=== PATIENT | female | born 1955 | race Caucasian/White ===

== ENCOUNTER 2023-05-12 12:07 | Outpatient (OUT) | payer BC, SELFPAY ==
--- NOTE | 2023-05-12 12:19 | XR_ITS ---
[address] [address] Patient Name: REINA KELELY MRN: [id number] date: 1955 Sex: F Assigned Patient Location: [facility] Current Patient Location: Accession/Order Number: [id number] Exam Date: 05/12/2023 12:28 Report Date: 05/15/2023 11:10 At the request of: JOHNATHAN RAINES Procedure: XR ribs RT min 3V w CXR1V EXAMINATION: XR ribs RT min 3V w CXR1V HISTORY: Acute Pain Right Ribs R07.81 COMPARISON: 11/28/2021 FINDINGS: LUNGS: No significant pulmonary parenchymal abnormalities. Retrocardiac opacity is suspected a hiatal hernia PLEURA: No pneumothorax, effusion, or pleural thickening. MEDIASTINUM: No visible mass or adenopathy. CARDIAC: No cardiomegaly or cardiac silhouette abnormality. RIBS: Acute minimally displaced fractures right lateral seventh and eighth and ninth ribs OTHER: Degenerative changes with rotatory levocurvature XR/XR ribs RT min 3V w CXR1V IMPRESSION: Acute minimally displaced fractures right lateral seventh, eighth and ninth ribs Electronically authenticated by: IRIS MONTES DE OCA Date: 05/15/2023 11:10
== END 2023-05-12 12:08 | disposition home or self-care (01) ==
LOC: RAD 12:10
PROVIDERS: PCP Nurse Practitioner Family; Visit Provider Nurse Practitioner Family
DX: R07.81 Pleurodynia (principal)
CPT/HCPCS: 71101

== ENCOUNTER 2024-07-24 06:55 | Outpatient (OUT) | payer BC, SELFPAY ==
--- NOTE | 2024-07-24 07:04 | MM_ITS ---
Patient Name: REINA KELLEY MR#: [id number] : 1955 Exam Date: 07/24/2024 Ordering Doctor: RAYNA ORDONEZ RADIOLOGY REPORT PROCEDURE: MM TOMOSYNTHESIS SCREENING BI COMPARISON: MG MAMM RT DIAG FU, 10/08/2021. MG MAMM SCREEN 3D MARKELL CAD, 09/16/2021. MAMMO MARKELL SCREEN, 08/07/2006. INDICATIONS: Screening Calculator Name NCI Breast Cancer Risk Assessment Tool 5 Year Breast Cancer Risk 1.50% Lifetime Breast Cancer Risk 5.20% Personal Breast Cancer No Personal Ovarian Cancer No Treatments None Family Cancers None LOCATION: [facility] BREAST COMPOSITION: The breasts are heterogeneously dense,which may obscure small masses. FINDINGS: DIAGNOSTIC CATEGORY 1--NEGATIVE. RIGHT BREAST: No significant suspicious finding. No significant change has occurred. LEFT BREAST: No significant suspicious finding. No significant change has occurred. RECOMMENDATIONS: ROUTINE MAMMOGRAM AND CLINICAL EVALUATION IN 12 MONTHS. PLEASE NOTE: A NORMAL MAMMOGRAM DOES NOT EXCLUDE THE POSSIBILITY OF BREAST CANCER. A CLINICALLY SUSPICIOUS PALPABLE LUMP SHOULD BE BIOPSIED. Dictated by: Jake Baez M.D. on 07/24/2024 at 15:42 Approved by: Jake Baez M.D. on 07/24/2024 at 15:47
== END 2024-07-24 06:56 | disposition home or self-care (01) ==
LOC: MAMMO 06:57
PROVIDERS: PCP Nurse Practitioner Family; Visit Provider Nurse Practitioner Family
DX: Z12.31 Encounter for screening mammogram for malignant neoplasm of breast (principal)
CPT/HCPCS: 77063; 77067

== ENCOUNTER 2024-08-22 12:53 | Emergency (ER) | payer MEDICARE, SELFPAY ==
[2024-08-22 13:06] VITALS: BP 175/91; PULSE 111; TEMP 36.7; O2SAT 97; BMI 21.9
[2024-08-22 13:45] LABS: Bilirubin Urine NEGATIVE (NEGATIVE); Blood Urine NEGATIVE (NEGATIVE); Clarity Urine CLEAR (CLEAR); Color Urine YELLOW (YELLOW); Glucose Urine UA NEGATIVE (NEGATIVE); Ketones Urine NEGATIVE (NEGATIVE); Leukocyte Esterase Urine TRACE (NEGATIVE); Nitrite Urine NEGATIVE (NEGATIVE); Protein Urine NEGATIVE (NEG/TRACE); Specific Gravity Urine 1.015 (1.005-1.025); Urobilinogen Urine 0.2 EU/dL (0.2-1.0)
[2024-08-22 13:46] LABS: Urine Microscopic Indicated YES
[2024-08-22 13:55] LABS: RBC Urine 0-2 #/HPF (0-2)
[2024-08-22 13:56] LABS: Bacteria Urine TRACE #/HPF (NONE SEEN); Cast Seen? SEEN #/LPF (NONE SEEN); Crystals Seen? None Seen #/HPF (None Seen); Hyaline Casts Urine RARE; Mucus Urine NONE SEEN (NONE SEEN); Squamous Epithelial Cell Urine FEW #/LPF (NONE/RARE); Urine Culture Indicated NO
--- NOTE | 2024-08-22 14:48 | ECG_ITS ---
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
[2024-08-22 15:03] LABS: Basophils Absolute Auto 0.1 10^3/uL (0.0-0.1); Basophils Percent Auto 0.6 % (0.2-2.0); Eosinophils Absolute Auto 0.1 10^3/uL (0.0-0.7); Eosinophils Percent Auto 0.6 % (0.9-7.0); Hematocrit 46.7 % (36.0-48.0); Hemoglobin 15.4 g/dL (12.0-16.0); Immature Granulocytes Abs Auto 0.03 10^3/uL (0.00-0.03); Immature Granulocytes Pct Auto 0.2 % (0.0-0.5); Lymphocytes Absolute Auto 1.6 10^3/uL (1.2-3.8); Lymphocytes Percent Auto 11.3 % (20.5-60.0); Mean Corpuscular Hemoglobin 31.4 pg (26.7-34.0); Mean Corpuscular Volume 95.1 fL (81.0-99.0); Mean Platelet Volume 9.9 fL (9.5-13.5); Monocytes Absolute Auto 0.8 10^3/uL (0.3-0.8); Monocytes Percent Auto 5.8 % (1.7-12.0); Neutrophils Absolute Auto 11.3 10^3/uL (1.4-6.5); Neutrophils Percent Auto 81.5 % (43.0-75.0); Platelet Count 330 10^3/uL (150-450); Red Blood Count 4.91 10^6/uL (4.20-5.40); Red Cell Distribution Width 13.3 % (11.0-15.0); White Blood Count 13.9 10^3/uL (4.0-11.0)
[2024-08-22 15:19] VITALS: PULSE 105
[2024-08-22 15:20] VITALS: PULSE 108
[2024-08-22 15:24] VITALS: PULSE 105
[2024-08-22 15:28] VITALS: TEMP 37.3
[2024-08-22 15:29] LABS: Alanine Aminotransferase 35 U/L (14-59); Albumin Globulin Ratio 0.9; Albumin Level 4.1 g/dL (3.4-5.0); Alkaline Phosphatase 105 U/L (46-116); Anion Gap 17.9; Aspartate Amino Transferase 26 U/L (15-37); BUN Creatinine Ratio 14.5; Bilirubin Total 0.6 mg/dL (0.2-1.0); Calcium 9.9 mg/dL (8.5-10.1); Chloride 100 mmol/L (98-107); Estimated GFR (African America >60 (>=60 mL/min/1.73m^2); Estimated GFR (Non-African Ame >60 (>=60 mL/min/1.73m^2); Globulin 4.5 g/dL; Glucose 123 mg/dL (74-106); Lactate/Lactic Acid 1.3 mmol/L (0.4-2.0); Potassium 3.9 mmol/L (3.5-5.1); Prothrombin Time 9.8 sec (9.0-11.6); Sodium 142 mmol/L (136-145); Total Protein 8.6 g/dL (6.4-8.2); Troponin I High Sensitivity <4.0 pg/mL (4.0-51.3)
[2024-08-22 15:30] LABS: INR <0.93
--- NOTE | 2024-08-22 15:32 | CT_ITS ---
[address] [address] Patient Name: REINA KELLEY MRN: [id number] date: 1955 Sex: F Assigned Patient Location: ER Current Patient Location: Accession/Order Number: [id number] Exam Date: 08/22/2024 15:40 Report Date: 08/22/2024 16:09 At the request of: KENDRA AGUIRRE Procedure: CT abdomen pelvis wo con EXAMINATION: CT abdomen pelvis wo con HISTORY: Left flank pain ; left upper quadrant pain COMPARISON: CT abdomen pelvis 11/28/2021 TECHNIQUE: Axial, Coronal, and Sagittal images were obtained without and/or with IV contrast as indicated by examination type. Dose reduction techniques were achieved by using automated exposure control and/or adjustment of mA and/or kV according to patient size and/or use of iterative reconstruction technique. FINDINGS: LUNG BASES: Mild atelectasis within left lung base adjacent the hiatal hernia. LIVER: No enlargement, atrophy, suspicious density, or significant focal lesion. BILIARY: No dilatation or calcification. PANCREAS: No lesion, fluid collection, or abnormal duct dilatation. SPLEEN: No enlargement or focal lesion. ADRENALS: No mass or enlargement. KIDNEYS: No mass, obstruction, or calcification. BOWEL/MESENTERY: Large hiatal hernia with part of the stomach above the diaphragm. Within the stomach are 2 separate dense foreign bodies, one is approximately 10 x 5 x 5 mm. The other is only partially included at the upper level of today's imaging but is causing artifact. Unremarkable small bowel and colon. AORTA/VASCULAR: No aneurysm or dissection. RETROPERITONEUM: No mass or adenopathy. LYMPH NODES: No adenopathy. URINARY BLADDER: No visible focal wall thickening, lesion, or calculus. PELVIC ORGANS: Hysterectomy. ABDOMINAL WALL: No mass or hernia. BONES: No bony lesion or fracture. OTHER: Negative. CT/CT abdomen pelvis wo con IMPRESSION: 1. No urinary tract calculi. 2. Unremarkable gallbladder and pancreas. 3. Large hiatal hernia; not significantly changed. 4. 2 dense foreign bodies within the stomach of uncertain etiology. Correlate with patient history. These could be ingested foreign bodies or possibly very dense mineral/medication tablets, but are atypical. Electronically authenticated by: MAURIZIO BANEGAS Date: 08/22/2024 16:09
--- NOTE | 2024-08-22 15:33 | ED_ITS ---
HPI HPI - General Adult General Chief complaint: Abdominal Pain Stated complaint: RIB/ABDOMNAL PAIN Time Seen by Provider: 08/22/24 15:15 Source: patient Mode of arrival: walk-in Limitations: no limitations History of Present Illness HPI narrative: Patient is a 69-year-old female who presents to the emergency department for an episode of left upper quadrant/left flank pain that occurred earlier today after eating. She states the pain is now resolved. She had 1 episode of emesis on the way to the emergency department. She states the pain is now resolved and she no longer feels nauseous. She states she would like to be evaluated because she does not want the pain to come back again. She has not had any fevers, chest pain or shortness of breath. She denies any other upper respiratory symptoms. She denies urinary symptoms, diarrhea. No previous abdominal surgeries. At time of my evaluation, the patient is drinking a cup of tea comfortably watching television. Related Data Previous Rx's ?Medication ?Instructions ?Recorded ondansetron 4 mg disintegrating 4 mg PO Q6H PRN nausea and 08/22/24 tablet vomiting #12 tabs sucralfate 1 gram tablet (Carafate) 1 g PO Q6H PRN abdominal pain #12 08/22/24 tabs Allergies Allergy/AdvReac Type Severity Reaction Status Date / Time No Known Drug Allergies Allergy Verified 08/22/24 13:06 Opioid HPI Opioid Management Most Recent Opioid Data: No Data to Display Review of Systems ROS Constitutional Denies: fever or chills Ears, nose, mouth, and throat Denies: throat pain or nasal congestion Cardiovascular Denies: chest pain Respiratory Denies: shortness of breath Gastrointestinal Reports: abdominal pain, nausea and vomiting; Denies: diarrhea Genitourinary Denies: painful urination Musculoskeletal Denies: back pain or neck pain Integumentary/Breast Denies: rash Neurological Denies: numbness in extremities or weakness in extremities Hematologic/Lymphatic Denies: easy bruising or easy bleeding Exam Narrative Exam Narrative: Gen.: Awake, alert, in no distress Head: Normocephalic, atraumatic ENT: Moist mucous membranes Respiratory: No respiratory distress, lungs clear bilaterally Cardio: Regular rate and rhythm Gastrointestinal: Abdomen is soft, nondistended and nontender to palpation Extremities: Moves extremities equally Psych: Normal mood and affect Neuro: No focal neuro deficit Skin: Warm, dry, intact Constitutional Vital Signs, click to edit/add: Last Vital Signs Temp 99.2 F 08/22/24 15:28 Pulse 108 H 08/22/24 15:20 Resp 24 H 08/22/24 15:20 BP 175/91 H 08/22/24 13:06 Pulse Ox 97 08/22/24 13:06 O2 Del Method Room Air 08/22/24 13:06 Course Vital Signs Vital signs: Vital Signs Temperature 98.1 F 08/22/24 13:06 Pulse Rate 111 H 08/22/24 13:06 Respiratory Rate 18 08/22/24 13:06 Blood Pressure 175/91 H 08/22/24 13:06 Pulse Oximetry 97 08/22/24 13:06 Oxygen Delivery Method Room Air 08/22/24 13:06 Temperature 99.2 F 08/22/24 15:28 Pulse Rate 108 H 08/22/24 15:20 Respiratory Rate 24 H 08/22/24 15:20 Blood Pressure 175/91 H 08/22/24 13:06 Pulse Oximetry 97 08/22/24 13:06 Oxygen Delivery Method Room Air 08/22/24 13:06 Medical Decision Making MDM Narrative Medical decision making narrative: EKG, laboratory studies reviewed and noted, patient was found to have a mild urinary tract infection and mild leukocytosis. She had no complaints of pain or nausea in the ER and abdomen is soft and benign. CT of the abdomen and pelvis without contrast shows a large hiatal hernia with no other acute process. Patient discharged with Carafate and Zofran to follow-up with PCP. Return to the emergency department if symptoms change or worsen SUPERVISED APC VISIT, PHYSICIAN ATTESTATION: Based on the medical record the care appears appropriate. ? Medical Records Medical records reviewed: Yes I reviewed the patient's medical records Lab Data Lab results reviewed: Yes I reviewed the patient's lab results Labs: Lab Results 08/22/24 08/22/24 Range/Units 13:15 14:57 WBC 13.9 H (4.0-11.0) 10^3/uL RBC 4.91 (4.20-5.40) 10^6/uL Hgb 15.4 (12.0-16.0) g/dL Hct 46.7 (36.0-48.0) % MCV 95.1 (81.0-99.0) fL MCH 31.4 (26.7-34.0) pg MCHC 33.0 (29.9-35.2) g/dL RDW 13.3 (11.0-15.0) % Plt Count 330 (150-450) 10^3/uL MPV 9.9 (9.5-13.5) fL Neut % (Auto) 81.5 H (43.0-75.0) % Lymph % (Auto) 11.3 L (20.5-60.0) % [place] % (Auto) 5.8 (1.7-12.0) % Eos % (Auto) 0.6 L (0.9-7.0) % Baso % (Auto) 0.6 (0.2-2.0) % Neut # (Auto) 11.3 H (1.4-6.5) 10^3/uL Lymph # (Auto) 1.6 (1.2-3.8) 10^3/uL [place] # (Auto) 0.8 (0.3-0.8) 10^3/uL Eos # (Auto) 0.1 (0.0-0.7) 10^3/uL Baso # (Auto) 0.1 (0.0-0.1) 10^3/uL Abs Immat Gran (auto) 0.03 (0.00-0.03) 10^3/uL Imm/Tot Granulo (auto) 0.2 (0.0-0.5) % PT 9.8 (9.0-11.6) sec INR <0.93 Sodium 142 (136-145) mmol/L Potassium 3.9 (3.5-5.1) mmol/L Chloride 100 (98-107) mmol/L Carbon Dioxide 28.0 (21.0-32.0) mmol/L Anion Gap 17.9 BUN 12.0 (7.0-18.0) mg/dL Creatinine 0.83 (0.55-1.02) mg/dL Est GFR ( Amer) >60 (>=60 mL/min/1.73m^2) Est GFR (Non-Af Amer) >60 (>=60 mL/min/1.73m^2) BUN/Creatinine Ratio 14.5 Glucose 123 H (74-106) mg/dL Lactate 1.3 (0.4-2.0) mmol/L Calcium 9.9 (8.5-10.1) mg/dL Total Bilirubin 0.6 (0.2-1.0) mg/dL AST 26 (15-37) U/L ALT 35 (14-59) U/L Alkaline Phosphatase 105 (46-116) U/L Troponin I High Sens <4.0 L (4.0-51.3) pg/mL Total Protein 8.6 H (6.4-8.2) g/dL Albumin 4.1 (3.4-5.0) g/dL Globulin 4.5 g/dL Albumin/Globulin Ratio 0.9 Lipase 73.0 (16.0-77.0) U/L Urine Color Yellow (YELLOW) Urine Clarity Clear (CLEAR) Urine pH 8.0 (5.0-9.0) Ur Specific [place] 1.015 (1.005-1.025) Urine Protein Negative (NEG/TRACE) mg/dL Urine Glucose (UA) Negative (NEGATIVE) mg/dL Urine Ketones Negative (NEGATIVE) mg/dL Urine Occult Blood Negative (NEGATIVE) Urine Nitrite Negative (NEGATIVE) Urine Bilirubin Negative (NEGATIVE) Urine Urobilinogen 0.2 (0.2-1.0) EU/dL Ur Leukocyte Esterase Trace A (NEGATIVE) Urine RBC 0-2 (0-2) #/HPF Urine WBC 2-5 A (NONE SEEN) #/HPF Ur Squamous Epith Cells Few A (NONE/RARE) #/LPF Urine Crystals None seen (None Seen) #/HPF Urine Bacteria Trace A (NONE SEEN) #/HPF Urine Casts Seen A (NONE SEEN) #/LPF Hyaline Casts Rare Urine Mucus None seen (NONE SEEN) Ur Culture Indicated? No Imaging Data CT scan - abdomen: Attestation: I have reviewed the pertinent imaging results. Radiologist's impression: ITS Impressions Abdomen/Pelvis CT 08/22/24 15:32 IMPRESSION: 1. No urinary tract calculi. 2. Unremarkable gallbladder and pancreas. 3. Large hiatal hernia; not significantly changed. 4. 2 dense foreign bodies within the stomach of uncertain etiology. Correlate with patient history. These could be ingested foreign bodies or possibly very dense mineral/medication tablets, but are atypical. Electronically authenticated by: MAURIZIO BANEGAS Date: 08/22/2024 16:09 ECG Data Attestation: I personally reviewed and interpreted this ECG as follows: (Sinus tachycardia at a rate of 106, no acute ST elevation or ectopy. EKG reviewed by attending physician) Discharge Plan Discharge Chief Complaint: Abdominal Pain Clinical Impression: Abdominal pain, Hiatal hernia, Acute UTI Patient Disposition: Home, Self-Care Time of Disposition Decision: 16:19 Condition: Good Prescriptions / Home Meds: New sucralfate [Carafate] 1 gram tablet 1 g PO Q6H PRN (Reason: abdominal pain) Qty: 12 0RF ondansetron 4 mg tablet,disintegrating 4 mg PO Q6H PRN (Reason: nausea and vomiting) Qty: 12 0RF Print Language: Tongan Instructions: Hiatal Hernia (ED), Acute Abdominal Pain (ED) Referrals: JOHNATHAN RAINES [Primary Care Provider] - 1 week
== END 2024-08-22 16:34 | disposition home or self-care (01) ==
PROVIDERS: Physician Assistant; Emergency Provider Emergency Medicine; PCP Nurse Practitioner Family
DX: N39.0 Urinary tract infection, site not specified (principal); R10.9 Unspecified abdominal pain; K44.9 Diaphragmatic hernia without obstruction or gangrene
CPT/HCPCS: 36415; 74176; 80053; 81001; 83605; 83690; 84484; 85025; 85610; 93005; 99285

== ENCOUNTER 2025-05-25 09:18 | Emergency (ER) | payer MEDICARE, SELFPAY ==
--- OUTSIDE RECORDS SUMMARY | 2025-05-23 11:20 | XMS_ITS | Encounter Summary ---
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 Primary Care Provider + Reason for Visit * Reason Comments F/U anxiety Encounter Details Date Type Department Care Team (Late st Contact Info) Description 05/23/2025 11:20 AM EDT Office Visit [facility] Physicians Internal Medicine - Family Medicine [address] [place] [address] [facility] [address] [place] [address] Anxiety (Primary Dx); Essential hypertension Social History Tobacco Use Types Packs/Day Years Used Date Smoking Tobacco: Former Cigarettes 0.5 20 0 02/25/1998 - 02/25/2018 Smokeless Tobacco: Never Alcohol Use Standard Drinks/Week Comments Yes 0 (1 standard drink = 0.6 oz pur e alcohol) socially PHQ-2 Answer Date Recorded Total Score 0 05/23/2025 Childcare Answer Date Recorded Childcare Unknown 04/10/2019 Employment Answer Date Recorded Employment Unknown 04/10/2019 Hunger Screening Answer Date Recorded Within the past 12 months we worried whether our food would run out before we got money to buy more. Never True 05/23/2025 Within the past 12 months th e food we bought just didn't last and we didn't have money to get more. Never True 05/23/2025 Purpose - Life Answer Date Recorded Purpose and direction in life Unknown Comments No Sex and Gender Information Value Date Recorded Sex Assigned at Not on file Legal Sex Female 11:24 AM EDT Gender Identity Not on file Sexual Orientation Not on file documented as of this encounter Last Filed Vital Signs Vital Sign Reading Time Taken Comments Blood Pressure 158/98 05/23/2025 12:02 PM EDT Pulse 62 05/23/2025 12:02 PM EDT Temperature 36.8 C (98.2 F) 05/23/2025 12:02 PM EDT Respiratory Rate 18 05/23/2025 12:02 PM EDT Oxygen Saturation 99% 05/23/2025 12:02 PM EDT Inhaled Oxygen Concentration - - Weight 49 kg (108 lb) 05/23/2025 12:02 PM EDT Height 154.9 cm (5' 0.98 ) 05/23/2025 12:02 PM E DT Body Mass Index 20.42 05/23/2025 12:02 PM EDT documented in this encounter Progress Notes * JANA Coley - 05/23/2025 11:20 AM EDT [address] [facility] [address] Patient: Jonathan Anna Date of : 1955 Encounter Date: 05/23/2025 History of Present Illness: The patient is a 69 y.o. female, an established patient, and is here for Chief Complaint Patient presents with F/U anxiety . HPI Patient states her anxiety is slightly better and she is able to sleep better on the Lexapro. She was too nervous to take the Ativan for breakthrough symptoms because it was a controlled substance and she is worried she will get sleepy at work. Patient has lost more weight because she does not feellike eating when she has increased anxiety and when she does eat makes her feel nauseated and has ea rly satiety. She denies any suicidal thoughts. Denies any adverse side effects to the Lexapro. Problem List Items Addressed This Visit Cardiovascular and Mediastinum Essential hypertension Other Visit Diagnoses Anxiety - Primary Past Medical, Family, and Social History Update: The following portions of the patient's history were reviewed and updated as appropriate: allergies, current medications, past family history, past medical history, past social history, past surgicalhistory and problem list. Past Medical History: Diagnosis Date Anxiety Hypertension Neck pain Past Surgical History: Procedure Laterality Date COLONOSCOPY 2011 COLONOSCOPY N/A 07/03/2019 Performed by Michael Jenkins DO at [facility] LAPROSCOPIC ULTRASOUND GUIDED MICROWAVE ABLASION OF LIVER TUBAL LIGATION Current Outpatient Medications Medication Sig Dispense Refill alendronate (FOSAMAX) 70 mg tablet Take 1 tablet (70 mg total) by mouth every 7 days. In a.m. with water on empty stomach, nothing else by mouth and remain upright for 30min 12 tablet 3 amLODIPine (NORVASC) 10 mg tablet TAKE 1 TABLET BY MOUTH EVERY DAY 90 tablet 1 celecoxib (CeleBREX) 200 mg capsule Take 1 capsule (200 mg total) by mouth daily as needed for pain. TAKE 1 CAPSULE BY MOUTH IN THE MORNING 90 capsule 1 cholecalciferol (VITAMIN D3) 50,000 units capsule Take 1 capsule (50,000 Units total) by mouth oncea week. 90 capsule 1 levothyroxine (SYNTHROID, LEVOTHROID) 50 MCG tablet Take 1 tablet (50 mcg total) by mouth in the morning. 90 tablet 1 rosuvastatin (CRESTOR) 5 mg tablet Take 1 tablet (5 mg total) by mouth in the morning. 90 tablet 3 escitalopram (LEXAPRO) 20 mg tablet Take 1 tablet (20 mg total) by mouth in the evening. 90 tablet 1 No current facility-administered medications for this visit. (All medications reviewed and updated by provider since last office visit or hospitalization) Allergies: Patient has no known allergies. Tobacco History: Social History Tobacco Use Smoking Status Former Current packs/day: 0.00 Average packs/day: 0.5 packs/day for 20.0 years (10.0 ttl pk-yrs) Types: Cigarettes Start date: 02/25/1998 Quit date: 02/25/2018 Years since quittin.2 Smokeless Tobacco Never (If patient a smoker, smoking cessation counseling offered) Social History: Social History Substance and Sexual Activity Alcohol Use Yes Comment: socially Review of Systems: Review of Systems Psychiatric/Behavioral: Negative for agitation, behavioral problems, decreased concentration, dysphoric mood, hallucinations, self-injury, sleep disturbance and suicidal ideas. The patient is nervous/anxious. The patient is not hyperactive. Physical Exam: BP (!) 158/98 (BP Site: Left Arm, BP Postition: Sitting, BP CUFF SIZE: S (7-9 inches)) Pulse 62 Temp 36.8 ??C (98.2 ??F) (Tympanic) Resp 18 Ht 154.9 cm (5' 0.98 ) Wt 49 kg (108 lb) SpO2 99% BMI 20.42 kg/m?? Physical Exam Vitals reviewed. Constitutional: Appearance: Normal appearance. HENT: Head: Normocephalic and atraumatic. Skin: Capillary Refill: Capillary refill takes less than 2 seconds. Neurological: General: No focal deficit present. Mental Status: She is alert and oriented to person, place, and time. Gait: Gait normal. Psychiatric: Attention and Perception: Attention normal. Mood and Affect: Mood is anxious. Speech: Speech normal. Behavior: Behavior normal. Thought Content: Thought content normal. Cognition and Memory: Cognition normal. Assessment and Plan: Jonathan was seen today for f/u anxiety. Diagnoses and all orders for this visit: Anxiety Essential hypertension Other orders - escitalopram (LEXAPRO) 20 mg tablet; Take 1 tablet (20 mg total) by mouth in the evening. Follow-up: Patient would like to increase the dose of Lexapro to 20 mg. She may use the Ativan as needed at night if she has panic or anxiety breakthrough. She does not want to add counseling at this time. Patient's blood pressure was above goal today on rechecked by provider. She was encouraged to checkher blood pressures 2-3 times per week at home and record and follow up in 1 month with blood pressure diary. She reports to have taken her amlodipine today before appointment. Follow up in 1 month for anxiety and blood pressure rechecked. JANA COLEY APRN-CNP 05/23/25 1308 documented in this encounter Plan of Treatment Upcoming Encounters Date Type Department Care Team (Late st Contact Info) Description 07/03/2025 3:40 PM EDT [facility] - Family Medicine [facility] [place] [address] [place] [address] Belem Rodriguez APRN-CNP [address] [place] [address] documented as of this encounter Visit Diagnoses Diagnosis Anxiety- Primary Anxiety state, unspecified Essential hypertension Unspecified essential hypertension documented in this encounter Additional Health Concerns Assessment Noted Time PHQ-9 Depression Total Score: 0 05/23/20 25 12:01 PM EDT documented as of this encounter Care Teams Frame Polisher Relationship Specialty Start Date End Date Belem Rodriguez APRN-CNP [address] [place] [address] PCP - General Internal Medicine 04/06/24 documented as of this encounter
[2025-05-25] VITALS (19 sets, daily range): BP systolic 163–222; BP diastolic 78–107; PULSE 58–79; TEMP 36.9; O2SAT 96–100; BMI 21.1
--- OUTSIDE RECORDS SUMMARY | 2025-05-25 09:37 | XMS_ITS | CCD ---
Author Organization [facility] Care Team Providers Care Title 1 Tutor Name Role Phone Sadie Raines Primary Care Provider Iris Aponte Unavailable YANNA, DR SADIE Sahni Admitting Unavailable YANNA, DR SADIE Sahni Attending Unavailable YANNA, DR SADIE Sahni Primary Care Unavailable TAVON, DR IRIS Dias Consulting Unavailable YANNA, DR SADIE Sahni Consulting Unavailable YANNA, DR SADIE Sahni Admitting Unavailable YANNA, DR SADIE Sahni Attending Unavailable BROOKE, DR KAUFFMAN Primary Care Unavailable TAVON, DR IRIS Dias Consulting Unavailable KUNNirmal, DR SADIE Sahni Consulting Unavailable KUNNirmal, DR SADIE Sahni Admitting Unavailable KUNNirmal, DR SADIE Sahni Attending Unavailable KUNNirmal, DR SADIE Sahni Primary Care Unavailable KUNNirmal, DR SADIE Sahni Consulting Unavailable YANNA, DR SADIE Sahni Primary Care Unavailable KALI RODRIGUEZ Admitting Unavailable KALI RODRIGUEZ Attending Unavailable ARNOL, DR OLEARY Consulting Unavailable JENNIFER, KALI Consulting Unavailable MARTIN, LUCILLE Consulting Unavailable KLYM, LAURYN Consulting Unavailable Nain Goodman Unavailable [phone] SADIE RAINES Referring Unavailable JAMARI COX Primary Care Unavailable MERY, BELEM Yasmeen Referring Unavailable MERY, BELEM L Primary Care Unavailable Mery MED [employer] CLEANER MAINTAINER, Belem L Primary Care Provider Jamari Cox DO Primary Care Provider Unavailable Primary Care Provider UnavailKENDRA Flaherty Attending Unavailable Mery MED [employer]OVERHEAD CLEANER MAINTAINER, Belem L Primary Care Provider MERY, BELEM L Attending Unavailable MERY, BELEM L Referring Unavailable MERY, BELEM L Primary Care Unavailable MERY, BELEM L Attending Unavailable MERY, BELEM L Referring Unavailable MERY, BELEM L Primary Care Unavailable MERY, BELEM L Attending Unavailable MERY, BELEM Yasmeen Referring Unavailable BELEM ORDONEZ Primary Care Unavailable BELEM ORDONEZ Attending Unavailable MERY, BELEM L Referring Unavailable MERY BELEM Yasmeen Primary Care Unavailable MERY, BELEM Yasmeen Attending Unavailable BELEM ORDONEZ Referring Unavailable BELEM ORDONEZ Primary Care Unavailable Medications Current Medications Medication Drug Class(es) Dates Sig (Normalized) Sig (Original) alendronic acid 70 mg oral tablet (20 sources) Bisphosphonate Start: 12-20-2024 take 1 tablet by mouth every week alendronate (Fosamax) 70 MG tablet Take 70 mg by mouth once a week 12/20/2024 Active Start: 06-20-2023 End: 04-11-2025 take 1 tablet by mouth in the morning alendronate (FOSAMAX) 70 mg tablet Take 1 tablet (70 mg total) by mouth every 7 days. In a.m. with water on empty stomach, nothing else by mouth and remain upright for 30min 12 tablet 3 04/11/2025 Active amLODIPine 10 mg oral tablet (20 sources) Dihydropyridine Calcium Channel Bhupendra Start: 09-22-2023 End: 09-10-2024 take 1 tablet by mouth once daily amLODIPine (NORVASC) 10 mg tablet Indications: Essential (primary) hypertension TAKE 1 TABLET BY MOUTH EVERY DAY 90 tablet 1 09/10/2024 Active Comment on above: Take 10 mg by mouth once daily. budesonide 3 mg delayed release oral capsule (20 sources) Corticosteroid Start: 08-10-2022 End: 10-04-2024 take 1 capsule by mouth every twenty-four hours in the morning budesonide EC (ENTOCORT EC) 3 mg 24 hr capsule Indications: Collagenous colitis Take 1 capsule (3 mg total) by mouth in the morning. This is an updated prescription she does need right now. 90 capsule 1 08/10/2022 10/04/2024 Discontinued (Therapy completed) Start: 01-08-2020 take 2 capsules by m outh every twenty-four hours Budesonide 3 MG 2 capsules Orally Once a day for 30 days Dec, Active take 3 mg by mouth o nce daily in the morning, then take 1 capsule by mouth budesonide (ORTIKOS) 6 mg capsule, extended release Take 3 mg by mouth every morning. 0 Active Comment on above: Take 3 mg by mouth e very morning. carvedilol 12.5 mg oral tablet (18 sources) alpha-Adrenergic Bhupendar, beta-Adrenergic Bhupendra End: carvediloL (COREG) 12.5 mg tablet carvedilol 12.5 mg tablet 10/04/2024 Discontinued (Therapy completed) celecoxib 200 mg oral capsule (20 sources) Nonsteroidal Anti-inflammatory Drug Start: take 1 capsule by mouth once daily as needed for pain celecoxib (CeleBREX) 200 mg capsule Take 1 capsule (200 mg total) by mouth daily as needed for pain. TAKE 1 CAPSULE BY MOUTH IN THE MORNING 90 capsule 1 04/21/2025 Active Start: 11-20-2023 End: 04-21-2025 take 1 capsule by mouth in the morning celecoxib (CeleBREX) 200 mg capsule TAKE 1 CAPSULE BY MOUTH IN THE MORNING 30 capsule 1 02/19/2025 04/21/2025 Discontinued take 1 capsule by [facility] every twelve hours CeleBREX 200 MG 1 capsule with food Orally Twice a day Not-Taking/PRN Comment on above: Take 200 mg by mouth twice daily. cholecalciferol 1.25 mg oral capsule (20 sources) Vitamin D Start: 10-04-20 take 1 capsule by mouth every week cholecalciferol (VITAMIN D3) 50,000 units capsule Take 1 capsule (50,000 Units total) by mouth once a week. 90 capsule 1 10/04/2024 Active End: 10-04-2024 take 1 capsule by mouth in the morning cholecalciferol (VITAMIN D3) 50,000 units capsule Take 1 capsule (50,000 Units total) by mouth in the morning. 10/04/2024 Discontinued (Reorder) cholecalciferol, vitamin D3, 125 mcg/0.5 mL (5K unit/0.5mL) drop Take by mouth. 0 Active Comment on above: Take by mouth. cyclobenzaprine hydrochloride 10 mg oral tablet (20 sources) Muscle Relaxant Start: 06-03-20 End: 10-04-20 take 1 tablet by mouth in the morning, then take 1 tablet by mouth at bedtime cyclobenzaprine (FLEXERIL) 10 mg tablet Indications: Other chronic pain Take 1 tablet (10 mg total) by mouth in the morning and 1 tablet (10 mg total) before bedtime. 180 tablet 1 06/03/2024 10/04/2024 Discontinued (Patient Stopped On Own) Start: 05-12-2023 take 1 tablet by ber[place] th in the morning, then take 1 tablet by mouth at bedtime cyclobenzaprine (FLEXERIL) 10 mg tablet Indications: Other chronic pain Take 1 tablet (10 mg total) by mouth in the morning and 1 tablet (10 mg total) before bedtime. 180 tablet 1 05/12/2023 Active Cyclobenzaprine HCl Active take 1 tablet by berlin th every twelve hours as needed cyclobenzaprine (FLEXERIL) 10 mg tablet Take 10 mg by mouth twice daily as needed. 0 Active Comment on above: Take 10 mg by mouth twice daily as needed. escitalopram 20 mg oral tablet (7 sources) Serotonin Reuptake Inhibitor Start: take 1 tablet by mouth in the evening escitalopram (LEXAPRO) 20 mg tablet Take 1 tablet (20 mg total) by mouth in the evening. 90 tablet 1 05/23/2025 Active Start: 04-11-2025 End: 05-23-2025 take 1 tablet by mouth in the evening escitalopram (LEXAPRO) 10 mg tablet Take 1 tablet (10 mg total) by mouth in the evening. 30 tablet 1 04/11/2025 05/23/2025 Discontinued (Therapy completed) hydroCHLOROthiazide 12.5 mg oral tablet (20 sources) Thiazide Diuretic Start: 09-06-2024 End: 10-04-2024 take 1 tablet by mouth once daily hydroCHLOROthiazide (HYDRODIURIL) 12.5 mg tablet Indications: Localized edema Take 1 tablet (12.5 mg total) by mouth daily. 90 tablet 1 09/06/2024 10/04/2024 Discontinued (Therapy completed) Start: 06-17-2023 End: 09-03-2024 take 1 tablet by mouth once daily hydroCHLOROthiazide (HYDRODIURIL) 12.5 mg tablet Indications: Localized edema take 1 tablet by mouth once daily 90 tablet 1 12/26/2023 09/03/2024 Discontinued (Reorder) take 1 tablet by berlin th once daily hydroCHLOROthiazide (HYDRODIURIL, ESIDRIX) 12.5 mg tablet Take 12.5 mg by mouth once daily. 0 Active Comment on above: Take 12.5 mg by mout h once daily. Hydrochlorothiazide-12. 5 mg 12.5 mg (4 sources) take 1 tablet by mouth once daily Hydrochlorothiazide-12 .5 mg 12.5 mg 1 tablet Orally Once a day Active levothyroxine sodium 0.05 mg oral tablet (20 sources) l-Thyroxine Start: take 1 tablet by mouth in the morning levothyroxine (SYNTHROID, LEVOTHROID) 50 MCG tablet Take 1 tablet (50 mcg total) by mouth in the morning. 90 tablet 1 04/14/2025 Active Start: 06-03-2024 End: 11-28-2024 take 1 tablet by mouth in the morning levothyroxine (SYNTHROID, LEVOTHROID) 75 MCG tablet Indications: Acquired hypothyroidism TAKE 1 TABLET BY MOUTH IN THE MORNING 90 tablet 1 11/28/2024 Active Start: 12-01-2022 End: 11-20-2023 take 1 tablet by mouth in the morning levothyroxine (SYNTHROID, LEVOTHROID) 75 MCG tablet Indications: Acquired hypothyroidism Take 1 tablet (75 mcg total) by mouth in the morning. 90 tablet 1 11/20/2023 Active take 1 tablet by berlin th once daily before breakfast levothyroxine (LEVOXYL) 50 mcg tablet Take 50 mcg by mouth daily before breakfast. 0 Active Comment on above: Take 50 mcg by mouth daily before breakfast. Potassium (4 sources) Potassium Active potassium chloride 20 meq extended release oral tablet (20 sources) Start: 05-20-2023 End: 10-04-2024 potassium chloride (K-TAB,KLOR-CON) 20 mEq CR tablet Indications: Adverse effect of unspecified drugs, medicaments and biological substances, subsequent encounter Take 1 tablet (20 mEq total) by mouth in the morning. 90 tablet 1 03/04/2024 10/04/2024 Discontinued (Therapy completed) Start: 08-10-2022 End: 11-20-2023 take 2 tablets by mouth in the morning potassium chloride (KLOR-CON M 20) 20 MEQ CR tablet Indications: Hypokalemia Take 2 tablets (40 mEq total) by mouth in the morning. 180 tablet 1 08/10/2022 11/20/2023 Discontinued (Duplicate Listing) take 1 tablet by berlin th twice daily, then take 1 tablet by mouth potassium chloride (KLOR-CON 10) 10 mEq tablet Take 10 mEq by mouth twice daily. 0 Active Comment on above: Take 10 mEq by mouth twice daily. rosuvastatin calcium 5 mg oral tablet (20 sources) HMG-CoA Reductase Inhibitor Start: take 1 tablet by mouth in the morning rosuvastatin (CRESTOR) 5 mg tablet Indications: Hyperlipidemia, unspecified Take 1 tablet (5 mg total) by mouth in the morning. 90 tablet 3 03/31/2025 Active Start: 11-18-2022 End: 03-26-2025 take 1 tablet by mouth once daily rosuvastatin (CRESTOR) 5 mg tablet Indications: Hyperlipidemia, unspecified take 1 tablet by mouth once daily 90 tablet 3 12/26/2023 03/26/2025 Discontinued (Reorder) sucralfate 1000 mg oral tablet (1 source) Aluminum Complex Start: 08-22-2024 End: 10-04-2024 take 1 tablet by mouth every six hours as needed sucralfate (CARAFATE) 1 gram tablet Take 1 tablet (1 g total) by mouth every 6 (six) hours as needed. 08/22/2024 10/04/2024 Discontinued (Discontinued by another clinician) triamcinolone acetonide 5 mg/ml topical cream (12 sources) Corticosteroid Start: 03-01-2024 End: 10-04-2024 triamcinolone (KENALOG) 0.5 % cream Apply 1 Application topically in the morning and 1 Application before bedtime. 30 g 03/01/2024 10/04/2024 Discontinued (Patient Stopped On Own) Vitamin D3 (4 sources) Vitamin D3 Activ e Completed/Discontinued Medications Medication Drug Class(es) Dates Sig (Normalized) Sig (Original) Cholestyramine Resin (4 sources) Bile Acid Sequestrant Prevalite prn Not-Taking/PRN Prevalite prn No t-Taking dextromethorphan hydrobromide 30 mg / pyrilamine maleate 30 mg oral tablet (5 sources) Uncompetitive J-dopkuc-G-aspartate Receptor Antagonist, Sigma-1 Agonist Start: 09-21-2020 Lisco DMT 30-30 MG 1 tablet Orally every 6-8 hours for 7 days Aug, Not-Taking/PRN pyrilamine-dextr omethorphan (CAPRON DMT) 30-30 mg tab Take by mouth. 0 Active Comment on above: Take by mouth. fluticasone furoate 0.0275 mg/actuat metered dose nasal spray (1 source) Corticosteroid take 2 spray(s) nasal route once daily Fluticasone Furoate 27.5 mcg/actuation nasal spray Use 2 Sprays in each nostril once daily. 0 Active Comment on above: Use 2 Sprays in each nostril once daily. lactic acid 50 mg/ml topical lotion (2 sources) End: ammonium lactate (LAC-HYDRIN FIVE) 5 % lotion Apply topically. 0 11/20/2023 Discontinued (Therapy completed) Comment on above: Apply to affected ar ea as needed. lidocaine 0.05 mg/mg medicated patch (1 source) Antiarrhythmic, Amide Local Anesthetic Start: End: apply 1 dose transdermal route once daily, then apply 1 dose transdermal route every twelve hours lidocaine (LIDODERM) 5 % Place 1 patch on the skin daily. Remove & Discard patch within 12 hours or as directed by 5 patch 1 05/25/2023 11/20/2023 Discontinued (Therapy completed) LORazepam 0.5 mg oral tablet (5 sources) Benzodiazepine Start: End: take 1 tablet by mouth once daily as needed for anxiety LORazepam (ATIVAN) 0.5 mg tablet Indications: Anxiety Take 1 tablet (0.5 mg total) by mouth daily as needed for anxiety. 7 tablet 04/11/2025 05/23/2025 Discontinued (Patient Stopped On Own) sulfaSALAzine 500 mg delayed release oral tablet (3 sources) Aminosalicylate End: take 1 tablet by mouth in the morning sulfaSALAzine (AZULFIDINE) 500 mg EC tablet Take 1 tablet (500 mg total) by mouth in the morning. Diarrhea - from GI . 11/08/2024 Discontinued (Patient Stopped On Own) Problems Active Problems Problem Classification Problem Date Documented Da te Episodic/Chronic Anxiety disorders (4 sources) Anxiety; Translations: [Anxiety disorder, unspecified] Onset: 04-11-2025 04-11-2025 Chronic Disorders of lipid metabolism (20 sources) Mixed hyperlipidemia; Translations: [Hyperlipidemia] Onset: 02-09-2022 08-10-2022 Chronic Essential hypertension (20 sources) Essential (primary) hypertension; Translations: [Essential hypertension] Onset: 01-16-2018 11-08-2024 Chronic Noninfectious gastroenteritis (20 sources) Collagenous colitis; Translations: [Collagenous colitis] Onset: 07-08-2019 Resolved: 05-17-2022 Chronic Nutritional deficiencies (20 sources) Vitamin D deficiency, unspecified; Translations: [Vitamin D deficiency] Onset: 12-31-2018 Chronic Osteoporosis (1 source) Senile osteoporosis; Translations: [Age-related osteoporosis without current pathological fracture] 11-08-2024 Chronic Other diseases of veins and lymphatics (2 sources) Disorder of vein of lower extremity; Translations: [Venous insufficiency (chronic) (peripheral)] 02-03-2025 Episodic Other gastrointestinal disorders (4 sources) Incontinence of feces; Translations: [Full incontinence of feces] Episodic Other skin disorders (2 sources) Inflamed seborrheic keratosis; Translations: [Inflamed seborrheic keratosis] 02-03-2025 Episodic Substance-related disorders (20 sources) Tobacco dependence syndrome; Translations: [Nicotine dependence, unspecified, uncomplicated] Onset: 08-10-2022 08-10-2022 Chronic Thyroid disorders (20 sources) Hypothyroidism, unspecified; Translations: [Acquired hypothyroidism] Onset: 06-24-2020 Resolved: 08-10-2022 07-14-2022 Chronic Unclassified (2 sources) LOW BACK PAIN, UNSPECIFIED; Translations: [LOW BACK PAIN, UNSPECIFIED] Onset: 11-30-2021 Unclassified (1 source) BP check Onset: 11-08-2024 Past or Other Problems Problem Classification Problem Date Documented Da te Episodic/Chronic Acute and unspecified renal failure (20 sources) Acute renal failure syndrome; Translations: [Acute kidney failure, unspecified] Onset: 06-27-2019 06-27-2019 Episodic Allergic reactions (1 source) Eczema; Translations: [Other specified dermatitis] 03-01-2024 Episodic Coagulation and hemorrhagic disorders (20 sources) Spontaneous ecchymosis; Translations: [Spontaneous ecchymoses] Onset: 03-23-2021 08-10-2022 Episodic E Codes: Adverse effects of medical drugs (3 sources) Adverse reaction to drug; Translations: [Adverse effect of unspecified drugs, medicaments and biological substances, subsequent encounter] 03-04-2024 Episodic Fluid and electrolyte disorders (20 sources) Hyperkalemia; Translations: [Hypokalemia] Onset: 03-04-2024 03-04-2024 Episodic Immunizations and screening for infectious disease (2 sources) Influenza vaccination given; Translations: [Encounter for immunization] Onset: 07-19-2024 07-19-2024 Episodic Mood disorders (20 sources) Mood disorders Onset: 11-08-2024 Resolved: 05-23-2025 11-08-2024 Noninfectious gastroenteritis (20 sources) Chronic non-specific colitis; Translations: [Noninfective gastroenteritis and colitis, unspecified] Onset: 07-03-2019 11-08-2024 Episodic Other aftercare (1 source) Other detention (current) drug therapy; Translations: [OTH BILLING REP CURRENT DRUG THERAPY] Onset: 11-30-2021 Episodic Other fractures (20 sources) Closed fracture of multiple ribs; Translations: [Multiple fractures of ribs, right side, subsequent encounter for fracture with routine healing] Onset: 06-20-2023 06-20-2023 Episodic Other gastrointestinal disorders (20 sources) Diarrhea; Translations: [Diarrhea, unspecified] Onset: 06-28-2019 06-28-2019 Episodic Other screening for suspected conditions (not mental disorders or infectious disease) (11 sources) Other abnormal and inconclusive findings on diagnostic imaging of breast; Translations: [Encounter for screening mammogram for malignant neoplasm of breast] Onset: 09-16-2021 Episodic Pathological fracture (20 sources) Pathological fracture due to osteoporosis; Translations: [Age-related osteoporosis with current pathological fracture, unspecified site, subsequent encounter for fracture with routine healing] Onset: 06-20-2023 06-20-2023 Episodic Residual codes; unclassified (2 sources) Localized edema; Translations: [Localized edema] 12-26-2023 Episodic Screening and history of mental health and substance abuse codes (2 sources) Personal history of nicotine dependence; Translations: [Patient encounter status] Onset: 11-30-2021 07-19-2024 Episodic Spondylosis; intervertebral disc disorders; other back problems (20 sources) Chronic neck pain; Translations: [Cervicalgia] Onset: 06-23-2020 08-10-2022 Episodic Sprains and strains (1 source) Strain of muscle, fascia and tendon of lower back, initial encounter; Translations: [STRAIN MUSC FASC TENDON LW BACK INT] Onset: 11-30-2021 Episodic Unclassified (1 source) LOW BACK PAIN, UNSPECIFIED; Translations: [LOW BACK PAIN, UNSPECIFIED] Onset: 11-28-2021 Results Test Name Value Interpretation Reference Range Facility BASIC METABOLIC PANELon 03-30 Anion gap [Moles/Vol] 8 mmol/L Normal 5-15 [facility] Comment on above: Performed By: #### B MP #### [facility] ([facility]) [address] [place] [address] VIR Calcium [Mass/Vol] 10.3 mg/dL Normal 8.5-10.5 [facility] Comment on above: Performed By: #### B MP #### [facility] ([facility]) [address] [place] [address] VIR Chloride [Moles/Vol] 99 mmol/L Normal 98-109 [facility] Comment on above: Performed By: #### B MP #### [facility] ([facility]) [address] [place] [address] VIR CO2 [Moles/Vol] 31 mmol/L Normal 22-32 [facility] Comment on above: Performed By: #### B MP #### [facility] ([facility]) [address] [place] [address] VIR Creatinine [Mass/Vol] 0.65 mg/dL Normal 0.40-1.00 [facility] Comment on above: Result Comment: METH OD TRACEABLE TO IDMS STANDARD Performed By: #### B MP #### [facility] ([facility]) [address] [place] [address] VIR EGFR (CKD-EPI) NON-RACE DEPENDENT >^90 Normal >=60 [facility] Comment on above: Result Comment: Repo rted eGFR is based on the CKD-EPI 2020 equation that does not use a race coefficient. Performed By: #### B MP #### [facility] ([facility]) [address] [place] [address] VIR Glucose [Mass/Vol] 103 mg/dL High 65-99 [facility] Comment on above: Performed By: #### B MP #### [facility] ([facility]) [address] [place] [address] VIR Potassium [Moles/Vol] 4.6 mmol/L Normal 3.5-5.0 [facility] Comment on above: Performed By: #### B MP #### [facility] ([facility]) [address] [place] [address] VIR Sodium [Moles/Vol] 138 mmol/L Normal 134-146 [facility] Comment on above: Performed By: #### B MP #### [facility] ([facility]) [address] [place] [address] VIR Urea nitrogen [Mass/Vol] 11 mg/dL Normal 5-27 [facility] Comment on above: Performed By: #### B MP #### [facility] ([facility]) [address] [place] [address] VIR THYROID PROFILE INCLUDES TSH FT4on 04-11-2025 Free T4 [Mass/Vol] 1.16 ng/dL Normal 0.61-1.60 [facility] Comment on above: Performed By: #### T HYR #### [facility] ([facility]) [address] [place] [address] VIR TSH 0.33 uIU/mL Low 0.49-4.67 [facility] Comment on above: Performed By: #### T HYR #### [facility] ([facility]) [address] [place] [address] VIR No Panel Informationon 02-03 [facility] BASIC METABOLIC PANLon 07-19 Anion gap [Moles/Vol] 10 mmol/L Normal 5-15 [facility] Comment on above: Performed By: #### B MP, 3016-3, 3024-7 #### [facility] ([id number]) [address] [place] [address] Calcium [Mass/Vol] 9.2 mg/dL Normal 8.5-10.5 [facility] Comment on above: Performed By: #### Zeny RIZVI, 6-3, 3023-7 #### [facility] ([id number]) [address] [place] [address] Chloride [Moles/Vol] 100 mmol/L Normal 98-109 [facility] Comment on above: Performed By: #### Zeny RIZVI, 6-3, 3023-7 #### [facility] ([id number]) [address] [place] [address] CO2 [Moles/Vol] 27 mmol/L Normal 22-32 [facility] Comment on above: Performed By: #### Zeny RIZVI, 3015-3, 7 #### [facility] ([id number]) [address] [place] [address] Creatinine [Mass/Vol] 0.63 mg/dL Normal 0.40-1.00 [facility] Comment on above: Result Comment: METH OD TRACEABLE TO IDMS STANDARD Performed By: #### Zeny RIZVI, 3015-3, 7 #### [facility] ([id number]) [address] [place] [address] eGFR (CKD-EPI) NON-RACE DEPENDENT >90 Normal >59 [facility] Comment on above: Result Comment: Reported eGFR is based on the CKD-EPI 2020 equation that does not use a race coefficient. Performed By: #### Zeny RIZVI, 3015-3, 3023-7 #### [facility] ([id number]) [address] [place] [address] Glucose [Mass/Vol] 100 mg/dL High 65-99 [facility] Comment on above: Performed By: #### Zeny RIZVI, 3016-3, 302-7 #### [facility] ([id number]) [address] [place] [address] Potassium [Moles/Vol] 4.2 mmol/L Normal 3.5-5.0 [facility] Comment on above: Performed By: #### Zeny RIZVI, 3016-3, 302-7 #### [facility] ([id number]) [address] [place] [address] Sodium [Moles/Vol] 137 mmol/L Normal 134-146 [facility] Comment on above: Performed By: #### Zeny RIZVI, 3016-3, 3023-7 #### [facility] ([id number]) [address] [place] [address] Urea nitrogen [Mass/Vol] 11 mg/dL Normal 5-27 [facility] Comment on above: Performed By: #### Zeny RIZVI, 3016-3, 3023-7 #### [facility] ([id number]) [address] [place] [address] FREE T4on 07-19-2024 Free T4 [Mass/Vol] 1.29 ng/dL Normal 0.61-1.60 [facility] Comment on above: Performed By: #### Zeny RIZVI, 3016-3, 302-7 #### [facility] ([id number]) [address] [place] [address] TSH Qnon 07-19-2024 TSH 0.86 uIU/mL Normal 0.49-4.67 [facility] [facility] Comment on above: Performed By: #### Zeny RIZVI, 3016-3, 302-7 #### [facility] ([id number]) [address], [address] [place] [address] COMPREHENSIVE METABOLIC PANE Armaan 03-01-2024 Albumin [Mass/Vol] 5.0 g/dL Normal 3.2-5.3 [facility] Comment on above: Performed By: #### Connor RIZVI, 40981-5, THYR #### [facility] ([id number]) [address], [address] [place] [address] ALP [Catalytic activity/Vol] 89 U/L Normal 39-130 [facility] Comment on above: Performed By: #### Connor RIZVI, 79056-6, THYR #### [facility] ([id number]) [address] [place] [address] ALT [Catalytic activity/Vol] 24 U/L Normal 0-31 [facility] Comment on above: Performed By: #### Connor RIZVI, 70493-8, THYR #### [facility] ([id number]) [address] [place] [address] Anion gap [Moles/Vol] 10 mmol/L Normal 5-15 [facility] Comment on above: Performed By: #### Connor RIZVI, 73637-9, THYR #### [facility] ([id number]) [address] [place] [address] AST [Catalytic activity/Vol] 25 U/L Normal 0-41 [facility] Comment on above: Performed By: #### Connor RIZVI, 63471-7, THYR #### [facility] ([id number]) [address], [address] [place] [address] Bilirubin [Mass/Vol] 0.8 mg/dL Normal 0.3-1.2 [facility] Comment on above: Performed By: #### Connor RIZVI, 56675-8, THYR #### [facility] ([id number]) [address], [address] [place] [address] Calcium [Mass/Vol] 10.0 mg/dL Normal 8.5-10.5 [facility] Comment on above: Performed By: #### Connor RIZVI 63154-3, THYR #### [facility] ([id number]) [address], [address] [place] [address] Chloride [Moles/Vol] 102 mmol/L Normal 98-109 [facility] Comment on above: Performed By: #### Connor RIZVI, 04508-7, THYR #### [facility] ([id number]) [address], [address] [place] [address] CO2 [Moles/Vol] 27 mmol/L Normal 22-32 [facility] Comment on above: Performed By: #### Connor RIZVI, 77994-4, THYR #### [facility] ([id number]) [address] [place] [address] Creatinine [Mass/Vol] 0.60 mg/dL Normal 0.40-1.00 [facility] Comment on above: Result Comment: METH OD TRACEABLE TO IDMS STANDARD Performed By: #### Connor RIZVI, 32445-5, THYR #### [facility] ([id number]) [address], [address] [place] [address] eGFR (CKD-EPI) NON-RACE DEPENDENT >90 Normal >59 [facility] Comment on above: Result Comment: Reported eGFR is based on the CKD-EPI 2020 equation that does not use a race coefficient. Performed By: #### Connor RIZVI, 63572-2, THYR #### [facility] ([id number]) [address], [address] [place] [address] Glucose [Mass/Vol] 91 mg/dL Normal 65-99 [facility] Comment on above: Performed By: #### Connor RIZVI, 10537-9, THYR #### [facility] ([id number]) [address] [place] [address] Potassium [Moles/Vol] 5.4 mmol/L High 3.5-5.0 [facility] Comment on above: Performed By: #### C BELKYS, 28806-4, THYR #### [facility] ([id number]) [address], [address] [place] [address] Protein [Mass/Vol] 8.0 g/dL Normal 6.0-8.0 [facility] Comment on above: Performed By: #### Connor RIZVI, 25299-0, THYR #### [facility] ([id number]) [address] [place] [address] Sodium [Moles/Vol] 139 mmol/L Normal 134-146 [facility] Comment on above: Performed By: #### Connor RIZVI, 70054-7, THYR #### [facility] ([id number]) [address], [address] [place] [address] Urea nitrogen [Mass/Vol] 10 mg/dL Normal 5-27 [facility] Comment on above: Performed By: #### Connor RIZVI, 87987-6, THYR #### [facility] ([id number]) [address], [address] [place] [address] Comprehensive metabolic pane armaan 03-01-2024 Albumin [Mass/Vol] 5.0 g/dL 3.2 - 5.3 g/dL [facility] ALP [Catalytic activity/Vol] 89 U/L 39 - 130 U/L [facility] ALT No additional P-5'-P [Catalytic activity/Vol] 24 U/L 0 - 31 U/L [facility] Anion gap [Moles/Vol] 10 mmol/L 5 - 15 mmol/L [facility] AST [Catalytic activity/Vol] 25 U/L 0 - 41 U/L [facility] Bilirubin [Mass/Vol] 0.8 mg/dL 0.3 - 1.2 mg/dL [facility] Calcium [Mass/Vol] 10.0 mg/dL 8.5 - 10. 5 mg/dL [facility] Chloride [Moles/Vol] 102 mmol/L 98 - 109 mmol/L [facility] CO2 [Moles/Vol] 27 mmol/L 22 - 32 mmol/L [facility] Creatinine [Mass/Vol] 0.60 mg/dL 0.40 - 1.00 mg/dL [facility] Comment on above: METHOD TRACEABLE TO [facility] STANDARD eGFR (CKD-EPI)non-race dependent - PINF [facility] Comment on above: Reported eGFR is based on the CKD-EPI 2020 equation that does not use a race coefficient. Glucose [Mass/Vol] 91 mg/dL 65 - 99 mg/dL [facility] Interpretation and review of laboratory results Abnormal [facility] Potassium [Moles/Vol] 5.4 mmol/L High 3.5 - 5.0 mmol/L [facility] Protein [Mass/Vol] 8.0 g/dL 6.0 - 8.0 g/dL [facility] Sodium [Moles/Vol] 139 mmol/L 134 - 146 mmol/L [facility] Urea nitrogen [Mass/Vol] 10 mg/dL 5 - 27 mg/dL [facility] Lipid 1996 panelon 4 Cholesterol [Mass/Vol] 190 mg/dL 150 - 200 mg/dL [facility] Cholesterol in HDL [Mass/Vol] 109 mg/dL 39 - PINF mg/dL [facility] Comment on above: HDL <40 mg/dL - High Risk HDL > or = 40mg/dL- Desirable HDL >60 mg/dL - Negative Risk Cholesterol in LDL [Mass/Vol] 66 mg/dL NINF - 130 mg/dL [facility] Comment on above: LDL <100 mg/dL - Desirable LDL >160 mg/dL - High Risk Cholesterol in VLDL [Mass/Vol] 15 mg/dL 0 - 30 mg/dL [facility] Cholesterol.total/C holesterol in HDL [Mass ratio] 1.7 {ratio} 1.0 - 5.0 [facility] Triglyceride [Mass/Vol] 73 mg/dL 27 - 150 mg/dL [facility] Cholesterol [Mass/Vol] 190 mg/dL Normal 150-200 [facility] Comment on above: Performed By: #### Connor RIZVI, 93816-6, THYR #### [facility] ([id number]) [address], [address] [place] [address] Cholesterol in HDL [Mass/Vol] 109 mg/dL Normal >39 [facility] Comment on above: Result Comment: HDL <40 mg/dL - High Risk HDL > or = 40mg/dL- Desirable HDL >60 mg/dL - Negative Risk Performed By: ###[place], [address]-0, THYR #### [facility] ([id number]) [address], [address] [place] [address] Cholesterol in LDL [Mass/Vol] 66 mg/dL Normal <130 [facility] Comment on above: Result Comment: LDL <100 mg/dL - Desirable LDL >160 mg/dL - High Risk Performed By: #### Connor RIZVI, 19786-4, THYR #### [facility] ([id number]) [address], [address] [place] [address] Cholesterol in VLDL [Mass/Vol] 15 mg/dL Normal 0-30 [facility] Comment on above: Performed By: ###[place], [address]-2, THYR #### [facility] ([id number]) [address], [address] [place] [address] CHOLESTEROL:HDL 1.7 Normal 1.0-5.0 [facility] Comment on above: Performed By: #### C BELKYS, 31822-5, THYR #### [facility] ([id number]) [address], [address] [place] [address] Triglyceride [Mass/Vol] 73 mg/dL Normal 27-150 [facility] Comment on above: Performed By: #### Connor RIZVI, 19438-6, THYR #### [facility] ([id number]) [address], [address] [place] [address] No Panel Informationon 03-01 [facility] THYROID PROFILEon 03-01-2024 Free T4 [Mass/Vol] 0.68 ng/dL Normal 0.61-1.60 [facility] Comment on above: Performed By: #### Connor RIZVI, 66770-3, THYR #### [facility] ([id number]) [address], [address] [place] [address] TSH 0.97 uIU/mL Normal 0.49-4.67 [facility] Comment on above: Performed By: #### Connor RIZVI, 28101-0, THYR #### [facility] ([id number]) [address], [address] [place] [address] Thyroid profile includes TSH FT4on 03-01-2024 Free T4 [Mass/Vol] 0.68 ng/dL 0.61 - 1. 60 ng/dL [facility] TSH Qn 0.97 m[IU]/L [facility] FREE T4on 08-03-2022 Free T4 [Mass/Vol] 0.86 ng/dL Normal 0.76-1.46 [facility] Comment on above: Performed By: #### V ITAD, FT4 #### [facility] [address] [place] [address] Dr. Shara Hussein LIPID PROFILEon 08-03-2022 CHOL-HDL RATIO NORM SEE BELOW Normal [facility] Comment on above: Result Comment: 3.3 - 4.4 LOW RISK 4.4 - 7.1 AVERAGE RISK 7.1 - 11.0 MODERATE RISK >11.0 HIGH RISK Performed By: #### L IPID, TSH, CMP ####[facility] [address] [place] [id number]. Mackenzielan Hussein Cholesterol [Mass/Vol] 238 mg/dL Critically high <=200 [facility] Comment on above: Performed By: #### L IPID, TSH, CMP ####[facility] [address] [place] [id number]. Mackenzielan Hussein Cholesterol in HDL [Mass/Vol] 152 mg/dL Critically high 40-60 [facility] Comment on above: Performed By: #### L IPID, TSH, CMP ####[facility] [address] [place] [address]Dr. Mackenzielan Hussein Cholesterol in LDL [Mass/Vol] 57.0 mg/dL Normal [facility] Comment on above: Performed By: #### L IPID, TSH, CMP ####[facility] [address] [place], [place] [id number]. Mackenzielan Hussein Cholesterol.total/C holesterol in HDL [Mass ratio] 1.6 {ratio} Normal [facility] Comment on above: Performed By: #### L IPID, TSH, CMP ####[facility] [address] [place] [id number]. Mackenzielan Hussein HDL NORMAL > or = 60 mg/dl - LOW CARDIOVASCULAR RISK <40 mg/dl - HIGH CARDIOVASCULAR RISK Normal [facility] Comment on above: Performed By: #### L IPID, TSH, CMP ####[facility] [address] [place] [id number]. Mackenzielan Hussein LDL CALC NORMAL SEE BELOW Normal [facility] [place] [facility] Comment on above: Result Comment: <100 mg/dl OPTIMAL 100 - 129 mg/dl NEAR OR ABOVE OPTIMAL 130 - 159 mg/dl BORDERLINE HIGH 160 - 189 mg/dl HIGH >190 mg/dl VERY HIGH Performed By: #### L IPID, TSH, CMP ####[facility] [address] [place], [place] [id number]. Yilan Hussein Triglyceride [Mass/Vol] 145 mg/dL Normal <=150 [facility] Comment on above: Performed By: #### L IPID, TSH, CMP ####[facility] [address] [place] [address]Dr. Shara Hussein VLDL CALC 29.0 mg/dL Normal [facility] Comment on above: Performed By: #### L IPID, TSH, CMP ####[facility] [address] [place] [address]Dr. Shara Hussein PROF 14(COMP METB)on 022 Albumin [Mass/Vol] 4.0 g/dL Normal 3.4-5.0 [facility] Comment on above: Performed By: #### L IPID, TSH, CMP ####[facility] [address] [place] [address]Dr. Shara Hussein Albumin/Globulin [Mass ratio] 1.1 {ratio} Normal [facility] Comment on above: Performed By: #### L IPID, TSH, CMP ####[facility] [address] [place] [address]Dr. Shara Hussein ALP [Catalytic activity/Vol] 83 U/L Normal 46-116 [facility] Comment on above: Performed By: #### L IPID, TSH, CMP ####[facility] [address] [place] [address]Dr. Shara Hussein ALT [Catalytic activity/Vol] 45 U/L Normal 14-59 [facility] Comment on above: Performed By: #### L IPID, TSH, CMP ####[facility] [address] [place] [id number]. Shara Hussein Anion gap [Moles/Vol] 11.2 mmol/L Normal [facility] Comment on above: Performed By: #### L IPID, TSH, CMP ####[facility] [address] [place] [address]Dr. Shara Hussein AST [Catalytic activity/Vol] 29 U/L Normal 15-37 [facility] Comment on above: Performed By: #### L IPID, TSH, CMP ####[facility] [address] [place] [address]Dr. Shara Hussein Bilirubin [Mass/Vol] 1.0 mg/dL Normal 0.2-1.0 [facility] Comment on above: Performed By: #### L IPID, TSH, CMP ####[facility] [address] [place] [address]Dr. Shara Hussein Calcium [Mass/Vol] 9.4 mg/dL Normal 8.5-10.1 [facility] Comment on above: Performed By: #### L IPID, TSH, CMP ####[facility] [address] [place] [address]Dr. Shara Hussein Chloride [Moles/Vol] 97 mmol/L Critically low 98-107 [facility] Comment on above: Performed By: #### L IPID, TSH, CMP ####[facility] [address] [place], [place] [address]Dr. Shara Hussein CO2 [Moles/Vol] 29.7 mmol/L Normal 21.0-32.0 [facility] Comment on above: Performed By: #### L IPID, TSH, CMP ####[facility] [address] [place], [place] [address]Dr. Shara Hussein Creatinine [Mass/Vol] 0.51 mg/dL Critically low 0.55-1.02 [facility] Comment on above: Performed By: #### L IPID, TSH, CMP ####[facility] [address] [place], [place] [address]Dr. Shara Hussein EGFR-AF DJIBOUTIAN >60 Normal >=60 [facility] Comment on above: Performed By: #### L IPID, TSH, CMP ####[facility] [address] [place], [place] [address]Dr. Shara Hussein EGFR-NON AF DJIBOUTIAN >60 Normal >=60 [facility] Comment on above: Performed By: #### L IPID, TSH, CMP ####[facility] [address] [place], [place] [address]Dr. Shara Hussein Globulin (S) [Mass/Vol] 3.7 g/dL Normal [facility] Comment on above: Performed By: #### L IPID, TSH, CMP ####[facility] [address] [place] [address]Dr. Shara Hussein Glucose [Mass/Vol] 86 mg/dL Normal 74-106 [facility] Comment on above: Performed By: #### L IPID, TSH, CMP ####[facility] [address] [place] [address]Dr. Shara Hussein Potassium [Moles/Vol] 2.9 mmol/L Critically low 3.5-5.1 [facility] Comment on above: Performed By: #### L IPID, TSH, CMP ####[facility] [address] [place], [place] [address]Dr. Shara Hussein Protein [Mass/Vol] 7.7 g/dL Normal 6.4-8.2 [facility] Comment on above: Performed By: #### L IPID, TSH, CMP ####[facility] [address] [place], [place] [address]Dr. Shara Hussein Sodium [Moles/Vol] 133 mmol/L Critically low 136-145 [facility] Comment on above: Performed By: #### L IPID, TSH, CMP ####[facility] [address] [place], [place] [address]Dr. Shara Hussein Urea nitrogen [Mass/Vol] 9.0 mg/dL Normal 7.0-18.0 [facility] Comment on above: Performed By: #### L IPID, TSH, CMP ####[facility] [address] [place], [place] [address]Dr. Shara Hussein Urea nitrogen/Creatinine [Mass ratio] 17.6 mg/mg Normal [facility] Comment on above: Performed By: #### L IPID, TSH, CMP ####[facility] [address] [place], [place] [address]Dr. Shara Hussein TSHon 08-03-2022 TSH 2.685 uIU/mL Normal 0.358-3.740 [facility] Comment on above: Performed By: #### L IPID, TSH, CMP ####[facility] [address] [place], [place] [address]Dr. Shara Hussein VITAMIN D 25 OHon 08-03-2022 VIT D 25-OH 72.4 ng/mL Normal [facility] Comment on above: Performed By: #### V OKSANA, FT4 #### [facility] [address] [place], [place] [address] Dr. Shara Hussein VIT D RANGES SEE BELOW Normal [facility] Comment on above: Result Comment: <20 ng/mL Vit D deficient 20 - <30 ng/mL Vit D insufficient 30 - 100 ng/mL Vit D sufficient >100 ng/mL Potential Toxicity Performed By: #### V OKSANA, FT4 #### [facility] [address] [place], [place] [address] Dr. Shara Hussein COMPREHENSIVE METABOLIC PANE Armaan 02-09-2022 Albumin [Mass/Vol] 4.2 g/dL Normal 3.6-5.1 [facility] Comment on above: Performed By: #### 7 600, 64941 #### [facility] of [address], [address] [place] [address] Maintenance Mechanic Telephone: Prabhakar Thao MD Albumin/Globulin [Mass ratio] 1.5 {ratio} Normal 1.0-2.5 [facility] Comment on above: Performed By: #### 7 600, 79509 #### [facility] [place] [address] Maintenance Mechanic Telephone: Prabhakar Thao MD ALP [Catalytic activity/Vol] 96 U/L Normal 37-153 [facility] Comment on above: Performed By: #### 7 600, 73524 #### [facility] [place] [address] Maintenance Mechanic Telephone: Prabhakar Thao MD ALT [Catalytic activity/Vol] 15 U/L Normal 6-29 [facility] Comment on above: Performed By: #### 7 600, 10921 #### [facility] [address], [address] [place] [address] Maintenance Mechanic Telephone: Prabhakar Thao MD AST [Catalytic activity/Vol] 19 U/L Normal 10-35 [facility] Comment on above: Performed By: #### 7 600, 39638 #### [facility] of [place] [address] Maintenance Mechanic Telephone: Prabhakar Thao MD Bilirubin [Mass/Vol] 0.4 mg/dL Normal 0.2-1.2 [facility] Comment on above: Performed By: #### 7 600, 34226 #### [facility] of [address], [address] [place] [address] Maintenance Mechanic Telephone: Prabhakar Thao MD BUN/CREATININE RATIO NOT APPLICABLE Normal 6-22 [facility] Comment on above: Performed By: #### 7 600, 31041 #### [facility] [place] [address] Maintenance Mechanic Telephone: Prabhakar Thao MD Calcium [Mass/Vol] 9.7 mg/dL Normal 8.6-10.4 [facility] Comment on above: Performed By: #### 7 600, 52610 #### [facility] of [address], [address] [place] [address] Maintenance Mechanic Telephone: Prabhakar Thao MD Chloride [Moles/Vol] 103 mmol/L Normal 98-110 [facility] Comment on above: Performed By: #### 7 600, 81107 #### [facility] of [place] [address] Maintenance Mechanic Telephone: Prabhakar Thao MD CO2 [Moles/Vol] 28 mmol/L Normal 20-32 [facility] Comment on above: Performed By: #### 7 600, 51841 #### [facility] of [place] [address] Maintenance Mechanic Telephone: Prabhakar Thao MD Creatinine [Mass/Vol] 0.60 mg/dL Normal 0.50-0.99 [facility] Comment on above: Result Comment: For patients >49 years of age, the reference limit for Creatinine is approximately 13% higher for people identified as -Slovak. Performed By: #### 7 600, 54288 #### [facility] of [address], [address] [place] [address] Maintenance Mechanic Telephone: Prabhakar Thao MD eGFR NON-AFR. DJIBOUTIAN 96 mL/min/1.73m2 Normal > OR = 60 [facility] Comment on above: Performed By: #### 7 600, 59281 #### [facility] of [place] [address] Maintenance Mechanic Telephone: Prabhakar Thao MD GFR/1.73 sq M.predicted among blacks MDRD (S/P/Bld) [Vol rate/Area] 112 mL/min/{1.73_m2} Normal > OR = 60 [facility] Comment on above: Performed By: #### 7 600, 02627 #### [facility] of [place] [address] Maintenance Mechanic Telephone: Prabhakar Thao MD Globulin (S) [Mass/Vol] 2.8 g/dL Normal 1.9-3.7 [facility] Comment on above: Performed By: #### 7 600, 89855 #### [facility] of [place] [address] Maintenance Mechanic Telephone: Prabhakar Thao MD Glucose [Mass/Vol] 98 mg/dL Normal 65-99 [facility] Comment on above: Result Comment: Fasting reference interval Performed By: #### 7 600, 88324 #### [facility] of [place] [address] Maintenance Mechanic Telephone: Prabhakar Thao MD Potassium [Moles/Vol] 3.8 mmol/L Normal 3.5-5.3 [facility] Comment on above: Performed By: #### 7 600, 99596 #### [facility] of [place] [address] Maintenance Mechanic Telephone: Prabhakar Thao MD Protein [Mass/Vol] 7.0 g/dL Normal 6.1-8.1 [facility] Comment on above: Performed By: #### 7 600, 81322 #### [facility] of [address] [place] [address] Maintenance Mechanic Telephone: Prabhakar Thao MD Sodium [Moles/Vol] 139 mmol/L Normal 135-146 [facility] Comment on above: Performed By: #### 7 600, 60344 #### [facility] [address], [address] [place] [address] Maintenance Mechanic Telephone: Prabhakar Thao MD Urea nitrogen [Mass/Vol] 10 mg/dL Normal 7-25 [facility] Comment on above: Performed By: #### 7 600, 23864 #### [facility] [address], [address] [place] [address] Maintenance Mechanic Telephone: Prabhakar Thao MD LIPID PANEL, [facility] 01-28 Cholesterol [Mass/Vol] 229 mg/dL High <200 [facility] Comment on above: Order Comment: FASTI NG:YES FASTING: YES Performed By: #### 7 600, 41382 #### [facility] [address], [address] [place] [address] Maintenance Mechanic Telephone: Prabhakar Thao MD Cholesterol in HDL [Mass/Vol] 93 mg/dL Normal > OR = 50 [facility] Comment on above: Order Comment: FASTI NG:YES FASTING: YES Performed By: #### 7 600, 09160 #### [facility] [address], [address] [place] [address] Maintenance Mechanic Telephone: Prabhakar Thao MD Cholesterol in LDL [Mass/Vol] 105 mg/dL High [facility] Comment on above: Order Comment: FASTI NG:YES FASTING: YES Result Comment: Refe rence range: <100 Desirable range <100 mg/dL for primary prevention; <70 mg/dL for patients with CHD or diabetic patients with > or = 2 CHD risk factors. LDL-C is now calculated using the Cristina calculation, which is a validated novel method providing better accuracy than the Friedewald equation in the estimation of LDL-C. Dilan WONG et al. ANJEL. 2013;310(19): 1197-2390 (http://education.FlyReadyJet.ChipX/faq/TJP859) Performed By: #### 7 600, 21932 #### [facility] [address], [address] [place] [address] Maintenance Mechanic Telephone: Prabhakar Thao MD Cholesterol.total/C holesterol in HDL [Mass ratio] 2.5 {ratio} Normal <5.0 [facility] Comment on above: Order Comment: FASTI NG:YES FASTING: YES Performed By: #### 7 600, 08962 #### [facility] [address], [address] [place] [address] Maintenance Mechanic Telephone: Prabhakar Thao MD NON HDL CHOLESTEROL 136 mg/dL (calc) High <130 [facility] Comment on above: Order Comment: FASTI NG:YES FASTING: YES Result Comment: For patients with diabetes plus 1 major ASCVD risk factor, treating to a non-HDL-C goal of <100 mg/dL (LDL-C of <70 mg/dL) is considered a therapeutic option. Performed By: #### 7 600, 70701 #### [facility] [place] [address] Maintenance Mechanic Telephone: Prabhakar Thao MD Triglyceride [Mass/Vol] 194 mg/dL High <150 [facility] Comment on above: Order Comment: FASTI NG:YES FASTING: YES Performed By: #### 7 600, 61315 #### [facility] [place] [address] Maintenance Mechanic Telephone: Prabhakar Thao MD CBC AUTO DIFFon 11-28-2021 BASO # 0.1 103/ul Normal 0.0-0.1 [facility] Comment on above: Performed By: #### C BC #### [facility] [address] [place] [address] Dr. Shara Hussein Basophils/100 WBC (Bld) 0.5 % Normal 0.2-2.0 [facility] Comment on above: Performed By: #### C BC #### [facility] [address] [place] [address] Dr. Shara Hussein EO # 0.1 103/ul Normal 0.0-0.7 [facility] Comment on above: Performed By: #### C BC #### [facility] [address] [place] [address] Dr. Shara Hussein Eosinophils/100 WBC (Bld) 1.0 % Normal 0.9-7.0 [facility] Comment on above: Performed By: #### C BC #### [facility] [address] [place] [address] Dr. Shara Hussein Erythrocyte distribution width (RBC) [Ratio] 11.7 % Normal 11.0-15.0 [facility] Comment on above: Performed By: #### C BC #### [facility] [address] [place] [address] Dr. Shara Hussein Hematocrit (Bld) [Volume fraction] 40.7 % Normal 36.0-48.0 [facility] Comment on above: Performed By: #### C BC #### [facility] [address] [place] [address] Dr. Shara Hussein Hemoglobin (Bld) [Mass/Vol] 13.5 g/dL Normal 12.0-16.0 [facility] Comment on above: Performed By: #### C BC #### [facility] [address] [place] [address] Dr. Shara Hussein IG # 0.04 10e3/ul Critically high 0.00-0.03 [facility] Comment on above: Performed By: #### C BC #### [facility] [address] [place] [address] Dr. Shara Hussein IG % 0.4 % Normal 0.0-0.5 [facility] Comment on above: Performed By: #### C BC #### [facility] [address] [place] [address] Dr. Shara Hussein LYMPH # 1.8 103/ul Normal 1.2-3.8 [facility] Comment on above: Performed By: #### C BC #### [facility] [address] [place] [address] Dr. Shara Hussein Lymphocytes/100 WBC (Bld) 17.6 % Critically low 20.5-60.0 [facility] Comment on above: Performed By: #### C BC #### [facility] [address] [place] [address] Dr. Shara Hussein MANUAL DIFF REQ NO Normal [facility] [place] [facility] Comment on above: Performed By: #### C BC #### [facility] [address] [place] [address] Dr. Shara Hussein MCH (RBC) [Entitic mass] 31.8 pg Normal 26.7-34.0 [facility] Comment on above: Performed By: #### C BC #### [facility] [address] [place] [address] Dr. Shara Hussein MCHC (RBC) [Mass/Vol] 33.2 g/dL Normal 29.9-35.2 [facility] Comment on above: Performed By: #### C BC #### [facility] [address] [place] [address] Dr. Shara Hussein MCV (RBC) [Entitic vol] 95.8 fL Normal 81.0-99.0 [facility] Comment on above: Performed By: #### C BC #### [facility] [address] [place] [address] Dr. Shara Hussein MONO # 1.1 103/ul Critically high 0.3-0.8 [facility] [place] [facility] Comment on above: Performed By: #### C BC #### [facility] [address] [place] [address] Dr. Shara Hussein Monocytes/100 WBC (Bld) 10.9 % Normal 1.7-12.0 [facility] Comment on above: Performed By: #### C BC #### [facility] [address] [place] [address] Dr. Shara Hussein NEUT # 7.1 103/ul Critically high 1.4-6.5 [facility] [place] [facility] Comment on above: Performed By: #### C BC #### [facility] [address] [place] [address] Dr. Shara Hussein Neutrophils/100 WBC (Bld) 69.6 % Normal 43.0-75.0 [facility] Comment on above: Performed By: #### C BC #### [facility] [address] [address] [address] Shara Hussein Platelet mean volume (Bld) [Entitic vol] 9.6 fL Normal 9.5-13.5 [facility] Comment on above: Performed By: #### C BC #### [facility] [address] [address] [address] Shara Hussein PLT 347 103/ul Normal 150-450 [facility] Comment on above: Performed By: #### C BC #### [facility] [address] [address] [address] Shara Hussein RBC 4.25 106/ul Normal 4.20-5.40 [facility] Comment on above: Performed By: #### C BC #### [facility] [address] [place] [address] Dr. Shara Hussein WBC 10.1 103/ul Normal 4.0-11.0 [facility] Comment on above: Performed By: #### C BC #### [facility] [address] [place] [address] ABD/PELVIS WO CONon 11-28 CT ABD/PELVIS WO CON CT ABDOMEN AND PELVIS WITHOUT CONTRAST: 11/28/2021 6:09 AM EST Clinical Data: CALCULUS OF KIDNEY. Left-sided flank pain Comparison: No previous Unenhanced helically acquired data per protocol. The lack of IV contrast material hampers evaluation of the viscera, for adenopathy, and of the vasculature. The lack of oral contrast medium to some extent hampers evaluation of the bowel. All CT scans at this facility use dose modulation, iterative reconstruction, and/or weight based dosing when appropriate to reduce radiation dose to as low as reasonably achievable. FINDINGS: LOWER THORAX: Atelectasis aspects left lower lobe secondary to hiatal hernia. Atelectasis or scar peripheral aspects of the lingula. LIVER: No acute findings. SPLEEN: No acute findings. GB/BILIARY: No acute findings at CT. PANCREAS: No acute findings. ADRENALS: No acute findings. KIDNEYS/URETERS: Kidneys are symmetric in size and density on this unenhanced exam. No calculi. No hydronephrosis or hydroureter. VESSELS: No AAA ABDOMINAL NODES: No obvious adenopathy. PELVIC NODES: No obvious adenopathy. BLADDER: Moderately distended. Thinly marginated. No calculi REPRODUCTIVE: Uterus is absent. What are likely the ovaries are unremarkable in appearance at CT PERITONEUM: No free air. No free fluid. EXTRAPERITONEUM: No acute findings. BOWEL: Nonspecific bowel gas pattern. There is a moderate amount of air in the colon. There are a number of air-fluid levels proximal to mid small bowel. There is a modest hiatal hernia. There is a moderate amount of stool right colon. Mild amount stool left colon. There are a few small colonic diverticula. On this unenhanced examination there is no distinct evidence of focally thickened bowel loop., BODY WALL: No acute findings. BONES: Degenerative levoscoliosis centered at L2. Significant facet arthropathy at lower lumbar levels with overgrowths. OTHER: No acute findings. IMPRESSION: 1. No calculi. No hydronephrosis or hydroureter. 2. Nonspecific bowel gas pattern. No obvious focally thickened loop of bowel on this study performed without oral contrast. Follow-up imaging as clinically indicated. Electronically authenticated by: LAURYN CARCAMO Date: 2021-11-28 07:49 Normal [facility] ER URINE PROFILEon 2 Bilirubin Ql (U) Negative Normal NEGATIVE [facility] Comment on above: Performed By: #### E RUR #### [facility] [address] [place] [address] Dr. Shara Hussein Clarity (U) CLEAR Normal CLEAR [facility] Comment on above: Performed By: #### E RUR #### [facility] [address] [address] [address] Shara Hussein Color (U) YELLOW Normal YELLOW [facility] Comment on above: Performed By: #### E RUR #### [facility] [address] [address] [address] Shara PHAN A micrscopic examination will be performed if indicated. Normal [facility] Comment on above: Performed By: #### E RUR #### [facility] [address] [place] [address] Dr. Shara Hussein Glucose Ql (U) Negative Normal NEGATIVE [facility] Comment on above: Performed By: #### E RUR #### [facility] [address] [place] [address] Dr. Shara Hussein Hemoglobin Ql (U) Negative Normal NEGATIVE [facility] Comment on above: Performed By: #### E RUR #### [facility] [address] [place] [address] Dr. Shara Hussein Ketones Ql (U) Negative Normal NEGATIVE [facility] Comment on above: Performed By: #### E RUR #### [facility] [address] [place] [address] Dr. Shara Hussein LEUKOCYTES Negative Normal NEGATIVE [facility] Comment on above: Performed By: #### E RUR #### [facility] [address] [place] [address] Dr. Shara Hussein Nitrite Ql (U) Negative Normal NEGATIVE [facility] Comment on above: Performed By: #### E RUR #### [facility] [address] [place] [address] Dr. Shara Hussein pH (U) 6.0 [pH] Normal 5-9 [facility] Comment on above: Performed By: #### E RUR #### [facility] [address] [place] [address] Dr. Shara Hussein SPEC GRAVITY <=1.005 Abnormal 1.005-<=1.025 [facility] Comment on above: Performed By: #### E RUR #### [facility] [address] [place] [address] Dr. Shara Hussein UA PROTEIN Negative Normal NEGATIVE/ TRACE [facility] Comment on above: Performed By: #### E RUR #### [facility] [address] [place] [address] Dr. Shara Hussein UR MICRO IND NOT INDICATED Normal [facility] [place] [facility] Comment on above: Performed By: #### E RUR #### [facility] [address] [place] [address] Dr. Shara Hussien Urobilinogen Qn (U) 0.2 {Fortino'U}/dL Normal 0.2 - 1. 0 [facility] Comment on above: Performed By: #### E RUR #### [facility] [address] [place] [address] Dr. Shara Hussein LACTATE/LACTIC ACIDon 2021 Lactate [Moles/Vol] 0.5 mmol/L Critically low 0.7-2.0 T [facility] Comment on above: Performed By: #### L ACT #### [facility] [address] [place] [address] Dr. Shara Hussein PROF 14(COMP METB)on Albumin [Mass/Vol] 2.9 g/dL Critically low 3.5-5.0 [facility] Comment on above: Performed By: #### C MP #### [facility] [address] [place] [address] Dr. Shara Hussein Albumin/Globulin [Mass ratio] 0.6 {ratio} Normal [facility] Comment on above: Performed By: #### C MP #### [facility] [address] [place] [address] Dr. Shara Hussein ALP [Catalytic activity/Vol] 96 U/L Normal 38-126 [facility] Comment on above: Performed By: #### C MP #### [facility] [address] [place] [address] Dr. Shara Hussein ALT [Catalytic activity/Vol] 19 U/L Normal 9-52 [facility] Comment on above: Performed By: #### C MP #### [facility] [address] [place] [address] Dr. Shara Hussein Anion gap [Moles/Vol] 13.4 mmol/L Normal [facility] Comment on above: Performed By: #### C MP #### [facility] [address] [place] [address] Dr. Shara Hussein AST [Catalytic activity/Vol] 15 U/L Normal 14-36 [facility] Comment on above: Performed By: #### C MP #### [facility] [address] [place] [address] Dr. Shara Hussein Bilirubin [Mass/Vol] 0.4 mg/dL Normal 0.2-1.3 [facility] Comment on above: Performed By: #### C MP #### [facility] [address] [address] [address] Shara Hussein Calcium [Mass/Vol] 9.4 mg/dL Normal 8.4-10.2 [facility] Comment on above: Performed By: #### C MP #### [facility] [address] [address] [address] Shara Hussein Chloride [Moles/Vol] 97 mmol/L Critically low 98-107 [facility] Comment on above: Performed By: #### C MP #### [facility] [address] [address] [address] Shara Hussein CO2 [Moles/Vol] 28.8 mmol/L Normal 22.0-30.0 [facility] Comment on above: Performed By: #### C MP #### [facility] [address] [place] [address] Dr. Shara Hussein Creatinine [Mass/Vol] 0.45 mg/dL Critically low 0.52-1.04 [facility] Comment on above: Performed By: #### C MP #### [facility] [address] [place] [address] Dr. Shara Hussein EGFR-AF DJIBOUTIAN >60 Normal >=60 [facility] Comment on above: Performed By: #### C MP #### [facility] [address] [address] [address] Shara Hussein EGFR-NON AF DJIBOUTIAN >60 Normal >=60 [facility] Comment on above: Performed By: #### C MP #### [facility] [address] [address] [address] Shara Hussein Globulin (S) [Mass/Vol] 4.5 g/dL Normal [facility] Comment on above: Performed By: #### C MP #### [facility] [address] [address] [address] Shara Hussein Glucose [Mass/Vol] 110 mg/dL Critically high 74-106 [facility] Comment on above: Performed By: #### C MP #### [facility] [address] [address] [address] Shara Hussein Potassium [Moles/Vol] 3.2 mmol/L Critically low 3.4-5.0 [facility] Comment on above: Performed By: #### C MP #### [facility] [address] [address] [address] Shara Hussein Protein [Mass/Vol] 7.4 g/dL Normal 6.1-8.2 [facility] Comment on above: Performed By: #### C MP #### [facility] [address] [address] [address] Shara Hussein Sodium [Moles/Vol] 136 mmol/L Critically low 137-145 [facility] Comment on above: Performed By: #### C MP #### [facility] [address] [address] [address] Shara Hussein Urea nitrogen [Mass/Vol] 7.0 mg/dL Normal 7.0-17.0 [facility] Comment on above: Performed By: #### C MP #### [facility] [address] [address] [address] Shara Hussein Urea nitrogen/Creatinine [Mass ratio] 15.6 mg/mg Normal [facility] Comment on above: Performed By: #### C MP #### [facility] [address] [address] [address] Shara Hussein XR CHEST 1 Von 11-28-2021 XR CHEST 1 V EXAM: XR CHEST 1 V - 11/28/2021 COMPARISON: PA and lateral chest 10/12/2011. HISTORY: CHEST PAIN, UNSPECIFIED FINDINGS: There is partial obscuration of the lower heart border and left hemidiaphragmatic contour as a result of prominent left-sided epicardial fat pad and/or atelectatic changes. Hiatal hernia may be present. Heart size is stable. The costophrenic angles are sharp. No edema, failure, pneumothorax or acute osseous abnormality noted. IMPRESSION: 1. There is mild right basilar atelectasis associated with the medial aspect of left lower lobe as a result of hiatal hernia. Prominent left-sided epicardial fat pad is noted. 2. No edema, failure, effusion, pneumothorax or acute osseous change otherwise identified. Heart size is normal. Electronically authenticated by: LUCILLE SALAZAR Date: 2021-11-28 07:57 Normal [facility] MG MAMM RT DIAG FUon 021 MG MAMM RT DIAG FU Patient: REINA KELLEY. Exam Date: 10/08/2021 : 1955 Gender:F Ordering : DR SADIE RAINES Admission #: [id number] Family : Order #: [id number] CLICK HERE TO VIEW EXAM CORRECTION Corrected on: 10/08/2021; RADIOLOGY REPORT PROCEDURE: MAMMOGRAM RIGHT DIAGNOSTIC DIGITAL FOLLOW UP RIGHT BREAST ULTRASOUND COMPARISON: MAMM SCREEN 3D MARKELL CAD, 09/16/2021. INDICATIONS: Abnormal findings on diagnostic imaging of breast Calculator Name NCI Breast Cancer Risk Assessment Tool 5 Year Breast Cancer Risk 1.40% Lifetime Breast Cancer Risk 5.80% Personal Breast Cancer No Personal Ovarian Cancer No Treatments None Family Cancers None LOCATION: [facility] BREAST COMPOSITION: Heterogeneously dense, which may obscure small masses. FINDINGS: DIAGNOSTIC CATEGORY 3--PROBABLY BENIGN FINDING. THE FOLLOWING FINDING(S) HAS A HIGH PROBABILITY OF A BENIGN ETIOLOGY: Two spot compression views demonstrate a persistent area of ill-defined asymmetry retroareolar, anterior breast measuring 1.6 x 1.1 x 1.7 cm. Ultrasound demonstrates prominent fibroglandular tissue with no focal mass. Six-month follow-up is recommended to document stability RECOMMENDATIONS: SHORT TERM FOLLOW-UP ULTRASOUND RIGHT BREAST IN 6 MONTHS. FOLLOW-UP ULTRASOUND RIGHT BREAST IN 12 MONTHS. PLEASE NOTE: A NORMAL MAMMOGRAM DOES NOT EXCLUDE THE POSSIBILITY OF BREAST CANCER. A CLINICALLY SUSPICIOUS PALPABLE LUMP SHOULD BE BIOPSIED. Dictated by: Iris Munoz MD on 10/08/2021 at 14:57 Approved by: Iris Munoz MD on 10/08/2021 at 14:59 Normal [facility] MG MAMM SCREEN 3D MARKELL CADon 09-16-2021 MG MAMM SCREEN 3D MARKELL CAD Patient: REINA KELLEY. Exam Date: 09/16/2021 : 1955 Gender:F Ordering : DR SADIE RAINES Admission #: [id number] Family : Order #: [id number] CLICK HERE TO VIEW EXAM RADIOLOGY REPORT PROCEDURE: MAMMOGRAM SCREENING 3D BILATERAL CAD COMPARISON: MG MAMM MARKELL SCRN W CAD DIG, 05/10/2016. MG MAMM SCREEN MARKELL W CAD, 10/17/2017. INDICATIONS: Screening mammography Calculator Name NCI Breast Cancer Risk Assessment Tool 5 Year Breast Cancer Risk 1.40% Lifetime Breast Cancer Risk 5.80% Personal Breast Cancer No Personal Ovarian Cancer No Treatments None Family Cancers None LOCATION: [facility] BREAST COMPOSITION: Heterogeneously dense,which may obscure small masses. FINDINGS: DIAGNOSTIC CATEGORY 0--INCOMPLETE ASSESSMENT: NEED ADDITIONAL IMAGING EVALUATION. Scattered benign-appearing nodules are present. Scattered benign-appearing calcifications are present. Scattered benign-appearing lymph nodes are present. RIGHT BREAST: Increased nodular appearance upper-outer quadrant, 11 to 12 o'clock position, anterior breast. Spot imaging and ultrasound follow-up is recommended. LEFT BREAST: No significant suspicious finding. RECOMMENDATIONS: ADDITIONAL MAMMOGRAPHIC VIEWS REQUIRED: RIGHT BREAST - spot compression ULTRASOUND: RIGHT BREAST PLEASE NOTE: A NORMAL MAMMOGRAM DOES NOT EXCLUDE THE POSSIBILITY OF BREAST CANCER. A CLINICALLY SUSPICIOUS PALPABLE LUMP SHOULD BE BIOPSIED. Dictated by: Iris Munoz MD on 09/17/2021 at 10:24 Approved by: Iris Munoz MD on 09/17/2021 at 10:26 Normal [facility] COMPREHENSIVE METABOLIC PANE Armaan 07-09-2021 Albumin [Mass/Vol] 4.1 g/dL Normal 3.6-5.1 [facility] Comment on above: Performed By: #### 7 600, [id number], 22508 #### [facility] [address], [address] [place], [place] [id number] Maintenance Mechanic Telephone: Prabhakar Thao MD Albumin/Globulin [Mass ratio] 1.5 {ratio} Normal 1.0-2.5 [facility] Comment on above: Performed By: #### 7 600, 78003, 61235 #### [facility] [address], [address] [place] [address] Maintenance Mechanic Telephone: Prabhakar Thao MD ALP [Catalytic activity/Vol] 84 U/L Normal 37-153 [facility] Comment on above: Performed By: #### 7 600, 46157, 70772 #### [facility] [address], [address] [place] [address] Maintenance Mechanic Telephone: Prabhakar Thao MD ALT [Catalytic activity/Vol] 17 U/L Normal 6-29 [facility] Comment on above: Performed By: #### 7 600, 67313, 91920 #### [facility] [address] [address] Maintenance Mechanic Telephone: Prabhakar Thao MD AST [Catalytic activity/Vol] 19 U/L Normal 10-35 [facility] Comment on above: Performed By: #### 7 600, 50775, 62053 #### [facility] of [address] [address] Maintenance Mechanic Telephone: Prabhakar Thao MD Bilirubin [Mass/Vol] 0.3 mg/dL Normal 0.2-1.2 [facility] Comment on above: Performed By: #### 7 600, 60946, 01750 #### [facility] [address] [address] Maintenance Mechanic Telephone: Prabhakar Thao MD BUN/CREATININE RATIO NOT APPLICABLE Normal 6-22 [facility] Comment on above: Performed By: #### 7 600, 12425, 52735 #### [facility] [address] [address] Maintenance Mechanic Telephone: Prabhakar Thao MD Calcium [Mass/Vol] 9.7 mg/dL Normal 8.6-10.4 [facility] Comment on above: Performed By: #### 7 600, 99843, 33399 #### [facility] [address] [address] Maintenance Mechanic Telephone: Prabhakar Thao MD Chloride [Moles/Vol] 105 mmol/L Normal 98-110 [facility] Comment on above: Performed By: #### 7 600, 69565, 03955 #### [facility] [address] [address] Maintenance Mechanic Telephone: Prabhakar Thao MD CO2 [Moles/Vol] 28 mmol/L Normal 20-32 [facility] Comment on above: Performed By: #### 7 600, 93971, 57885 #### [facility] of [facility] [address], [address] [place] [address] Maintenance Mechanic Telephone: Prabhakar Thao MD Creatinine [Mass/Vol] 0.57 mg/dL Normal 0.50-0.99 [facility] Comment on above: Result Comment: For patients >49 years of age, the reference limit for Creatinine is approximately 13% higher for people identified as -Slovak. Performed By: #### 7 600, 86356, 44610 #### [facility] [address] [address] Maintenance Mechanic Telephone: Prabhakar Thao MD eGFR NON-AFR. DJIBOUTIAN 99 mL/min/1.73m2 Normal > OR = 60 [facility] Comment on above: Performed By: #### 7 600, 88331, 08771 #### [facility] [address] [place] [address] Maintenance Mechanic Telephone: Prabhakar Thao MD GFR/1.73 sq M.predicted among blacks MDRD (S/P/Bld) [Vol rate/Area] 114 mL/min/{1.73_m2} Normal > OR = 60 [facility] Comment on above: Performed By: #### 7 600, 48853, 62186 #### [facility] [address] [place] [address] Maintenance Mechanic Telephone: Prabhakar Thao MD Globulin (S) [Mass/Vol] 2.8 g/dL Normal 1.9-3.7 [facility] Comment on above: Performed By: #### 7 600, 30626, 30894 #### [facility] [address] [place] [address] Maintenance Mechanic Telephone: Prabhakar Thao MD Glucose [Mass/Vol] 85 mg/dL Normal 65-139 [facility] Comment on above: Result Comment: Non-fasting reference interval Performed By: #### 7 600, 64178, 53139 #### [facility] [address] [address] Maintenance Mechanic Telephone: Prabhakar Thao MD Potassium [Moles/Vol] 3.4 mmol/L Low 3.5-5.3 [facility] Comment on above: Performed By: #### 7 600, 68357, 13483 #### [facility] [address] [place] [address] Maintenance Mechanic Telephone: Prabhakar Thao MD Protein [Mass/Vol] 6.9 g/dL Normal 6.1-8.1 [facility] Comment on above: Performed By: #### 7 600, 84463, 16394 #### [facility] of [address], [address] [place] [address] Maintenance Mechanic Telephone: Prabhakar Thao MD Sodium [Moles/Vol] 140 mmol/L Normal 135-146 [facility] Comment on above: Performed By: #### 7 600, 29469, 57392 #### [facility] [address] [place] [address] Maintenance Mechanic Telephone: Prabhakar Thao MD Urea nitrogen [Mass/Vol] 10 mg/dL Normal 7-25 [facility] Comment on above: Performed By: #### 7 600, 68790, 78859 #### [facility] [address] [place] [address] Maintenance Mechanic Telephone: Prabhakar Thao MD LIPID PANEL, [facility] 06-30 Cholesterol [Mass/Vol] 209 mg/dL High <200 [facility] Comment on above: Order Comment: FASTI NG:NO FASTING: NO Performed By: #### 7 600, 74071, 49255 #### [facility] [address] [place] [address] Maintenance Mechanic Telephone: Prabhakar Thao MD Cholesterol in HDL [Mass/Vol] 87 mg/dL Normal > OR = 50 [facility] Comment on above: Order Comment: FASTI NG:NO FASTING: NO Performed By: #### 7 600, 55797, 22042 #### [facility] [address] [place] [address] Maintenance Mechanic Telephone: Prabhakar Thao MD Cholesterol in LDL [Mass/Vol] 88 mg/dL Normal [facility] Comment on above: Order Comment: FASTI NG:NO FASTING: NO Result Comment: Refe rence range: <100 Desirable range <100 mg/dL for primary prevention; <70 mg/dL for patients with CHD or diabetic patients with > or = 2 CHD risk factors. LDL-C is now calculated using the Cristina calculation, which is a validated novel method providing better accuracy than the Friedewald equation in the estimation of LDL-C. Dilan SS et al. ANJEL. 2013;310(19): 5963-0798 (http://education.Parclick.com/faq/VJT683) Performed By: #### 7 600, 17040, 04003 #### [facility] [address], [address] [place] [address] Maintenance Mechanic Telephone: Prabhakar Thao MD Cholesterol.total/C holesterol in HDL [Mass ratio] 2.4 {ratio} Normal <5.0 [facility] Comment on above: Order Comment: FASTI NG:NO FASTING: NO Performed By: #### 7 600, 14489, 39542 #### [facility] [address], [address] [place] [address] Maintenance Mechanic Telephone: Prabhakar Thao MD NON HDL CHOLESTEROL 122 mg/dL (calc) Normal <130 [facility] Comment on above: Order Comment: FASTI NG:NO FASTING: NO Result Comment: For patients with diabetes plus 1 major ASCVD risk factor, treating to a non-HDL-C goal of <100 mg/dL (LDL-C of <70 mg/dL) is considered a therapeutic option. Performed By: #### 7 600, 12308, 68212 #### [facility] [address], [address] [place] [address] Maintenance Mechanic Telephone: Prabhakar Thao MD Triglyceride [Mass/Vol] 259 mg/dL High <150 [facility] Comment on above: Order Comment: FASTI NG:NO FASTING: NO Result Comment: If a non-fasting specimen was collected, consider repeat triglyceride testing on a fasting specimen if clinically indicated. Traci et al. J. of Clin. Lipidol. 2015;9:129-169. Performed By: #### 7 600, 02978, 74976 #### [facility] [address], [address] [place] [id number] Maintenance Mechanic Telephone: Prabhakar Thao MD VITAMIN D,25-OH,TOTAL,IAon 0 07-09-2021 VITAMIN D,25-OH,TOTAL,IA 43 ng/mL Normal 30-100 [employer] Comment on above: Result Comment: Lenore min D Status 25-OH Vitamin D: Deficiency: <20 ng/mL Insufficiency: 20 - 29 ng/mL Optimal: > or = 30 ng/mL For 25-OH Vitamin D testing on patients on D2-supplementation and patients for whom quantitation of D2 and D3 fractions is required, the QuestAssureD(TM) 25-OH VIT D, (D2,D3), LC/MS/MS is recommended: order code 54051 (patients >2yrs). See Note 1 Note 1 For additional information, please refer to http://education.[email or web address].com/faq/[email or web address] (This link is being provided for informational/ educational purposes only.) Performed By: #### [id number] #### [employer] [address], [address] [place] [id number] Maintenance Mechanic Telephone: Prabhakar Thao MD Vital Signs Date Time Vital Sign Value Performing Clinician Facility 05-23-2025 12:02-040 Body height 154.9 cm Belem BATES Work Phone: [facility] 05-23-2025 12:02-0400 Body mass index (BMI) [Ratio] 20.42 kg/m2 Belem Ordonez APRN-OVERHEAD CLEANER MAINTAINER Work Phone: [facility] 05-23-2025 12:02-0400 Body temperature 98.2 [degF] Belem Ordonez APRN-OVERHEAD CLEANER MAINTAINER Work Phone: [facility] 05-23-2025 12:02-0400 Body weight 48.99 kg Belem Ordonez APRN-OVERHEAD CLEANER MAINTAINER Work Phone: [facility] 05-23-2025 12:02-0400 Diastolic blood pressure 98 mm[Hg] Belem Ordonez APRN-OVERHEAD CLEANER MAINTAINER Work Phone: [facility] 05-23-2025 12:02-0400 Heart rate 62 /min Belemcarlitos Ordonez MED ASST-OVERHEAD CLEANER MAINTAINER Work Phone: [facility] 05-23-2025 12:02-0400 Respiratory rate 18 /min Belemcarlitos Ordonez MED ASST-OVERHEAD CLEANER MAINTAINER Work Phone: [facility] 05-23-2025 12:02-0400 SaO2% (BldA) [Mass fraction] 99 % Belemcarlitos Ordonez MED ASST-OVERHEAD CLEANER MAINTAINER Work Phone: [facility] 05-23-2025 12:02-0400 Systolic blood pressure 158 mm[Hg] Belem Ordonez MED ASST-OVERHEAD CLEANER MAINTAINER Work Phone: [facility] 04-11-2025 09:34-0400 Body height 154.9 cm Belem Ordonez MED ASST-OVERHEAD CLEANER MAINTAINER Work Phone: [facility] 04-11-2025 09:34-0400 Body mass index (BMI) [Ratio] 21.59 kg/m2 Belem Ordonez MED ASST-OVERHEAD CLEANER MAINTAINER Work Phone: [facility] 04-11-2025 09:34-0400 Body temperature 98.4 [degF] Belem Ordonez MED ASST-OVERHEAD CLEANER MAINTAINER Work Phone: [facility] 04-11-2025 09:34-0400 Body weight 51.8 kg Belem Ordonez MED ASST-OVERHEAD CLEANER MAINTAINER Work Phone: [facility] 04-11-2025 09:34-0400 Diastolic blood pressure 70 mm[Hg] Belem Ordonez MED ASST-OVERHEAD CLEANER MAINTAINER Work Phone: [facility] 04-11-2025 09:34-0400 Heart rate 80 /min Belemcarlitos Ordonez MED ASST-OVERHEAD CLEANER MAINTAINER Work Phone: [facility] 04-11-2025 09:34-0400 Respiratory rate 20 /min Belemcarlitos Ordonez MED ASST-OVERHEAD CLEANER MAINTAINER Work Phone: [facility] 04-11-2025 09:34-0400 SaO2% (BldA) [Mass fraction] 98 % Belem Ordonez MED ASST-OVERHEAD CLEANER MAINTAINER Work Phone: [facility] 04-11-2025 09:34-0400 Systolic blood pressure 138 mm[Hg] Belem Ordonez MED ASST-OVERHEAD CLEANER MAINTAINER Work Phone: [facility] 11-08-2024 10:41-0500 Body height 154.9 cm Belem Ordonez MED ASST-OVERHEAD CLEANER MAINTAINER Work Phone: [facility] 11-08-2024 10:41-0500 Body mass index (BMI) [Ratio] 24 kg/m2 Belem Ordonez MED ASST-OVERHEAD CLEANER MAINTAINER Work Phone: [facility] 11-08-2024 10:41-0500 Body temperature 98.01 [degF] Belem Ordonez MED ASST-OVERHEAD CLEANER MAINTAINER Work Phone: [facility] 11-08-2024 10:41-0500 Body weight 57.61 kg Belem Ordonez MED ASST-OVERHEAD CLEANER MAINTAINER Work Phone: [facility] 11-08-2024 10:41-0500 Diastolic blood pressure 58 mm[Hg] Belem Ordonez MED ASST-OVERHEAD CLEANER MAINTAINER Work Phone: [facility] 11-08-2024 10:41-0500 Heart rate 86 /min Belem Ordonez MED ASST-OVERHEAD CLEANER MAINTAINER Work Phone: [facility] 11-08-2024 10:41-0500 Respiratory rate 18 /min Belem Ordonez MED ASST-OVERHEAD CLEANER MAINTAINER Work Phone: [facility] 11-08-2024 10:41-0500 SaO2% (BldA) [Mass fraction] 96 % Belem Ordonez MED ASST-OVERHEAD CLEANER MAINTAINER Work Phone: [facility] 11-08-2024 10:41-0500 Systolic blood pressure 108 mm[Hg] Belem Ordonez MED ASST-OVERHEAD CLEANER MAINTAINER Work Phone: [facility] 10-04-2024 09:22-0500 Body height 154.9 cm Belem Ordonez MED ASST-OVERHEAD CLEANER MAINTAINER Work Phone: [facility] 10-04-2024 09:22-0500 Body mass index (BMI) [Ratio] 23.54 kg/m2 Belemcarlitos Ordonez MED ASST-OVERHEAD CLEANER MAINTAINER Work Phone: [facility] 10-04-2024 09:22-0500 Body temperature 98.1 [degF] Belem Ordonez MED ASST-OVERHEAD CLEANER MAINTAINER Work Phone: [facility] 10-04-2024 09:22-0500 Body weight 56.52 kg Belem Ordonez MED ASST-OVERHEAD CLEANER MAINTAINER Work Phone: [facility] 10-04-2024 09:22-0500 Diastolic blood pressure 58 mm[Hg] Belem Ordonez MED ASST-OVERHEAD CLEANER MAINTAINER Work Phone: [facility] 10-04-2024 09:22-0500 Heart rate 87 /min Belemcarlitos Ordonez MED ASST-OVERHEAD CLEANER MAINTAINER Work Phone: [facility] 10-04-2024 09:22-0500 Respiratory rate 18 /min Belem Ordonez MED ASST-OVERHEAD CLEANER MAINTAINER Work Phone: [facility] 10-04-2024 09:22-0500 SaO2% (BldA) [Mass fraction] 98 % Belem Ordonez MED ASST-OVERHEAD CLEANER MAINTAINER Work Phone: [facility] 10-04-2024 09:22-0500 Systolic blood pressure 102 mm[Hg] Belem Ordonez MED ASST-OVERHEAD CLEANER MAINTAINER Work Phone: [facility] 07-19-2024 11:33-0400 Body height 154.9 cm Belem Ordonez MED ASST-OVERHEAD CLEANER MAINTAINER Work Phone: [facility] 07-19-2024 11:33-0400 Body mass index (BMI) [Ratio] 22.79 kg/m2 Belemcarlitos Ordonez MED ASST-OVERHEAD CLEANER MAINTAINER Work Phone: [facility] 07-19-2024 11:33-0400 Body temperature 98.1 [degF] Belem Ordonez MED ASST-OVERHEAD CLEANER MAINTAINER Work Phone: [facility] 07-19-2024 11:33-0400 Body weight 54.7 kg Belem Ordonez MED ASST-OVERHEAD CLEANER MAINTAINER Work Phone: [facility] 07-19-2024 11:33-0400 Diastolic blood pressure 62 mm[Hg] Belem Ordonez MED ASST-OVERHEAD CLEANER MAINTAINER Work Phone: [facility] 07-19-2024 11:33-0400 Heart rate 93 /min Belem Ordonez MED ASST-OVERHEAD CLEANER MAINTAINER Work Phone: [facility] 07-19-2024 11:33-0400 Respiratory rate 18 /min Belem Ordonez MED ASST-OVERHEAD CLEANER MAINTAINER Work Phone: [facility] 07-19-2024 11:33-0400 SaO2% (BldA) [Mass fraction] 96 % Belem Ordonez MED ASST-OVERHEAD CLEANER MAINTAINER Work Phone: [facility] 07-19-2024 11:33-0400 Systolic blood pressure 108 mm[Hg] Belem Ordonez MED ASST-OVERHEAD CLEANER MAINTAINER Work Phone: [facility] 03-01-2024 08:35-0400 Body height 154.9 cm Sadie Raines MED ASST-GLASS PULVERIZER EQUIPMENT OPERATOR Work Phone: [facility] 03-01-2024 08:35-0400 Body mass index (BMI) [Ratio] 23.85 kg/m2 Sadie Raines MED ASST-GLASS PULVERIZER EQUIPMENT OPERATOR Work Phone: [facility] 03-01-2024 08:35-0400 Body temperature 97.11 [degF] Sadie Raines APRN-GLASS PULVERIZER EQUIPMENT OPERATOR Work Phone: [facility] 03-01-2024 08:35-0400 Body weight 57.24 kg Sadie Raines MED ASST-GLASS PULVERIZER EQUIPMENT OPERATOR Work Phone: [facility] 03-01-2024 08:35-0400 Diastolic blood pressure 73 mm[Hg] Sadie Raines APRN-GLASS PULVERIZER EQUIPMENT OPERATOR Work Phone: [facility] 03-01-2024 08:35-0400 Heart rate 94 /min Sadie Raines APRN-GLASS PULVERIZER EQUIPMENT OPERATOR Work Phone: [facility] 03-01-2024 08:35-0400 SaO2% (BldA) [Mass fraction] 96 % Sadie Raines MED ASST-GLASS PULVERIZER EQUIPMENT OPERATOR Work Phone: [facility] 03-01-2024 08:35-0400 Systolic blood pressure 106 mm[Hg] Sadie Raines APRN-GLASS PULVERIZER EQUIPMENT OPERATOR Work Phone: [facility] 11-20-2023 16:39-0500 Body height 154.9 cm Sadie Raines MED ASST-GLASS PULVERIZER EQUIPMENT OPERATOR Work Phone: [facility] 11-20-2023 16:39-0500 Body mass index (BMI) [Ratio] 25.05 kg/m2 Sadie Raines APRN-GLASS PULVERIZER EQUIPMENT OPERATOR Work Phone: [facility] 11-20-2023 16:39-0500 Body temperature 98.2 [degF] Sadie Raines APRN-GLASS PULVERIZER EQUIPMENT OPERATOR Work Phone: [facility] 11-20-2023 16:39-0500 Body weight 60.15 kg Sadie Raines APRN-GLASS PULVERIZER EQUIPMENT OPERATOR Work Phone: [facility] 11-20-2023 16:39-0500 Diastolic blood pressure 60 mm[Hg] Sadie Raines MED ASST-GLASS PULVERIZER EQUIPMENT OPERATOR Work Phone: [facility] 11-20-2023 16:39-0500 Heart rate 72 /min Sadie Raines APRN-GLASS PULVERIZER EQUIPMENT OPERATOR Work Phone: [facility] 11-20-2023 16:39-0500 SaO2% (BldA) [Mass fraction] 97 % Sadie Raines APRN-GLASS PULVERIZER EQUIPMENT OPERATOR Work Phone: [facility] 11-20-2023 16:39-0500 Systolic blood pressure 110 mm[Hg] Sadie Raines PATI-GLASS PULVERIZER EQUIPMENT OPERATOR Work Phone: [facility] 11-08-2022 14:30-0500 Body height 157.48 cm Nain Goodman Other [employer] Other 11-08-2022 14:30-0500 Body mass index (BMI) [Ratio] 19.2 kg/m2 Nain Goodman Other [employer] Other 11-08-2022 14:30-0500 Body weight 47.63 kg Nain Goodman Other [facility] [employer] [facility] Other 11-08-2022 14:30-0500 Diastolic blood pressure 86 mm[Hg] Nain Goodman Other [employer] Other 11-08-2022 14:30-0500 Systolic blood pressure 138 mm[Hg] Nain Goodman Other [facility] [employer] [facility] Other 10-06-2021 16:30-0500 Body height 157.48 cm Iris Aponte Other [employer] Other 10-06-2021 16:30-0500 Body mass index (BMI) [Ratio] 20.12 kg/m2 Iris Aponte Other [employer] Other 10-06-2021 16:30-0500 Body weight 49.9 kg Iris Aponte Other [employer] Other Encounters Encounter Date Encounter Type Care Provider Facility Start: 05-23-2025 End: 05-23-2025 Office outpatient visit 15 minutes Belem Ordonez APRN-OVERHEAD CLEANER MAINTAINER Work Phone: [facility] Comment on above: Anxiety (Primary Dx) ; Essential hypertension Start: 05-23-2025 End: 05-23-2025 ambulatory [facility] Start: 04-21-2025 End: 04-21-2025 Orders Only [facility] MED ASST-OVERHEAD CLEANER MAINTAINER Work Phone: [facility] Start: 04-19-2025 End: 04-21-2025 Refill Wander Pierre Furlong DO Work Phone: [facility] Start: 04-14-2025 End: 04-15-2025 Telephone encounter Courtney Evans [facility] Start: 04-11-2025 End: 04-11-2025 Office outpatient visit [address] [facility] MED ASST-OVERHEAD CLEANER MAINTAINER Work Phone: [facility] Comment on above: Anxiety (Primary Dx) ; Essential hypertension; Acquired hypothyroidism; Hyperkalemia Start: 04-11-2025 End: 04-11-2025 ambulatory [facility] Start: 03-26-2025 End: 03-31-2025 Refill Carolyn Abebe [facility] Comment on above: Hyperlipidemia, unsp ecified Start: 02-18-2025 End: 02-19-2025 Refill Wander Ignacio Furlong DO Work Phone: [facility] Start: 02-03-2025 End: 02-03-2025 Bamboo flowsheet Kendra A Felter MED ASST-OVERHEAD CLEANER MAINTAINER Work Phone: [facility] Start: 02-03-2025 End: 02-03-2025 Bamboo flowsheet Kendra A Felter MED ASST-OVERHEAD CLEANER MAINTAINER Work Phone: [facility] Start: 02-03-2025 End: 02-03-2025 Office outpatient visit 15 minutes Kendra A Felter MED ASST-OVERHEAD CLEANER MAINTAINER Work Phone: [facility] Comment on above: Other nonthrombocyto penic purpura (Primary Dx); Stasis dermatitis of both legs; Seborrheic keratosis, inflamed Start: 02-03-2025 End: 02-03-2025 ambulatory KENDRA MEYER Not Available Start: 12-20-2024 End: 12-20-2024 [facility] Start: 12-16-2024 End: 12-16-2024 Orders Only Wander Vaughn DO Work Phone: [facility] Start: 12-15-2024 End: 12-16-2024 Refill Belem L Mery MED ASST-OVERHEAD CLEANER MAINTAINER Work Phone: [facility] Start: 11-28-2024 End: 11-28-2024 Refill Belem L Mery MED ASST-OVERHEAD CLEANER MAINTAINER Work Phone: [facility] Comment on above: Acquired hypothyroid ism Start: 11-08-2024 End: 11-08-2024 Office outpatient visit 15 minutes Belem L Mery MED ASST-OVERHEAD CLEANER MAINTAINER Work Phone: [facility] Comment on above: Essential hypertensi on (Primary Dx); Chronic nonspecific colitis; Age-related osteoporosis without current pathological fracture Start: 11-08-2024 End: 11-08-2024 ambulatory [facility] Start: 10-10-2024 End: 10-14-2024 Refill Belem L Mery MED ASST-OVERHEAD CLEANER MAINTAINER Work Phone: [facility] Start: 10-04-2024 End: 10-04-2024 Office outpatient visit 25 minutes Belem L Mery MED ASST-OVERHEAD CLEANER MAINTAINER Work Phone: [facility] Comment on above: Essential hypertensi on (Primary Dx); Vitamin D deficiency; Hypokalemia; Hypothyroidism (acquired) Start: 10-04-2024 End: 10-04-2024 ambulatory [facility] Start: 09-10-2024 End: 09-10-2024 Refill Lulú Rinaldi [facility] Comment on above: Essential (primary) hypertension Start: 09-03-2024 End: 09-06-2024 Refill Yara Cheek [facility] Comment on above: Localized edema Start: 08-02-2024 End: 08-05-2024 Refill Belem Ordonez MED ASST-OVERHEAD CLEANER MAINTAINER Work Phone: [facility] Start: 07-23-2024 End: 07-23-2024 Telephone encounter Poly Hudson [facility] Family [facility] Start: 07-19-2024 End: 07-19-2024 ambulatory [facility] Start: 07-19-2024 End: 07-19-2024 Patient encounter procedure [facility] MED ASST-OVERHEAD CLEANER MAINTAINER Work Phone: [facility] Comment on above: Medicare annual well ness visit, initial (Primary Dx); Hyperkalemia; Hypothyroidism (acquired); Influenza vaccination administered at current visit; Encounter for screening mammogram for malignant neoplasm of breast; Depression screening Start: 07-19-2024 End: 07-19-2024 ambulatory [facility] Start: 06-04-2024 End: 06-04-2024 Orders Only Belem Ordonez MED ASST-OVERHEAD CLEANER MAINTAINER Work Phone: [facility] Comment on above: Hyperkalemia (Primar y Dx) Start: 06-03-2024 End: 06-04-2024 Telephone encounter Courtney Evans [facility] Start: 03-12-2024 End: 03-12-2024 Refill Courtney Evans [facility] Comment on above: Essential (primary) hypertension Start: 03-04-2024 End: 03-04-2024 Orders Only Sadie Raines MED ASST-GLASS PULVERIZER EQUIPMENT OPERATOR Work Phone: [facility] Comment on above: Hypokalemia (Primary Dx); Adverse effect of unspecified drugs, medicaments and biological substances, subsequent encounter Start: 03-01-2024 End: 03-01-2024 ambulatory SADIE RAINES [facility] Start: 03-01-2024 End: 03-01-2024 Office outpatient visit 25 minutes Sadie Raines MED ASST-GLASS PULVERIZER EQUIPMENT OPERATOR [facility] Comment on above: Essential hypertensi on (Primary Dx); Mixed hyperlipidemia; Hypothyroidism (acquired); Other eczema; Chronic neck pain Start: 01-16-2024 Orders Only Sadie Raines MED ASST-GLASS PULVERIZER EQUIPMENT OPERATOR Work Phone: [facility] Start: 12-26-2023 Refill Sadie Raines MED ASST-GLASS PULVERIZER EQUIPMENT OPERATOR Work Phone: [facility] Comment on above: Localized edema; Hyperlipidemia, unspecified Start: 12-18-2023 Refill Sadie Raines MED ASST-GLASS PULVERIZER EQUIPMENT OPERATOR Work Phone: [facility] Comment on above: Adverse effect of un specified drugs, medicaments and biological substances, subsequent encounter Start: 11-22-2023 Refill Sadie Raines MED ASST-GLASS PULVERIZER EQUIPMENT OPERATOR [facility] Comment on above: Adverse effect of un specified drugs, medicaments and biological substances, subsequent encounter Start: 11-20-2023 End: 11-20-2023 Office outpatient visit 25 minutes Sadie Raines MED ASST-GLASS PULVERIZER EQUIPMENT OPERATOR [facility] Comment on above: Essential hypertensi on (Primary Dx); Chronic neck pain; Acquired hypothyroidism; Age-related osteoporosis with current pathological fracture with routine healing; Encounter for screening mammogram for malignant neoplasm of breast Start: 11-14-2023 End: 11-14-2023 ambulatory Nain Goodman Other [employer] Other Start: 11-14-2023 Telephone encounter Nain Goodman [facility] Start: 11-08-2022 End: 11-08-2022 ambulatory Nain Goodman Other [employer] Other Start: 11-08-2022 Office outpatient vi sit 25 minutes Nain Goodman [facility] Start: 08-03-2022 End: 08-04-[address] SADIE RAINES Facility:[facility] Start: 05-17-2022 End: 05-17-2022 ambulatory Iris Aponte Other [employer] Other Start: 05-17-2022 Telephone encounter Iris Aponte [facility] Start: 11-28-2021 End: 11-28-[address] SADIE RAINES Facility:[facility] Start: 10-08-2021 End: 10-09-[address] SADIE RAINES Facility:[facility] Start: 10-06-2021 End: 10-06-2021 ambulatory Iris Aponte Other [employer] Other Start: 10-06-2021 Office outpatient vi sit 25 minutes Iris Aponte [facility] Start: 09-16-2021 End: 09-17-[address] SADIE RAINES Facility:[facility] Start: 10-28-2020 End: 10-28-2020 Chart abstracting Fito Cardoso Work Phone: Hematology/Oncology Start: 10-26-2020 End: 10-26-2020 Patient encounter procedure External Provider [facility] in Start: 10-26-2020 Results Only External Provider Exter nal-Non[facility] Procedures Date Procedure Procedure Detail Performing Clinician Start: 05-23-2025 Adult depression scr eening assessment Belem Ordonez MED ASST-OVERHEAD CLEANER MAINTAINER Work Phone: Start: 04-11-2025 Adult depression scr eening assessment Belem Ordonez MED ASST-OVERHEAD CLEANER MAINTAINER Work Phone: Start: 02-03-2025 CRYOTHERAPY SKIN LESION Kendra Almanzavee MED ASST-OVERHEAD CLEANER MAINTAINER Work Phone: Start: 11-08-2024 Adult depression scr eening assessment Belem Ordonez MED ASST-OVERHEAD CLEANER MAINTAINER Work Phone: Start: 10-04-2024 Adult depression scr eening assessment Belem Ordonez MED ASST-OVERHEAD CLEANER MAINTAINER Work Phone: Start: 07-26-2024 Mammography Belem Andino ch MED ASST-OVERHEAD CLEANER MAINTAINER Work Phone: Start: 07-19-2024 Follow-up visit Follow-up BELEM ORDONEZ Start: 07-19-2024 Adult depression scr eening assessment Belem Ordonez MED ASST-OVERHEAD CLEANER MAINTAINER Work Phone: Start: 03-01-2024 Adult depression scr eening assessment Sadie Raines MED ASST-GLASS PULVERIZER EQUIPMENT OPERATOR Work Phone: Start: 11-20-2023 Adult depression scr eening assessment Sadie Raines MED ASST-GLASS PULVERIZER EQUIPMENT OPERATOR Work Phone: Start: 10-26-2020 End: 10-26-2020 EXTERNAL LAB External Provider Plan of Treatment Date Care Activity Detail Author Start: 05-23-2026 Adult BMI Screening Adult BMI Screen ing [facility] Start: 05-23-2026 Depression Screening Depression Scre ening [facility] Start: 05-23-2026 Tobacco Screening Tobacco Screening [facility] Start: 04-11-2026 Adult BMI Screening Adult BMI Screen ing [facility] Start: 04-11-2026 Depression Screening Depression Scre ening [facility] Start: 04-11-2026 Fall Risk Screening Fall Risk Screen ing [facility] Start: 04-11-2026 Tobacco Screening Tobacco Screening [facility] Start: 11-08-2025 Adult BMI Screening Adult BMI Screen ing [facility] Start: 11-08-2025 Depression Screening Depression Scre ening [facility] Start: 11-08-2025 Fall Risk Screening Fall Risk Screen ing [facility] Start: 11-08-2025 Tobacco Screening Tobacco Screening [facility] Start: 10-04-2025 Adult BMI Screening Adult BMI Screen ing [facility] Start: 10-04-2025 Depression Screening Depression Scre ening [facility] Start: 10-04-2025 Fall Risk Screening Fall Risk Screen ing [facility] Start: 10-04-2025 Tobacco Screening Tobacco Screening [facility] Start: 07-26-2025 Screening for malign ant neoplasm of breast Mammogram [facility] Start: 07-19-2025 Adult BMI Screening Adult BMI Screen ing [facility] Start: 07-19-2025 Depression Screening Depression Scre ening [facility] Start: 07-19-2025 Fall Risk Screening Fall Risk Screen ing [facility] Start: 07-19-2025 Medicare Annual Well ness Visit Medicare Annual Wellness Visit [facility] Start: 07-19-2025 Tobacco Screening Tobacco Screening [facility] Start: 07-03-2025 End: 07-03-2025 Patient encounter procedure 07/03/2025 3:40 PM EDT Office Visit [facility] [address] [address] Belem Ordonez, MED ASST-OVERHEAD CLEANER MAINTAINER [address] [place] [address] [facility] Start: 06-30-2025 Influenza vaccination Influenza Vacc ine [facility] Start: 05-23-2025 End: 05-23-2025 Patient encounter procedure 05/23/2025 11:20 AM EDT Office Visit [facility] [address] [place] [address] Belem Ordonez, MED ASST-OVERHEAD CLEANER MAINTAINER [address] [place] [address] [facility] Start: 04-11-2025 End: 04-11-2025 Patient encounter procedure 04/11/2025 9:40 AM EDT Office Visit [facility] [address] [place] [place] [address] Belem Ordonez, MED ASST-OVERHEAD CLEANER MAINTAINER [address] [place] [address] [facility] Start: 03-01-2025 Adult BMI Screening Adult BMI Screen ing [facility] Start: 03-01-2025 Depression Screening Depression Scre ening [facility] Start: 03-01-2025 Fall Risk Screening Fall Risk Screen ing [facility] Start: 03-01-2025 Tobacco Screening Tobacco Screening [facility] Start: 02-03-2025 End: 02-03-2025 Patient encounter procedure 02/03/2025 11:25 AM EDT Office Visit [facility] [address] [place] [address] Kendra Meyer, MED ASST-OVERHEAD CLEANER MAINTAINER [address] [place] [address] Arrived [facility] Comment on above: Arrived Start: 11-20-2024 Adult BMI Screening Adult BMI Screen ing [facility] Start: 11-20-2024 Depression Screening Depression Scre [facility] Start: 11-20-2024 Fall Risk Screening Fall Risk Screen ing [facility] Start: 11-20-2024 Tobacco Screening Tobacco Screening [facility] Start: 11-08-2024 End: 11-08-2024 Patient encounter procedure 11/08/2024 10:40 AM EST [facility] [address] [place] [address] Belem Ordonez, MED ASST-OVERHEAD CLEANER MAINTAINER [address] [place] [address] [facility] - Family Medicine Start: 10-04-2024 End: 10-04-2024 Patient encounter procedure 10/04/2024 9:20 AM EST Office Visit [facility] - Family Medicine [address] [place] [address] Belem Ordonez, MED ASST-OVERHEAD CLEANER MAINTAINER [address] [place] [address] [facility] Internal Medicine - Family Medicine Start: 07-19-2024 End: 07-19-2025 DBT Breast - bilateral screening Mammography screening bilateral with CAD Imaging Routine Encounter for screening mammogram for malignant neoplasm of breast Expected: 07/19/2024, Expires: 07/19/2025 [facility] Comment on above: Expected: 07/19/2024 , Expires: 07/19/2025 Start: 07-19-2024 End: 07-19-2025 Thyrotropin [Units/volume] in Serum or Plasma TSH Lab Routine Hypothyroidism (acquired) Expected: 07/19/2024 (Approximate), Expires: 07/19/2025 [facility] Comment on above: Expected: 07/19/2024 (Approximate), Expires: 07/19/2025 Start: 07-19-2024 End: 07-19-2024 Patient encounter procedure 07/19/2024 11:20 AM EDT Office Visit [facility] Internal Medicine - Family Medicine [address] [place] [address] Belem Ordonez, MED ASST-OVERHEAD CLEANER MAINTAINER [address] [place] [address] [facility] Internal Medicine - Family Medicine Start: 06-30-2024 Influenza vaccination Influenza Vacc ine [facility] Start: 02-27-2024 End: 02-27-2024 Patient encounter procedure 02/27/2024 8:30 AM EDT Office Visit [facility] Internal Medicine - Family Medicine [address] [place] [address] Sadie Raines, MED ASST-GLASS PULVERIZER EQUIPMENT OPERATOR [address] [place] [address] [facility] Internal Medicine - Family Medicine Start: 11-20-2023 End: 11-20-2024 DBT Breast - bilateral screening Mammography screening bilateral with CAD Imaging Routine Encounter for screening mammogram for malignant neoplasm of breast Expected: 11/20/2023, Expires: 11/20/2024 [facility] Work Phone: Comment on above: Expected: 11/20/2023 , Expires: 11/20/2024 Start: 11-11-2023 Administration of varicella zoster vaccine Zoster (Shingles) Vaccine (2 of 2) [facility] Start: 2022 Pneumococcal Vaccine : 65+ Years (1 of 1 - PCV) Pneumococcal Vaccine: 65+ Years (1 of 1 - PCV) [facility] Start: 07-13-2022 DTaP,Tdap and Td Vaccines (2 - Td or Tdap) DTaP,Tdap and Td Vaccines (2 - Td or Tdap) [facility] Start: 06-30-2020 Influenza vaccination INFLUENZA (#1) [facility] Start: 2007 Screening for malign ant neoplasm of colon [facility] Start: 2007 SHINGRIX VACCINE (1 of 2) SHINGRIX VACCINE (1 of 2) [facility] Start: 2002 DIABETES SCREEN DIABETES SCREEN [facility] Start: 2002 LIPID SCREEN LIPID SCREEN [facility] Start: 1997 Mammography MAMMOGRAM [facility] Start: 1997 Screening for malign ant neoplasm of breast Mammogram [facility] Start: 1987 HPV TESTING HPV TESTING [facility] Start: 1978 PAP TESTING PAP TESTING [facility] Start: 1976 Urine microalbumin profile DTAP,TDAP,TD (1 - Tdap) [facility] Start: 1975 Adult BMI Follow Up Plan Adult BMI F ollow Up Plan [facility] Start: 1975 HEPATITIS C SCREENING HEPATITIS C SC REENING [facility] Start: 1975 HIV SCREENING HIV SCREENING [facility] Start: 1957 Medicare Annual Well ness Visit Medicare Annual Wellness Visit [facility] Start: 1957 Screening for malign ant neoplasm of colon [facility] End: 06-04-2025 Basic metabolic 2000 panel - Serum or Plasma Basic Metabolic Panel Lab Routine Hyperkalemia 1 Occurrences starting 06/04/2024 until 06/04/2025 [employer] Work Phone: Comment on above: 1 Occurrences starti ng 06/04/2024 until 06/04/2025 End: 07-19-2025 Basic metabolic 2000 panel - Serum or Plasma Basic Metabolic Panel Lab Routine Hyperkalemia 1 Occurrences starting 07/19/2024 until 07/19/2025 [employer] Work Phone: Comment on above: 1 Occurrences starti ng 07/19/2024 until 07/19/2025 Basic metabolic 2000 panel - Serum or Plasma Basic Metabolic Panel Lab Routine Hyperkalemia 04/11/2025 10:04 AM EDT [facility] End: 04-11-2026 Thyroid profile includes TSH FT4 Thyroid profile includes TSH FT4 Lab Routine Acquired hypothyroidism 1 Occurrences starting 04/11/2025 until 04/11/2026 [employer] Work Phone: Comment on above: 1 Occurrences starti ng 04/11/2025 until 04/11/2026 Thyroid profile incl udes TSH FT4 Thyroid profile includes TSH FT4 Lab Routine Acquired hypothyroidism 04/11/2025 10:04 AM EDT [facility] End: 07-19-2025 Thyroxine (T4) free [Mass/volume] in Serum or Plasma T4, free Lab Routine Hypothyroidism (acquired) 1 Occurrences starting 07/19/2024 until 07/19/2025 [facility] Comment on above: 1 Occurrences starti ng 07/19/2024 until 07/19/2025 [facility] Immunizations Immunization Date Immunization Notes Care Provider [facility] 07-19-2024 Seasonal trivalent influenza vaccine, adjuvanted, preservative free Belem Ordonez MED ASST-OVERHEAD CLEANER MAINTAINER [facility] 07-19-[facility]24 Immunization, In Clinic,; Translations: [Drug or medicament (substance)] Belem Ordonez MED ASST-OVERHEAD CLEANER MAINTAINER Work Phone: [facility] 07-19-2024 influenza virus vaccine, unspecified formulation Wander Vaughn DO [facility] 12-18-2023 zoster vaccine recombinant Sadie Raines MED ASST-GLASS PULVERIZER EQUIPMENT OPERATOR Work Phone: [facility] 09-16-2023 zoster vaccine recombinant Sadie Raines MED ASST-GLASS PULVERIZER EQUIPMENT OPERATOR Work Phone: [facility] 09-16-2023 zoster vaccine, unspecified formulation Sadie Raines MED ASST-GLASS PULVERIZER EQUIPMENT OPERATOR Work Phone: [facility] 08-28-2023 influenza, injectabl e, quadrivalent, preservative free Sadie Raines MED ASST-GLASS PULVERIZER EQUIPMENT OPERATOR Work Phone: [facility] 08-28-2023 influenza virus vaccine, unspecified formulation Sadie Raines MED ASST-GLASS PULVERIZER EQUIPMENT OPERATOR Work Phone: [facility] 09-16-2021 influenza, injectabl e, quadrivalent, preservative free Sadie Raines MED ASST-GLASS PULVERIZER EQUIPMENT OPERATOR Work Phone: [facility] 08-28-2020 influenza, injectabl e, quadrivalent, preservative free Sadie Raines MED ASST-GLASS PULVERIZER EQUIPMENT OPERATOR Work Phone: [facility] 09-12-2019 Influenza, injectabl e, [facility] [place] [facility], quadrivalent with preservative Sadie Raines MED ASST-GLASS PULVERIZER EQUIPMENT OPERATOR Work Phone: [facility] 09-12-2019 influenza, injectabl e, quadrivalent, preservative free [facility] 08-20-2018 influenza, injectabl e, quadrivalent, contains preservative Sadie Raines MED ASST-GLASS PULVERIZER EQUIPMENT OPERATOR Work Phone: [facility] 08-29-2017 influenza, injectabl e, quadrivalent, contains preservative Sadie Raines MED ASST-GLASS PULVERIZER EQUIPMENT OPERATOR Work Phone: [facility] 08-31-2015 influenza, injectabl e, quadrivalent, preservative free Fito Abankar [facility] 08-31-2015 influenza, seasonal, injectable, preservative free Sadie Raines MED ASST-GLASS PULVERIZER EQUIPMENT OPERATOR Work Phone: [facility] 07-13-2012 tetanus toxoid, redu roberto diphtheria toxoid, and acellular pertussis vaccine, adsorbed [facility] Payers Date Payer Category Payer Medicare (Managed Care) [facility] [id number] 2023 Medicare ANTHEM MEDICARE ANTHEM MEDICARE ADVANTAGE [id number] 2023- [phone] [address] [place] [address] [id number] 2023 Medicare HMO ANTHEM MEDICARE [id number] 2023 Medicare [id number] 2015 Unknown ANTHEM BLUE CARD PPO [id number] 2015-Present PPO [id number] 1959 Blue Cross Blue Shield [id number] 1957 Unknown [id number]. [id number] 1957 Unknown [id number] [id number]. [id number] 1957 Unknown [id number] [id number]. 2.593 1957 Unknown [id number] [id number]. [id number] 1957 Unknown [id number] [id number]. 2.1286 1957 Unknown [id number]. 2.1286 1957 Unknown [id number] [id number]. 2.1259 1957 Unknown [id number] [id number]. 2.1286 1957 Unknown [id number] [id number]. 2.1286 1957 Unknown [id number]. 2.1286 1957 Unknown [id number] [id number]. 2.1286 1957 Unknown [id number]. 2.1286 Social History Date Type Detail Facility [facility] Start: 1955 Sex Assigned At [facility] file [facility] Exposure to SARS-CoV -2 (event) Unable to assess [facility] Start: 10-28-2020 Tobacco smoking stat [facility] Unknown if ever smoked [facility] Start: 12-10-2020 End: 11-08-2024 Sex Assigned At [facility] [employer] Other Start: 05-12-2023 End: 07-19-2024 Tobacco smoking status NHIS Ex-smoker [facility] Start: 02-25-1998 End: 02-25-2018 History of tobacco use Current smoker [facility] Start: 02-25-1998 End: 02-25-2018 History of tobacco use Cigarette Smoker [facility] Start: 12-10-2020 End: 07-19-2024 Cigarettes smoked current (pack per day) - Reported 0.5 [facility] Start: 07-19-2024 End: 02-03-2025 Tobacco use and exposure Smokeless tobacco non-user [facility] Start: 11-08-2024 End: 05-23-2025 Alcoholic beverage intake Current drinker of alcohol (finding) [facility] Adolescent depressio n screening assessment 0 [facility] Start: 07-19-2024 Alcohol Comment socially [facility] Start: 06-04-2015 Sex Female (finding) [facility] Start: 11-20-2023 End: 03-01-2024 Alcoholic beverage intake Ex-drinker (finding) [facility] Start: 02-03-2025 Tobacco smoking stat [facility] Smokes tobacco daily [facility] Functional Status Date Assessment Result Facility 04-11-2025 Generalized anxiety disorder 7 item (AMIRAH- 7) [facility] Clinical Notes 10-06-2021 to 05-23-2025 Belem Ordonez APRN-[facility] - 05/23/2025 11:20 AM EDTTelephone Encounter - Courtney Evans, [facility] - 04/14/2025 11:25 AM EDTTelephone Encounter - Carolyn Abebe, [facility] - 04/14/2025 11:25 AM EDT Note Date & Type Note Facility 05-23-2025 History of Present illness Narrative [address] [facility] [id number] Patient: Reina Kelley Date of : 1955 Encounter Date: 05/23/2025 [...] lost more weight because she does not feel like eating when she has increased anxiety and when she does eat makes her feel nauseated and has early satiety. She denies any suicidal thoughts. Denies [...] past medical history, past social history, past surgical history and problem list. Past Medical History: Diagnosis Date Anxiety Hypertension Neck pain Past Surgical History: Procedure Laterality Date COLONOSCOPY 2011 COLONOSCOPY N/A 07/03/2019 Performed by Jamari Cox DO at [facility] LAPROSCOPIC ULTRASOUND GUIDED MICROWAVE ABLASION OF [...] 1 capsule (50,000 Units total) by mouth once a week. 90 capsule 1 levothyroxine (SYNTHROID, LEVOTHROID) [...] S (7-9 inches)) Pulse 62 Temp 36.8 C (98.2 F) (Tympanic) Resp 18 Ht 154.9 cm (5' 0.98 ) Wt 49 kg (108 lb) SpO2 99% BMI 20.42 kg/m Physical Exam Vitals reviewed. Constitutional: Appearance: Normal [...] and Memory: Cognition normal. Assessment and Plan: Reina was seen today for f/u anxiety. Diagnoses [...] rechecked by provider. She was encouraged to check her blood pressures 2-3 times per week at home and record and follow up in 1 month with blood pressure diary. She reports to have taken her amlodipine today before appointment. Follow up in 1 month for anxiety and blood pressure rechecked. BELEM JANA GARCIA APRN-CNP 05/23/25 1308 documented in this encounter [facility] 04-14-2025 Miscellaneous Notes ----- Message from JANA Solomon sent at 04/14/2025 8:48 AM EDT ----- Her thyroid is low or over-replaced so we will go down a little with dose of her Synthroid. Have her start new dose right away so we can re-check her blood work at appt in April. She does not need to fast. This could be partially why she feels anxious and this should slow down her weight loss by adjusting dose. ----- Message ----- From: Yair, Background User Sent: 04/11/2025 5:53 PM EDT To: JANA Coley Spoke with the patient and she understands documented in this encounter [facility] 04-14-2025 Telephone encounter Note ----- Message from JANA Solomon sent at 04/14/2025 8:48 AM EDT ----- Her thyroid is low or over-replaced so we will go down a little with dose of her Synthroid. Have her start new dose right away so we can re-check her blood work at appt in April. She does not need to fast. This could be partially why she feels anxious and this should slow down her weight loss by adjusting dose. ----- Message ----- From: Yair, Background User Sent: 04/11/2025 5:53 PM EDT To: JANA Coley [facility] 04-14-2025 Telephone encounter Note Spoke with the patient and she understands [facility] 04-11-2025 History of Present illness Narrative [address] [place] [address] Patient: Reina Kelley Date of : 1955 Encounter Date: 04/11/2025 History of Present Illness: The patient is a 69 y.o. female, an established patient, and is here for Chief Complaint Patient presents with Anxiety cv Hypertension Hyperlipidemia refills . HPI Patient is here for recheck of her blood pressure and some new anxiety that she has been experiencing. Patient has been on Lexapro more than 10 years ago and this was helping with her anxiety symptoms but has since stopped over the past few years because she felt better. Her son is out of correction since September and has moved in with her and she just bought a new house. She is helping take care of her granddaughter who is 'a handful' and she now feels overwhelmed and anxious again. She feels her chest is tight at times and she feels increased need to have a bowel movement when she is anxious especially diarrhea and she has been incontinent at times. She has about 3-5 bowel movements that are loose per day depending on how anxious she has. She does not always feel hungry and knows she does not eat how she should. She does not make the time for herself to have nutritious meals and has lost weight. Patient denies stopping her thyroid medicine and states she does take it at the same time each day on an empty stomach. AMIRAH-7 Total Score: 13 Problem List Items Addressed This Visit Cardiovascular and Mediastinum Essential hypertension Other Visit Diagnoses Anxiety - Primary Relevant Medications LORazepam (ATIVAN) 0.5 mg tablet Acquired hypothyroidism Relevant Orders Thyroid profile includes TSH FT4 Hyperkalemia Past Medical, Family, and Social History Update: The following portions of the patient's history were reviewed and updated as appropriate: allergies, current medications, past family history, past medical history, past social history, past surgical history and problem list. Past Medical History: Diagnosis Date Anxiety Hypertension Neck pain Past Surgical History: Procedure Laterality Date COLONOSCOPY 2011 COLONOSCOPY N/A 07/03/2019 Performed by Jamari Cox DO at [facility] LAPROSCOPIC ULTRASOUND GUIDED MICROWAVE ABLASION OF LIVER TUBAL LIGATION Current Outpatient Medications Medication Sig Dispense Refill amLODIPine (NORVASC) 10 mg tablet TAKE 1 TABLET BY MOUTH EVERY DAY 90 tablet 1 celecoxib (CeleBREX) 200 mg capsule TAKE 1 CAPSULE BY MOUTH IN THE MORNING 30 capsule 1 cholecalciferol (VITAMIN D3) 50,000 units capsule Take 1 capsule (50,000 Units total) by mouth once a week. 90 capsule 1 levothyroxine (SYNTHROID, LEVOTHROID) 75 MCG tablet TAKE 1 TABLET BY MOUTH IN THE MORNING 90 tablet 1 rosuvastatin (CRESTOR) 5 mg tablet Take 1 tablet (5 mg total) by mouth in the morning. 90 tablet 3 alendronate (FOSAMAX) 70 mg tablet Take 1 tablet (70 mg total) by mouth every 7 days. In a.m. with water on empty stomach, nothing else by mouth and remain upright for 30min 12 tablet 3 escitalopram (LEXAPRO) 10 mg tablet Take 1 tablet (10 mg total) by mouth in the evening. 30 tablet 1 LORazepam (ATIVAN) 0.5 mg tablet Take 1 tablet (0.5 mg total) by mouth daily as needed for anxiety. 7 tablet 0 No current facility-administered medications for this visit. (All medications reviewed and updated by provider since last office visit or hospitalization) Allergies: Patient has no known allergies. Tobacco History: Social History Tobacco Use Smoking Status Former Current packs/day: 0.00 Average packs/day: 0.5 packs/day for 20.0 years (10.0 ttl pk-yrs) Types: Cigarettes Start date: 02/25/1998 Quit date: 02/25/2018 Years since quittin.1 Smokeless Tobacco Never (If patient a smoker, smoking cessation counseling offered) Social History: Social History Substance and Sexual Activity Alcohol Use Yes Comment: socially Review of Systems: Review of Systems Psychiatric/Behavioral: Positive for agitation, decreased concentration and sleep disturbance. Negative for behavioral problems, dysphoric mood, hallucinations, self-injury and suicidal ideas. The patient is nervous/anxious. The patient is not hyperactive. Physical Exam: BP 138/70 (BP Site: Left Arm, BP Postition: Sitting, BP CUFF SIZE: M (9-13 inches)) Pulse 80 Temp 36.9 C (98.4 F) (Oral) Resp 20 Ht 154.9 cm (5' 0.98 ) Wt 51.8 kg (114 lb 3.2 oz) SpO2 98% BMI 21.59 kg/m Physical Exam Vitals reviewed. Constitutional: Appearance: Normal appearance. HENT: Head: Normocephalic and atraumatic. Cardiovascular: Rate and Rhythm: Normal rate and regular rhythm. Heart sounds: Normal heart sounds. Pulmonary: Effort: Pulmonary effort is normal. Breath sounds: Normal breath sounds. Abdominal: General: Bowel sounds are normal. Tenderness: There is no abdominal tenderness. Musculoskeletal: Right lower leg: No edema. Left lower leg: No edema. Skin: General: Skin is warm. Capillary Refill: Capillary refill takes less than 2 seconds. Neurological: General: No focal deficit present. Mental Status: She is alert and oriented to person, place, and time. Gait: Gait normal. Psychiatric: Mood and Affect: Mood is anxious. Speech: Speech is rapid and pressured. Behavior: Behavior normal. Assessment and Plan: Reina was seen today for anxiety, hypertension and hyperlipidemia. Diagnoses and all orders for this visit: Anxiety - LORazepam (ATIVAN) 0.5 mg tablet; Take 1 tablet (0.5 mg total) by mouth daily as needed for anxiety. Essential hypertension Acquired hypothyroidism - Thyroid profile includes TSH FT4; Future - Thyroid profile includes TSH FT4 Hyperkalemia - Basic Metabolic Panel Other orders - alendronate (FOSAMAX) 70 mg tablet; Take 1 tablet (70 mg total) by mouth every 7 days. In a.m. with water on empty stomach, nothing else by mouth and remain upright for 30min - Discontinue: escitalopram (LEXAPRO) 10 mg tablet; Take 1 tablet (10 mg total) by mouth in the morning. - escitalopram (LEXAPRO) 10 mg tablet; Take 1 tablet (10 mg total) by mouth in the evening. Follow-up: Since Lexapro worked well for patient in the past we will restart this at 10 mg and mechanism of action side effects were reviewed with patient today. After visit summary includes patient education sheet about Lexapro and Ativan. Patient may take the Ativan as needed for panic symptoms as she is having some panic attacks and she understands this is a controlled substance and should not be used before driving or use with alcohol. She understands both the medications can have a sedating effect. We will check her thyroid function tests as this may be some of the reason why she is anxious and losing weight. Blood pressure is borderline today but she is very anxious when coming into the office we will recheck in 1 month at her follow-up visit for anxiety. The OARRS/MAPPS database was reviewed today and found to be appropriate. No indication of medication diversion, or non compliance. JANA COLEY APRN-CNP 04/11/25 [id number] documented in this encounter [facility] 03-26-2025 Miscellaneous Notes Pt needs appt - CV/MAW documented in this encounter [facility] 03-26-2025 Telephone encounter Note Pt needs appt - CV/MAW [facility] 02-03-2025 History of Present illness Narrative Images from the original note were not included. Rash Location: Lower legs Duration: years Severity: mild Quality: denies itch, denies burning Modifying Factors: none Associated symptoms: dark patches Treatments tried: none Current treatments: none New patient Lesions: Location: right side of face Duration: years Quality: itchy Modifying factors: aggravated by picking Associated symptoms: rough, scaly Treatments: none All pertinent medical history, medications, and allergies were reviewed. General Exam: alert, oriented to person, place, and time, normal affect, well appearing Unaccompanied A focused exam completed based on patient reported problems, see below: 1. Other nonthrombocytopenic purpura (2) Left Lower Leg - Anterior, Right Lower Leg - Anterior Purplish patches of discoloration Patient counseled on benign condition. Instructed to avoid slight trauma to skin. Patient was told by friend that there were creams or pills to help get rid of purpura and stasis dermatitis and that providers at this office were able to get rid of this condition. Patient voiced great disappointment about treatment options not being available. Patient inquired if there were any creams and pills to help. Provider informed her that unfortunately there are not. Recommended compression stockings and avoiding trauma to legs. If patient desires to help treat lentigo on legs the only treatment would be BBL which is cosmetic and we do not provide here in the office. 2. Stasis dermatitis of both legs Left Lower Leg - Anterior, Right Lower Leg - Anterior Steinauer scaly plaques in areas of edema The patient was informed that stasis dermatitis is a chronic rash on the lower legs due to swelling often caused by poor circulation. The patient was instructed to keep the legs elevated when seated, avoid standing for long periods of time, and to wear compression stockings. Advised patient there is no treatment to fully remove the discoloration. Patient can try laser treatment if bothersome, recommended seeing Dr. Holley. Notify clinic if failing to improve despite treatment. 3. Seborrheic keratosis, inflamed Right Parotid Area Steinauer and brown stuck on verrucous scaly papule with surrounding erythema The patient was informed that symptomatic seborrheic keratoses are benign growths that become inflamed, itchy, tender, traumatized, caught on clothing, or bleed. Symptomatic lesions can be treated with cryotherapy or curretage. Thicker lesions treated with cryotherapy may require more than one treatment. The patient was instructed to notify the office if abnormal redness or tenderness develops at the treatment site. Cryotherapy today, see procedure note. Diagnosis: Inflamed seborrheic keratosis Indication: Inflamed Consent: Verbal consent was obtained and risks were discussed, including, but not limited to risks of scarring, darker or job printer pigmentary changes, recurrence, incomplete removal and infection. Method: Liquid nitrogen was used to treat the lesion(s) with two 5-10 second freeze-thaw cycles Number of lesions treated: 1 Post-procedure instructions: Instructions were given orally and in writing. The office will be contacted if the lesion fails to resolve despite treatment, or if a side effect develops such as abnormal crusting, scabbing, redness or tenderness Cryotherapy, skin lesion - Right Parotid Area Next Visit: recommended 6 month skin check documented in this encounter [facility] 11-08-2024 History of Present illness Narrative [address] [place] [address] Patient: Reina Kelley Date of : 1955 Encounter Date: 11/08/2024 History of Present Illness: The patient is a 69 y.o. female, an established patient, and is here for Chief Complaint Patient presents with BP check . HPI Patient is here to recheck her blood pressure as her hydrochlorothiazide was stopped after last appointment, patient has stopped her sulfasalazine on her own and her Flexeril was stopped due to high-risk with those over 65. Patient states she has not stopped her budesonide that was being given for her colitis from her GI specialist. She has not seen her GI specialist in a few years but wants to stop the budesonide. She states her colitis is resolved and she has not had any episodes since she retired a few years ago. She is under much less stress. She did start a new job working 20 hours per week at [employer] and she enjoys this and it is very low stress. Patient did have some lower back pain that lasted for a few days but was relieved by Voltaren gel. Problem List Items Addressed This Visit Cardiovascular and Mediastinum Essential hypertension - Primary Digestive Chronic nonspecific colitis Other Visit Diagnoses Age-related osteoporosis without current pathological fracture Past Medical, Family, and Social History Update: The following portions of the patient's history were reviewed and updated as appropriate: allergies, current medications, past family history, past medical history, past social history, past surgical history and problem list. Past Medical History: Diagnosis Date Anxiety Hypertension Neck pain Past Surgical History: Procedure Laterality Date COLONOSCOPY 2011 COLONOSCOPY N/A 07/03/2019 Performed by Jamari Cox DO at [facility] LAPROSCOPIC ULTRASOUND GUIDED MICROWAVE ABLASION OF [...] tablet 1 celecoxib (CeleBREX) 200 mg capsule take 1 capsule by mouth in the morning 30 capsule 1 cholecalciferol (VITAMIN D3) 50,000 units capsule Take 1 capsule (50,000 Units total) by mouth once a week. 90 capsule 1 levothyroxine (SYNTHROID, LEVOTHROID) 75 MCG tablet Take 1 tablet (75 mcg total) by mouth in the morning. 90 tablet 1 rosuvastatin (CRESTOR) 5 mg tablet take 1 tablet by mouth once daily 90 tablet 3 No current facility-administered medications for this visit. (All medications reviewed and updated by provider since last office visit or hospitalization) Allergies: Patient has no known allergies. Tobacco History: Social History Tobacco Use Smoking Status Former Current packs/day: 0.00 Average packs/day: 0.5 packs/day for 20.0 years (10.0 ttl pk-yrs) Types: Cigarettes Start date: 02/25/1998 Quit date: 02/25/2018 Years since quittin.7 Smokeless Tobacco Never (If patient a smoker, smoking cessation counseling offered) Social History: Social History Substance and Sexual Activity Alcohol Use Yes Comment: socially Review of Systems: Review of Systems Constitutional: Negative. HENT: Negative. Respiratory: Negative. Cardiovascular: Negative. Gastrointestinal: Negative. Musculoskeletal: Positive for back pain. Neurological: Negative. Psychiatric/Behavioral: Negative. Physical Exam: BP 108/58 (BP Site: Left Arm, BP Postition: Sitting, BP CUFF SIZE: M (9-13 inches)) Pulse 86 Temp 36.7 C (98 F) (Oral) Resp 18 Ht 154.9 cm (5' 1 ) Wt 57.6 kg (127 lb) SpO2 96% BMI 24.00 kg/m Physical Exam Vitals reviewed. Constitutional: Appearance: Normal appearance. She is well-developed. HENT: Head: Normocephalic and atraumatic. Cardiovascular: Rate and Rhythm: Normal rate and regular rhythm. Heart sounds: Normal heart sounds. No murmur heard. Pulmonary: Effort: Pulmonary effort is normal. No respiratory distress. Breath sounds: Normal breath sounds. No wheezing. Abdominal: General: Bowel sounds are normal. Palpations: Abdomen is soft. Tenderness: There is no abdominal tenderness. Musculoskeletal: Right lower leg: No edema. Left lower leg: No edema. Skin: General: Skin is warm and dry. Capillary Refill: Capillary refill takes less than 2 seconds. Findings: No rash. Neurological: General: No focal deficit present. Mental Status: She is alert and oriented to person, place, and time. Psychiatric: Mood and Affect: Mood normal. Behavior: Behavior normal. Assessment and Plan: Reina was seen today for bp check. Diagnoses and all orders for this visit: Essential hypertension Chronic nonspecific colitis Age-related osteoporosis without current pathological fracture Follow-up: Patient's blood pressure is well controlled, no changes. It was recommended the patient stop her chronic steroid use as she does have osteoporosis and her chronic colitis is well controlled. Was recommended that she return to her GI specialist but she does not wish to do this at this time. If her GI symptoms start to become uncontrolled again she will let me know for a new referral. Patient should continue with the Fosamax once a week. We should consider rescreening her for DEXA in the next 1-2 years. Follow-up sometime this year for Medicare wellness. JANA COLEY APRN-CNP 11/08/24 1405 documented in this encounter [facility] 10-04-2024 History of Present illness Narrative [address] [facility] [id number] Patient: Reina Kelley Date of : 1955 Encounter Date: 10/04/2024 History of Present Illness: The patient is a 69 y.o. female, an established patient, and is here for Chief Complaint Patient presents with Hypertension Memory? . HPI Patient has no complaints of high blood pressure readings at home or memory loss. Looking back at her last memory screening during her Medicare wellness, it was normal. She did bring her bag of medication bottles into the office today to have her medications clarified. She is no longer seeing her GI specialist in [place] on a routine basis but continues 1 of the medications from them. She figures she does not need to see them unless she is low on her medications that they prescribe. She is having no new problems or complaints today other than she would like to get off some of her medications because she takes too much . Problem List Items Addressed This Visit Cardiovascular and Mediastinum Essential hypertension - Primary Digestive Vitamin D deficiency Endocrine Hypothyroidism (acquired) Other Hypokalemia Past Medical, Family, and Social History Update: The following portions of the patient's history were reviewed and updated as appropriate: allergies, current medications, past family history, past medical history, past social history, past surgical history and problem list. Past Medical History: Diagnosis Date Anxiety Hypertension Neck pain Past Surgical History: Procedure Laterality Date COLONOSCOPY 2011 COLONOSCOPY N/A 07/03/2019 Performed by Jamari Cox DO at [facility] LAPROSCOPIC ULTRASOUND GUIDED MICROWAVE ABLASION OF [...] tablet 1 celecoxib (CeleBREX) 200 mg capsule take 1 capsule by mouth in the morning 30 capsule 1 levothyroxine (SYNTHROID, LEVOTHROID) 75 MCG tablet Take 1 tablet (75 mcg total) by mouth in the morning. 90 tablet 1 rosuvastatin (CRESTOR) 5 mg tablet take 1 tablet by mouth once daily 90 tablet 3 cholecalciferol (VITAMIN D3) 50,000 units capsule Take 1 capsule (50,000 Units total) by mouth once a week. 90 capsule 1 sulfaSALAzine (AZULFIDINE) 500 mg EC tablet Take 1 tablet (500 mg total) by mouth in the morning. Diarrhea - from GI . No current facility-administered medications for this visit. (All medications reviewed and updated by provider since last office visit or hospitalization) Allergies: Patient has no known allergies. Tobacco History: Social History Tobacco Use Smoking Status Former Current packs/day: 0.00 Average packs/day: 0.5 packs/day for 20.0 years (10.0 ttl pk-yrs) Types: Cigarettes Start date: 02/25/1998 Quit date: 02/25/2018 Years since quittin.6 Smokeless Tobacco Never (If patient a smoker, smoking cessation counseling offered) Social History: Social History Substance and Sexual Activity Alcohol Use Yes Comment: socially Review of Systems: Review of Systems Constitutional: Negative for chills, fever and unexpected weight change. HENT: Negative for ear pain and sore throat. Eyes: Negative for pain and visual disturbance. Respiratory: Negative for cough and shortness of breath. Cardiovascular: Negative for chest pain and palpitations. Gastrointestinal: Negative for abdominal pain and vomiting. Genitourinary: Negative for dysuria and hematuria. Musculoskeletal: Positive for myalgias. Negative for arthralgias, back pain and gait problem. Skin: Negative for color change and rash. Neurological: Negative for seizures and syncope. Psychiatric/Behavioral: Negative. All other systems reviewed and are negative. Physical Exam: BP 102/58 (BP Site: Left Arm, BP Postition: Sitting, BP CUFF SIZE: M (9-13 inches)) Pulse 87 Temp 36.7 C (98.1 F) (Oral) Resp 18 Ht 154.9 cm (5' 1 ) Wt 56.5 kg (124 lb 9.6 oz) SpO2 98% BMI 23.54 kg/m Physical Exam Vitals reviewed. Constitutional: Appearance: Normal appearance. She is well-developed. HENT: Head: Normocephalic and atraumatic. Neck: Vascular: No carotid bruit. Cardiovascular: Rate and Rhythm: Normal rate and regular rhythm. Heart sounds: Normal heart sounds. No murmur heard. Pulmonary: Effort: Pulmonary effort is normal. No respiratory distress. Breath sounds: Normal breath sounds. No wheezing. Abdominal: General: Bowel sounds are normal. Palpations: Abdomen is soft. Tenderness: There is no abdominal tenderness. Musculoskeletal: Cervical back: Neck supple. Right lower leg: No edema. Left lower leg: No edema. Lymphadenopathy: Cervical: No cervical adenopathy. Skin: General: Skin is warm and dry. Capillary Refill: Capillary refill takes less than 2 seconds. Findings: No rash. Neurological: General: No focal deficit present. Mental Status: She is alert and oriented to person, place, and time. Psychiatric: Mood and Affect: Mood normal. Behavior: Behavior normal. Assessment and Plan: Reina was seen today for hypertension. Diagnoses and all orders for this visit: Essential hypertension Vitamin D deficiency Hypokalemia Hypothyroidism (acquired) Other orders - cholecalciferol (VITAMIN D3) 50,000 units capsule; Take 1 capsule (50,000 Units total) by mouth once a week. Follow-up: Her medications were reviewed in detail today - pt brought her bag of meds in bottles. She is not longer seeing GI and is now off budesonide and carafate and only taking sulfasalazine once daily. Her colitis is much better since she retired. She no longer wishes to see GI but was encouraged by this provider to f/u at least once per year as the sulfasalazine is not something we usually prescribing primary care. She agrees to make an appointment when she is almost out of this medication. Patient's blood pressure is low normal today and she is wondering if she can come off some of her blood pressure medications. She may stop the HCTZ and it appears she was taking the potassium due to hypokalemia side effect of the HCTZ so we can stop both of these. Continue the amlodipine for now and she was encouraged to take her blood pressure at home and record for next appointment. Her thyroid function tests were reviewed and she should maintain the 70 mcg of Synthroid. She is no longer taking the Flexeril on a routine basis as she has no neck and back pain due to retiring. She should stop this as it is on the BEERs list. Patient is not aware that she is taking vitamin-D so we will restart this 95374 units once weekly. Return to office in 1 month to recheck BMP and blood pressure. JANA COLEY APRN-CNP 10/04/24 1006 documented in this encounter [facility] 07-23-2024 Miscellaneous Notes ----- Message from JANA Solomon sent at 07/22/2024 9:33 PM EDT ----- Her thyroid function was normal as well as her electrolytes, kidney function and her potassium is now normal. No changes to her medications. Spoke with pt. Pt verbalizes understanding. documented in this encounter [facility] 07-23-2024 Telephone encounter Note ----- Message from JANA Solomon sent at 07/22/2024 9:33 PM EDT ----- Her thyroid function was normal as well as her electrolytes, kidney function and her potassium is now normal. No changes to her medications. [facility] 07-23-2024 Telephone encounter Note Spoke with pt. Pt verbalizes understanding. [facility] 07-19-2024 History of Present illness Narrative Subjective Reina Kelley is a 69 y.o. female who presents for a Welcome to Medicare visit. Pt has no complaints but is unaware of the medications she takes. She wants to return to office and bring her medication bag in to review. Patient is retired from [employer]. She is not enjoying intermediate and misses the social interaction with working. The following portions of the patient's history were reviewed and updated as appropriate: Health Risk Assessment, allergies, past medical history, past surgical history, social history, family history, and immunization history Vitals: Vitals: 07/19/24 1133 BP: 108/62 Pulse: 93 Resp: 18 Temp: 36.7 C (98.1 F) SpO2: 96% Body mass index is 22.79 kg/m . History: Patient Active Problem List Diagnosis Date Noted Hypokalemia 03/04/2024 Age-related osteoporosis with current pathological fracture with routine healing 06/20/2023 Closed fracture of multiple ribs of right side with routine healing 06/20/2023 Tobacco dependence syndrome 08/10/2022 Vitamin D deficiency 07/14/2022 Hypothyroidism (acquired) 07/14/2022 Hyperlipidemia 02/09/2022 Spontaneous ecchymosis 03/23/2021 Chronic neck pain 06/23/2020 Collagenous colitis 07/08/2019 Chronic nonspecific colitis 07/03/2019 Diarrhea with dehydration 06/28/2019 Acute kidney injury (CMS-HCC) 06/27/2019 Vitamin D deficiency 12/31/2018 Essential hypertension 01/16/2018 Past Medical History: Diagnosis Date Anxiety Hypertension Neck pain Past Surgical History: Procedure Laterality Date COLONOSCOPY 2011 COLONOSCOPY N/A 07/03/2019 Performed by Jamari Cox DO at [facility] LAPROSCOPIC ULTRASOUND GUIDED MICROWAVE ABLASION OF LIVER TUBAL LIGATION Family History Problem Relation Age of Onset Glaucoma Mother Hip fracture Mother 78 Heart attack Father Social History Tobacco Use Smoking status: Former Current packs/day: 0.00 Average packs/day: 0.5 packs/day for 20.0 years (10.0 ttl pk-yrs) Types: Cigarettes Start date: 02/25/1998 Quit date: 02/25/2018 Years since quittin.4 Smokeless tobacco: Never Substance Use Topics Alcohol use: Yes Comment: socially Allergies: No Known Allergies Current Outpatient Medications Medication Sig Dispense Refill amLODIPine (NORVASC) 10 mg tablet TAKE 1 TABLET BY MOUTH EVERY DAY 90 tablet 1 budesonide EC (ENTOCORT EC) 3 mg 24 hr capsule Take 1 capsule (3 mg total) by mouth in the morning. This is an updated prescription she does need right now. 90 capsule 1 celecoxib (CeleBREX) 200 mg capsule Take 1 capsule (200 mg total) by mouth in the morning. 30 capsule 1 cyclobenzaprine (FLEXERIL) 10 mg tablet Take 1 tablet (10 mg total) by mouth in the morning and 1 tablet (10 mg total) before bedtime. 180 tablet 1 hydroCHLOROthiazide (HYDRODIURIL) 12.5 mg tablet take 1 tablet by mouth once daily 90 tablet 1 potassium chloride (K-TAB,KLOR-CON) 20 mEq CR tablet Take 1 tablet (20 mEq total) by mouth in the morning. 90 tablet 1 rosuvastatin (CRESTOR) 5 mg tablet take 1 tablet by mouth once daily 90 tablet 3 alendronate (FOSAMAX) 70 mg tablet Take 1 tablet (70 mg total) by mouth every 7 days. In a.m. with water on empty stomach, nothing else by mouth and remain upright for 30min (Patient not taking: Reported on 07/19/2024) 12 tablet 3 carvediloL (COREG) 12.5 mg tablet carvedilol 12.5 mg tablet (Patient not taking: Reported on 07/19/2024) cholecalciferol (VITAMIN D3) 50,000 units capsule Take 1 capsule (50,000 Units total) by mouth in the morning. (Patient not taking: Reported on 07/19/2024) Immunization, In Clinic, Inject 0.5 mL into the appropriate muscle once for 1 dose. flu vac 65up (PF) 45 MCG(15 MCGX3)/0.5 mL Sign this order to satisfy the OSBOP Positive ID requirements for immunization orders. Immunization, In Clinic, Inject 0.5 mL into the appropriate muscle once for 1 dose. diph,pertuss(acel),tet vac(PF) Sign this order to satisfy the OSBOP Positive ID requirements for immunization orders. levothyroxine (SYNTHROID, LEVOTHROID) 75 MCG tablet Take 1 tablet (75 mcg total) by mouth in the morning. (Patient not taking: Reported on 07/19/2024) 90 tablet 1 triamcinolone (KENALOG) 0.5 % cream Apply 1 Application topically in the morning and 1 Application before bedtime. (Patient not taking: Reported on 07/19/2024) 30 g 0 No current facility-administered medications for this visit. Immunization History Administered Date(s) Administered COVID-19, mRNA, LNP-S, PF, 30mcg/0.3mL Dose 02/22/2021, 03/15/2021 Influenza (IM) Preservative Free 08/31/2015 Influenza, Injectable, MDCK, Quadrivalent 09/12/2019 Influenza, Injectable, Quadrivalent 08/29/2017, 08/20/2018 Influenza, Injectable, quadrivalent (PF) 08/28/2020, 09/16/2021, 08/28/2023 Influenza, Trivalent, Adjuvanted 07/19/2024 Tdap 07/13/2012 Zoster Vaccine Recombinant 09/16/2023, 12/18/2023 Functional Ability/Safety Screening 1. Was the patient's timed Get Up & Go test unsteady or longer than 30 seconds? Yes 2. Does the patient need help with the phone, transportation, shopping, preparing meals, housework, laundry, medications or managing money? No 3. Does the patient's home have rugs in the hallway, lack grab bars in the bathroom, lack handrails on the stairs or have poor lighting? No 4. Have you noticed any hearing difficulties? No Hearing and/or Vision Screening: No results found. Cognitive Screening; Clock Drawing Test: Mini Mental Score: Total Score: 29/30 Advanced Directives: Living Will: Yes DPA for Health Care: Yes Review of Systems: Review of Systems Constitutional: Positive for unexpected weight change (6 lb weight loss since February). Negative for chills and fever. HENT: Negative for ear pain and sore throat. Eyes: Negative for pain and visual disturbance. Respiratory: Negative for cough and shortness of breath. Cardiovascular: Negative for chest pain and palpitations. Gastrointestinal: Negative for abdominal pain and vomiting. Genitourinary: Negative for dysuria and hematuria. Musculoskeletal: Negative for arthralgias and back pain. Skin: Negative for color change and rash. Allergic/Immunologic: Negative. Neurological: Negative for seizures and syncope. Psychiatric/Behavioral: Negative. All other systems reviewed and are negative. Objective Physical Exam Vitals reviewed. Constitutional: Appearance: Normal appearance. She is normal weight. HENT: Right Ear: Tympanic membrane, ear canal and external ear normal. Left Ear: Ear canal and external ear normal. Tympanic membrane is perforated. Mouth/Throat: Mouth: Mucous membranes are moist. Eyes: Conjunctiva/sclera: Conjunctivae normal. Neck: Thyroid: No thyroid mass, thyromegaly or thyroid tenderness. Vascular: No carotid bruit. Cardiovascular: Rate and Rhythm: Normal rate and regular rhythm. Pulses: Normal pulses. Heart sounds: Normal heart sounds. No murmur heard. Pulmonary: Effort: Pulmonary effort is normal. No respiratory distress. Breath sounds: Normal breath sounds. Musculoskeletal: Cervical back: No tenderness. Right lower leg: No edema. Left lower leg: No edema. Lymphadenopathy: Cervical: No cervical adenopathy. Skin: General: Skin is warm and dry. Capillary Refill: Capillary refill takes less than 2 seconds. Neurological: Mental Status: She is alert and oriented to person, place, and time. Psychiatric: Mood and Affect: Mood normal. Behavior: Behavior normal. Thought Content: Thought content normal. Judgment: Judgment normal. Assessment/Plan Reina was seen today for follow-up. Diagnoses and all orders for this visit: Medicare annual wellness visit, initial Hyperkalemia - Basic Metabolic Panel; Future Hypothyroidism (acquired) - TSH; Future - T4, free; Future Influenza vaccination administered at current visit - Influenza, Trivalent, Adjuvanted Encounter for screening mammogram for malignant neoplasm of breast - Mammography screening bilateral with CAD; Future Depression screening Other orders - Tdap vaccine greater than or equal to 7yo IM Health maintenance and immunizations were reviewed today. She would like to have her tetanus shot but we can not give this in the office unless she has an injury. She will get this at her pharmacy. She is up-to-date on her other immunizations after her flu shot today. She does not qualify for low-dose CT scan for lung cancer screening. She has had cholesterol checked earlier this year. Patient agrees to have mammogram done at the [facility], has no new skin changes, is up-to-date on her colorectal cancer screening, no longer wishes to have her Pap smear done. It was recommended that she perform self-breast exams. Patient should return to the office in the next few months to reconcile her medications, bring those to the office so we can review. JANA Coley 07/19/24 1337 documented in this encounter [facility] 06-03-2024 Miscellaneous Notes Pt needs her BMP re-checked as her potassium is high. Her potassium pill should be on hold. She is due for appt but can do this ahead of appt LM for Pat to call and schedule apt and to have BMP checked. documented in this encounter [facility] 06-03-2024 Telephone encounter Note Pt needs her BMP re-checked as her potassium is high. Her potassium pill should be on hold. She is due for appt but can do this ahead of appt [facility] 06-03-2024 Telephone encounter Note LM for Pat to call and schedule apt and to have BMP checked[facility] Miscellaneous Notes Just calling to get Wellness visit scheduled documented in this encounter [facility] Telephone encounter Note Just calling to get [facility] History of Present illness Narrative Subjective Patient ID: Reina Kelley is a 68 y.o. female. 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 [facility] and enjoying that She is tolerating the arthritis in her neck by using extra strength tylenol 2-3 times daily She is not having any difficulties with her prescription medication She does have a dry, scaly and itchy spot on her back she would like looked at The following portions of the patient's history were reviewed and updated as appropriate: allergies, current medications, past family history, past medical history, past social history, past surgical history, problem list, and medication reconciliation was completed including current medication and post discharge medication. Review of Systems Constitutional: Negative. HENT: Negative. Eyes: Negative. Respiratory: Negative. Cardiovascular: Negative. Gastrointestinal: Negative. Endocrine: Negative. Genitourinary: Negative. Musculoskeletal: Positive for arthralgias. Skin: Positive for rash. Allergic/Immunologic: Negative. Neurological: Negative. Psychiatric/Behavioral: Negative. Objective Physical Exam Vitals and nursing note reviewed. Constitutional: Appearance: She is normal weight. Eyes: Conjunctiva/sclera: Conjunctivae normal. Neck: Vascular: No carotid bruit. Cardiovascular: Rate and Rhythm: Normal rate and regular rhythm. Pulses: Normal pulses. Heart sounds: Normal heart sounds. No murmur heard. Pulmonary: Effort: Pulmonary effort is normal. No respiratory distress. Breath sounds: Normal breath sounds. Musculoskeletal: Cervical back: No tenderness. Right lower leg: No edema. Left lower leg: No edema. Lymphadenopathy: Cervical: No cervical adenopathy. Skin: General: Skin is warm and dry. Capillary Refill: Capillary refill takes less than 2 seconds. Findings: Rash (at the base of the thoracic spine there is a 4 by 5 cm area that is erythematous, dry and mildly scaled) present. Neurological: Mental Status: She is alert and oriented to person, place, and time. Psychiatric: Mood and Affect: Mood normal. Behavior: Behavior normal. Thought Content: Thought content normal. Judgment: Judgment normal. Assessment/Plan Reina was seen today for hypertension and hypothyroidism. Diagnoses and all orders for this visit: Essential hypertension - Comprehensive metabolic panel; Future Mixed hyperlipidemia - Comprehensive metabolic panel; Future - Lipid panel; Future Hypothyroidism (acquired) - Thyroid profile includes TSH FT4; Future Other eczema Chronic neck pain Other orders - triamcinolone (KENALOG) 0.5 % cream; Apply 1 Application topically in the morning and 1 Application before bedtime. Blood pressure is stable, no changes made today, continue current medication and draw cmp to check kidney function Her lipids are also drawn today to check status Her thyroid is drawn today to check status Triamcinolone is prescribed today for the eczema patch on her back, she is to avoid any fragranced soaps Her neck pain is stable with the use of extra strenghth tylenol she has celebrex available if needed but avoids this as she has had petechiae with it F/u 6 months for htn DHRUV Damon 03/01/24 1137 documented in this encounter [facility] 01-16-2024 Miscellaneous Notes Pt called and needs a refill on FOSAMAX. Pharmacy is listed and correct I think they meant to send this to you. documented in this encounter [facility] 01-16-2024 Telephone encounter Note Pt called and needs a refill on FOSAMAX. Pharmacy is listed and correct [facility] 01-16-2024 Telephone encounter Note I think they meant to send this to you. [facility] 11-20-2023 History of Present illness Narrative Subjective Patient ID: Reina Kelley is a 68 y.o. female. Here today to get back on her celebrex She is still having a lot of neck pain despite being retired She had been on it before but was using it with prednisone and got petitichae so stopped, not using prednisone anymore We reviewed all of her medication and it appears she may not have been taking her thyroid medication for awhile, will get that restarted She is tolerating her other medication She does have some mild ankle edema but no shortness of breath or chest pain She has been less active since retiring The following portions of the patient's history were reviewed and updated as appropriate: allergies, current medications, past family history, past medical history, past social history, past surgical history, problem list, and medication reconciliation was completed including current medication and post discharge medication. Review of Systems Constitutional: Positive for activity change. Negative for fatigue. HENT: Negative. Eyes: Negative. Respiratory: Negative. Cardiovascular: Negative. Gastrointestinal: Negative. Endocrine: Negative. Genitourinary: Negative. Musculoskeletal: Positive for arthralgias, myalgias and neck pain. Skin: Negative. Allergic/Immunologic: Negative. Hematological: Negative. Psychiatric/Behavioral: Negative. Objective Physical Exam Vitals and nursing note reviewed. HENT: Head: Normocephalic. Eyes: Conjunctiva/sclera: Conjunctivae normal. Neck: Vascular: No carotid bruit. Cardiovascular: Rate and Rhythm: Normal rate and regular rhythm. Pulses: Normal pulses. Heart sounds: Normal heart sounds. No murmur heard. Pulmonary: Effort: Pulmonary effort is normal. Breath sounds: Normal breath sounds. Musculoskeletal: General: Tenderness (posterior neck) present. Cervical back: Tenderness present. Lymphadenopathy: Cervical: No cervical adenopathy. Skin: General: Skin is warm and dry. Capillary Refill: Capillary refill takes less than 2 seconds. Findings: No rash. Neurological: Mental Status: She is alert and oriented to person, place, and time. Psychiatric: Thought Content: Thought content normal. Judgment: Judgment normal. Assessment/Plan Reina was seen today for arthritis. Diagnoses and all orders for this visit: Essential hypertension Chronic neck pain Acquired hypothyroidism - levothyroxine (SYNTHROID, LEVOTHROID) 75 MCG tablet; Take 1 tablet (75 mcg total) by mouth in the morning. Age-related osteoporosis with current pathological fracture with routine healing Encounter for screening mammogram for malignant neoplasm of breast - Mammography screening bilateral with CAD; Future Other orders - celecoxib (CeleBREX) 200 mg capsule; Take 1 capsule (200 mg total) by mouth in the morning. Will resume celebrex for arthritic pain in her neck and observe Her blood pressure is stable, she does have some mild edema of her ankles - this may be due to inactivity, encouraged her to be more active and move around more Resume thyroid medication and then will have her return in 3 months and plan to check her cmp, lipids and thyroid levels She is overdue for her mammogram and this is ordered She stopped her osteoporosis medication is September, she is going to restart this as well DHRUV Damon 11/20/23 0312 documented in this encounter [facility] 11-08-2022 Evaluation note Encounter Date Diagnosis Assessment Notes Oct, Collagenous colitis (ICD-10 - K52.831) patient to stop buedesonide. patient to take 2 pepto bismol tablets 4 times daily if diarrhea returns. [employer] Other 07-19-2022 Evaluation note* Encounter Date Diagnosis Assessment Notes Treatment Notes Treatment Clinical Notes Apr, Collagenous colitis (ICD-10 - K52.831) [employer] Other 12-08-2021 Evaluation note* Encounter Date Diagnosis Assessment Notes Treatment Notes Treatment Clinical Notes Sep, Collagenous colitis (ICD-10 - K52.831) CONTINUE BUDESONIDE 1 PO Q AM WITHOUT CHANGE F/U HERE ONE YEAR [employer] Other [facility] [employer] Other Evaluation note* Diagnosis Essential hypertension- Primary Unspecified essential hypertension Chronic nonspecific colitis Age-related osteoporosis without current pathological fracture [facility] Diagnosis Acquired hypothyroidism Unspecified hypothyroidism [facility] Diagnosis Essential hypertension- Primary Unspecified essential hypertension Mixed hyperlipidemia Hypothyroidism (acquired) Unspecified hypothyroidism Other eczema Chronic neck pain Cervicalgia [facility] Diagnosis Hypokalemia- Primary Hypopotassemia Adverse effect of unspecified drugs, medicaments and biological substances, subsequent encounter [facility] Diagnosis Essential (primary) hypertension Unspecified essential hypertension [facility] Diagnosis Essential hypertension- Primary Unspecified essential hypertension Chronic neck pain Cervicalgia Acquired hypothyroidism Unspecified hypothyroidism Age-related osteoporosis with current pathological fracture with routine healing Encounter for screening mammogram for malignant neoplasm of breast [facility]* Diagnosis Adverse effect of unspecified drugs, medicaments and biological substances, subsequent encounter [facility]* Diagnosis Localized edema Edema Hyperlipidemia, unspecified [facility]* Diagnosis Hyperkalemia- Primary Hyperpotassemia [facility]* Diagnosis Medicare annual wellness visit, initial- Primary Hyperkalemia Hyperpotassemia Hypothyroidism (acquired) Unspecified hypothyroidism Influenza vaccination administered at current visit Encounter for screening mammogram for malignant neoplasm of breast Depression screening [facility] Diagnosis Localized edema Edema [facility]* Diagnosis Essential (primary) hypertension Unspecified essential hypertension [facility]* Diagnosis Essential hypertension- Primary Unspecified essential hypertension Vitamin D deficiency Hypokalemia Hypopotassemia Hypothyroidism (acquired) Unspecified hypothyroidism [facility] Diagnosis Other nonthrombocytopenic purpura- Primary Stasis dermatitis of both legs Seborrheic keratosis, inflamed documented in this encounter [facility]* Diagnosis Hyperlipidemia, unspecified [facility] Diagnosis Anxiety- Primary Anxiety state, unspecified Essential hypertension Unspecified essential hypertension Acquired hypothyroidism Unspecified hypothyroidism Hyperkalemia Hyperpotassemia [facility]* Diagnosis Anxiety- Primary Anxiety state, unspecified Essential hypertension Unspecified essential hypertension [facility] N[facility]ative - Reported* Type Description Date Medical History HTN Medical History Arthritis Surgical History uterine ablation [employer] [facility] [employer] Other History general Narrative - Reported* Type Description Date Medical History HTN Medical History Arthritis Medical History ulcerative colitis Surgical History uterine ablation [employer] Other InstructionsNot on filedocumented in this encounter [facility] filedocumented in this [facility] filedocumented in this encounter [facility] on filedocumented in this encounter [facility] on filedocumented in this encounter [facility] on filedocumented in this encounter [facility] on filedocumented in this encounter [facility] on filedocumented in this encounter [facility] on filedocumented in this encounter [facility] on filedocumented in this encounter [facility] on filedocumented in this encounter [facility] on filedocumented in this encounter [facility] on filedocumented in this encounter [facility] on filedocumented in this encounter [facility] on filedocumented in this encounter [facility]Not on filedocumented in this encounter [facility]* Attachments The following attachments cannot be sent through Care Everywhere. * Escitalopram, ADULT (Senegalese) * Lorazepam, ADULT (Senegalese) [facility]ructionsNot on file [facility] Summary Purpose Family History No Family History Records FoundNo Family History Records FoundNo Family History Records FoundNo Family History Records FoundNo Family History Records Found Advance Directives No Advanced Directives Records Found Date Activated Date Inactivated Comments 06/27/2019 8:12 PM 06/28/2019 7:18 PM Latest Code Status on File Code Status Date Activated Date Inactivated Comments Full Code 06/27/2019 8:12 PM 06/28/2019 7:18 PM Additional Source Comments Source Comments (unrecognize d section and content) In the event this informatio n is protected by the Federal Confidentiality of Alcohol and Drug Abuse Patient Records regulations: The Federal rules restrict any use of the information to criminally investigate or prosecute any alcohol or drug abuse patient.[facility] the event this information is protected by the Federal Confidentiality of Alcohol and Drug Abuse Patient Records regulations: The Federal rules restrict any use of the information to criminally investigate or prosecute any alcohol or drug abuse patient.[facility] the event this information is protected by the Federal Confidentiality of Alcohol and Drug Abuse Patient Records regulations: The Federal rules restrict any use of the information to criminally investigate or prosecute any alcohol or drug abuse patient.[facility] INFORMATION SOURCE (unrecogn ized section and content) DATE CREATED AUTHOR 02/10/2022 [facility] DATE CREATED AUTHOR AUTHOR'S ORGANIZ ATION [facility]/2022 [facility] DATE CREATED AUTHOR AUTHOR'S ORGANIZ ATION 07/22/2024 [facility] DATE CREATED AUTHOR AUTHOR'S ORGANIZ ATION 02/04/2025 [facility] DATE CREATED AUTHOR AUTHOR'S ORGANIZ ATION [facility]20[facility] REASON FOR VISIT (unrecogniz ed section and content) Reason Comments BP check Reason Comments Med Refill Reason Comments Hypertension Hypothyroidism Chronic neck pain Reason Comments Arthritis Medication discussio n Reason Onset Date Comments Med Refill 12/18/2023 Reason Onset Date Comments Med Refill 06/03/2024 Reason Comments Follow-up Wellness? , tug is 8 sec Reason Onset Date Comments Med Refill 09/03/2024 Reason Onset Date Comments Med Refill 09/10/2024 Reason Comments Hypertension Memory? Reason Onset Date Comments Med Refill 12/20/2024 Reason Onset Date Comments Med Refill 03/26/2025 Reason Comments Anxiety cv Hypertension Hyperlipidemia refills Reason Comments F/U anxiety Care Teams (unrecognized sec tion and content) Title 1 Tutor Relationship Specialty Start Date End Date Belem Ordonez APRN-OVERHEAD CLEANER MAINTAINER [address] [place] [address] PCP - General Internal Medicine 04/06/24 Title 1 Tutor Relationship Specialty Start Date End Date Belem Ordonez MED ASST-OVERHEAD CLEANER MAINTAINER [address] [place] [address] PCP - General Internal Medicine 04/06/24 Title 1 Tutor Relationship Specialty Start Date End Date Jamari Cox DO [address] [place] [address] PCP - General Internal Medicine 06/27/19 Title 1 Tutor Relationship Specialty Start Date End Date CelinekatelynJamari quiroz DO [address] [place] [address] PCP - General Internal Medicine 06/27/19 Title 1 Tutor Relationship Specialty Start Date End Date Jamari Cox DO [address] [place] [address] PCP - General Internal Medicine 06/27/19 Title 1 Tutor Relationship Specialty Start Date End Date Jamari Cox DO [address] [place] [address] PCP - General Internal Medicine 06/27/19 Title 1 Tutor Relationship Specialty Start Date End Date Jamari Cox DO [address] [place] [address] PCP - General Internal Medicine 06/27/19 Title 1 Tutor Relationship Specialty Start Date End Date Jamari Cox DO [address] [place] [address] PCP - General Internal Medicine 06/27/19 Title 1 Tutor Relationship Specialty Start Date End Date Belem Ordonez MED ASST-OVERHEAD CLEANER MAINTAINER [address] [place] [address] PCP - General Internal Medicine 04/06/24 Title 1 Tutor Relationship Specialty Start Date End Date Belem Ordonez MED ASST-OVERHEAD CLEANER MAINTAINER [address] [place] [address] PCP - General Internal Medicine 04/06/24 Title 1 Tutor Relationship Specialty Start Date End Date [facility] [address] [place] [address] PCP - General Internal Medicine 04/06/24 Title 1 Tutor Relationship Specialty Start Date End Date [facility]lem [facility] [address] [place] [address] PCP - General Internal Medicine 04/06/24 Title 1 Tutor Relationship Specialty Start Date End Date [facility]lem [facility] [address] [place] [address] PCP - General Internal Medicine 04/06/24 Title 1 Tutor Relationship Specialty Start Date End Date Belem [facility]z [facility] [address] [place] [address] PCP - General Internal Medicine 04/06/24 Title 1 Tutor Relationship Specialty Start Date End Date Belem [facility]z [facility] [address] [place] [address] PCP - General Internal Medicine 04/06/24 Title 1 Tutor Relationship Specialty Start Date End Date Belem Ordonez MED ASSTOVERHEAD CLEANER MAINTAINER [address] [place] [address] PCP - General Internal Medicine 04/06/24 Title 1 Tutor Relationship Specialty Start Date End Date Belem Ordonez MED ASSTOVERHEAD CLEANER MAINTAINER [address] [place] [address] PCP - General Internal Medicine 04/06/24 Title 1 Tutor Relationship Specialty Start Date End Date Belem Ordonez APRN-OVERHEAD CLEANER MAINTAINER [address] [place] [address] PCP - General Internal Medicine 04/06/24 Title 1 Tutor Relationship Specialty Start Date End Date [facility] [address] [place] [address] PCP - General Internal Medicine 04/06/24 Title 1 Tutor Relationship Specialty Start Date End Date [facility] [address] [place] [address] PCP - General Internal Medicine 04/06/24 Title 1 Tutor Relationship Specialty Start Date End Date Belem Ordonez APRN-OVERHEAD CLEANER MAINTAINER [address] [place] [address] PCP - General Internal Medicine 04/06/24 FOR RECORDS PERTAINING TO PATIENTS WHO ARE OR HAVE BEEN ENROLLED IN A CHEMICAL DEPENDENCY/SUBSTANCEABUSE PROGRAM, SOME INFORMATION MAY BE OMITTED. This clinical summary was aggregated from multiple sources. Caution should be exercised in using it in the provision of clinical care. This summary normalizes information from multiple sources, and as a consequence, information in this document may materially change the coding, format and clinical context of patient data. In addition, data may be omitted in some cases. CLINICAL DECISIONS SHOULD BE BASED ON THE PRIMARY CLINICAL RECORDS. [facility]. provides no warranty or guarantee of the accuracy or completeness of information in this document.
--- OUTSIDE RECORDS SUMMARY | 2025-05-25 09:38 | XMS_ITS | Encounter Summary ---
Author Organization [id number] [address] [place] [address] Care Team Providers Care Sailing Master Name Role Phone Belem Rodriguez PHLEBOTOMY INSTRUCTOR-LOCAL OPERATOR Primary Care Provider + Encounter Details Date Type Department Care Team (Late st Contact Info) Description 06/15/2023 Orders Only [facility] Internal Medicine - Family Medicine [address] [place] [address] Carolyn Abebe CMA Asymptomatic postmenopausal state; Osteopenia of necks of both femurs Social History Tobacco Use Types Packs/Day Years Used Date Smoking Tobacco: Former Cigarettes 0.5 20 0 02/25/1998 - 02/25/2018 Smokeless Tobacco: Never Alcohol Use Standard Drinks/Week Comments Not Currently 0 (1 standard drink = 0.6 oz pur e alcohol) PHQ-2 Answer Date Recorded Total Score 0 06/08/2023 Childcare Answer Date Recorded Childcare Unknown 04/10/2019 Employment Answer Date Recorded Employment Unknown 04/10/2019 Hunger Screening Answer Date Recorded Within the past 12 months we worried whether our food would run out before we got money to buy more. Never True 06/08/2023 Within the past 12 months th e food we bought just didn't last and we didn't have money to get more. Never True 06/08/2023 Purpose - Life Answer Date Recorded Purpose and direction in life Unknown Comments No Sex and Gender Information Value Date Recorded Sex Assigned at Not on file Legal Sex Female 11:24 AM EDT Gender Identity Not on file Sexual Orientation Not on file documented as of this encounter Plan of Treatment Upcoming Encounters Date Type Department Care Team (Late st Contact Info) Description 07/03/2025 3:40 PM EDT Office Visit [facility] Internal Medicine - Family Medicine [address] [place] [address] Belem Rodriguez, PHLEBOTOMY INSTRUCTOR-LOCAL OPERATOR [address] [place] [address] documented as of this encounter Procedures Procedure Name Priority Date/Time Associated Diagnosis Comments DEXA SCAN CENTRAL SKELETAL Routine 06/15/2023 11:53 AM EDT Asymptomatic postmenopausal state Osteopenia of necks of both femurs documented in this encounter Results * Dexa scan central skeletal (06/15/2023 11:53 AM EDT) Anatomical Region Laterality Modality N/A Radiographic Tessa ging Wander Vaughn DO IMG DXA ORDERABLES Final Res ult documented in this encounter Visit Diagnoses Diagnosis Asymptomatic postmenopausal state Osteopenia of necks of both femurs documented in this encounter Additional Health Concerns Assessment Noted Time PHQ-9 Depression Total Score: 0 06/08/20 23 10:49 AM EDT documented as of this encounter Care Teams Sailing Master Relationship Specialty Start Date End Date Belem Rodriguez, PATI-LOCAL OPERATOR [address] [place] [address] PCP - General Internal Medicine 04/06/24 documented as of this encounter
--- OUTSIDE RECORDS SUMMARY | 2025-05-25 09:38 | XMS_ITS | Encounter Summary ---
Author Organization [employer] Sys [facility] Address [id number] [address] [place] [address] Care Team Providers Care Superintendent Nonselling Name Role Phone Belem Rodriguez Yasmeen SOUND DESIGNER-MARINE DESIGN ENGINEER Primary Care Provider + Reason for Visit * Reason Comments Med Refill Encounter Details Date Type Department Care Team (Late st Contact Info) Description 07/23/2022 Refill [facility] Internal Medicine - Family Medicine [address] [phone] Michael Jenkins, [address] [place] [address] Essential (primary) hypertension; Localized edema; Adverse effect of unspecified drugs, medicaments and biological substances, subsequent encounter Social History Tobacco Use Types Packs/Day Years Used Date Smoking Tobacco: Former Cigarettes 0.5 20 0 02/25/1998 - 02/25/2018 Smokeless Tobacco: Never Alcohol Use Standard Drinks/Week Comments Not Currently 0 (1 standard drink = 0.6 oz pur e alcohol) Childcare Answer Date Recorded Childcare Unknown 04/10/2019 Employment Answer Date Recorded Employment Unknown 04/10/2019 Purpose - Life Answer Date Recorded Purpose [...] Medicine - Family Medicine [address] [place] [address] Belem Rodriguez APRN-ELIAZAR [address] [place] [address] documented as of this encounter Visit Diagnoses Diagnosis Essential (primary) hypertension Unspecified essential hypertension Localized edema Edema Adverse effect of unspecified drugs, medicaments and biological substances, subsequent encounter documented in this encounter Care Teams Superintendent Nonselling Relationship Specialty Start Date End Date Belem Rodriguez APRN-MARINE DESIGN ENGINEER [address] [place] [address] PCP - General Internal Medicine 04/06/24 documented as of this encounter
--- OUTSIDE RECORDS SUMMARY | 2025-05-25 09:38 | XMS_ITS | Encounter Summary ---
Author Organization [employer] Sys [facility] Address [facility] [id number] [address] [place] [address] Care Team Providers Care Flue Blower Name Role Phone Belem oRdriguez DEPUTY FELONY CLERK-HUMANE OFFICER Primary Care Provider + Encounter Details Date Type Department Care Team (Late st Contact Info) Description 08/03/2022 [facility]phone [facility] [address] [place] [phone] Irasema Segovia MA Social History Tobacco Use Types Packs/Day Years [...] on file documented as of this encounter Miscellaneous Notes * Telephone Encounter - Irasema Segovia MA - 08/03/2022 12:37 PM EDT Critical Result Potassium 2.9 Per Brooke at [facility]. * Telephone Encounter - Sadie Ferro APRN-HOUSEHOLD PERSONAL ASSISTANT - 08/03/2022 12:37 PM EDT Please call her and let her know I am sending her in a supplement for this * Telephone Encounter - Carolyn Abebe CMA - 08/03/2022 12:37 PM EDT Left a message for the patient to call us back. * Telephone Encounter - Carolyn Abebe CMA - 08/03/2022 12:37 PM EDT Left this message on her voice mail and asked her to call us back * Telephone Encounter - Carolyn Abebe CMA - 08/03/2022 12:37 PM EDT Patient was here and seen Sadie delaney documented in this encounter Plan of Treatment Upcoming Encounters Date Type Department Care Team (Late st Contact Info) Description 07/03/2025 3:40 PM EDT Office Visit [facility] Internal Medicine - Family Medicine [address] [place] [address] Belem Rodriguez APRN-CNP [address] [place] [address] documented as of this encounter Visit Diagnoses Not on filedocumented in this encounter Care Teams Flue Blower Relationship Specialty Start Date End Date Belem Rodriguez APRN-CNP [address] [place] [address] PCP - General Internal Medicine 04/06/24 documented as of this encounter
--- OUTSIDE RECORDS SUMMARY | 2025-05-25 09:38 | XMS_ITS | Encounter Summary ---
Author Organization [facility] tem Address [facility] [place]-[id number] [address] [place] [address] Care Team Providers Care Belt Knife Feeder Name Role Phone Belem Rodriguez WEIGHT CALCULATOR-BOILERHOUSE MECHANIC Primary Care Provider + Encounter Details Date Type Department Care Team (Late st Contact Info) Description 05/17/2023 Documentation [facility] Internal Medicine - Family Medicine [address] [place] [address] Sadie Ferro, WEIGHT CALCULATOR-MERCHANT PATROLLER [address] [place] [address] Social History Tobacco Use Types Packs/Day Years Used Date Smoking Tobacco: Former Cigarettes 0.5 20 0 02/25/1998 - 02/25/2018 Smokeless Tobacco: Never Alcohol Use Standard Drinks/Week Comments Not Currently 0 (1 standard drink = 0.6 oz pur e alcohol) PHQ-2 Answer Date Recorded Total Score 0 05/12/2023 Childcare Answer Date Recorded Childcare Unknown 04/10/2019 [...] Medicine - Family Medicine [address] [place] [address] Belem Rodriguez APRN-BOILERHOUSE MECHANIC [address] [place] [address] documented as of this encounter Visit Diagnoses Not on filedocumented in this encounter Additional Health Concerns Assessment Noted Time PHQ-9 Depression Total Score: 0 05/12/20 23 10:50 AM EDT documented as of this encounter Care Teams Belt Knife Feeder Relationship Specialty Start Date End Date Belem Rodriguez, WEIGHT CALCULATOR-BOILERHOUSE MECHANIC [address] [place] [address] PCP - General Internal Medicine 04/06/24 documented as of this encounter
--- OUTSIDE RECORDS SUMMARY | 2025-05-25 09:38 | XMS_ITS | Clinical Summary ---
Author Organization [facility] Healthcare Address [address] [place] [address] Care Team Providers Care Steel Sampler Name Role Phone Unavailable Primary Care Provider Unavailabl e Allergies No known active allergies Medications amLODIPine (Norvasc) 10 MG tablet Take 10 mg by mouth in the morning. Active alendronate (Fosamax) 70 MG tablet Take 70 mg by mouth once a week 12/20/2024 Active celecoxib (CeleBREX) 200 MG capsule Take 200 mg by mouth Daily Active levothyroxine (Synthroid, Levoxyl) 75 MCG tablet Take 75 mcg by mouth in the morning. Active rosuvastatin (Crestor) 5 MG tablet Take 5 mg by mouth Daily 12/15/2024 Active cholecalciferol (Vitamin D-3) 1.25 MG (17172 UT) capsule Take by mouth 1 (one) time per week Active Active Problems No known active problems Family History Medical History Relation Name Comments Melanoma Neg Hx Social History Tobacco Use Types Packs/Day Years Used Date Smoking Tobacco: Every Day Cigarettes Smokeless Tobacco: Never Tobacco Cessation:Ready to Q uit: Not Asked; Counseling Given: Not Answered Alcohol Use Standard Drinks/Week Comments Yes 0 (1 standard drink = 0.6 oz pur e alcohol) Comments Unknown Sex and Gender Information Value Date Recorded Sex Assigned at Not on file Legal Sex Female 9:28 PM EDT Gender Identity Not on file Sexual Orientation Not on file Last Filed Vital Signs Vital Sign Reading Time Taken Comments Blood Pressure 140/85 02/19/2019 12:00 PM EDT Pulse - - Temperature - - Respiratory Rate - - Oxygen Saturation - - Inhaled Oxygen Concentration - - Weight 69.9 kg (154 lb) 02/19/2019 12:00 PM EDT Height 157.5 cm (5' 2 ) 02/19/2019 12:00 PM EDT Body Mass Index 28.17 02/19/2019 12:00 PM EDT Plan of Treatment Health Maintenance Due Date Last Done Comments CT Colonography 1957 Colonoscopy 1957 Colorectal Cancer Screening 1957 FIT-DNA 1957 FIT 1957 FOBT 1957 Sigmoidoscopy 1957 Pneumococcal Vaccine: 65+ Ye ars (1 of 1 - PCV) 2007 Influenza Vaccine (#1) 2025 4, 08/28/2023, 07/28/2022, Additional history exists Mammogram 07/26/2025 07/26/2024 Insurance [employer]
--- OUTSIDE RECORDS SUMMARY | 2025-05-25 09:38 | XMS_ITS | Encounter Summary ---
Author Organization [employer] [facility] tem Address [facility] [id number] [address] [place] [address] Care Team Providers Care Health Diagnostics Teacher Name Role Phone Belem Rodriguez ARCHITECTURAL SALES CONSULTANT-WELDER OXYHYDROGEN Primary Care Provider + Encounter Details Date Type Department Care Team (Late st Contact Info) Description 08/22/2022 Telephone [facility] Internal Medicine - Family Medicine [address] [place] [phone] Yara Cheek CMA Social History Tobacco Use Types Packs/Day Years Used Date Smoking Tobacco: Former Cigarettes 0.5 20 0 02/25/1998 - 02/25/2018 Smokeless Tobacco: Never Alcohol Use Standard Drinks/Week Comments Not Currently 0 (1 standard drink = 0.6 oz pur e alcohol) PHQ-2 Answer Date Recorded Total Score 4 08/10/2022 Childcare Answer Date Recorded Childcare Unknown 04/10/2019 Employment Answer Date Recorded Employment Unknown 04/10/2019 Purpose - Life Answer Date Recorded Purpose and direction in life Unknown Comments No Sex and Gender Information Value Date Recorded Sex Assigned at Not on file Legal Sex Female 11:24 AM EDT Gender Identity Not on file Sexual Orientation Not on file COVID-19 Exposure Response Date Recorded In the last month, have you been in contact with someone who was confirmed or suspected to have Coronavirus / COVID-19? No / Unsure 08/10/2022 3:11 PM EDT documented as of this encounter Miscellaneous Notes * Telephone Encounter - Yara Cheek CMA - 08/22/2022 2:37 PM EDT Patient came into office and was wanting the Shingles vaccine. Do they need a prescription sent in for to have this? If so send to [facility]. * Telephone Encounter - DHRUV Damon - 08/22/2022 2:37 PM EDT No prescription is needed, she just requests it at the pharmacy documented in this encounter Plan of Treatment Upcoming Encounters Date Type Department Care Team (Late st Contact Info) Description 07/03/2025 3:40 PM EDT Office Visit [facility] Internal Medicine - Family Medicine [address] [place] [address] Belem Rodriguez APRN-CNP [address] [place] [address] documented as of this encounter Visit Diagnoses Not on filedocumented in this encounter Additional Health Concerns Assessment Noted Time PHQ-9 Depression Total Score: 4 08/10/20 22 3:23 PM EDT documented as of this encounter Care Teams Health Diagnostics Teacher Relationship Specialty Start Date End Date Belem Rodriguez APRN-CNP [address] [place] [address] PCP - General Internal Medicine 04/06/24 documented as of this encounter
--- OUTSIDE RECORDS SUMMARY | 2025-05-25 09:38 | XMS_ITS | Encounter Summary ---
Author Organization [employer] [facility] tem Address [id number] [address] [place] [address] Care Team Providers Care B Operator Name Role Phone Belem Rodriguez DAM ATTENDANT-MINE CAR REPAIRER Primary Care Provider + Encounter Details Date Type Department Care Team (Latest Contact Info) Description 05/23/2025 Travel Social History Tobacco Use Types Packs/Day Years [...] Description 07/03/2025 3:40 PM EDT Office Visit [facility] Internal Medicine - Family Medicine [address] [place] [address] Belem Rodriguez DAM ATTENDANT-MINE CAR REPAIRER [address] [place] [address] documented as of this encounter Visit Diagnoses Not on filedocumented in this encounter Additional Health Concerns Assessment Noted Time PHQ-9 Depression Total Score: 0 05/23/20 25 12:01 PM EDT documented as of this encounter Care Teams B Operator Relationship Specialty Start Date End Date Belem Rodriguez, DAM ATTENDANT-MINE CAR REPAIRER [address] [place] [address] PCP - General Internal Medicine 04/06/24 documented as of this encounter
--- OUTSIDE RECORDS SUMMARY | 2025-05-25 09:38 | XMS_ITS | Encounter Summary ---
Author Organization [facility] Address [id number] [address] [place] [address] Care Team Providers Care Temporary Staff Accountant Name Role Phone Belem Rodriguez POWERBUILDER-SOLAR ENGINEER Primary Care Provider + Encounter Details Date Type Department Care Team (Late st Contact Info) Description 08/26/2024 Orders Only [facility] Internal Medicine - Family Medicine [address] [place] [address] Ref Prov, [place] [address] Social History Tobacco Use Types Packs/Day Years Used Date Smoking Tobacco: Former Cigarettes 0.5 20 0 02/25/1998 - 02/25/2018 Smokeless Tobacco: Never Alcohol Use Standard Drinks/Week Comments Yes 0 (1 standard drink = 0.6 oz pur e alcohol) socially PHQ-2 Answer Date Recorded Total Score 0 07/19/2024 Childcare Answer Date Recorded Childcare Unknown 04/10/2019 Employment Answer Date Recorded Employment Unknown 04/10/2019 Hunger Screening Answer Date Recorded Within the past 12 months we worried whether our food would run out before we got money to buy more. Never True 07/19/2024 Within the past 12 months th e food we bought just didn't last and we didn't have money to get more. Never True 07/19/2024 Purpose - Life Answer Date Recorded Purpose [...] Medicine - Family Medicine [address] [place] [address] Belem Rodriguez APRN-CNP [address] [place] [address] documented as of this encounter Procedures Procedure Name Priority Date/Time Associated Diagnosis Comments CT ABDOMEN AND PELVIS WO CONT Routine 08/22/2024 4:03 PM EDT documented in this encounter Results * CT abdomen and pelvis without contrast (08/22/2024 4:03 PM EDT) Anatomical Region Laterality Modality Body, Abdomen, Body Covera N/A Compu salomon Tomography us Not In System Ref Prov IMG CT ORDERABLES Final R esult documented in this encounter Visit Diagnoses Not on filedocumented in this encounter Additional Health Concerns Assessment Noted Time PHQ-9 Depression Total Score: 0 07/19/20 24 11:28 AM EDT documented as of this encounter Care Teams Temporary Staff Accountant Relationship Specialty Start Date End Date Belem Rodriguez APRN-ELIAZAR [address] [place] [address] PCP - General Internal Medicine 04/06/24 documented as of this encounter
--- OUTSIDE RECORDS SUMMARY | 2025-05-25 09:38 | XMS_ITS | Encounter Summary ---
Author Organization [employer] [facility] Address [facility] [id number] [address] [place] [address] Care Team Providers Care Animal Treatment Investigator Name Role Phone Belem Rodriguez BOOTH CASHIER-HEARING AID ASSISTANT Primary Care Provider + Reason for Visit * Reason Comments Med Refill Encounter Details Date Type Department Care Team (Late st Contact Info) Description 02/19/2023 Refill [facility] Internal Medicine - Family Medicine [address] [place] [address] Sadie Ferro, BOOTH CASHIER-PSYCHOLOGY ASSISTANT [address] [place] [address] Essential (primary) hypertension; Other chronic pain Social History Tobacco Use Types Packs/Day Years Used Date Smoking Tobacco: Former Cigarettes 0.5 20 0 02/25/1998 - 02/25/2018 Smokeless Tobacco: Never Alcohol Use Standard Drinks/Week Comments Not Currently 0 (1 standard drink = 0.6 oz pur e alcohol) PHQ-2 Answer Date Recorded Total Score 0 11/30/2022 Childcare Answer Date Recorded Childcare Unknown 04/10/2019 [...] Medicine - Family Medicine [address] [place] [address] Belem Rodriguez APRN-CNP [address] [place] [address] documented as of this encounter Visit Diagnoses Diagnosis Essential (primary) hypertension Unspecified essential hypertension Other chronic pain documented in this encounter Additional Health Concerns Assessment Noted Time PHQ-9 Depression Total Score: 0 11/30/19 23 4:08 PM EST documented as of this encounter Care Teams Animal Treatment Investigator Relationship Specialty Start Date End Date Belem Rodriguez APRN-CNP [address] [place] [address] PCP - General Internal Medicine 04/06/24 documented as of this encounter
--- OUTSIDE RECORDS SUMMARY | 2025-05-25 09:38 | XMS_ITS | Encounter Summary ---
Author [facility] Address [id number] [address] [place] [address] Care Team Providers Care Equipment Sterilizer Name Role Phone Belem Rodriguez OUTDOOR ADVENTURE LEADER-MANUFACTURING TEAM LEADER Primary Care Provider + Encounter Details Date Type Department Care Team (Late st Contact Info) Description 07/26/2024 Orders Only [facility] Internal Medicine - Family Medicine [address] [place] [address] Caorlyn Abebe CMA Encounter for screening mammogram for malignant neoplasm of breast Social History Tobacco Use Types Packs/Day Years [...] Medicine - Family Medicine [address] [place] [address] Belem Rodriguez APRN-CNP [address] [place] [address] documented as of this encounter Procedures Procedure Name Priority Date/Time Associated Diagnosis Comments MAMM SCREENING BILATERAL W CAD Routine 07/26/2024 11:08 AM EDT Encounter for screening mammogram for malignant neoplasm of breast documented in this encounter Results * Mammography screening bilateral with CAD (07/26/2024 11:08 AM EDT) Anatomical Region Laterality Modality Breast Bilateral Mammography Belem BATES IMG MAMMOGRAPHY ORDERABL ES Final Result documented in this encounter Visit Diagnoses Diagnosis Encounter for screening mammogram for malignant neoplasm of breast documented in this encounter Additional Health Concerns Assessment Noted Time PHQ-9 Depression Total Score: 0 07/19/20 11:28 AM EDT documented as of this encounter Care Teams Equipment Sterilizer Relationship Specialty Start Date End Date Belem Rodriguez APRN-CNP [address] [place] [address] PCP - General Internal Medicine 04/06/24 documented as of this encounter
--- OUTSIDE RECORDS SUMMARY | 2025-05-25 09:38 | XMS_ITS | Encounter Summary ---
Author Organization [facility] Address [facility] [id number] [address] [place] [address] Care Team Providers Care Fish Technologist Name Role Phone Belem Rodriguez ANODIC OPERATOR-EQUINE MANAGER Primary Care Provider + Encounter Details Date Type Department Care Team (Late st Contact Info) Description 04/14/2025 Orders Only [facility] Internal Medicine - Family Medicine [address] [place] [address] Belem Rodriguez, [facility] [address] [place] [address] Social History Tobacco Use Types Packs/Day Years Used Date Smoking Tobacco: Former Cigarettes 0.5 20 0 02/25/1998 - 02/25/2018 Smokeless Tobacco: Never Alcohol Use Standard Drinks/Week Comments Yes 0 (1 standard drink = 0.6 oz pur e alcohol) socially PHQ-2 Answer Date Recorded Total Score 0 04/11/2025 Childcare Answer Date Recorded Childcare Unknown 04/10/2019 Employment Answer Date Recorded Employment Unknown 04/10/2019 Hunger Screening Answer Date Recorded Within the past 12 months we worried whether our food would run out before we got money to buy more. Never True 04/11/2025 Within the past 12 months th e food we bought just didn't last and we didn't have money to get more. Never True 04/11/2025 Purpose - Life Answer Date Recorded Purpose [...] Medicine - Family Medicine [address] [place] [address] Belem Rodriguez ANODIC OPERATOR-EQUINE MANAGER [address] [address] documented as of this encounter Visit Diagnoses Not on filedocumented in this encounter Additional Health Concerns Assessment Noted Time PHQ-9 Depression Total Score: 0 04/11/20 25 9:34 AM EDT documented as of this encounter Care Teams Fish Technologist Relationship Specialty Start Date End Date Belem Rodriguez ANODIC OPERATOR-EQUINE MANAGER [address] [place] [address] PCP - General Internal Medicine 04/06/24 documented as of this encounter
--- OUTSIDE RECORDS SUMMARY | 2025-05-25 09:38 | XMS_ITS | Encounter Summary ---
Author Organization [employer] [facility] Address [facility][id number] [address] [place] [address] Care Team Providers Care Sign Maintenance Name Role Phone Belem Rodriguez RUSSIAN LANGUAGE INSTRUCTOR-TRAFFIC AND TRANSPORT PLANNER Primary Care Provider + Reason for Visit * Reason Comments Med Refill Encounter Details Date Type Department Care Team (Late st Contact Info) Description 09/15/2022 Refill [facility] Internal Medicine - Family Medicine [address] [place] [address] Sadie Ferro, RUSSIAN LANGUAGE INSTRUCTOR-BRUSH CLEARING LABORER [address] [address] Other chronic pain Social History Tobacco Use [...] Medicine - Family Medicine [address] [place] [address] Belem Rodriguez APRN-TRAFFIC AND TRANSPORT PLANNER [address] [place] [address] documented as of this encounter Visit Diagnoses Diagnosis Other chronic pain documented in this encounter Additional Health Concerns Assessment Noted Time PHQ-9 Depression Total Score: 4 08/10/20 22 3:23 PM EDT documented as of this encounter Care Teams Sign Maintenance Relationship Specialty Start Date End Date Belem Rodriguez, RUSSIAN LANGUAGE INSTRUCTOR-TRAFFIC AND TRANSPORT PLANNER [address] [place] [address] PCP - General Internal Medicine 04/06/24 documented as of this encounter
--- OUTSIDE RECORDS SUMMARY | 2025-05-25 09:38 | XMS_ITS | Clinical Summary ---
Author Organization [facility] Address [facility] [id number] [address] [place] [address] Care Team Providers Care Rn Neonatal Icu Name Role Phone Belem Rodriguez CONSTRUCTION ADMINISTRATOR-NEWS REPORTER Primary Care Provider + Allergies No known active allergies Medications amLODIPine (NORVASC) 10 mg tabletIndication s:Essential (primary) hypertension TAKE 1 TABLET BY MOUTH EVERY DAY 90 tablet 1 4 Active cholecalciferol (VITAMIN D3) 50,000 units capsule Take 1 capsule (50,000 Units total) by mouth once a week. 90 capsule 1 4 Active rosuvastatin (CRESTOR) 5 mg tabletIndication s:Hyperlipidemia , unspecified Take 1 tablet (5 mg total) by mouth in the morning. 90 tablet 3 5 Active alendronate (FOSAMAX) 70 mg tablet Take 1 tablet (70 mg total) by mouth every 7 days. In a.m. with water on empty stomach, nothing else by mouth and remain upright for 30min 12 tablet 3 5 Active levothyroxine (SYNTHROID, LEVOTHROID) 50 MCG tablet Take 1 tablet (50 mcg total) by mouth in the morning. 90 tablet 1 5 Active celecoxib (CeleBREX) 200 mg capsule Take 1 capsule (200 mg total) by mouth daily as needed for pain. TAKE 1 CAPSULE BY MOUTH IN THE MORNING 90 capsule 1 5 Active escitalopram (LEXAPRO) 20 mg tablet Take 1 tablet (20 mg total) by mouth in the evening. 90 tablet 1 Active LORazepam (ATIVAN) 0.5 mg tabletIndication s:Anxiety Take 1 tablet (0.5 mg total) by mouth daily as needed for anxiety. 7 tablet 5 05/23/20 Discontinue d(Patient Stopped On Own) escitalopram (LEXAPRO) 10 mg tablet Take 1 tablet (10 mg total) by mouth in the evening. 30 tablet 1 5 05/23/20 Discontinue d(Therapy completed) Active Problems Problem Noted Date Diagnosed Date Hypokalemia 03/04/2024 Age-related osteoporosis wit h current pathological fracture with routine healing 06/20/2023 Closed fracture of multiple ribs of right side with routine healing 06/20/2023 Tobacco dependence syndrome 08/10/2022 Vitamin D deficiency 07/14/2022 Hypothyroidism (acquired) 07/14/2022 Hyperlipidemia 02/09/2022 Spontaneous ecchymosis 03/23/2021 Chronic neck pain 06/23/2020 Collagenous colitis 07/08/2019 Chronic nonspecific colitis 07/03/2019 Diarrhea with dehydration 06/28/2019 Acute kidney injury 06/27/2019 Vitamin D deficiency 12/31/2018 Essential hypertension 01/16/2018 Resolved Problems Problem Noted Date Diagnosed Date Resolved Date Hypothyroidism 06/24/2020 08/10/2022 Encounters Date Type Department Care Team Description 05/23/2025 11:20 AM EDT Office Visit [facility] - [facility] Medicine [address] [place] [address] Belem Rodriguez, CONSTRUCTION ADMINISTRATOR-NEWS REPORTER Anxiety (Primary Dx); Essential hypertension 05/23/2025 Travel 04/21/2025 Orders Only [facility] [address] [place] [address] Belem Rodriguez APRN-NEWS REPORTER 04/19/2025 Refill [facility] [address] [place] [address] Wander Vaughn DO 04/14/2025 Telephone [facility] [address] [place] [phone] Courtney Evans CMA 04/14/2025 Orders Only [facility] [address] [place] [address] Belem Rodriguez APRN-CNP 04/11/2025 9:40 AM EDT Office Visit [facility] [address] [place] [address] Belem Rodriguez, CONSTRUCTION ADMINISTRATOR-ELIAZAR Anxiety (Primary Dx); Essential hypertension; Acquired hypothyroidism; Hyperkalemia 04/11/2025 Travel 03/26/2025 Refill [facility] [address] [place] [address] Carolyn Abebe CMA Hyperlipidemia, unspecified from Last 3 Months Immunizations Immunization Administration Dates Next Due Influenza (IM) Preservative Free 08/31/2015 Influenza, Injectable, MDCK, Quadrivalent 2018 Influenza, Injectable, Quadrivalent 08/20/2018,1 Influenza, Injectable, quadrivalent (PF) 023,09/16/2021,08/28/2020 Influenza, Trivalent, Adjuvanted 07/19/2024 Tdap 07/13/2012 Zoster Vaccine Recombinant 12/18/2023,09/16/2023 Family History Medical History Relation Name Comments Heart attack Father Glaucoma Mother Hip fracture Mother Relation Name Status Comments Brother Alive Father Mother Sister 1 Alive Sister 2 Alive Sister 3 Alive Social History Tobacco Use Types Packs/Day Years [...] Mass Index 20.42 05/23/2025 12:02 PM EDT Plan of Treatment Upcoming Encounters Date Type Department Care Team (Late st Contact Info) Description 07/03/2025 3:40 PM EDT Office Visit [facility] [address] [facility] [place] [place] [phone] Belem Rodriguez, CONSTRUCTION ADMINISTRATOR-NEWS REPORTER [address] [place] [address] Health Maintenance Due Date Last Done Comments DTaP,Tdap and Td Vaccines (2 - Td or Tdap) 07/13/2022 07/13/2012 Influenza Vaccine 06/30/2025 07/19/2024, , 09/16/2021, Additional history exists Medicare Annual Wellness Visit 07/19/2025 07/19/2024 Mammogram 07/26/2025 07/26/2024 Fall Risk Screening 04/11/2026 04/11/2025 Adult BMI Screening 05/23/2026 05/23/2025 Depression Screening 05/23/2026 05/23/2025 Tobacco Screening 05/23/2026 05/23/2025 COVID-19 Vaccine Discontinued 03/15/2021, 02/22/2021 Zoster (Shingles) Vaccine Completed 12/18/2023, Medical Devices Not on file Procedures Procedure Name Priority Date/Time Associated Diagnosis Comments BASIC METABOLIC PANEL Routine 04/11/2025 10:04 AM EDT Hyperkalemia THYROID PROFILE INCLUDES TSH FT4 Routine 04/11/2025 10:04 AM EDT Acquired hypothyroidism MAMM SCREENING BILATERAL W CAD Routine 07/26/2024 11:08 AM EDT Encounter for screening mammogram for malignant neoplasm of breast from Last 3 Months or Most Recently Relevant to Health Maintenance Results * (ABNORMAL) Thyroid profile includes TSH FT4 (04/11/2025 10:04 AM EDT) FREE T4 1.16 0.61 - 1.60 ng/dL 04/11/2025 6:05 PM EDT [facility] TSH 0.33(L) 0.49 - 4.67 uIU/mL 04/11/2025 6:05 PM EDT [facility] Blood Venous blood / Unknown 04/11/2025 10:04 AM EDT 04/11/2025 10:04 AM EDT us Belem Rodriguez CONSTRUCTION ADMINISTRATOR-NEWS REPORTER LAB BLOOD ORDERABLES Fin al Result [facility] [address] [place] [address], [place] [phone] * (ABNORMAL) Basic Metabolic Panel (04/11/2025 10:04 AM EDT) SODIUM 138 134 - 146 mmol/L 04/11/2025 5:53 PM EDT [facility] POTASSIUM 4.6 3.5 - 5.0 mmol/L 04/11/2025 5:53 PM EDT [facility] CHLORIDE 99 98 - 109 mmol/L 04/11/2025 5:53 PM EDT [facility] CARBON DIOXIDE 31 22 - 32 mmol/L 04/11/2025 5:53 PM EDT [facility] ANION GAP 8 5 - 15 mmol/L 04/11/2025 5:53 PM EDT [facility] BLOOD UREA NITROGEN 11 5 - 27 mg/dL 04/11/2025 5:53 PM EDT [facility] CREATININE 0.65 0.40 - 1.00 mg/dL 04/11/2025 5:53 PM EDT [facility] Comment:METHOD TRACEABLE TO IDMS STANDARD GLUCOSE 103(H) 65 - 99 mg/dL 04/11/2025 5:53 PM EDT [facility] CALCIUM 10.3 8.5 - 10.5 mg/dL 04/11/2025 5:53 PM EDT [facility] EGFR Non-Race Dependent >90 >=60 ml/min/1.7 3sq.m 04/11/2025 5:53 PM EDT [facility] Comment: Reported eGFR is based on the CKD-EPI 2020 equation that does not use a race coefficient. Blood 04/11/2025 10:0 4 AM EDT 04/11/2025 10:04 AM EDT Belem Rodriguez APRN-NEWS REPORTER LAB BLOOD ORDERABLES Fin al Result [facility] [address] [place] [address], * Mammography screening bilateral with CAD (07/26/2024 11:08 AM EDT) Anatomical Region Laterality Modality Breast Bilateral Mammography Belem Rodriguez CONSTRUCTION ADMINISTRATOR-NEWS REPORTER IMG MAMMOGRAPHY ORDERABL ES Final Result from Last 3 Months or Most Recently Relevant to Health Maintenance Insurance [employer] MEDICARE Advance Directives * Full Code (Latest Code Status on File) Date Activated Date Inactivated Comments 06/27/2019 8:12 PM 06/28/2019 7:18 PM Care Teams Rn Neonatal Icu Relationship Specialty Start Date End Date Belem Rodriguez, CONSTRUCTION ADMINISTRATOR-NEWS REPORTER [address] [place] [address] PCP - General Internal Medicine 04/06/24
--- OUTSIDE RECORDS SUMMARY | 2025-05-25 09:38 | XMS_ITS | Encounter Summary ---
Author Organization [employer] [facility] Address [facility] [id number] [address] [place] [address] Care Team Providers Care Granulating Blender Name Role Phone Belem Rodriguez INSOLE DEPARTMENT WORKER-MARINE FIREFIGHTER Primary Care Provider + Encounter Details Date Type Department Care Team (Late st Contact Info) Description 09/04/2024 Refill [facility] - [facility] Medicine [address] [place] [address] Courtney Evans, COVER MAKING MACHINE OPERATOR Localized edema Social History Tobacco Use Types Packs/Day Years [...] encounter Miscellaneous Notes * Telephone Encounter - Courtney Evans CMA - 09/04/2024 1:17 PM EST Pt called and would like a refill of pended medication sent to her local pharmacy Hydrochlorothiazide please. documented in this encounter Plan of Treatment Upcoming Encounters Date Type Department Care Team (Late st Contact Info) Description 07/03/2025 3:40 PM EDT Office Visit [facility] [address] [place] [address] Belem Rodriguez APRN-MARINE FIREFIGHTER [address] [place] [address] documented as of this encounter Visit Diagnoses Diagnosis Localized edema Edema documented in this encounter Additional Health Concerns Assessment Noted Time PHQ-9 Depression Total Score: 0 07/19/20 11:28 AM EDT documented as of this encounter Care Teams Granulating Blender Relationship Specialty Start Date End Date Belem Rodriguez, INSOLE DEPARTMENT WORKER-MARINE FIREFIGHTER [address] [place] [address] PCP - General Internal Medicine 04/06/24 documented as of this encounter
--- OUTSIDE RECORDS SUMMARY | 2025-05-25 09:38 | XMS_ITS | Encounter Summary ---
Author Organization [employer] [facility] Address [id number] [address] [place] [address] Care Team Providers Care Bunch Breaker Machine Operator Name Role Phone Belem Rodriguez MUSIC THERAPIST-RELIEF MASTER Primary Care Provider + Reason for Visit * Reason Comments Med Refill Encounter Details Date Type Department Care Team (Late st Contact Info) Description 11/18/2022 Refill [facility] - [facility] Medicine [address] [place] [address] Sadie Ferro, MUSIC THERAPIST-TUCK POINTER [address] [place] [address] Hyperlipidemia, unspecified Social History Tobacco Use Types Packs/Day Years [...] Medicine - Family Medicine [address] [place] [address] Belem Rodriguez APRN-CNP [address] [place] [address] documented as of this encounter Visit Diagnoses Diagnosis Hyperlipidemia, unspecified documented in this encounter Additional Health Concerns Assessment Noted Time PHQ-9 Depression Total Score: 4 08/10/20 22 3:23 PM EDT documented as of this encounter Care Teams Bunch Breaker Machine Operator Relationship Specialty Start Date End Date Belem Rodriguez, MUSIC THERAPIST-RELIEF MASTER [address] [place] [address] PCP - General Internal Medicine 04/06/24 documented as of this encounter
--- OUTSIDE RECORDS SUMMARY | 2025-05-25 09:38 | XMS_ITS | Encounter Summary ---
Author Organization [employer] Address [facility] [id number] [address] [place] [address] Care Team Providers Care Heating And Air Conditioning Mechanic Name Role Phone Belem Rodriguez Yasmeen EXHIBIT PREPARATOR-ELECTRIC CUTTER OPERATOR Primary Care Provider + Encounter Details Date Type Department Care Team (Late st Contact Info) Description 05/15/2023 [facility] [address] [place] [address] Sadie Ferro, EXHIBIT PREPARATOR-COLLECTIONS REP [address] [place] [address] Social History Tobacco Use Types Packs/Day Years [...] encounter Miscellaneous Notes * Telephone Encounter - Shelbi Alexander - 05/15/2023 10:37 AM EDT Patient called and was wondering if you sent anything in for her arthritis to [facility] in [place] * Telephone Encounter - DHRUV Damon - 05/15/2023 10:37 AM EDT I sent in the prednisone and the hydrocodone for a few days, I need to see the x-ray results beforeI will send in anything else * Telephone Encounter - Shelbi Alexander - 05/15/2023 10:37 AM EDT I already called [facility] to get results for XR * Telephone Encounter - Carolyn Abebe CMA - 05/15/2023 10:37 AM EDT I just scanned this in for you. documented in this encounter Plan of Treatment Upcoming Encounters Date Type Department Care Team (Late st Contact Info) Description 07/03/2025 3:40 PM EDT Office Visit [facility] - [facility] Medicine [address] [place] [address] Belem Rodriguez APRN-CNP [address] [place] [address] documented as of this encounter Visit Diagnoses Not on filedocumented in this encounter Additional Health Concerns Assessment Noted Time PHQ-9 Depression Total Score: 0 05/12/20 23 10:50 AM EDT documented as of this encounter Care Teams Heating And Air Conditioning Mechanic Relationship Specialty Start Date End Date Belem Rodriguez APRN-CNP [address] [place] [address] PCP - General Internal Medicine 04/06/24 documented as of this encounter
--- OUTSIDE RECORDS SUMMARY | 2025-05-25 09:38 | XMS_ITS | Encounter Summary ---
Author Organization [employer] Address [facility] [id number] [address] [place] [address] Care Team Providers Care Photo Producer Name Role Phone Belem Rodriguez APRN-ELIAZAR Primary Care Provider + Encounter Details Date Type Department Care Team (Late st Contact Info) Description 05/15/2023 Orders Only [facility] - Family Medicine [address] [place] [phone] Carolyn Abebe CMA Rib pain on right side Social History Tobacco Use Types Packs/Day Years [...] Encounters Date Type Department Care Team (Late Contact Info) Description 07/03/2025 3:40 PM EDT [facility] [address] [place] [address] Belem Rodriguez, CAP JEWEL PLATE ASSEMBLER-ICU SPECIALIST [address] [place] [address] documented as of this encounter Procedures Procedure Name Priority Date/Time Associated Diagnosis Comments XR RIBS RT 3 VWS W PA CHEST Routine 05/15/2023 4:35 PM EDT Rib pain on right side documented in this encounter Results * X-ray ribs right 3 views with pa chest (05/15/2023 4:35 PM EDT) Anatomical Region Laterality Modality MSK, Chest Right Computed Radiogr aphy Sadie Ferro CAP JEWEL PLATE ASSEMBLER-DYE HOUSE WHEEL OPERATOR IMG DIAGNOSTIC IMAGING ORDCecil LYNN Final Result documented in this encounter Visit Diagnoses Diagnosis Rib pain on right side documented in this encounter Additional Health Concerns Assessment Noted Time PHQ-9 Depression Total Score: 0 05/12/20 23 10:50 AM EDT documented as of this encounter Care Teams Photo Producer Relationship Specialty Start Date End Date Belem Rodriguez APRN-ICU SPECIALIST [address] [place] [address] PCP - General Internal Medicine 04/06/24 documented as of this encounter
--- NOTE | 2025-05-25 09:43 | XR_ITS ---
The [address] [address] Patient Name: REINA KELLEY MRN: [id number] date: 1955 Sex: F Assigned Patient Location: ER Current Patient Location: ER Accession/Order Number: [id number] Exam Date: 05/25/2025 10:09 Report Date: 05/25/2025 10:09 At the request of: ЮЛИЯ VANG MD Procedure: XR chest 1V Single view chest: CLINICAL HISTORY: Hypertension COMPARISON: Chest 11/28/2021 FINDINGS: The heart is normal in size. Hiatal hernia is present. No consolidation pneumothorax pleural effusion or free air. IMPRESSION: NO ACUTE PROCESS. Impression dictated by: Ginny Ling Jr.OBrittany 05/25/2025 10:09 AM Dictation Location: [email or web address] Electronically authenticated by: [id number] Y Date: 05/25/2025 10:09
--- NOTE | 2025-05-25 09:43 | ECG_ITS ---
The [facility] Test Date: 2025-05-25 Pat Name: REINA KELLEY Department: Room: - Gender: Female Indexer: : 1955 Requested By: [id number] Order Number: [id number] Reading MD: MARIAH RANKIN M.D. Measurements Intervals [place] Rate: 61 P: 71 CO: 174 QRS: 60 QRSD: 70 T: 43 QT: 414 QTc: 417 Interpretive Statements 1100 Sinus rhythm 6220 Possible left atrial enlargement 9130 borderline ECG Compared to ECG 08/22/2024 15:20:34 Sinus tachycardia no longer present Electronically Signed On 05-25-2025 19:44:29 EDT by MARIAH RANKIN M.D.
[2025-05-25 09:48] LABS: Hematocrit 47.0 % (36.0-48.0); Hemoglobin 16.0 g/dL (12.0-16.0); Immature Granulocytes Abs Auto 0.01 10^3/uL (0.00-0.03); Immature Granulocytes Pct Auto 0.1 % (0.0-0.5); Lymphocytes Absolute Auto 1.4 10^3/uL (1.2-3.8); Mean Corpuscular HGB Conc 34.0 g/dL (29.9-35.2); Mean Corpuscular Hemoglobin 32.7 pg (26.7-34.0); Mean Corpuscular Volume 96.1 fL (81.0-99.0); Platelet Count 253 10^3/uL (150-450); Red Blood Count 4.89 10^6/uL (4.20-5.40); White Blood Count 6.7 10^3/uL (4.0-11.0)
--- NOTE | 2025-05-25 09:52 | ED.GENADUL1 ---
HPI HPI - General Adult General Chief complaint: Recheck/Abnormal Lab/Rx Stated complaint: HIGH BLOOD PRESSURE Time Seen by Provider: 05/25/25 09:25 Source: patient Mode of arrival: walk-in Limitations: no limitations History of Present Illness HPI narrative: 69-year-old female presents for elevated blood pressure. She states she has been under a lot of stress recently and 2 days ago she saw her PCP who prescribed her a new antidepressant that she takes at night. She has a history of hypertension and has been taking her medication, Norvasc, regularly including 2 hours ago. She has had heaviness on her chest for months. No back pain or fever or complaints of shortness of breath. Related Data Home Medications ?Medication ?Instructions ?Recorded ?Confirmed alendronate 70 mg tablet 70 mg PO .WEEKLY 05/25/25 05/25/25 amlodipine 10 mg tablet 10 mg PO DAILY 05/25/25 05/25/25 celecoxib 200 mg capsule 200 mg PO DAILY 05/25/25 05/25/25 cholecalciferol (vitamin D3) 1,250 50,000 unit PO .WEEKLY 05/25/25 05/25/25 mcg (50,000 unit) capsule escitalopram oxalate 20 mg tablet 20 mg PO DAILY 05/25/25 05/25/25 hydrochlorothiazide 12.5 mg tablet 12.5 mg PO Q12H 05/25/25 05/25/25 levothyroxine 50 mcg tablet 50 mcg PO DAILY 05/25/25 05/25/25 rosuvastatin 5 mg tablet 5 mg PO DAILY 05/25/25 05/25/25 Allergies Allergy/AdvReac Type Severity Reaction Status Date / Time No Known Drug Allergies Allergy Verified 05/25/25 09:23 Review of Systems ROS Narrative A ten point review of systems is negative except as noted above. PFSH PFSH Social History Little interest or pleasure in doing things: not at all Feeling down, depressed, or hopeless: not at all Exam Narrative Exam Narrative: Nurses note and vital signs reviewed and patient is not hypoxic. General: The patient appears well and in no apparent distress. Patient is resting comfortably on cart. Skin: Warm, dry, no pallor noted. There is no rash noted. Head: Normocephalic, atraumatic Eye: Normal conjunctiva, no drainage Ears, Nose, Mouth, and Throat: oral mucosa is moist. Nares patent. Cardiovascular: Regular Rate and Rhythm Respiratory: Patient is in no distress, no accessory muscle use, lungs are clear to auscultation, no wheezing, rales or rhonchi Back: non-tender GI: Soft and nontender Musculoskeletal: The patient has no evidence of calf tenderness, no pitting edema, symmetrical pulses noted bilaterally Neurological: A&O, normal speech Psychiatric: Cooperative Constitutional Vital Signs, click to edit/add: Last Vital Signs Temp 98.5 F 05/25/25 09:23 Pulse 70 05/25/25 11:30 Resp 22 H 05/25/25 11:30 BP 176/80 H 05/25/25 11:30 Pulse Ox 99 05/25/25 11:30 O2 Del Method Room Air 05/25/25 09:23 Course Vital Signs Vital signs: Vital Signs Temperature 98.5 F 05/25/25 09:23 Pulse Rate 79 05/25/25 09:23 Respiratory Rate 18 05/25/25 09:23 Blood Pressure 222/107 H 05/25/25 09:23 Pulse Oximetry 99 05/25/25 09:23 Oxygen Delivery Method Room Air 05/25/25 09:23 Temperature 98.5 F 05/25/25 09:23 Pulse Rate 70 05/25/25 11:30 Respiratory Rate 22 H 05/25/25 11:30 Blood Pressure 176/80 H 05/25/25 11:30 Pulse Oximetry 99 05/25/25 11:30 Oxygen Delivery Method Room Air 05/25/25 09:23 Medical Decision Making MDM Narrative Medical decision making narrative: Blood pressure was elevated and she was given IV hydralazine with improvement. Her workup is negative and she is discharged home. She will call her doctor in the morning for follow-up and a blood pressure recheck. Treatment diagnosis and follow-up were discussed with the patient. My impression is that her blood pressure is elevated due to stress and the patient agrees. Differential Diagnosis Differential Diagnosis: Hypertension, anxiety Lab Data Lab results reviewed: Yes I reviewed the patient's lab results Labs: Lab Results 05/25/25 Range/Units 09:29 WBC 6.7 (4.0-11.0) 10^3/uL RBC 4.89 (4.20-5.40) 10^6/uL Hgb 16.0 (12.0-16.0) g/dL Hct 47.0 (36.0-48.0) % MCV 96.1 (81.0-99.0) fL MCH 32.7 (26.7-34.0) pg MCHC 34.0 (29.9-35.2) g/dL RDW 12.8 (11.0-15.0) % Plt Count 253 (150-450) 10^3/uL MPV 10.4 (9.5-13.5) fL Neut % (Auto) 68.0 (43.0-75.0) % Lymph % (Auto) 20.2 L (20.5-60.0) % [place] % (Auto) 8.8 (1.7-12.0) % Eos % (Auto) 1.9 (0.9-7.0) % Baso % (Auto) 1.0 (0.2-2.0) % Neut # (Auto) 4.5 (1.4-6.5) 10^3/uL Lymph # (Auto) 1.4 (1.2-3.8) 10^3/uL [place] # (Auto) 0.6 (0.3-0.8) 10^3/uL Eos # (Auto) 0.1 (0.0-0.7) 10^3/uL Baso # (Auto) 0.1 (0.0-0.1) 10^3/uL Abs Immat Gran (auto) 0.01 (0.00-0.03) 10^3/uL Imm/Tot Granulo (auto) 0.1 (0.0-0.5) % Sodium 138 (136-145) mmol/L Potassium 4.2 (3.5-5.1) mmol/L Chloride 100 (98-107) mmol/L Carbon Dioxide 29.8 (21.0-32.0) mmol/L Anion Gap 12.4 BUN 9.0 (7.0-18.0) mg/dL Creatinine 0.54 L (0.55-1.02) mg/dL Est GFR ( Amer) >60 (>=60 mL/min/1.73m^2) Est GFR (Non-Af Amer) >60 (>=60 mL/min/1.73m^2) BUN/Creatinine Ratio 16.7 Glucose 112 H (74-106) mg/dL Calcium 9.8 (8.5-10.1) mg/dL Troponin I High Sens 5.4 (4.0-51.3) pg/mL Imaging Data Chest x-ray: Radiologist's impression: No acute process ECG Data Attestation: I personally reviewed and interpreted this ECG as follows: (EKG on my interpretation shows sinus rhythm with rate of 61 and no acute change.) Critical Care Time Critical Care Time Critical Care Time: Yes Total Critical Care Time: 35 Attestation: Due to the high probability of sudden and clinically significant deterioration in the patient's condition he/she required the highest level of my preparedness to intervene urgently I provided critical care time including documentation time, medication orders and management, reevaluation, vital sign assessment, ordering and reviewing of lab tests, ordering and reviewing of x-ray studies, and admission orders. Aggregate critical care time is 35 minutes including only time during which I was engaged in work directly related to his/her care and did not include time spent treating other patients simultaneously. Discharge Plan Discharge Chief Complaint: Recheck/Abnormal Lab/Rx Clinical Impression: Hypertension Patient Disposition: Home, Self-Care Time of Disposition Decision: 11:41 Condition: Good Mode of Transportation: Private Vehicle Prescriptions / Home Meds: No Action alendronate 70 mg tablet 70 mg PO .WEEKLY amlodipine 10 mg tablet 10 mg PO DAILY celecoxib 200 mg capsule 200 mg PO DAILY cholecalciferol (vitamin D3) 1,250 mcg (50,000 unit) capsule 50,000 unit PO .WEEKLY escitalopram oxalate 20 mg tablet 20 mg PO DAILY levothyroxine 50 mcg tablet 50 mcg PO DAILY rosuvastatin 5 mg tablet 5 mg PO DAILY hydrochlorothiazide 12.5 mg tablet 12.5 mg PO Q12H Print Language: Yakut Instructions: Heart Healthy Diet (ED), Hypertension (ED) Additional Instructions: Follow-up with your physician promptly for blood pressure recheck. Referrals: RAYNA ORDONEZ [Primary Care Provider, Unknown] - 1 week
[2025-05-25 09:58] LABS: Anion Gap 12.4; Blood Urea Nitrogen 9.0 mg/dL (7.0-18.0); Calcium 9.8 mg/dL (8.5-10.1); Carbon Dioxide 29.8 mmol/L (21.0-32.0); Chloride 100 mmol/L (98-107); Estimated GFR (African America >60 (>=60 mL/min/1.73m^2); Estimated GFR (Non-African Ame >60 (>=60 mL/min/1.73m^2); Glucose 112 mg/dL (74-106); Potassium 4.2 mmol/L (3.5-5.1); Sodium 138 mmol/L (136-145)
[2025-05-25] MEDS: HYDRALAZINE HCL 20 MG/ML VIAL 10 MG IVP (10:13)
[2025-05-25] MEDS: KETOROLAC TROMETHAMINE 30 MG/ML VIAL IVP (10:49)
== END 2025-05-25 11:50 | disposition home or self-care (01) ==
PROVIDERS: Emergency Provider Emergency Medicine; PCP Nurse Practitioner Family
DX: I10 Essential (primary) hypertension (principal); Z79.899 Other long term (current) drug therapy; R07.89 Other chest pain
CPT/HCPCS: 36415; 71045; 80048; 84484; 85025; 93005; 96374; 96375; 99285; J0360; J1885

== ENCOUNTER 2025-07-20 07:28 | Emergency (ER) | payer MEDICARE, SELFPAY ==
[2025-07-20 07:33] VITALS: BP 150/85; PULSE 80; TEMP 36.6; O2SAT 99; BMI 20.1
--- OUTSIDE RECORDS SUMMARY | 2025-07-20 07:37 | XMS_ITS | Encounter Summary ---
Author Organization [employer] [facility] Address [id number] [address] [place] [address] Care Team Providers Care Gas Pumping Station Supervisor Name Role Phone Belem Rodriguez ELECTRICAL MANUFACTURING ENGINEER-AUTOMOTIVE SALES ASSOCIATE Primary Care Provider + Reason for Visit * Reason Comments Med Refill Encounter Details Date Type Department Care Team (Late st Contact Info) Description 09/15/2022 Refill [facility] Internal Medicine - Family Medicine [address] [place] [address] Sadie Ferro, ELECTRICAL MANUFACTURING ENGINEER-POWDER GUARD [address] [place] [address] Other chronic pain Social History Tobacco Use [...] Care Team (Late st Contact Info) Description 08/14/2025 4:20 PM EDT Office Visit [facility] Internal Medicine - Family Medicine [address] [place] [address] Belem Rodriguez APRN-AUTOMOTIVE SALES ASSOCIATE [address] [place] [address] documented as of this encounter Visit Diagnoses Diagnosis Other chronic pain documented in this encounter Additional Health Concerns Assessment Noted Time PHQ-9 Depression Total Score: 4 08/10/20 22 3:23 PM EDT documented as of this encounter Care Teams Gas Pumping Station Supervisor Relationship Specialty Start Date End Date Belem Rodriguez, ELECTRICAL MANUFACTURING ENGINEER-AUTOMOTIVE SALES ASSOCIATE [address] [place] [address] PCP - General Internal Medicine 04/06/24 documented as of this encounter
--- OUTSIDE RECORDS SUMMARY | 2025-07-20 07:37 | XMS_ITS | Encounter Summary ---
Author Organization [employer] Address [facility] [place][id number] [address] [place] [address] Care Team Providers Care Forensic Ballistics Expert Name Role Phone Belem Rodriguez Yasmeen PENSIONHOLDER INFORMATION CLERK-PUBLIC WORKS COMMISSIONER Primary Care Provider + Encounter Details Date Type Department Care Team (Late st Contact Info) Description 05/15/2023 [facility] [address] [place] [address] Sadie Ferro, PENSIONHOLDER INFORMATION CLERK-SPINNING FRAME FIXER [address] [place] [address] Social History Tobacco Use Types Packs/Day Years [...] sent anything in for her arthritis to [facility] in [place] * Telephone Encounter - DHRUV Damon - [...] - Family Medicine [address] [place] [address] Belem Rodriguez APRN-CNP [address] [place] [address] documented as of this encounter Visit Diagnoses Not on filedocumented in this encounter Additional Health Concerns Assessment Noted Time PHQ-9 Depression Total Score: 0 05/12/20 23 10:50 AM EDT documented as of this encounter Care Teams Forensic Ballistics Expert Relationship Specialty Start Date End Date Belem Rodriguez APRN-CNP [address] [place] [address] PCP - General Internal Medicine 04/06/24 documented as of this encounter
--- OUTSIDE RECORDS SUMMARY | 2025-07-20 07:37 | XMS_ITS | Encounter Summary ---
Author Organization [employer] [facility] [employer] Address [facility] [id number] [address] [place] [address] Care Team Providers Care Adjunct Professor Of English Name Role Phone Belem Rodriguez SALES AND EVENTS COORDINATOR-HOP SORTER Primary Care Provider + Reason for Visit * Reason Comments Med Refill Encounter Details Date Type Department Care Team (Late st Contact Info) Description 02/19/2023 Refill [facility] Internal Medicine - Family Medicine [address] [place] [address] Sadie Ferro, SALES AND EVENTS COORDINATOR-POWERHOUSE ELECTRICIAN [address] [place] [address] Essential (primary) hypertension; Other chronic pain Social [...] Medicine - Family Medicine [address] [place] [address] Belem Rodriguez APRN-CNP [address] [place] [address] documented as of this encounter Visit Diagnoses Diagnosis Essential (primary) hypertension Unspecified essential hypertension Other chronic pain documented in this encounter Additional Health Concerns Assessment Noted Time PHQ-9 Depression Total Score: 0 11/30/19 4:08 PM EST documented as of this encounter Care Teams Adjunct Professor Of English Relationship Specialty Start Date End Date Belem Rodriguez APRN-CNP [address] [place] [address] PCP - General Internal Medicine 04/06/24 documented as of this encounter
--- OUTSIDE RECORDS SUMMARY | 2025-07-20 07:37 | XMS_ITS | Encounter Summary ---
Author [facility] Address [facility] [id number] [address] [place] [address] Care Team Providers Care Yoke Presser Name Role Phone Belem Rodriguez HORSE SHOW MANAGER-ELEMENTARY READING SPECIALIST Primary Care Provider + Encounter Details Date Type Department Care Team (Late st Contact Info) Description 06/15/2023 Orders Only [facility] Internal Medicine - Family Medicine [address] [place] [address] Carolyn Abebe CMA Asymptomatic postmenopausal state; Osteopenia [...] Medicine - Family Medicine [address] [place] [address] Belem Rodriguez, HORSE SHOW MANAGER-ELEMENTARY READING SPECIALIST [address] [place] [address] documented as of this encounter Procedures Procedure [...] documented as of this encounter Care Teams Yoke Presser Relationship Specialty Start Date End Date Belem Rodriguez, PATI-ELEMENTARY READING SPECIALIST [address] [place] [address] PCP - General Internal Medicine 04/06/24 documented as of this encounter
--- OUTSIDE RECORDS SUMMARY | 2025-07-20 07:37 | XMS_ITS | Encounter Summary ---
Author Organization [employer] [facility] [employer] Address [facility] [id number] [address] [place] [address] Care Team Providers Care High School Band Teacher Name Role Phone Belem Rodriguez APRN-ELIAZAR Primary Care Provider + Encounter Details Date Type Department Care Team (Late st Contact Info) Description 05/15/2023 Orders Only [facility] Internal Medicine - Family Medicine [address] [place] [address] Carolyn Abebe CMA Rib pain on right [...] Description 08/14/2025 4:20 PM EDT [facility] [address] [place] [address] Belem Rodriguez, RETAIL CLIENT SOLUTIONS CONSULTANT-SVP DIGITAL SALES [address] [place] [address] documented as of this encounter Procedures Procedure Name Priority Date/Time Associated Diagnosis Comments XR RIBS RT 3 VWS W PA CHEST Routine 05/15/2023 4:35 PM EDT Rib pain on right side documented in this encounter Results * X-ray ribs right 3 views with pa chest (05/15/2023 4:35 PM EDT) Anatomical Region Laterality Modality MSK, Chest Right Computed Radiogr aphy Sadie Ferro RETAIL CLIENT SOLUTIONS CONSULTANT-RELEASE ENGINEER IMG DIAGNOSTIC IMAGING ORDCecil LYNN Final Result documented in this encounter Visit Diagnoses Diagnosis Rib pain on right side documented in this encounter Additional Health Concerns Assessment Noted Time PHQ-9 Depression Total Score: 0 05/12/20 23 10:50 AM EDT documented as of this encounter Care Teams High School Band Teacher Relationship Specialty Start Date End Date Belem Rodriguez APRN-SVP DIGITAL SALES [address] [place] [address] PCP - General Internal Medicine 04/06/24 documented as of this encounter
--- OUTSIDE RECORDS SUMMARY | 2025-07-20 07:37 | XMS_ITS | Encounter Summary ---
Author Organization [email or web address] [facility] Address [facility] [id number] [address] [place] [address] Care Team Providers Care Manager Intelligence Name Role Phone Belem Rodriguez NEUROLOGY TECH-RESTAURANT ASSISTANT Primary Care Provider + Encounter Details Date Type Department Care Team (Late st Contact Info) Description 05/17/2023 Documentation [facility] Internal Medicine - Family Medicine [address] [place] [address] Sadie Ferro, NEUROLOGY TECH-MECHANIC WELDER [address] [place] [address] Social History Tobacco Use Types Packs/Day Years [...] Medicine - Family Medicine [address] [place] [address] Belem Rodriguez APRN-RESTAURANT ASSISTANT [address] [place] [address] documented as of this encounter Visit Diagnoses Not on filedocumented in this encounter Additional Health Concerns Assessment Noted Time PHQ-9 Depression Total Score: 0 05/12/20 23 10:50 AM EDT documented as of this encounter Care Teams Manager Intelligence Relationship Specialty Start Date End Date Belem Rodriguez, NEUROLOGY TECH-RESTAURANT ASSISTANT [address] [place] [address] PCP - General Internal Medicine 04/06/24 documented as of this encounter
--- OUTSIDE RECORDS SUMMARY | 2025-07-20 07:38 | XMS_ITS | Encounter Summary ---
Author Organization [employer] Address [facility] [place]-[id number] [address] [place] [address] Care Team Providers Care Nailer Hand Name Role Phone Belem Rodriguez AUDIO VISUAL SPECIALIST-ENTERPRISE MANAGER Primary Care Provider + Encounter Details Date Type Department Care Team (Late st Contact Info) Description 05/26/2025 Telephone [facility] Internal Medicine - Family Medicine [address] [place] [address] David cM, GENTRY Social History Tobacco Use Types Packs/Day Years Used Date Smoking Tobacco: Former Cigarettes 0.5 20 0 02/25/1998 - 02/25/2018 Smokeless Tobacco: Never Alcohol Use Standard Drinks/Week Comments Yes 0 (1 standard drink = 0.6 oz pur e alcohol) socially PHQ-2 Answer Date Recorded Total Score 0 05/29/2025 Childcare Answer Date Recorded Childcare Unknown 04/10/2019 Employment Answer Date Recorded Employment Unknown 04/10/2019 Hunger Screening Answer Date Recorded Within the past 12 months we worried whether our food would run out before we got money to buy more. Never True 05/29/2025 Within the past 12 months th e food we bought just didn't last and we didn't have money to get more. Never True 05/29/2025 Purpose - Life Answer Date Recorded Purpose and direction in life Unknown Comments No Sex and Gender Information Value Date Recorded Sex Assigned at Not on file Legal Sex Female 11:24 AM EDT Gender Identity Not on file Sexual Orientation Not on file documented as of this encounter Miscellaneous Notes * Telephone Encounter - David Mc CNA - 05/26/2025 11:23 AM EDT Patient was at [facility] ER last night (05/25) for BP issues and anxiety; She said she is still have issues and would like to be seen before her up coming appt on 07/03; Where can I squeeze her in at this week? * Telephone Encounter - JANA Oscar - 05/26/2025 11:23 AM EDT 9am or 12pm or end of day Mon documented in this encounter Plan of Treatment Upcoming Encounters Date Type Department Care Team (Late st Contact Info) Description 08/14/2025 4:20 PM EDT Office Visit [facility] Internal Medicine - Family Medicine [address] [place] [address] Belem Rodriguez APRN-CNP [address] [place] [address] documented as of this encounter Visit Diagnoses Not on filedocumented in this encounter Additional Health Concerns Assessment Noted Time PHQ-9 Depression Total Score: 0 05/23/20 25 12:01 PM EDT documented as of this encounter Care Teams Nailer Hand Relationship Specialty Start Date End Date Belem Rodriguez APRN-CNP [address] [place] [address] PCP - General Internal Medicine 04/06/24 documented as of this encounter
--- OUTSIDE RECORDS SUMMARY | 2025-07-20 07:38 | XMS_ITS | Encounter Summary ---
Author Organization [facility] Address [facility] [place]-[id number] [address] [place] [address] Care Team Providers Care Enthone Solder Stripper Name Role Phone Belem Rodriguez NECK BAND MAKER-OPERATOR WEAPON LOCATING RADAR Primary Care Provider + Encounter Details Date Type Department Care Team (Late st Contact Info) Description 04/14/2025 Orders Only [facility] Internal Medicine - Family Medicine [address] [place] [address] Belem Rodriguez, NECK BAND MAKERCAPE COD [facility] [address] [place] [address] Social History Tobacco Use Types Packs/Day Years [...] Medicine - Family Medicine [address] [place] [address] Belem Rodriguez NECK BAND MAKER-OPERATOR WEAPON LOCATING RADAR [address] [place] [address] documented as of this encounter Visit Diagnoses Not on filedocumented in this encounter Additional Health Concerns Assessment Noted Time PHQ-9 Depression Total Score: 0 04/11/20 25 9:34 AM EDT documented as of this encounter Care Teams Enthone Solder Stripper Relationship Specialty Start Date End Date Belem Rodriguez NECK BAND MAKER-OPERATOR WEAPON LOCATING RADAR [address] [place] [address] PCP - General Internal Medicine 04/06/24 documented as of this encounter
--- OUTSIDE RECORDS SUMMARY | 2025-07-20 07:38 | XMS_ITS | Encounter Summary ---
Author Organization [employer] Address [facility] [place]-[id number] [address] [place] [address] Care Team Providers Care Chefs Name Role Phone Belem Rodriguez PRACTICE CLINICIAN-DRAY TRUCK DRIVER Primary Care Provider + Reason for Visit * Reason Comments Med Refill Encounter Details Date Type Department Care Team (Late st Contact Info) Description 11/18/2022 Refill [facility] Internal Medicine - Family Medicine [address] [place] [address] Sadie Ferro, PRACTICE CLINICIAN-RECEIVABLE CLERK [address] [address] Hyperlipidemia, unspecified Social History Tobacco Use Types [...] Medicine - Family Medicine [address] [place] [address] Belem Rodriguez APRN-CNP [address] [place] [address] documented as of this encounter Visit Diagnoses Diagnosis Hyperlipidemia, unspecified documented in this encounter Additional Health Concerns Assessment Noted Time PHQ-9 Depression Total Score: 4 08/10/20 22 3:23 PM EDT documented as of this encounter Care Teams Chefs Relationship Specialty Start Date End Date Belem Rodriguez, PRACTICE CLINICIAN-DRAY TRUCK DRIVER [address] [place] [address] PCP - General Internal Medicine 04/06/24 documented as of this encounter
--- OUTSIDE RECORDS SUMMARY | 2025-07-20 07:38 | XMS_ITS | CCD ---
Author Organization [facility] Inform ion Partnership [facility] Care Team Providers Care Mine Captain Name Role Phone Sadie Raines Primary Care Provider Iris Aponte Unavailable YANNA, DR SDAIE Sahni Admitting Unavailable YANNA, DR SADIE Sahni Attending Unavailable YANNA, DR SADIE Sahni Primary Care Unavailable TAVON, DR IRIS Dias Consulting Unavailable YANNA, DR SADIE Sahni Consulting Unavailable YANNA, DR SADIE Sahni Admitting Unavailable YANNA, DR SDAIE Sahni Attending Unavailable BROOKE, DR KAUFFMAN Primary Care Unavailable TAVON, DR IRIS Dias Consulting Unavailable YANNA, DR SADIE Sahni Consulting Unavailable KUNNirmal, DR SADIE Sahni Admitting Unavailable KUNNirmal, DR SADIE Sahni Attending Unavailable KUNNirmal, DR SADIE Sahni Primary Care Unavailable YANNA, DR SADIE Sahni Consulting Unavailable YANNA, DR SADIE Sahni Primary Care Unavailable KALI RODRIGUEZ Admitting Unavailable KALI RODRIGUEZ Attending Unavailable ARNOL, DR OLEARY Consulting Unavailable JENNIFER, KALI Consulting Unavailable MARTIN, LUCILLE Consulting Unavailable KLYM, LAURYN Consulting Unavailable Nain Goodman Unavailable [phone] SADIE RAINES Referring Unavailable JAMARI COX Primary Care Unavailable MERY, RAYNA Yasmeen Referring Unavailable MERY, RAYNA L Primary Care Unavailable Mery ORTHODONTIC TECHNICIAN-ROSE GRADING SUPERVISOR, Rayna L Primary Care Provider Jamari Cox DO Primary Care Provider [phone] Unavailable Primary Care Provider UnavailKENDRA Flaherty Attending Unavailable Mery ORTHODONTIC TECHNICIAN-ROSE GRADING SUPERVISOR, Rayna L Primary Care Provider MERY, RAYNA L Attending Unavailable MERY, RAYNA L Referring Unavailable MERY, RAYNA L Primary Care Unavailable MERY, RAYNA L Attending Unavailable MERY, RAYNA L Referring Unavailable MERY, RAYNA L Primary Care Unavailable MERY, RAYNA L Attending Unavailable MERY, RAYNA L Referring Unavailable MERY, RAYNA L Primary Care Unavailable MERY, RAYNA L Attending Unavailable MERY, RAYNA L Referring Unavailable MERY, RAYNA L Primary Care Unavailable MERY, RAYNA L Attending Unavailable MERY, RAYNA L Referring Unavailable MERY, RAYNA L Primary Care Unavailable MERY, RAYNA L Attending Unavailable MERY, RAYNA L Referring Unavailable MERY, RAYNA L Primary Care Unavailable MERY, RAYNA L Attending Unavailable MERY, RAYNA L Referring Unavailable MERY, RAYNA L Primary Care Unavailable Medications Current Medications Medication [...] for 30min 12 tablet 3 04/11/2025 Active budesonide 3 mg delayed release oral capsule [...] 12.5 mg oral tablet (18 sources) alpha-Adrenergic Bhupendra, beta-Adrenergic Bhupendra End: 4 carvediloL (COREG) 12.5 mg tablet carvedilol 12.5 mg tablet 10/04/2024 Discontinued (Therapy completed) celecoxib 200 mg oral capsule (20 sources) Nonsteroidal Anti-inflammatory Drug Start: 4 End: take 1 capsule by mouth once daily as needed for pain celecoxib (CeleBREX) 200 mg capsule Take 1 capsule (200 mg total) by mouth daily as needed for pain. TAKE 1 CAPSULE BY MOUTH IN THE MORNING 90 capsule 1 04/21/2025 Active take 1 capsule by mo [facility] every twelve hours CeleBREX 200 MG 1 capsule with food Oral ly Twice a day Not-Taking/PRN Comment on above: [...] Start: 05-12-2023 take 1 tablet by [place] in the morning, then take 1 tablet [...] as needed. escitalopram 20 mg oral tablet (12 sources) Serotonin Reuptake Inhibitor Start: take 1 [...] 12.5 mg by mout h once daily. Hydrochlorothiazide- 12.5 mg 12.5 mg (4 sources) take 1 tablet by mouth once daily Hydrochlorothiazide -12.5 mg 12.5 mg 1 tablet Orally Once a day Active lisinopril 40 mg oral tablet (6 sources) Angiotensin Converting Enzyme Inhibitor Start: 09-04-202 5 take 1 tablet by mouth in the morning lisinopriL (PRINIVIL,ZESTRIL) 40 mg tablet Take 1 tablet (40 mg total) by mouth in the morning. 90 tablet 1 07/03/2025 Active Start: 05-29-2025 End: 07-03-2025 take 1 tablet by mouth in the morning lisinopriL (PRINIVIL,ZESTRIL) 20 mg tablet Take 1 tablet (20 mg total) by mouth in the morning. 30 tablet 1 05/29/2025 07/03/2025 Discontinued (Patient Stopped On Own) Potassium (4 sources) Potassium Active potassium chloride [...] Drug Class(es) Dates Sig (Normalized) Sig (Original) amLODIPine 10 mg oral tablet (20 sources) Dihydropyridine Calcium Channel Bhupendra Start: 09-22-2023 End: 07-03-2025 take 1 tablet by mouth once daily amLODIPine (NORVASC) 10 mg tablet Indications: Essential (primary) hypertension TAKE 1 TABLET BY MOUTH EVERY DAY 90 tablet 1 09/10/2024 07/03/2025 Discontinued (Patient Stopped On Own) Comment on above: Take 10 mg by mouth once daily. Cholestyramine Resin (4 sources) Bile Acid Sequestrant Prevalite prn Not-Taking/PRN Prevalite prn No t-Taking dextromethorphan hydrobromide 30 mg / pyrilamine maleate 30 mg oral tablet (5 sources) Uncompetitive W-pfikwz-H-aspartate Receptor Antagonist, Sigma-1 Agonist Start: 09-21-2020 Hutchinson DMT 30-30 MG 1 tablet Orally every [...] 50 mg/ml topical lotion (2 sources) End: 11-20-19 ammonium lactate (LAC-HYDRIN FIVE) 5 % lotion Apply topically. 0 11/20/2023 Discontinued (Therapy completed) Comment on above: Apply to affected ar ea as needed. levothyroxine sodium 0.05 mg oral tablet (20 sources) l-Thyroxine Start: 04-14-20 End: 07-07-20 take 1 tablet by mouth in the morning levothyroxine (SYNTHROID, LEVOTHROID) 50 MCG tablet Take 1 tablet (50 mcg total) by mouth in the morning. 90 tablet 1 04/14/2025 07/07/2025 Discontinued (Therapy completed) Start: 06-03-2024 End: 11-28-2024 take 1 tablet [...] 50 mcg by mouth daily before breakfast. lidocaine 0.05 mg/mg medicated patch (1 source) Antiarrhythmic, Amide Local Anesthetic Start: 023 End: apply 1 dose transdermal route once daily, then apply 1 dose transdermal route every twelve hours lidocaine (LIDODERM) 5 % Place 1 patch on the skin daily. Remove & Discard patch within 12 hours or as directed by MD Dumas patch 1 05/25/2023 11/20/2023 Discontinued (Therapy completed) LORazepam 0.5 mg oral tablet (5 sources) Benzodiazepine Start: 025 End: take 1 tablet by mouth once daily as needed for anxiety LORazepam (ATIVAN) 0.5 mg tablet Indications: Anxiety Take 1 tablet (0.5 mg total) by mouth daily as needed for anxiety. 7 tablet 04/11/2025 05/23/2025 Discontinued (Patient Stopped On Own) sulfaSALAzine 500 mg delayed release oral tablet (3 sources) Aminosalicylate End: 025 take 1 tablet by mouth in the morning sulfaSALAzine (AZULFIDINE) 500 mg EC tablet Take 1 tablet (500 mg total) by mouth in the morning. Diarrhea - from GI . 11/08/2024 Discontinued (Patient Stopped On Own) Problems Active Problems Problem Classification Problem Date Documented Da te Episodic/Chronic Abdominal hernia (5 sources) Hiatal hernia; Translations: [Diaphragmatic hernia without obstruction or gangrene] Onset: 06-20-2025 06-20-2025 Episodic Anxiety disorders (4 sources) Anxiety; Translations: [Anxiety [...] PAIN, UNSPECIFIED] Onset: 11-30-2021 Unclassified (1 source) F/U BP Onset: 07-03-2025 Past or Other Problems Problem Classification Problem [...] (20 sources) Mood disorders Onset: 11-08-2024 Resolved: 07-03-2025 11-08-2024 Noninfectious gastroenteritis (20 sources) Chronic non-specific colitis; Translations: [Noninfective gastroenteritis and colitis, unspecified] Onset: 07-03-2019 11-08-2024 Episodic Other aftercare (1 source) Other half-way (current) drug therapy; Translations: [OTH ADMINISTRATIVE JOB TITLES CURRENT DRUG THERAPY] Onset: 11-30-2021 Episodic Other [...] Test Name Value Interpretation Reference Range Facility THYROID PROFILE INCLUDES TSH FT4on 07-03-2025 Free T4 [Mass/Vol] 1.09 ng/dL Normal 0.61-1.60 [facility] Comment on above: Performed By: #### T HYR #### [facility] ([facility]) [address] [place] [address] VIR TSH 0.25 uIU/mL Low 0.49-4.67 [facility] Comment on above: Performed By: #### T HYR #### [facility] ([facility]) [address] [place] [address] VIR Thyroid profile includes TSH FT4on 07-03-2025 Free T4 [Mass/Vol] 1.09 ng/dL 0.61 - 1. 60 ng/dL [facility] Interpretation and review of laboratory results Abnormal [facility] TSH Qn 0.25 m[IU]/L Low [facility] BASIC METABOLIC PANELon 06- Anion gap [Moles/Vol] 8 mmol/L Normal 5-15 [facility] Comment on above: Performed By: #### B MP #### [facility] ([facility]) [address] [place] [address] VIR Calcium [Mass/Vol] 10.3 mg/dL Normal 8.5-10.5 [facility] Comment on above: Performed By: #### B MP #### [facility] ([facility]) [address] [place] [address] VIR Chloride [Moles/Vol] 99 mmol/L Normal 98-109 [facility] Comment on above: Performed By: #### B MP #### [facility] ([facility]) [address] [place] [address] VIR CO2 [Moles/Vol] 31 mmol/L Normal 22-32 [facility] Comment on above: Performed By: #### B MP #### [facility] ([facility]) [address] [place] [address] VIR Creatinine [Mass/Vol] 0.65 mg/dL Normal 0.40-1.00 [facility] Comment on above: Result Comment: METH OD TRACEABLE TO IDMS STANDARD Performed By: #### B MP #### [facility] ([facility]) [address] [place] [address] VIR EGFR (CKD-EPI) NON-RACE DEPENDENT >^90 Normal >=60 [facility] Comment on above: Result Comment: Repo rted eGFR is based on the CKD-EPI 2020 equation that does not use a race coefficient. Performed By: #### B MP #### [facility] ([facility]) [address] [place] [address] VIR Glucose [Mass/Vol] 103 mg/dL High 65-99 [facility] Comment on above: Performed By: #### B MP #### [facility] ([facility]) [address] [place] [address] VIR Potassium [Moles/Vol] 4.6 mmol/L Normal 3.5-5.0 [facility] Comment on above: Performed By: #### B MP #### [facility] ([facility]) [address] [place] [address] VIR Sodium [Moles/Vol] 138 mmol/L Normal 134-146 [facility] Comment on above: Performed By: #### B MP #### [facility] ([facility]) [address] [place] [address] VIR Urea nitrogen [Mass/Vol] 11 mg/dL Normal 5-27 [facility] Comment on above: Performed By: #### B MP #### [facility] ([facility]) [address] [place] [address] VIR THYROID PROFILE INCLUDES TSH FT4on 04-11-2025 Free T4 [Mass/Vol] 1.16 ng/dL Normal 0.61-1.60 [facility] Comment on above: Performed By: #### T HYR #### [facility] ([facility]) [address] [place] [address] VIR TSH 0.33 uIU/mL Low 0.49-4.67 [facility] Comment on above: Performed By: #### T HYR #### [facility] ([facility]) [address] [place] [address] VIR No Panel Informationon 02-03 [facility] BASIC METABOLIC PANLon 07-19 Anion gap [Moles/Vol] 10 mmol/L Normal 5-15 [facility] Comment on above: Performed By: #### B MP, 3016-3, 3024-7 #### [facility] ([id number]) [address] [place] [address] Calcium [Mass/Vol] 9.2 mg/dL Normal 8.5-10.5 [facility] Comment on above: Performed By: #### Zeny RIZVI, 3016-3, 3023-7 #### [facility] ([id number]) [address] [place] [address] Chloride [Moles/Vol] 100 mmol/L Normal 98-109 [facility] Comment on above: Performed By: #### Zeny RIZVI, 3016-3, 3023-7 #### [facility] ([id number]) [address], [facility] [address] [place] [address] CO2 [Moles/Vol] 27 mmol/L Normal 22-32 [facility] Comment on above: Performed By: #### Zeny RIZVI, 6-3, 3023-7 #### [facility] ([id number]) [address] [address] [place] [address] Creatinine [Mass/Vol] 0.63 mg/dL Normal 0.40-1.00 [facility] Comment on above: Result Comment: METH OD TRACEABLE TO IDMS STANDARD Performed By: #### Zeny RIZVI, 6-3, 7 #### [facility] ([id number]) [address] [address] [place] [address] eGFR (CKD-EPI) NON-RACE DEPENDENT >90 Normal >59 [facility] Comment on above: Result Comment: Reported eGFR is based on the CKD-EPI 1 equation that does not use a race coefficient. Performed By: #### Zeny RIZVI, 3016-3, 3023-7 #### [facility] ([id number]) [address], [address] [place] [address] Glucose [Mass/Vol] 100 mg/dL High 65-99 [facility] Comment on above: Performed By: #### Zeny RIZVI, 3016-3, 3023-7 #### [facility] ([id number]) [address] [place] [address] Potassium [Moles/Vol] 4.2 mmol/L Normal 3.5-5.0 [facility] Comment on above: Performed By: #### Zeny RIZVI, 3016-3, 302-7 #### [facility] ([id number]) [address], [address] [place] [address] Sodium [Moles/Vol] 137 mmol/L Normal 134-146 [facility] Comment on above: Performed By: #### Zeny RIZVI, 3016-3, 302-7 #### [facility] ([id number]) [address], [facility] [address] [place] [address] Urea nitrogen [Mass/Vol] 11 mg/dL Normal 5-27 [facility] Comment on above: Performed By: #### Zeny RIZVI, 3016-3, 3023-7 #### [facility] ([id number]) [address], [facility] [address] [place] [address] FREE T4on 07-19-2024 Free T4 [Mass/Vol] 1.29 ng/dL Normal 0.61-1.60 [facility] Comment on above: Performed By: #### Zeny RIZVI, 3016-3, 302-7 #### [facility] ([id number]) [address], [facility] [address] [place] [address] TSH Qnon 07-19-2024 TSH 0.86 uIU/mL Normal 0.49-4.67 [facility] Comment on above: Performed By: #### Zeny RIZVI, 3016-3, 302-7 #### [facility] ([id number]) [address], [address] [place] [address] COMPREHENSIVE METABOLIC PANE Armaan 03-01-2024 Albumin [Mass/Vol] 5.0 g/dL Normal 3.2-5.3 [facility] Comment on above: Performed By: #### C BELKYS, 76231-4, THYR #### [facility] ([id number]) [address], [address] [place] [address] ALP [Catalytic activity/Vol] 89 U/L Normal 39-130 [facility] Comment on above: Performed By: #### C BELKYS, 44252-5, THYR #### [facility] ([id number]) [address], [address] [place] [address] ALT [Catalytic activity/Vol] 24 U/L Normal 0-31 [facility] Comment on above: Performed By: #### C BELKYS, 49229-6, THYR #### [facility] ([id number]) [address], [address] [place] [address] Anion gap [Moles/Vol] 10 mmol/L Normal 5-15 [facility] Comment on above: Performed By: #### C BELKYS, 15442-1, THYR #### [facility] ([id number]) [address], [address] [place] [address] AST [Catalytic activity/Vol] 25 U/L Normal 0-41 [facility] Comment on above: Performed By: #### Connor RIZVI, 72733-4, THYR #### [facility] ([id number]) [address], [address] [place] [address] Bilirubin [Mass/Vol] 0.8 mg/dL Normal 0.3-1.2 [facility] Comment on above: Performed By: #### Connor RIZVI, 14299-1, THYR #### [facility] ([id number]) [address], [address] [place] [address] Calcium [Mass/Vol] 10.0 mg/dL Normal 8.5-10.5 [facility] Comment on above: Performed By: #### Connor RIZVI, 36652-0, THYR #### [facility] ([id number]) [address], [address] [place] [address] Chloride [Moles/Vol] 102 mmol/L Normal 98-109 [facility] Comment on above: Performed By: #### C BELKYS, 32025-1, THYR #### [facility] ([id number]) [address], [address] [place] [address] CO2 [Moles/Vol] 27 mmol/L Normal 22-32 [facility] Comment on above: Performed By: #### Connor RIZVI, 52186-0, THYR #### [facility] ([id number]) [address], [facility] [address] [place] [address] Creatinine [Mass/Vol] 0.60 mg/dL Normal 0.40-1.00 [facility] Comment on above: Result Comment: METH OD TRACEABLE TO IDMS STANDARD Performed By: #### C BELKYS, 25187-0, THYR #### [facility] ([id number]) [address], [facility] [address] [place] [address] eGFR (CKD-EPI) NON-RACE DEPENDENT >90 Normal >59 [facility] Comment on above: Result Comment: Reported eGFR is based on the CKD-EPI 2020 equation that does not use a race coefficient. Performed By: #### Connor RIZVI, 70574-1, THYR #### [facility] ([id number]) [address], [address] [place] [address] Glucose [Mass/Vol] 91 mg/dL Normal 65-99 [facility] Comment on above: Performed By: #### Connor RIZVI, 11513-3, THYR #### [facility] ([id number]) [address], [address] [place] [address] Potassium [Moles/Vol] 5.4 mmol/L High 3.5-5.0 [facility] Comment on above: Performed By: #### Connor RIZVI, 93396-5, THYR #### [facility] ([id number]) [address], [address] [place] [address] Protein [Mass/Vol] 8.0 g/dL Normal 6.0-8.0 [facility] Comment on above: Performed By: #### C BELKYS, 93087-0, THYR #### [facility] ([id number]) [address], [address] [place] [address] Sodium [Moles/Vol] 139 mmol/L Normal 134-146 [facility] Comment on above: Performed By: #### C BELKYS, 82688-6, THYR #### [facility] ([id number]) [address], [address] [address] Urea nitrogen [Mass/Vol] 10 mg/dL Normal 5-27 [facility] Comment on above: Performed By: #### Connor RIZVI, 43737-4, THYR #### [facility] ([id number]) [address], [address] [place] [address] Comprehensive metabolic pane armaan 03-01-2024 Albumin [Mass/Vol] 5.0 g/dL 3.2 - 5.3 g/dL [facility] ALP [Catalytic activity/Vol] 89 U/L 39 - 130 U/L [facility] ALT No additional P-5'-P [Catalytic activity/Vol] 24 U/L 0 - 31 U/L [facility] Anion gap [Moles/Vol] 10 mmol/L 5 - 15 mmol/L [facility] AST [Catalytic activity/Vol] 25 U/L 0 - 41 U/L [facility] Bilirubin [Mass/Vol] 0.8 mg/dL 0.3 - 1.2 mg/dL [facility] Calcium [Mass/Vol] 10.0 mg/dL 8.5 - 10. 5 mg/dL [facility] Chloride [Moles/Vol] 102 mmol/L 98 - 109 mmol/L [facility] CO2 [Moles/Vol] 27 mmol/L 22 - 32 mmol/L [facility] Creatinine [Mass/Vol] 0.60 mg/dL 0.40 - 1.00 mg/dL [facility] Comment on above: METHOD TRACEABLE TO [facility] STANDARD eGFR (CKD-EPI)non-race dependent - PINF [facility] Comment on above: Reported eGFR is based on the CKD-EPI 2020 equation that does not use a race coefficient. Glucose [Mass/Vol] 91 mg/dL 65 - 99 mg/dL [facility] Interpretation and review of laboratory results Abnormal [facility] Potassium [Moles/Vol] 5.4 mmol/L High 3.5 - 5.0 mmol/L [facility] Protein [Mass/Vol] 8.0 g/dL 6.0 - 8.0 g/dL Pr [facility] Sodium [Moles/Vol] 139 mmol/L 134 - 146 mmol/L [facility] Urea nitrogen [Mass/Vol] 10 mg/dL 5 - 27 mg/dL [facility] Lipid 1996 panelon 4 Cholesterol [Mass/Vol] 190 mg/dL 150 - 200 mg/dL [facility] Cholesterol in HDL [Mass/Vol] 109 mg/dL 39 - PINF mg/dL [facility] Comment on above: HDL <40 mg/dL - High Risk HDL > or = 40mg/dL- Desirable HDL >60 mg/dL - Negative Risk Cholesterol in LDL [Mass/Vol] 66 mg/dL NINF - 130 mg/dL [facility] Comment on above: LDL <100 mg/dL - Desirable LDL >160 mg/dL - High Risk Cholesterol in VLDL [Mass/Vol] 15 mg/dL 0 - 30 mg/dL [facility] Cholesterol.total/C holesterol in HDL [Mass ratio] 1.7 {ratio} 1.0 - 5.0 [facility] Triglyceride [Mass/Vol] 73 mg/dL 27 - 150 mg/dL [facility] Cholesterol [Mass/Vol] 190 mg/dL Normal 150-200 [facility] Comment on above: Performed By: #### Connor RIZVI, 42304-7, THYR #### [facility] ([id number]) [address], [address] [place] [address] Cholesterol in HDL [Mass/Vol] 109 mg/dL Normal >39 [facility] Comment on above: Result Comment: HDL <40 mg/dL - High Risk HDL > or = 40mg/dL- Desirable HDL >60 mg/dL - Negative Risk Performed By: #### Connor RIZVI, 17628-6, THYR #### [facility] ([id number]) [address], [address] [place] [address] Cholesterol in LDL [Mass/Vol] 66 mg/dL Normal <130 [facility] Comment on above: Result Comment: LDL <100 mg/dL - Desirable LDL >160 mg/dL - High Risk Performed By: #### Connor RIZVI, 74117-8, THYR #### [facility] ([id number]) [address] [place] [address] Cholesterol in VLDL [Mass/Vol] 15 mg/dL Normal 0-30 [facility] Comment on above: Performed By: #### Connor RIZVI, 76371-3, THYR #### [facility] ([id number]) [address], [address] [place] [address] CHOLESTEROL:HDL 1.7 Normal 1.0-5.0 [facility] Comment on above: Performed By: #### Connor RIZVI, 82093-7, THYR #### [facility] ([id number]) [address], [address] [place] [address] Triglyceride [Mass/Vol] 73 mg/dL Normal 27-150 [facility] Comment on above: Performed By: #### C BELKYS, 48967-9, THYR #### [facility] ([id number]) [address] [facility] [place] [address] No Panel Informationon 03-01 [facility] THYROID PROFILEon 03-01-2024 Free T4 [Mass/Vol] 0.68 ng/dL Normal 0.61-1.60 [facility] Comment on above: Performed By: #### C BELKYS, 06197-3, THYR #### [facility] ([id number]) [address] [place] [address] TSH 0.97 uIU/mL Normal 0.49-4.67 [facility] Comment on above: Performed By: #### Connor RIZVI, 65464-0, THYR #### [facility] ([id number]) [address], [address] [place] [address] Thyroid profile includes TSH FT4on 03-01-2024 Free T4 [Mass/Vol] 0.68 ng/dL 0.61 - 1. 60 ng/dL [facility] TSH Qn 0.97 m[IU]/L [facility] FREE T4on 08-03-2022 Free T4 [Mass/Vol] 0.86 ng/dL Normal 0.76-1.46 [facility] Comment on above: Performed By: #### V ITAD, FT4 #### [facility] [address] [place] [address] Dr. Shara Hussein LIPID PROFILEon 08-03-2022 CHOL-HDL RATIO NORM SEE BELOW Normal [facility] Comment on above: Result Comment: 3.3 - 4.4 LOW RISK 4.4 - 7.1 AVERAGE RISK 7.1 - 11.0 MODERATE RISK >11.0 HIGH RISK Performed By: #### L IPID, TSH, CMP ####[facility] [id number] [place] [id number]. Shara Hussein Cholesterol [Mass/Vol] 238 mg/dL Critically high <=200 [facility] Comment on above: Performed By: #### L IPID, TSH, CMP ####[facility] [address] [place] [id number]. Shara Hussein Cholesterol in HDL [Mass/Vol] 152 mg/dL Critically high 40-60 [facility] Comment on above: Performed By: #### L IPID, TSH, CMP ####[facility] [address] [place] [id number]. Shara Hussein Cholesterol in LDL [Mass/Vol] 57.0 mg/dL Normal [facility] Comment on above: Performed By: #### L IPID, TSH, CMP ####[facility] [address] [place] [id number]. Shara Hussein Cholesterol.total/C holesterol in HDL [Mass ratio] 1.6 {ratio} Normal [facility] Comment on above: Performed By: #### L IPID, TSH, CMP ####[facility] [address] [place] [id number]. Shara Hussein HDL NORMAL > or = 60 mg/dl - LOW CARDIOVASCULAR RISK <40 mg/dl - HIGH CARDIOVASCULAR RISK Normal [facility] Comment on above: Performed By: #### L IPID, TSH, CMP ####[facility] [address] [place] [id number]. Shara Hussein LDL CALC NORMAL SEE BELOW Normal [facility] Comment on above: Result Comment: <100 mg/dl OPTIMAL 100 - 129 mg/dl NEAR OR ABOVE OPTIMAL 130 - 159 mg/dl BORDERLINE HIGH 160 - 189 mg/dl HIGH >190 mg/dl VERY HIGH Performed By: #### L IPID, TSH, CMP ####[facility] [address] [place] [id number]. Shara Hussein Triglyceride [Mass/Vol] 145 mg/dL Normal <=150 [facility] Comment on above: Performed By: #### L IPID, TSH, CMP ####[facility] [address] [place] [address]Dr. Shara Hussein VLDL CALC 29.0 mg/dL Normal [facility] Comment on above: Performed By: #### L IPID, TSH, CMP ####[facility] [address] [place] [address]Dr. Shara Hussein PROF 14(COMP METB)on 022 Albumin [Mass/Vol] 4.0 g/dL Normal 3.4-5.0 [facility] Comment on above: Performed By: #### L IPID, TSH, CMP ####[facility] [address] [place] [address]Dr. Shara Hussein Albumin/Globulin [Mass ratio] 1.1 {ratio} Normal [facility] Comment on above: Performed By: #### L IPID, TSH, CMP ####[facility] [address] [place] [address]Dr. Shara Hussein ALP [Catalytic activity/Vol] 83 U/L Normal 46-116 [facility] Comment on above: Performed By: #### L IPID, TSH, CMP ####[facility] [address] [place] [address]Dr. Shara Hussein ALT [Catalytic activity/Vol] 45 U/L Normal 14-59 [facility] Comment on above: Performed By: #### L IPID, TSH, CMP ####[facility] [address] [place] [address]Dr. Shara Hussein Anion gap [Moles/Vol] 11.2 mmol/L Normal [facility] Comment on above: Performed By: #### L IPID, TSH, CMP ####[facility] [address] [place] [address]Dr. Shara Hussein AST [Catalytic activity/Vol] 29 U/L Normal 15-37 [facility] Comment on above: Performed By: #### L IPID, TSH, CMP ####[facility] [address] [place] [address]Dr. Shara Hussein Bilirubin [Mass/Vol] 1.0 mg/dL Normal 0.2-1.0 [facility] Comment on above: Performed By: #### L IPID, TSH, CMP ####[facility] [address] [place], [place] [address]Dr. Mackenziealexa Hussein Calcium [Mass/Vol] 9.4 mg/dL Normal 8.5-10.1 [facility] Comment on above: Performed By: #### L IPID, TSH, CMP ####[facility] [address] [place], [place] [address]Dr. Mackenziealexa Hussein Chloride [Moles/Vol] 97 mmol/L Critically low 98-107 [facility] Comment on above: Performed By: #### L IPID, TSH, CMP ####[facility] [address] [place], [place] [address]Dr. Mackenziealexa Hussein CO2 [Moles/Vol] 29.7 mmol/L Normal 21.0-32.0 [facility] Comment on above: Performed By: #### L IPID, TSH, CMP ####[facility] [address] [place], [place] [address]Dr. Shara Hussein Creatinine [Mass/Vol] 0.51 mg/dL Critically low 0.55-1.02 [facility] Comment on above: Performed By: #### L IPID, TSH, CMP ####[facility] [address] [place], [place] [address]Dr. Mackenziealexa Keenan EGFR-AF SERBIAN >60 Normal >=60 [facility] Comment on above: Performed By: #### L IPID, TSH, CMP ####[facility] L[address] [place], [place] [address]Dr. Mackenziealexa Keenan EGFR-NON AF SERBIAN >60 Normal >=60 [facility] Comment on above: Performed By: #### L IPID, TSH, CMP ####[facility] [address] [place], [place] [address]Dr. Shara Hussein Globulin (S) [Mass/Vol] 3.7 g/dL Normal [facility] Comment on above: Performed By: #### L IPID, TSH, CMP ####[facility] X[address] [place], [place] [address]Dr. Shara Hussein Glucose [Mass/Vol] 86 mg/dL Normal 74-106 [facility] Comment on above: Performed By: #### L IPID, TSH, CMP ####[facility] [address] [place] [address]Dr. Shara Hussein Potassium [Moles/Vol] 2.9 mmol/L Critically low 3.5-5.1 [facility] Comment on above: Performed By: #### L IPID, TSH, CMP ####[facility] [address] [place] [address]Dr. Shara Hussein Protein [Mass/Vol] 7.7 g/dL Normal 6.4-8.2 [facility] Comment on above: Performed By: #### L IPID, TSH, CMP ####[facility] [address] [place] [address]Dr. Shara Hussein Sodium [Moles/Vol] 133 mmol/L Critically low 136-145 [facility] Comment on above: Performed By: #### L IPID, TSH, CMP ####[facility] [address] [place] [address]Dr. Shara Hussein Urea nitrogen [Mass/Vol] 9.0 mg/dL Normal 7.0-18.0 [facility] Comment on above: Performed By: #### L IPID, TSH, CMP ####[facility] [address] [place], [place] [address]Dr. Shara Hussein Urea nitrogen/Creatinine [Mass ratio] 17.6 mg/mg Normal [facility] Comment on above: Performed By: #### L IPID, TSH, CMP ####[facility] [address] [place] [address]Dr. Shara Hussein TSHon 08-03-2022 TSH 2.685 uIU/mL Normal 0.358-3.740 [facility] Comment on above: Performed By: #### L IPID, TSH, CMP ####[facility] [address] [place] [address]Dr. Shara Hussein VITAMIN D 25 OHon 08-03-2022 VIT D 25-OH 72.4 ng/mL Normal [facility] Comment on above: Performed By: #### V OKSANA, FT4 #### [facility] [address] [place] [address] Shara Hussein VIT D RANGES SEE BELOW Normal [facility] Comment on above: Result Comment: <20 ng/mL Vit D deficient 20 - <30 ng/mL Vit D insufficient 30 - 100 ng/mL Vit D sufficient >100 ng/mL Potential Toxicity Performed By: #### V OKSANA, FT4 #### [facility] [address] [place], [place] [address] Dr. Shara Hussein [facility]ABOL[facility]ANE Armaan 02-09-2022 Albumin [Mass/Vol] 4.2 g/dL Normal 3.6-5.1 [facility] Comment on above: Performed By: #### 7 600, [id number] #### [facility] [place] [address] [employer] Du[employer]ator: Prabhakar Thao MD Albumin/Globulin [Mass ratio] 1.5 {ratio} Normal 1.0-2.5 [facility] Comment on above: Performed By: #### 7 600, 65884 #### [facility] [place] [address] [employer]: Prabhakar Thao MD ALP [Catalytic activity/Vol] 96 U/L Normal 37-153 [facility] Comment on above: Performed By: #### 7 600, 92853 #### [facility] [place] [address] [employer]: Prabhakar Thao MD ALT [Catalytic activity/Vol] 15 U/L Normal 6-29 [facility] Comment on above: Performed By: #### 7 600, 71624 #### [facility] [place] [address] [employer]: Prabhakar Thao MD AST [Catalytic activity/Vol] 19 U/L Normal 10-35 [facility] Comment on above: Performed By: #### 7 600, 20709 #### [facility] [place] [address] [place] [address] [employer]: Prabhakar Thao MD Bilirubin [Mass/Vol] 0.4 mg/dL Normal 0.2-1.2 [facility] Comment on above: Performed By: #### 7 600, 56617 #### [facility] of [address], [address] [place] [address] [employer]: Prabhakar Thao MD BUN/CREATININE RATIO NOT APPLICABLE Normal 6-22 [facility] Comment on above: Performed By: #### 7 600, 24115 #### [facility] of [address], [address] [place] [address] [employer]: Prabhakar Thao MD Calcium [Mass/Vol] 9.7 mg/dL Normal 8.6-10.4 [facility] Comment on above: Performed By: #### 7 600, 01595 #### [facility] of [address], [address] [place] [address] [employer]: Prabhakar Thao MD Chloride [Moles/Vol] 103 mmol/L Normal 98-110 [facility] Comment on above: Performed By: #### 7 600, 83418 #### [facility] of [address], [address] [place] [address] [employer]: Prabhakar Thao MD CO2 [Moles/Vol] 28 mmol/L Normal 20-32 [facility] Comment on above: Performed By: #### 7 600, 78000 #### [facility] of [address], [address] [place] [address] [employer]: Prabhakar Thao MD Creatinine [Mass/Vol] 0.60 mg/dL Normal 0.50-0.99 [facility] Comment on above: Result Comment: For patients >49 years of age, the reference limit for Creatinine is approximately 13% higher for people identified as -[place] Citizen. Performed By: #### 7 600, [id number] #### [facility] of [address], [address] [place] [address] [employer]: Prabhakar Thao MD eGFR NON-AFR. SERBIAN 96 mL/min/1.73m2 Normal > OR = 60 [facility] Comment on above: Performed By: #### 7 600, 69054 #### [facility] of [place] [address] [employer]: Prabhakar Thao MD GFR/1.73 sq M.predicted among blacks MDRD (S/P/Bld) [Vol rate/Area] 112 mL/min/{1.73_m2} Normal > OR = 60 [facility] Comment on above: Performed By: #### 7 600, 33870 #### [facility] of [address], [address] [place] [address] [employer]: Prabhakar Thao MD Globulin (S) [Mass/Vol] 2.8 g/dL Normal 1.9-3.7 [facility] Comment on above: Performed By: #### 7 600, 33661 #### [facility] of [place] [address] [employer]: Prabhakar Thao MD Glucose [Mass/Vol] 98 mg/dL Normal 65-99 [facility] Comment on above: Result Comment: Fasting reference interval Performed By: #### 7 600, 57464 #### [facility] [place] [address] [employer]ator: Prabhakar Thao MD Potassium [Moles/Vol] 3.8 mmol/L Normal 3.5-5.3 [facility] Comment on above: Performed By: #### 7 600, 02735 #### [facility] of [place] [address] [employer]: Prabhakar Thao MD Protein [Mass/Vol] 7.0 g/dL Normal 6.1-8.1 [facility] Comment on above: Performed By: #### 7 600, 68348 #### [facility] of [place] [address] [employer]: Prabhakar Thao MD Sodium [Moles/Vol] 139 mmol/L Normal 135-146 [facility] Comment on above: Performed By: #### 7 600, 10907 #### [facility] [address], [address] [place] [address] [employer]: Prabhakar Thao MD Urea nitrogen [Mass/Vol] 10 mg/dL Normal 7-25 [facility] Comment on above: Performed By: #### 7 600, 32278 #### [facility] [address], [address] [place] [address] [employer]: Prabhakar Thao MD LIPID PANEL, [facility] 01-28 Cholesterol [Mass/Vol] 229 mg/dL High <200 [facility] Comment on above: Order Comment: FASTI NG:YES FASTING: YES Performed By: #### 7 600, 24499 #### [facility] [address], [address] [place] [address] [employer]: Prabhakar Thao MD Cholesterol in HDL [Mass/Vol] 93 mg/dL Normal > OR = 50 [facility] Comment on above: Order Comment: FASTI NG:YES FASTING: YES Performed By: #### 7 600, 85196 #### [facility] [address], [address] [place] [address] [employer]ator: Prabhakar Thao MD Cholesterol in LDL [Mass/Vol] [...] LDL-C. Dilan SS et al. ANJEL. 2013;310(19): 3979-6295 (http://education.PlaySquare.Publimind/faq/FGR729) Performed By: #### 7 600, 68614 #### [facility] [address], [address] [place] [address] [employer]ator: Prabhakar Thao MD Cholesterol.total/C holesterol in HDL [Mass ratio] 2.5 {ratio} Normal <5.0 [facility] Comment on above: Order Comment: FASTI NG:YES FASTING: YES Performed By: #### 7 600, 62033 #### [facility] [address], [address] [place] [address] [employer]ator: Prabhakar Thao MD NON HDL CHOLESTEROL 136 mg/dL (calc) High <130 [facility] Comment on above: Order Comment: FASTI NG:YES FASTING: YES Result Comment: For patients with diabetes plus 1 major ASCVD risk factor, treating to a non-HDL-C goal of <100 mg/dL (LDL-C of <70 mg/dL) is considered a therapeutic option. Performed By: #### 7 600, 59674 #### [facility] [address], [address] [place] [address] [employer]ator: Prabhakar Thao MD Triglyceride [Mass/Vol] 194 mg/dL High <150 [facility] Comment on above: Order Comment: FASTI NG:YES FASTING: YES Performed By: #### 7 600, 90485 #### [facility] [address], [address] [place] [address] [employer]ator: Prabhakar Thao MD CBC AUTO DIFFon 11-28-2021 BASO # 0.1 103/ul Normal 0.0-0.1 [facility] Comment on above: Performed By: #### C BC #### [facility] [address] [place] [address] Dr. Shara Hussein Basophils/100 WBC (Bld) 0.5 % Normal 0.2-2.0 [facility] Comment on above: Performed By: #### C BC #### [facility] [address] [address] [address] Shara Hussein EO # 0.1 103/ul Normal 0.0-0.7 [facility] Comment on above: Performed By: #### C BC #### [facility] [address] [place] [address] Dr. Shara Hussein Eosinophils/100 WBC (Bld) 1.0 % Normal 0.9-7.0 [facility] Comment on above: Performed By: #### C BC #### [facility] [address] [place] [address] Dr. Shara Hussein Erythrocyte distribution width (RBC) [Ratio] 11.7 % Normal 11.0-15.0 [facility] Comment on above: Performed By: #### C BC #### [facility] [address] [place] [address] Dr. Shara Hussein Hematocrit (Bld) [Volume fraction] 40.7 % Normal 36.0-48.0 [facility] Comment on above: Performed By: #### C BC #### [facility] [address] [place] [address] Dr. Shara Hussein Hemoglobin (Bld) [Mass/Vol] 13.5 g/dL Normal 12.0-16.0 [facility] Comment on above: Performed By: #### C BC #### [facility] [address] [place] [address] Dr. Shara Hussein IG # 0.04 10e3/ul Critically high 0.00-0.03 [facility] Comment on above: Performed By: #### C BC #### [facility] [address] [place] [address] Dr. Shara Hussein IG % 0.4 % Normal 0.0-0.5 [facility] Comment on above: Performed By: #### C BC #### [facility] [address] [place] [address] Dr. Shara Hussein LYMPH # 1.8 103/ul Normal 1.2-3.8 [facility] Comment on above: Performed By: #### C BC #### [facility] [address] [place] [address] Dr. Shara Hussein Lymphocytes/100 WBC (Bld) 17.6 % Critically low 20.5-60.0 [facility] Comment on above: Performed By: #### C BC #### [facility] [address] [place] [address] Dr. Shara Hussein MANUAL DIFF REQ NO Normal [facility] Comment on above: Performed By: #### C BC #### [facility] [address] [place] [address] [address] Shara Hussein MCH (RBC) [Entitic mass] 31.8 pg Normal 26.7-34.0 [facility] Comment on above: Performed By: #### C BC #### [facility] [address] [place] [address] [address] Shara Hussein MCHC (RBC) [Mass/Vol] 33.2 g/dL Normal 29.9-35.2 [facility] Comment on above: Performed By: #### C BC #### [facility] [address] [address] [address] Shara Hussein MCV (RBC) [Entitic vol] 95.8 fL Normal 81.0-99.0 [facility] Comment on above: Performed By: #### C BC #### [facility] [address] [place] [address] Dr. Shara Hussein MONO # 1.1 103/ul Critically high 0.3-0.8 [facility] Comment on above: Performed By: #### C BC #### [facility] [address] [place] [address] [address] Shara Hussein Monocytes/100 WBC (Bld) 10.9 % Normal 1.7-12.0 [facility] Comment on above: Performed By: #### C BC #### [facility] [address] [place] [address] Dr. Shara Hussein NEUT # 7.1 103/ul Critically high 1.4-6.[address] [facility] Comment on above: Performed By: #### C BC #### [facility] [address] [place] [address] Dr. Shara Hussein Neutrophils/100 WBC (Bld) 69.6 % Normal 43.0-75.0 [facility] Comment on above: Performed By: #### C BC #### [facility] [address] [place] [address] Dr. Shara Hussein Platelet mean volume (Bld) [Entitic vol] 9.6 fL Normal 9.5-13.5 [facility] Comment on above: Performed By: #### C BC #### [facility] [address] [place], [place] [address] Dr. Shara Hussein PLT 347 103/ul Normal 150-450 [facility] Comment on above: Performed By: #### C BC #### [facility] [address] [place], [place] [address] Dr. Shara Hussein RBC 4.25 106/ul Normal 4.20-5.40 [facility] Comment on above: Performed By: #### C BC #### [facility] [address] [place], [place] [address] Dr. Shara Hussien WBC 10.1 103/ul Normal 4.0-11.0 [facility] Comment on above: Performed By: #### C BC #### [facility] [address] [place] [address] [address] ABD/PELVIS WO CONon [...] by: LAURYN CARCAMO Date: 2021-11-28 07:49 Normal [facility] ER URINE PROFILEon 2 Bilirubin Ql (U) Negative Normal NEGATIVE [facility] Comment on above: Performed By: #### E RUR #### [facility] [address] [place] [address] Dr. Shara Hussein Clarity (U) CLEAR Normal CLEAR [facility] Comment on above: Performed By: #### E RUR #### [facility] [address] [place] [address] Dr. Shara Hussein Color (U) YELLOW Normal YELLOW [facility] Comment on above: Performed By: #### E RUR #### [facility] [address] [place] [address] [address] Shara PHAN A micrscopic examination will be performed if indicated. Normal [facility] Comment on above: Performed By: #### E RUR #### [facility] [address] [place] [address] Dr. Shara Hussein Glucose Ql (U) Negative Normal NEGATIVE [facility] Comment on above: Performed By: #### E RUR #### [facility] [address] [place] [address] Dr. Shara Hussein Hemoglobin Ql (U) Negative Normal NEGATIVE [facility] Comment on above: Performed By: #### E RUR #### [facility] [address] [place] [address] Dr. Shara Hussein Ketones Ql (U) Negative Normal NEGATIVE [facility] Comment on above: Performed By: #### E RUR #### [facility] [address] [place] [address] Dr. Shara Hussein LEUKOCYTES Negative Normal NEGATIVE [facility] Comment on above: Performed By: #### E RUR #### [facility] [address] [place] [address] Dr. Shara Hussein Nitrite Ql (U) Negative Normal NEGATIVE [facility] Comment on above: Performed By: #### E RUR #### [facility] [address] [place] [address] Dr. Shara Hussein pH (U) 6.0 [pH] Normal 5-9 [facility] Comment on above: Performed By: #### E RUR #### [facility] [address] [place] [address] Dr. Shara Hussein SPEC GRAVITY <=1.005 Abnormal 1.005-<=1.025 [facility] Comment on above: Performed By: #### E RUR #### [facility] [address] [place] [address] Dr. Shara Hussein UA PROTEIN Negative Normal NEGATIVE/ TRACE [facility] Comment on above: Performed By: #### E RUR #### [facility] [address] [place] [address] Dr. Shara Hussein UR MICRO IND NOT INDICATED Normal [facility] Comment on above: Performed By: #### E RUR #### [facility] [address] [place] [address] Dr. Shara Hussein Urobilinogen Qn (U) 0.2 {Fortino'U}/dL Normal 0.2 - 1. 0 [facility] Comment on above: Performed By: #### E RUR #### [facility] [address] [place] [address] Dr. Shara Hussein LACTATE/LACTIC ACIDon 2021 Lactate [Moles/Vol] 0.5 mmol/L Critically low 0.7-2.0 T [facility] Comment on above: Performed By: #### L ACT #### [facility] [address] [place] [address] Dr. Shara Hussein PROF 14(COMP METB)on Albumin [Mass/Vol] 2.9 g/dL Critically low 3.5-5.[address] [facility] Comment on above: Performed By: #### C MP #### [facility] [address] [place] [address] Dr. Shara Hussein Albumin/Globulin [Mass ratio] 0.6 {ratio} Normal [facility] Comment on above: Performed By: #### C MP #### [facility] [address] [place] [address] Dr. Shara Hussein ALP [Catalytic activity/Vol] 96 U/L Normal 38-126 [facility] Comment on above: Performed By: #### C MP #### [facility] [address] [place] [address] Dr. Shara Hussein ALT [Catalytic activity/Vol] 19 U/L Normal 9-52 [facility] Comment on above: Performed By: #### C MP #### [facility] [address] [place] [address] Dr. Shara Hussein Anion gap [Moles/Vol] 13.4 mmol/L Normal [facility] Comment on above: Performed By: #### C MP #### [facility] [address] [place] [address] Dr. Shara Husseni AST [Catalytic activity/Vol] 15 U/L Normal 14-36 [facility] Comment on above: Performed By: #### C MP #### [facility] [address] [place] [address] Dr. Shara Hussein Bilirubin [Mass/Vol] 0.4 mg/dL Normal 0.2-1.3 [facility] Comment on above: Performed By: #### C MP #### [facility] [address] [place] [address] Dr. Shara Hussein Calcium [Mass/Vol] 9.4 mg/dL Normal 8.4-10.2 [facility] Comment on above: Performed By: #### C MP #### [facility] [address] [place] [address] [address] Shara Hussein Chloride [Moles/Vol] 97 mmol/L Critically low 98-107 [facility] Comment on above: Performed By: #### C MP #### [facility] [address] [place] [address] [address] Shara Hussein CO2 [Moles/Vol] 28.8 mmol/L Normal 22.0-30.0 [facility] Comment on above: Performed By: #### C MP #### [facility] [address] [place] [address] Dr. Shara Hussein Creatinine [Mass/Vol] 0.45 mg/dL Critically low 0.52-1.04 [facility] Comment on above: Performed By: #### C MP #### [facility] [address] [place] [address] Dr. Shara Hussein EGFR-AF SERBIAN >60 Normal >=60 [facility] Comment on above: Performed By: #### C MP #### [facility] [address] [place] [address] Dr. Shara Hussein EGFR-NON AF SERBIAN >60 Normal >=60 [facility] Comment on above: Performed By: #### C MP #### [facility] Laboratory [address] [place] [address] Dr. Shara Hussein Globulin (S) [Mass/Vol] 4.5 g/dL Normal [facility] Comment on above: Performed By: #### C MP #### [facility] [address] [address] [address] Shara Hussein Glucose [Mass/Vol] 110 mg/dL Critically high 74-106 [facility] Comment on above: Performed By: #### C MP #### [facility] [address] [place] [address] Dr. Shara Hussein Potassium [Moles/Vol] 3.2 mmol/L Critically low 3.4-5.0 [facility] Comment on above: Performed By: #### C MP #### [facility] [address] [place], [place] [address] Dr. Shara Hussein Protein [Mass/Vol] 7.4 g/dL Normal 6.1-8.2 [facility] Comment on above: Performed By: #### C MP #### [facility] [address] [place], [place] [address] Dr. Shara Hussein Sodium [Moles/Vol] 136 mmol/L Critically low 137-[address] [facility] Comment on above: Performed By: #### C MP #### [facility] [address] [place], [place] [address] Dr. Shara Hussein Urea nitrogen [Mass/Vol] 7.0 mg/dL Normal 7.0-17.0 [facility] Comment on above: Performed By: #### C MP #### [facility] [address] [address] [address] Shara Hussein Urea nitrogen/Creatinine [Mass ratio] 15.6 mg/mg Normal [facility] Comment on above: Performed By: #### C MP #### [facility] [address] [place], [place] [address] Dr. Shara Hussein XR CHEST 1 Von [...] by: LUCILLE SALAZAR Date: 2021-11-28 07:57 Normal [facility] MG MAMM RT DIAG FUon 021 MG MAMM RT DIAG FU Patient: REINA KELLEY. Exam Date: 10/08/2021 : 1955 Gender:F Ordering : DR SADIE RAINES Admission #: [id number] Family : Order #: [id number] CLICK HERE TO VIEW EXAM CORRECTION Corrected on: 10/08/2021; RADIOLOGY REPORT PROCEDURE: MAMMOGRAM RIGHT DIAGNOSTIC DIGITAL FOLLOW UP RIGHT BREAST ULTRASOUND COMPARISON: MG MAMM SCREEN 3D MARKELL CAD, 09/16/2021. INDICATIONS: Abnormal findings on diagnostic imaging of breast Calculator Name NCI Breast Cancer Risk Assessment Tool 5 Year Breast Cancer Risk 1.40% Lifetime Breast Cancer Risk 5.80% Personal Breast Cancer No Personal Ovarian Cancer No Treatments None Family Cancers None LOCATION: [facility] BREAST COMPOSITION: Heterogeneously dense, which may [...] Munoz MD on 10/08/2021 at 14:59 Normal [facility] MG MAMM SCREEN 3D MARKELL CADon 09-16-2021 MG MAMM SCREEN 3D MARKELL CAD Patient: REINA KELLEY. Exam Date: 09/16/2021 : 1955 Gender:F Ordering : DR SADIE RAINES Admission #: [id number] Family : Order #: [id number] CLICK HERE TO VIEW EXAM RADIOLOGY REPORT [...] Treatments None Family Cancers None LOCATION: [facility] BREAST COMPOSITION: Heterogeneously dense,which may obscure [...] MD on 09/17/2021 at 10:26 Normal [facility] COMPREHENSIVE METABOLIC PANE Armaan 07-09-2021 Albumin [Mass/Vol] 4.1 g/dL Normal 3.6-5.1 [facility] Comment on above: Performed By: #### 7 600, 26959, 43966 #### [facility] [place] [address] Blueprint Duplicator: Prabhakar Thao MD Albumin/Globulin [Mass ratio] 1.5 {ratio} Normal 1.0-2.5 [facility] Comment on above: Performed By: #### 7 600, 54523, 42034 #### [facility] [place] [address] [employer]print Duplicator: Prabhakar Thao MD ALP [Catalytic activity/Vol] 84 U/L Normal 37-153 [facility] Comment on above: Performed By: #### 7 600, 55274, 34032 #### [facility] [place] [address] [employer]print Duplicator: Prabhakar Thao MD ALT [Catalytic activity/Vol] 17 U/L Normal 6-29 [facility] Comment on above: Performed By: #### 7 600, 15149, 69274 #### [facility] of [address], [address] [place] [address] [employer]print Duplicator: Prabhakar Thao MD AST [Catalytic activity/Vol] 19 U/L Normal 10-35 [facility] Comment on above: Performed By: #### 7 600, 28061, 90743 #### [facility] of [address], [address] [place] [address] [employer]print Duplicator: Prabhakar Thao MD Bilirubin [Mass/Vol] 0.3 mg/dL Normal 0.2-1.2 [facility] Comment on above: Performed By: #### 7 600, 57565, 32007 #### [facility] of [place] [address] [employer]print Duplicator: Prabhakar Thao MD BUN/CREATININE RATIO NOT APPLICABLE Normal 6-22 [facility] Comment on above: Performed By: #### 7 600, 22975, 32200 #### [facility] of [place] [address] [employer]print Duplicator: Prabhakar Thao MD Calcium [Mass/Vol] 9.7 mg/dL Normal 8.6-10.4 [facility] Comment on above: Performed By: #### 7 600, 45237, 54131 #### [facility] of [place] [address] [employer]print Duplicator: Prabhakar Thao MD Chloride [Moles/Vol] 105 mmol/L Normal 98-110 [facility] Comment on above: Performed By: #### 7 600, 94082, 64467 #### [facility] of [place] [address] [employer]print Duplicator: Prabhakar Thao MD CO2 [Moles/Vol] 28 mmol/L Normal 20-32 [facility] Comment on above: Performed By: #### 7 600, 02969, 61392 #### [facility] of [place] [address] [employer]print Duplicator: Prabhakar Thao MD Creatinine [Mass/Vol] 0.57 mg/dL Normal 0.50-0.99 [facility] Comment on above: Result Comment: For patients >49 years of age, the reference limit for Creatinine is approximately 13% higher for people identified as -[place] Citizen. Performed By: #### 7 600, 02272, 64096 #### [facility] [address], [address] [place] [address] [employer]print Duplicator: Prabhakar Thao MD eGFR NON-AFR. SERBIAN 99 mL/min/1.73m2 Normal > OR = 60 [facility] Comment on above: Performed By: #### 7 600, 15818, 09281 #### [facility] [address], [address] [place] [address] [employer]print Duplicator: Prabhakar Thao MD GFR/1.73 sq M.predicted among blacks MDRD (S/P/Bld) [Vol rate/Area] 114 mL/min/{1.73_m2} Normal > OR = 60 [facility] Comment on above: Performed By: #### 7 600, 05358, 11369 #### [facility] of [address], [address] [place] [address] [employer]print Duplicator: Prabhakar Thao MD Globulin (S) [Mass/Vol] 2.8 g/dL Normal 1.9-3.7 [facility] Comment on above: Performed By: #### 7 600, 91954, 54289 #### [facility] [place] [address] [employer]print Duplicator: Prabhakar Thao MD Glucose [Mass/Vol] 85 mg/dL Normal 65-139 [facility] Comment on above: Result Comment: Non-fasting reference interval Performed By: #### 7 600, 05368, 50134 #### [facility] [place] [address] [employer]print Duplicator: Prabhakar Thao MD Potassium [Moles/Vol] 3.4 mmol/L Low 3.5-5.3 [facility] Comment on above: Performed By: #### 7 600, 72232, 66822 #### [facility] [address] [place] [address] [employer] Duplicator: Prabhakar Thao MD Protein [Mass/Vol] 6.9 g/dL Normal 6.1-8.1 [facility] Comment on above: Performed By: #### 7 600, 48016, 44927 #### [facility] [address], [address] [place] [address] [employer]print Duplicator: Prabhakar Thao MD Sodium [Moles/Vol] 140 mmol/L Normal 135-146 [facility] Comment on above: Performed By: #### 7 600, 29110, 70731 #### [facility] [place] [address] [employer]print Duplicator: Prabhakar Thao MD Urea nitrogen [Mass/Vol] 10 mg/dL Normal 7-25 [facility] Comment on above: Performed By: #### 7 600, 77981, 75763 #### [facility] [place] [address] [employer]print Duplicator: Prabhakar Thao MD LIPID PANEL, [facility] 09-1 0-2020 Cholesterol [Mass/Vol] 209 mg/dL High <200 [facility] Comment on above: Order Comment: FASTI NG:NO FASTING: NO Performed By: #### 7 600, 76307, 70067 #### [facility] [place] [address] [employer]print Duplicator: Prabhakar Thao MD Cholesterol in HDL [Mass/Vol] 87 mg/dL Normal > OR = 50 [facility] Comment on above: Order Comment: FASTI NG:NO FASTING: NO Performed By: #### 7 600, 79144, 38176 #### [facility] of [place] [address] Blueprint Duplicator: Prabhakar Thao MD Cholesterol in LDL [Mass/Vol] [...] LDL-C. Dilan WONG et al. ANJEL. 2013;310(19): 7254-9103 ([email or web address]) Performed By: #### 7 600, 03939, 08112 #### [facility] [address], [address] [place] [address] [employer]print Duplicator: Prabhakar Thao MD Cholesterol.total/C holesterol in HDL [Mass ratio] 2.4 {ratio} Normal <5.0 [facility] Comment on above: Order Comment: FASTI NG:NO FASTING: NO Performed By: #### 7 600, 13520, 41598 #### [facility] [address], [address] [place] [address] [employer]print Duplicator: Prabhakar Thao MD NON HDL CHOLESTEROL 122 mg/dL (calc) Normal <130 [facility] Comment on above: Order Comment: FASTI NG:NO FASTING: NO Result Comment: For patients with diabetes plus 1 major ASCVD risk factor, treating to a non-HDL-C goal of <100 mg/dL (LDL-C of <70 mg/dL) is considered a therapeutic option. Performed By: #### 7 600, 47752, 52774 #### [facility] [address], [address] [place] [address] [employer]print Duplicator: Prabhakar Thao MD Triglyceride [Mass/Vol] 259 mg/dL High <150 [facility] Comment on above: Order Comment: FASTI NG:NO FASTING: NO Result Comment: If a non-fasting specimen was collected, consider repeat triglyceride testing on a fasting specimen if clinically indicated. Traci et al. J. of Clin. Lipidol. 2015;9:129-169. Performed By: #### 7 600, 28853, 32162 #### [facility] [address], [address] [place] [address] Blueprint Duplicator: Prabhakar Thao MD VITAMIN D,25-OH,TOTAL,IAon 0 07-09-2021 VITAMIN D,25-OH,TOTAL,IA 43 ng/mL Normal 30-100 [facility] [employer] Comment on above: Result Comment: Lenore min D Status 25-OH Vitamin D: Deficiency: <20 ng/mL Insufficiency: 20 - 29 ng/mL Optimal: > or = 30 ng/mL For 25-OH Vitamin D testing on patients on D2-supplementation and patients for whom quantitation of D2 and D3 fractions is required, the QuestAssureD(TM) 25-OH VIT D, (D2,D3), LC/MS/MS is recommended: order code 24700 (patients >2yrs). See Note 1 Note 1 For additional information, please refer to http://education.PlaySquare.Publimind/faq/BOA502 (This link is being provided for informational/ educational purposes only.) Performed By: #### 7 600, 15495, 25102 #### [facility] [employer] [address], [address] [place] [id number] [employer]print Duplicator: Prabhakar Thao MD Vital Signs Date Time Vital Sign Value Performing Clinician Facility 07-03-2025 15:38-0400 Body height 154.9 cm [facility]nacarlitos [employer] Work Phone: [facility] 07-03-2025 15:38-0400 Body mass index (BMI) [Ratio] 20.04 kg/m2 Rayna Mery ORTHODONTIC TECHNICIAN-ROSE GRADING SUPERVISOR Work Phone: [facility] 07-03-2025 15:38-0400 Body temperature 97.39 [degF] Rayna Ordonez ORTHODONTIC TECHNICIAN-[employer] Work Phone: [facility] 07-03-2025 15:38-0400 Body weight 48.08 kg Rayna Mery [employer] Work Phone: [facility] 07-03-2025 15:38-0400 Diastolic blood pressure 80 mm[Hg] Rayna Mery ORTHODONTIC TECHNICIAN-ROSE GRADING SUPERVISOR Work Phone: [facility] 07-03-2025 15:38-0400 Heart rate 70 /min Rayna Ordonez [employer] [place] Work Phone: [facility] 07-03-2025 15:38-0400 Respiratory rate 18 /min Raynacarlitos Ordonez ORTHODONTIC TECHNICIAN-ROSE GRADING SUPERVISOR Work Phone: [facility] 07-03-2025 15:38-0400 SaO2% (BldA) [Mass fraction] 96 % Rayna Ordonez ORTHODONTIC TECHNICIAN-ROSE GRADING SUPERVISOR Work Phone: [facility] 07-03-2025 15:38-0400 Systolic blood pressure 150 mm[Hg] Raynacarlitos Ordonez ORTHODONTIC TECHNICIAN-ROSE GRADING SUPERVISOR Work Phone: [facility] 05-29-2025 13:02-0400 Body height 154.9 cm Rayna Ordonez ORTHODONTIC TECHNICIAN-ROSE GRADING SUPERVISOR Work Phone: [facility] 05-29-2025 13:02-0400 Body mass index (BMI) [Ratio] 20.44 kg/m2 Raynacarlitos Ordonez ORTHODONTIC TECHNICIAN-ROSE GRADING SUPERVISOR Work Phone: [facility] 05-29-2025 13:02-0400 Body temperature 97.9 [degF] Rayna Ordonez ORTHODONTIC TECHNICIAN-ROSE GRADING SUPERVISOR Work Phone: [facility] 05-29-2025 13:02-0400 Body weight 49.03 kg Rayna Ordonez ORTHODONTIC TECHNICIAN-ROSE GRADING SUPERVISOR Work Phone: [facility] 05-29-2025 13:02-0400 Diastolic blood pressure 72 mm[Hg] Rayna Ordonez ORTHODONTIC TECHNICIAN-ROSE GRADING SUPERVISOR Work Phone: [facility] 05-29-2025 13:02-0400 Heart rate 73 /min Raynacarlitos Ordonez ORTHODONTIC TECHNICIAN-ROSE GRADING SUPERVISOR Work Phone: [facility] 05-29-2025 13:02-0400 Respiratory rate 20 /min Rayna Ordonez ORTHODONTIC TECHNICIAN-ROSE GRADING SUPERVISOR Work Phone: [facility] 05-29-2025 13:02-0400 SaO2% (BldA) [Mass fraction] 97 % Raynacarlitos Ordonez ORTHODONTIC TECHNICIAN-ROSE GRADING SUPERVISOR Work Phone: [facility] 05-29-2025 13:02-0400 Systolic blood pressure 140 mm[Hg] Raynacarlitos Ordonez ORTHODONTIC TECHNICIAN-ROSE GRADING SUPERVISOR Work Phone: [facility] 05-23-2025 12:02-0400 Body height 154.9 cm Raynacarlitos Ordonez ORTHODONTIC TECHNICIAN-ROSE GRADING SUPERVISOR Work Phone: [facility] 05-23-2025 12:02-0400 Body mass index (BMI) [Ratio] 20.42 kg/m2 Raynacarlitos Ordonez ORTHODONTIC TECHNICIAN-ROSE GRADING SUPERVISOR Work Phone: [facility] 05-23-2025 12:02-0400 Body temperature 98.2 [degF] Rayna Ordonez ORTHODONTIC TECHNICIAN-ROSE GRADING SUPERVISOR Work Phone: [facility] 05-23-2025 12:02-0400 Body weight 48.99 kg Rayna Ordonez ORTHODONTIC TECHNICIAN-ROSE GRADING SUPERVISOR Work Phone: [facility] 05-23-2025 12:02-0400 Diastolic blood pressure 98 mm[Hg] Rayna Ordonez ORTHODONTIC TECHNICIAN-ROSE GRADING SUPERVISOR Work Phone: [facility] 05-23-2025 12:02-0400 Heart rate 62 /min Rayna Ordonez ORTHODONTIC TECHNICIAN-ROSE GRADING SUPERVISOR Work Phone: [facility] 05-23-2025 12:02-0400 Respiratory rate 18 /min Raynacarlitos Ordonez ORTHODONTIC TECHNICIAN-ROSE GRADING SUPERVISOR Work Phone: [facility] 05-23-2025 12:02-0400 SaO2% (BldA) [Mass fraction] 99 % Raynacarlitos Ordonez ORTHODONTIC TECHNICIAN-ROSE GRADING SUPERVISOR Work Phone: [facility] 05-23-2025 12:02-0400 Systolic blood pressure 158 mm[Hg] Rayna Ordonez ORTHODONTIC TECHNICIAN-ROSE GRADING SUPERVISOR Work Phone: [facility] 04-11-2025 09:34-0400 Body height 154.9 cm Raynacarlitos Ordonez ORTHODONTIC TECHNICIAN-ROSE GRADING SUPERVISOR Work Phone: [facility] 04-11-2025 09:34-0400 Body mass index (BMI) [Ratio] 21.59 kg/m2 Rayna Ordonez ORTHODONTIC TECHNICIAN-ROSE GRADING SUPERVISOR Work Phone: [facility] 04-11-2025 09:34-0400 Body temperature 98.4 [degF] Rayna Ordonez ORTHODONTIC TECHNICIAN-ROSE GRADING SUPERVISOR Work Phone: [facility] 04-11-2025 09:34-0400 Body weight 51.8 kg Rayna Ordonez APRN-ROSE GRADING SUPERVISOR Work Phone: [facility] 04-11-2025 09:34-0400 Diastolic blood pressure 70 mm[Hg] Rayna Ordonez ORTHODONTIC TECHNICIAN-ROSE GRADING SUPERVISOR Work Phone: [facility] 04-11-2025 09:34-0400 Heart rate 80 /min Rayna Ordonez APRN-ROSE GRADING SUPERVISOR Work Phone: [facility] 04-11-2025 09:34-0400 Respiratory rate 20 /min Rayna Ordonez ORTHODONTIC TECHNICIAN-ROSE GRADING SUPERVISOR Work Phone: [facility] 04-11-2025 09:34-0400 SaO2% (BldA) [Mass fraction] 98 % Rayna Ordonez APRN-ROSE GRADING SUPERVISOR Work Phone: [facility] 04-11-2025 09:34-0400 Systolic blood pressure 138 mm[Hg] Rayna Ordonez ORTHODONTIC TECHNICIAN-ROSE GRADING SUPERVISOR Work Phone: [facility] 11-08-2024 10:41-0500 Body height 154.9 cm Rayna Ordonez ORTHODONTIC TECHNICIAN-ROSE GRADING SUPERVISOR Work Phone: [facility] 11-08-2024 10:41-0500 Body mass index (BMI) [Ratio] 24 kg/m2 Rayna Ordonez ORTHODONTIC TECHNICIAN-ROSE GRADING SUPERVISOR Work Phone: [facility] 11-08-2024 10:41-0500 Body temperature 98.01 [degF] Rayna Ordonez ORTHODONTIC TECHNICIAN-ROSE GRADING SUPERVISOR Work Phone: [facility] [employer] [facility] 11-08-2024 10:41-0500 Body weight 57.61 kg Rayna Ordonez ORTHODONTIC TECHNICIAN-ROSE GRADING SUPERVISOR Work Phone: [facility] [employer] [facility] 11-08-2024 10:41-0500 Diastolic blood pressure 58 mm[Hg] Raynacarlitos Ordonez ORTHODONTIC TECHNICIAN-ROSE GRADING SUPERVISOR Work Phone: [facility] [employer] [facility] 11-08-2024 10:41-0500 Heart rate 86 /min Raynacarlitos Ordonez ORTHODONTIC TECHNICIAN-ROSE GRADING SUPERVISOR Work Phone: [facility] [employer] [facility] 11-08-2024 10:41-0500 Respiratory rate 18 /min Raynacarlitos Ordonez ORTHODONTIC TECHNICIAN-ROSE GRADING SUPERVISOR Work Phone: [facility] 11-08-2024 10:41-0500 SaO2% (BldA) [Mass fraction] 96 % Rayna Ordonez ORTHODONTIC TECHNICIAN-ROSE GRADING SUPERVISOR Work Phone: [facility] [employer] [facility] 11-08-2024 10:41-0500 Systolic blood pressure 108 mm[Hg] Rayna Ordonez ORTHODONTIC TECHNICIAN-ROSE GRADING SUPERVISOR Work Phone: [facility] [employer] [facility] 10-04-2024 09:22-0500 Body height 154.9 cm Rayna Ordonez ORTHODONTIC TECHNICIAN-ROSE GRADING SUPERVISOR Work Phone: [facility] 10-04-2024 09:22-0500 Body mass index (BMI) [Ratio] 23.54 kg/m2 Rayna Ordonez ORTHODONTIC TECHNICIAN-ROSE GRADING SUPERVISOR Work Phone: [facility] 10-04-2024 09:22-0500 Body temperature 98.1 [degF] Rayna Ordonez ORTHODONTIC TECHNICIAN-ROSE GRADING SUPERVISOR Work Phone: [facility] [facility] 10-04-2024 09:22-0500 Body weight 56.52 kg Rayna Ordonez ORTHODONTIC TECHNICIAN-ROSE GRADING SUPERVISOR Work Phone: [facility] [facility] 10-04-2024 09:22-0500 Diastolic blood pressure 58 mm[Hg] Rayna Ordonez ORTHODONTIC TECHNICIAN-ROSE GRADING SUPERVISOR Work Phone: [facility] 10-04-2024 09:22-0500 Heart rate 87 /min Raynacarlitos Ordonez ORTHODONTIC TECHNICIAN-ROSE GRADING SUPERVISOR Work Phone: [facility] 10-04-2024 09:22-0500 Respiratory rate 18 /min Raynacarlitos Ordonez ORTHODONTIC TECHNICIAN-ROSE GRADING SUPERVISOR Work Phone: [facility] 10-04-2024 09:22-0500 SaO2% (BldA) [Mass fraction] 98 % Raynacarlitos Ordonez ORTHODONTIC TECHNICIAN-ROSE GRADING SUPERVISOR Work Phone: [facility] 10-04-2024 09:22-0500 Systolic blood pressure 102 mm[Hg] Raynacarlitos Ordonez ORTHODONTIC TECHNICIAN-ROSE GRADING SUPERVISOR Work Phone: [facility] 07-19-2024 11:33-0400 Body height 154.9 cm Rayna Ordonez ORTHODONTIC TECHNICIAN-ROSE GRADING SUPERVISOR Work Phone: [facility] 07-19-2024 11:33-0400 Body mass index (BMI) [Ratio] 22.79 kg/m2 Raynacarlitos Ordonez ORTHODONTIC TECHNICIAN-ROSE GRADING SUPERVISOR Work Phone: [facility] 07-19-2024 11:33-0400 Body temperature 98.1 [degF] Rayna Ordonez ORTHODONTIC TECHNICIAN-ROSE GRADING SUPERVISOR Work Phone: [facility] 07-19-2024 11:33-0400 Body weight 54.7 kg Rayna Ordonez ORTHODONTIC TECHNICIAN-ROSE GRADING SUPERVISOR Work Phone: [facility] 07-19-2024 11:33-0400 Diastolic blood pressure 62 mm[Hg] Raynacarlitos Ordonez ORTHODONTIC TECHNICIAN-ROSE GRADING SUPERVISOR Work Phone: [facility] 07-19-2024 11:33-0400 Heart rate 93 /min Rayna Mery ORTHODONTIC TECHNICIAN-ROSE GRADING SUPERVISOR Work Phone: [facility] 07-19-2024 11:33-0400 Respiratory rate 18 /min Raynacarlitos Ordonez ORTHODONTIC TECHNICIAN-ROSE GRADING SUPERVISOR Work Phone: [facility] 07-19-2024 11:33-0400 SaO2% (BldA) [Mass fraction] 96 % Rayna Ordonez APRN-ROSE GRADING SUPERVISOR Work Phone: [facility] 07-19-2024 11:33-0400 Systolic blood pressure 108 mm[Hg] Rayna Ordonez APRN-ROSE GRADING SUPERVISOR Work Phone: [facility] 03-01-2024 08:35-0400 Body height 154.9 cm Sadie Raines ORTHODONTIC TECHNICIAN-[employer] Work Phone: [facility] 03-01-2024 08:35-0400 Body mass index (BMI) [Ratio] 23.85 kg/m2 Sadie Raines ORTHODONTIC TECHNICIAN-[employer] Work Phone: [facility] 03-01-2024 08:35-0400 Body temperature 97.11 [degF] Sadie Raines APRN-[employer] Work Phone: [facility] 03-01-2024 08:35-0400 Body weight 57.24 kg Sadie Raines ORTHODONTIC TECHNICIAN-[employer] Work Phone: [facility] 03-01-2024 08:35-0400 Diastolic blood pressure 73 mm[Hg] Sadie Raines APRN-[employer] Work Phone: [facility] 03-01-2024 08:35-0400 Heart rate 94 /min Sadie Raines APRN-[employer] Work Phone: [facility] 03-01-2024 08:35-0400 SaO2% (BldA) [Mass fraction] 96 % Sadie Raines ORTHODONTIC TECHNICIAN-[employer] Work Phone: [facility] 03-01-2024 08:35-0400 Systolic blood pressure 106 mm[Hg] Sadie Raines ORTHODONTIC TECHNICIAN-[employer] Work Phone: [facility] 11-20-2023 16:39-0500 Body height 154.9 cm Sadie Raines ORTHODONTIC TECHNICIAN-[employer] Work Phone: [facility] 11-20-2023 16:39-0500 Body mass index (BMI) [Ratio] 25.05 kg/m2 Sadie [employer] Work Phone: [facility] 11-20-2023 16:39-0500 Body temperature 98.2 [degF] Sadie Raines APRN-[employer] [facility] 11-20-2023 16:39-0500 Body weight 60.15 kg Sadie Raines APRN-[employer] Work Phone: [facility] 11-20-2023 16:39-0500 Diastolic blood pressure 60 mm[Hg] Sadie [employer] [facility] 11-20-2023 16:39-0500 Heart rate 72 /min Sadie [employer] [facility] 11-20-2023 16:39-0500 SaO2% (BldA) [Mass fraction] 97 % Sadie Raines APRN-[employer] Work Phone: [facility] 11-20-2023 16:39-0500 Systolic blood pressure 110 mm[Hg] Sadie [employer] Work Phone: [facility] 11-08-2022 14:30-0500 Body height 157.48 cm Nain Goodman [employer] Other 11-08-2022 14:30-0500 Body mass index (BMI) [Ratio] 19.2 kg/m2 Nain Goodman [employer] Other 11-08-2022 14:30-0500 Body weight 47.63 kg Nain Goodman Other [employer] Other 11-08-2022 14:30-0500 Diastolic blood pressure 86 mm[Hg] Nain Goodman Other [employer] Other 11-08-2022 14:30-0500 Systolic blood pressure 138 mm[Hg] Nain Avalosack Other [employer] Other 10-06-2021 16:30-0500 Body height 157.48 cm Iris Aponte Other [employer] Other 10-06-2021 16:30-0500 Body mass index (BMI) [Ratio] 20.12 kg/m2 Iris Aponte Other [employer] Other 10-06-2021 16:30-0500 Body weight 49.9 kg Iris Aponte Other [employer] Other Encounters Encounter Date Encounter Type Care Provider Facility Start: 07-07-2025 End: 07-07-2025 Follow-up encounter Rayna Yasmeen Mery ORTHODONTIC TECHNICIAN-ROSE GRADING SUPERVISOR [facility] Comment on above: Thyroid profile incl udes TSH FT4 Start: 07-03-2025 End: 07-03-2025 Office outpatient visit 15 minutes Rayna Yasmeen Mery ORTHODONTIC TECHNICIAN-ROSE GRADING SUPERVISOR [facility] Comment on above: Hypothyroidism (acqu ired) (Primary Dx) Start: 07-03-2025 End: 07-03-2025 ambulatory [facility] Start: 06-27-2025 End: 06-27-2025 Orders Only Rayna Yasmeen Ordonez ORTHODONTIC TECHNICIAN-ROSE GRADING SUPERVISOR [facility] Start: 06-20-2025 End: 06-20-2025 Orders Only Rayna Yasmeen Mery ORTHODONTIC TECHNICIAN-ROSE GRADING SUPERVISOR [facility] Comment on above: Hiatal hernia (Prima ry Dx) Start: 05-29-2025 End: 05-29-2025 Office outpatient visit 15 minutes Raynacarlitos Ordonez ORTHODONTIC TECHNICIAN-ROSE GRADING SUPERVISOR [facility] Comment on above: Essential hypertensi on (Primary Dx); Hypothyroidism (acquired) Start: 05-29-2025 End: 05-29-2025 ambulatory [facility] Start: 05-23-2025 End: 05-23-2025 Office outpatient visit 15 minutes Raynacarlitos Ordonez ORTHODONTIC TECHNICIAN-ROSE GRADING SUPERVISOR Work Phone: [facility] Comment on above: Anxiety (Primary Dx) ; Essential hypertension Start: 05-23-2025 End: 05-23-2025 ambulatory [facility] Start: 04-21-2025 End: 04-21-2025 Orders Only Rayna Yasmeen [facility] ORTHODONTIC TECHNICIAN-ROSE GRADING SUPERVISOR Work Phone: [facility] Start: 04-19-2025 End: 04-21-2025 Refill Wander Pierre Furlong DO Work Phone: [facility] Start: 04-14-2025 End: 04-15-2025 Telephone encounter Courtney Nathan [facility] Internal Medicine - Family Medicine Start: 04-11-2025 End: 04-11-2025 Office outpatient visit 15 minutes Rayna Yasmeen Ordonez ORTHODONTIC TECHNICIAN-ROSE GRADING SUPERVISOR Work Phone: [facility] Comment on above: Anxiety (Primary Dx) ; Essential hypertension; Acquired hypothyroidism; Hyperkalemia Start: 04-11-2025 End: 04-11-2025 ambulatory [facility] Start: 03-26-2025 End: 03-31-2025 Refill Carolyn Abebe CMA [facility] Comment on above: Hyperlipidemia, unsp ecified Start: 02-18-2025 End: 02-19-2025 Refill Wander G Furlong DO Work Phone: [facility] Internal [facility] - Family Medicine Start: 02-03-2025 End: 02-03-2025 Bamboo flowsheet Kendra Burns Felter ORTHODONTIC TECHNICIAN-ROSE GRADING SUPERVISOR Work Phone: [facility] Start: 02-03-2025 End: 02-03-2025 Bamboo flowsheet Kendra Burns Felter ORTHODONTIC TECHNICIAN-ROSE GRADING SUPERVISOR Work Phone: [facility] Start: 02-03-2025 End: 02-03-2025 Office outpatient visit 15 minutes Kendra Meyer ORTHODONTIC TECHNICIAN-ROSE GRADING SUPERVISOR Work Phone: [facility] Comment on above: Other nonthrombocyto penic purpura (Primary Dx); Stasis dermatitis of both legs; Seborrheic keratosis, inflamed Start: 02-03-2025 End: 02-03-2025 ambulatory KENDRA CARRILLOER Not Available Start: 12-20-2024 End: 12-20-2024 Refill Carolyn Abebe CMA [facility] Internal Medicine Family Medicine Start: 12-16-2024 End: 12-16-2024 Orders Only Wander G Roderick DO Work Phone: [facility] Internal Medicine Family [facility] Start: 12-15-2024 End: 12-16-2024 Refill Rayna L Mery ORTHODONTIC TECHNICIAN-ROSE GRADING SUPERVISOR Work Phone: [facility] Internal Medicine - Family Medicine Start: 11-28-2024 End: 11-28-2024 Refill Rayna L Mery ORTHODONTIC TECHNICIAN-ROSE GRADING SUPERVISOR Work Phone: [facility] Internal Medicine - Family Medicine Comment on above: Acquired hypothyroid ism Start: 11-08-2024 End: 11-08-2024 Office outpatient visit 15 minutes Rayna L Mery ORTHODONTIC TECHNICIAN-ROSE GRADING SUPERVISOR Work Phone: [facility] Internal Medicine - Family Medicine Comment on above: Essential hypertensi on (Primary Dx); Chronic nonspecific colitis; Age-related osteoporosis without current pathological fracture Start: 11-08-2024 End: 11-08-2024 ambulatory [facility] Start: 10-10-2024 End: 10-14-2024 Refill Rayna L Mery ORTHODONTIC TECHNICIAN-ROSE GRADING SUPERVISOR Work Phone: [facility] Internal Medicine - Family Medicine Start: 10-04-2024 End: 10-04-2024 Office outpatient visit 25 minutes Rayna Ordonez ORTHODONTIC TECHNICIAN-ROSE GRADING SUPERVISOR Work Phone: [facility] Internal Medicine - Family Medicine Comment on above: Essential hypertensi on (Primary Dx); Vitamin D deficiency; Hypokalemia; Hypothyroidism (acquired) Start: 10-04-2024 End: 10-04-2024 ambulatory [facility] Start: 09-10-2024 End: 09-10-2024 Refill Lulú Rinaldi [facility] Internal Medicine - Family Medicine Comment on above: Essential (primary) hypertension Start: 09-03-2024 End: 09-06-2024 Refill Yara Cheek [facility] Internal Medicine - Family Medicine Comment on above: Localized edema Start: 08-02-2024 End: 08-05-2024 Refill Rayna Ordonez ORTHODONTIC TECHNICIAN-ROSE GRADING SUPERVISOR Work Phone: [facility] Internal Medicine - Family Medicine Start: 07-23-2024 End: 07-23-2024 Telephone encounter Poly Hudson [facility] Internal Medicine - Family Medicine Start: 07-19-2024 End: 07-19-2024 ambulatory [facility] Start: 07-19-2024 End: 07-19-2024 Patient encounter procedure Rayna Ordonez ORTHODONTIC TECHNICIAN-ROSE GRADING SUPERVISOR Work Phone: [facility] Internal Medicine - Family Medicine Comment on above: Medicare annual well ness visit, initial (Primary Dx); Hyperkalemia; Hypothyroidism (acquired); Influenza vaccination administered at current visit; Encounter for screening mammogram for malignant neoplasm of breast; Depression screening Start: 07-19-2024 End: 07-19-2024 ambulatory [facility] Start: 06-04-2024 End: 06-04-2024 Orders Only Ryana Ordonez ORTHODONTIC TECHNICIAN-ROSE GRADING SUPERVISOR Work Phone: [facility] Internal Medicine - Family Medicine Comment on above: Hyperkalemia (Primar y Dx) Start: 06-03-2024 End: 06-04-2024 [facility] Start: 03-12-2024 End: 03-12-2024 Refill Courtney Evans [facility] Internal Medicine - Family Medicine Comment on above: Essential (primary) hypertension Start: 03-04-2024 End: 03-04-2024 Orders Only Sadie Raines ORTHODONTIC TECHNICIAN-BARK SKINNER Work Phone: [facility] Internal Medicine - Family Medicine Comment on above: Hypokalemia (Primary Dx); Adverse effect of unspecified drugs, medicaments and biological substances, subsequent encounter Start: 03-01-2024 End: 03-01-2024 ambulatory SADIE RAINES [facility] Start: 03-01-2024 End: 03-01-2024 Office outpatient visit 25 minutes Sadie Raines ORTHODONTIC TECHNICIAN-BARK SKINNER Work Phone: [facility] Internal Medicine - Family Medicine Comment on above: Essential hypertensi on (Primary Dx); Mixed hyperlipidemia; Hypothyroidism (acquired); Other eczema; Chronic neck pain Start: 01-16-2024 Orders Only Sadie Raines ORTHODONTIC TECHNICIAN-BARK SKINNER Work Phone: [facility] Internal Medicine - Family Medicine Start: 12-26-2023 Refill Sadie Raines ORTHODONTIC TECHNICIAN-BARK SKINNER Work Phone: [facility] Internal Medicine - Family Medicine Comment on above: Localized edema; Hyperlipidemia, unspecified Start: 12-18-2023 Refill Sadie Raines ORTHODONTIC TECHNICIAN-BARK SKINNER Work Phone: [facility] Internal Medicine - Family Medicine Comment on above: Adverse effect of un specified drugs, medicaments and biological substances, subsequent encounter Start: 11-22-2023 Refill Sadie Raines ORTHODONTIC TECHNICIAN-BARK SKINNER Work Phone: [facility] Internal Medicine - Family Medicine Comment on above: Adverse effect of un specified drugs, medicaments and biological substances, subsequent encounter Start: 11-20-2023 End: 11-20-2023 Office outpatient visit 25 minutes Sadie Raines ORTHODONTIC TECHNICIAN-BARK SKINNER Work Phone: [facility] Comment on above: Essential hypertensi on (Primary Dx); Chronic neck pain; Acquired hypothyroidism; Age-related osteoporosis with current pathological fracture with routine healing; Encounter for screening mammogram for malignant neoplasm of breast Start: 11-14-2023 End: 11-14-2023 ambulatory Nain Goodman [facility] [employer] Other Start: 11-14-2023 Telephone encounter Nain Goodman [facility] Gastro[facility] Start: 11-08-2022 End: 11-08-2022 ambulatory Nain Goodman [facility] [employer] Other Start: 11-08-2022 Office outpatient vi sit 25 minutes Nain Goodman [facility] Gastroenterology Start: 08-03-2022 End: 08-04-[address] SADIE RAINES Facility:[facility] Start: 05-17-2022 End: 05-17-2022 ambulatory Iirs Aponte [facility] [employer] Other Start: 05-17-2022 Telephone encounter Iris Aponte [facility] Gastroenterology Start: 11-28-2021 End: 11-28-[address] SADIE RAINES Facility:[facility] Start: 10-08-2021 End: 10-09-[address] SADIE RAINES Facility:[facility] Start: 10-06-2021 End: 10-06-2021 ambulatory Iris Aponte [facility] [employer] Other Start: 10-06-2021 Office outpatient vi sit 25 minutes Iris Aponte [facility] Gastroenterology Start: 09-16-2021 End: 09-17-[address] SADIE RAINES Facility:[facility] Start: 10-28-2020 End: 10-28-2020 Chart abstracting Fito aCrdoso Work Phone: Hematology/Oncology Start: 10-26-2020 End: 10-26-2020 Patient encounter procedure External Provider [facility] in Start: 10-26-2020 Results Only External Provider Exter nal-[facility] Procedures Date Procedure Procedure Detail Performing Clinician Start: 07-03-2025 Assay of free thyroxine Rayna Ordonez ORTHODONTIC TECHNICIAN-ROSE GRADING SUPERVISOR Work Phone: Start: 07-03-2025 Adult depression scr eening assessment Rayna Ordonez ORTHODONTIC TECHNICIAN-ROSE GRADING SUPERVISOR Work Phone: Start: 05-29-2025 Adult depression scr eening assessment Rayna Ordonez ORTHODONTIC TECHNICIAN-ROSE GRADING SUPERVISOR Work Phone: Start: 05-23-2025 Adult depression scr eening assessment Rayna Ordonez ORTHODONTIC TECHNICIAN-ROSE GRADING SUPERVISOR Work Phone: Start: 04-11-2025 Adult depression scr eening assessment Rayna Ordonez ORTHODONTIC TECHNICIAN-ROSE GRADING SUPERVISOR Work Phone: Start: 02-03-2025 CRYOTHERAPY SKIN LESION Kendra Meyer ORTHODONTIC TECHNICIAN-[facility] Work Phone: Start: 11-08-2024 Adult depression scr eening assessment Rayna Ordonez ORTHODONTIC TECHNICIAN-ROSE GRADING SUPERVISOR Work Phone: Start: 10-04-2024 Adult depression scr eening assessment Rayna Ordonez ORTHODONTIC TECHNICIAN-ROSE GRADING SUPERVISOR Work Phone: Start: 07-26-2024 Mammography Rayna Andino ch ORTHODONTIC TECHNICIAN-ROSE GRADING SUPERVISOR Work Phone: Start: 07-19-2024 Follow-up visit Follow-up RAYNA ORDONEZ Start: 07-19-2024 Adult depression scr eening assessment Rayna Ordonez ORTHODONTIC TECHNICIAN-ROSE GRADING SUPERVISOR Work Phone: Start: 03-01-2024 Adult depression scr eening assessment Sadie Raines ORTHODONTIC TECHNICIAN-BARK SKINNER Work Phone: Start: 11-20-2023 Adult depression scr eening assessment Sadie Raines ORTHODONTIC TECHNICIAN-BARK SKINNER Work Phone: Start: 10-26-2020 End: 10-26-2020 EXTERNAL LAB External Provider Plan of Treatment Date Care Activity Detail Author Start: 07-03-2026 Adult BMI Screening Adult BMI Screen ing [facility] Start: 07-03-2026 Depression Screening Depression Scre ening [facility] Start: 07-03-2026 Fall Risk Screening Fall Risk Screen ing [facility] Start: 07-03-2026 Tobacco Screening Tobacco Screening [facility] Start: 05-29-2026 Adult BMI Screening Adult BMI Screen ing [facility] Start: 05-29-2026 Depression Screening Depression Scre ening [facility] Start: 05-29-2026 Fall Risk Screening Fall Risk Screen ing [facility] Start: 05-29-2026 Tobacco Screening Tobacco Screening [facility] Start: 05-23-2026 Adult BMI Screening Adult BMI Screen ing [facility] Start: 05-23-2026 Depression Screening Depression Scre ening [facility] Start: 05-23-2026 Tobacco Screening Tobacco Screening [facility] Start: 04-11-2026 Adult BMI Screening Adult BMI Screen ing [facility] Start: 04-11-2026 Depression Screening Depression Scre ening [facility] Start: 04-11-2026 Fall Risk Screening Fall Risk Screen ing [facility] Start: 04-11-2026 Tobacco Screening Tobacco Screening [facility] Start: 11-08-2025 Adult BMI Screening Adult BMI Screen ing [facility] Start: 11-08-2025 Depression Screening Depression Scre ening [facility] Start: 11-08-2025 Fall Risk Screening Fall Risk Screen ing [facility] Start: 11-08-2025 Tobacco Screening Tobacco Screening [facility] Start: 10-04-2025 Adult BMI Screening Adult BMI Screen ing [facility] Start: 10-04-2025 Depression Screening Depression Scre ening [facility] Start: 10-04-2025 Fall Risk Screening Fall Risk Screen ing [facility] Start: 10-04-2025 Tobacco Screening Tobacco Screening [facility] Start: 08-14-2025 End: 08-14-2025 Patient encounter procedure 08/14/2025 4:20 PM EDT Office Visit [facility] Internal [facility] - Family Medicine [address] [place] [address] Rayna Ordonez, ORTHODONTIC TECHNICIAN-ROSE GRADING SUPERVISOR [address] [place] [address] [facility] Internal Medicine - Family Medicine Start: 07-26-2025 Screening for malign ant neoplasm of breast Mammogram [facility] Start: 07-19-2025 Adult BMI Screening Adult BMI Screen ing [facility] Start: 07-19-2025 Depression Screening Depression Scre ening [facility] Start: 07-19-2025 Fall Risk Screening Fall Risk Screen ing [facility] Start: 07-19-2025 Medicare Annual Well ness Visit Medicare Annual Wellness Visit [facility] Start: 07-19-2025 Tobacco Screening Tobacco Screening [facility] Start: 07-03-2025 End: 07-03-2025 Patient encounter procedure 07/03/2025 3:40 PM EDT Office Visit [facility] Internal Medicine - Family Medicine [address] [place] [address] Rayna Ordonez, ORTHODONTIC TECHNICIAN-ROSE GRADING SUPERVISOR [address] [place] [address] [facility] Internal Medicine - Family Medicine Start: 06-30-2025 Influenza vaccination Influenza Vacc ine [facility] Start: 05-23-2025 End: 05-23-2025 Patient encounter procedure 05/23/2025 11:20 AM EDT Office Visit [facility] - Family Medicine [address] [place] [address] Rayna Ordonez, ORTHODONTIC TECHNICIAN-ROSE GRADING SUPERVISOR [address] [place] [address] [facility] Internal [facility] - Family Medicine Start: 04-11-2025 End: 04-11-2025 Patient encounter procedure 04/11/2025 9:40 AM EDT Office Visit [facility] Internal Medicine - Family Medicine [address] [place] [address] Rayna Ordonez, ORTHODONTIC TECHNICIAN-ROSE GRADING SUPERVISOR [address] [place] [address] [facility] Start: 03-01-2025 Adult BMI Screening Adult BMI Screen ing [facility] Start: 03-01-2025 Depression Screening Depression Scre ening [facility] Start: 03-01-2025 Fall Risk Screening Fall Risk Screen ing [facility] Start: 03-01-2025 Tobacco Screening Tobacco Screening [facility] Start: 02-03-2025 End: 02-03-2025 Patient encounter procedure 02/03/2025 11:25 AM EDT Office Visit [facility] [address] [place] [address] Kendra Meyer, ORTHODONTIC TECHNICIAN-ROSE GRADING SUPERVISOR [address] [place] [address] Arrived [facility] Comment on above: Arrived Start: 11-20-2024 Adult BMI Screening Adult BMI Screen ing [facility] Start: 11-20-2024 Depression Screening Depression Scre ening [facility] Start: 11-20-2024 Fall Risk Screening Fall Risk Screen ing [facility] Start: 11-20-2024 Tobacco Screening Tobacco Screening [facility] Start: 11-08-2024 End: 11-08-2024 Patient encounter procedure 11/08/2024 10:40 AM EST Office Visit [facility] [address] [place] [address] Rayna Ordonez, ORTHODONTIC TECHNICIAN-ROSE GRADING SUPERVISOR [address] [place] [address] [facility] Medicine - Family Medicine Start: 10-04-2024 End: 10-04-2024 Patient encounter procedure 10/04/2024 9:20 AM EST Office Visit [facility] Internal [facility] - Family Medicine [address] [place] [address] Rayna Ordonez, ORTHODONTIC TECHNICIAN-ROSE GRADING SUPERVISOR [address] [place] [address] [facility] Internal Medicine - Family Medicine Start: 07-19-2024 End: 07-19-2025 DBT Breast - bilateral screening Mammography screening bilateral with CAD Imaging Routine Encounter for screening mammogram for malignant neoplasm of breast Expected: 07/19/2024, Expires: 07/19/2025 [facility] Comment on above: Expected: 07/19/2024 , Expires: 07/19/2025 Start: 07-19-2024 End: 07-19-2025 Thyrotropin [Units/volume] in Serum or Plasma TSH Lab Routine Hypothyroidism (acquired) Expected: 07/19/2024 (Approximate), Expires: 07/19/2025 [facility] Comment on above: Expected: 07/19/2024 (Approximate), Expires: 07/19/2025 Start: 07-19-2024 End: 07-19-2024 Patient encounter procedure 07/19/2024 11:20 AM EDT Office Visit [facility] Internal Medicine - Family Medicine [address] [place] [address] Rayna Ordonez, ORTHODONTIC TECHNICIAN-ROSE GRADING SUPERVISOR [address] [place] [address] [facility] Internal Medicine - Family Medicine Start: 06-30-2024 Influenza vaccination Influenza Vacc ine [facility] Start: 02-27-2024 End: 02-27-2024 Patient encounter procedure 02/27/2024 8:30 AM EDT Office Visit [facility] Internal Medicine - Family Medicine [address] [place] [address] Sadie Raines, ORTHODONTIC TECHNICIAN-BARK SKINNER [address] [place] [address] [facility] Internal Medicine - Family Medicine Start: 11-20-2023 End: 11-20-2024 DBT Breast - bilateral screening Mammography screening bilateral with CAD Imaging Routine Encounter for screening mammogram for malignant neoplasm of breast Expected: 11/20/2023, Expires: 11/20/2024 [facility] Work Phone: Comment on above: Expected: 11/20/2023 , Expires: 11/20/2024 Start: 11-11-2023 Administration of varicella zoster vaccine Zoster (Shingles) Vaccine (2 of 2) [facility] Start: 2022 Pneumococcal Vaccine : 65+ Years (1 of 1 - PCV) Pneumococcal Vaccine: 65+ Years (1 of 1 - PCV) [facility] Start: 07-13-2022 DTaP,Tdap and Td Vaccines (2 - Td or Tdap) DTaP,Tdap and Td Vaccines (2 - Td or Tdap) [facility] Start: 06-30-2020 Influenza vaccination INFLUENZA (#1) [facility] Start: 2007 Screening for malign ant neoplasm of colon [facility] Start: 2007 SHINGRIX VACCINE (1 of 2) SHINGRIX VACCINE (1 of 2) [facility] Start: 2002 DIABETES SCREEN DIABETES SCREEN [facility] Start: 2002 LIPID SCREEN LIPID SCREEN [facility] Start: 1997 Mammography MAMMOGRAM [facility] Start: 1997 Screening for malign ant neoplasm of breast Mammogram [facility] Start: 1987 HPV TESTING HPV TESTING [facility] Start: 1978 PAP TESTING PAP TESTING [facility] Start: 1976 Urine microalbumin profile DTAP,TDAP,TD (1 - Tdap) [facility] Start: 1975 Adult BMI Follow Up Plan Adult BMI F ollow Up Plan [facility] Start: 1975 HEPATITIS C SCREENING HEPATITIS C SC REENING [facility] Start: 1975 HIV SCREENING HIV SCREENING [facility] Start: 1957 Medicare Annual Well ness Visit Medicare Annual Wellness Visit [facility] Start: 1957 Screening for malign ant neoplasm of colon [facility] End: 06-04-2025 Basic metabolic 2000 panel - Serum or Plasma Basic Metabolic Panel Lab Routine Hyperkalemia 1 Occurrences starting 06/04/2024 until 06/04/2025 [employer] Work Phone: Comment on above: 1 Occurrences starti ng 06/04/2024 until 06/04/2025 End: 07-19-2025 Basic metabolic 2000 panel - Serum or Plasma Basic Metabolic Panel Lab Routine Hyperkalemia 1 Occurrences starting 07/19/2024 until 07/19/2025 [employer] Work Phone: Comment on above: 1 Occurrences starti ng 07/19/2024 until 07/19/2025 Basic metabolic 2000 panel - Serum or Plasma Basic Metabolic Panel Lab Routine Hyperkalemia 04/11/2025 10:04 AM EDT [facility] End: 04-11-2026 Thyroid profile includes TSH FT4 Thyroid profile includes TSH FT4 Lab Routine Acquired hypothyroidism 1 Occurrences starting 04/11/2025 until 04/11/2026 [employer] Work Phone: Comment on above: 1 Occurrences starti ng 04/11/2025 until 04/11/2026 Thyroid profile incl udes TSH FT4 Thyroid profile includes TSH FT4 Lab Routine Acquired hypothyroidism 04/11/2025 10:04 AM EDT [facility] End: 07-19-2025 Thyroxine (T4) free [Mass/volume] in Serum or Plasma T4, free Lab Routine Hypothyroidism (acquired) 1 Occurrences starting 07/19/2024 until 07/19/2025 [facility] Comment on above: 1 Occurrences starti ng 07/19/2024 until 07/19/2025 [facility] Immunizations Immunization Date Immunization Notes Care Provider [facility] 07-19-2024 Seasonal trivalent influenza vaccine, adjuvanted, preservative free Rayna Ordonez ORTHODONTIC TECHNICIAN-ROSE GRADING SUPERVISOR [facility] Immunization, In Clinic,; Translations: [Drug or medicament (substance)] Rayna Ordonez ORTHODONTIC TECHNICIAN-ROSE GRADING SUPERVISOR Work Phone: [facility] 07-19-2024 influenza virus vaccine, unspecified formulation Wander Vaughn DO Work Phone: [facility] 12-18-2023 zoster vaccine recombinant Sadie Raines ORTHODONTIC TECHNICIAN-BARK SKINNER Work Phone: [facility] 09-16-2023 zoster vaccine recombinant Sadie Raines ORTHODONTIC TECHNICIAN-BARK SKINNER Work Phone: [facility] 09-16-2023 zoster vaccine, unspecified formulation Sadie Ranies ORTHODONTIC TECHNICIAN-BARK SKINNER Work Phone: [facility] 08-28-2023 influenza, injectabl e, quadrivalent, preservative free Sadie Raines ORTHODONTIC TECHNICIAN-BARK SKINNER Work Phone: [facility] 08-28-2023 influenza virus vaccine, unspecified formulation Sadie Raines ORTHODONTIC TECHNICIAN-BARK SKINNER Work Phone: [facility] 09-16-2021 influenza, injectabl e, quadrivalent, preservative free Sadie Raines ORTHODONTIC TECHNICIAN-BARK SKINNER Work Phone: [facility] 08-28-2020 influenza, injectabl e, quadrivalent, preservative free Sadie Raines ORTHODONTIC TECHNICIAN-BARK SKINNER Work Phone: [facility] 09-12-2019 Influenza, injectabl e, Madin Dolores Canine Kidney, quadrivalent with preservative Sadie Raines ORTHODONTIC TECHNICIAN-BARK SKINNER Work Phone: [facility] 09-12-2019 influenza, injectabl e, quadrivalent, preservative free [facility] 08-20-2018 influenza, injectabl e, quadrivalent, contains preservative Sadie Raines ORTHODONTIC TECHNICIAN-BARK SKINNER Work Phone: [facility] 08-29-2017 influenza, injectabl e, quadrivalent, contains preservative Sadie Raines ORTHODONTIC TECHNICIAN-BARK SKINNER Work Phone: [facility] 08-31-2015 influenza, injectabl e, quadrivalent, preservative free [facility] 08-31-2015 influenza, seasonal, injectable, preservative free Sadie Raines ORTHODONTIC TECHNICIAN-BARK SKINNER Work Phone: [facility] 07-13-2012 tetanus toxoid, redu roberto diphtheria toxoid, and acellular pertussis vaccine, adsorbed [facility] Payers Date Payer Category Payer Medicare (Managed Care) [facility] [id number] 2023 Medicare ANTHEM MEDICARE ANTHEM MEDICARE ADVANTAGE [id number] 2023- [phone] [address] [place] [address] [id number] 2023 Medicare HMO ANTHEM MEDICARE [id number] 2023 Medicare [id number] 2015 Unknown ANTHEM BLUE CARD PPO [id number] 2015-Present PPO [id number] 1959 Blue Cross Blue Shield [id number] 1957 Unknown [id number] 2.16.840.1.718513.3.579. 2.593 1957 Unknown [id number] 2.16.840.1.624562.3.579. 2.593 1957 Unknown [id number] 2.16.840.1.920995.3.579. 2.593 1957 Unknown [id number] 2.16.840.1.214231.3.579. 2.593 1957 Unknown [id number] 2.16.840.1.370552.3.579. 2.1286 1957 Unknown [id number] 2.16.840.1.404996.3.579. 2.1286 1957 Unknown [id number] 2.16.840.1.902186.3.579. 2.1259 1957 Unknown [id number] 2.16.840.1.433543.3.579. 2.1286 1957 Unknown [id number] 2.16.840.1.153922.3.579. 2.1286 1957 Unknown [id number] 2.16.840.1.807767.3.579. 2.1286 1957 Unknown [id number] 2.16.840.1.872556.3.579. 2.1286 1957 Unknown [id number] 2.16.840.1.821391.3.579. 2.1286 1957 Unknown [id number] 2.16.840.1.847852.3.579. 2.1286 1957 Unknown [id number] 2.16.840.1.882137.3.579. 2.1286 Social History Date Type Detail Facility Tobacco smoking stat [facility] Unknown if ever smoked [facility] Start: 1955 Sex Assigned At [facility] file [facility] Exposure to SARS-CoV -2 (event) Unable to assess [facility] Start: 10-28-2020 Tobacco smoking stat us [facility] Unknown if ever smoked [facility] Start: 12-10-2020 End: 11-08-2024 Sex Assigned At [facility]AMINTO[facility] Other Start: 05-12-2023 End: 07-19-2024 Tobacco smoking status NHIS Ex-smoker [facility] Start: 02-25-1998 End: 02-25-2018 History of tobacco use Current smoker [facility] Start: 02-25-1998 End: 02-25-2018 History of tobacco use Cigarette Smoker [facility] Start: 12-10-2020 End: 07-19-2024 Cigarettes smoked current (pack per day) - Reported 0.5 [facility] Start: 07-19-2024 End: 02-03-2025 Tobacco use and exposure Smokeless tobacco non-user [facility] Start: 11-08-2024 End: 07-03-2025 Alcoholic beverage intake Current drinker of alcohol (finding) [facility] Adolescent depressio n screening assessment 0 [facility] Start: 07-19-2024 Alcohol Comment socially [facility] Start: 06-04-2015 Sex Female (finding) [facility] Start: 11-20-2023 End: 03-01-2024 Alcoholic beverage intake Ex-drinker (finding) [facility] Start: 02-03-2025 [facility] Functional Status Date Assessment Result Facility 04-11-2025 Generalized anxiety disorder 7 item (AMIRAH- 7) [facility] Clinical Notes 10-06-2021 to 07-07-2025 Telephone Encounter - David Mc CNA - 07/07/2025 8:53 AM EDTTelephone Encounter - David Mc CNA - 07/07/2025 8:53 AM EDTTelephone Encounter - David Mc CNA - 07/07/2025 8:53 AM EDT Note Date & Type Note Facility 07-07-2025 Miscellaneous Notes ----- Message from JANA Solomon sent at 07/07/2025 8:54 AM EDT ----- Please have her stop her thyroid medicine altogether. We will recheck her thyroid function tests in 1 month and if they are still low she needs to see endocrinology. She can have this drawn at her upcoming appointment with me in July ----- Message ----- From: Yair, Background User Sent: 07/03/2025 10:46 PM EDT To: JANA Coley Pt informed documented in this encounter [facility] 07-07-2025 Telephone encounter Note ----- Message from JANA Solomon sent at 07/07/2025 8:54 AM EDT ----- Please have her stop her thyroid medicine altogether. We will recheck her thyroid function tests in 1 month and if they are still low she needs to see endocrinology. She can have this drawn at her upcoming appointment with me in July ----- Message ----- From: Lab, Background User Sent: 07/03/2025 10:46 PM EDT To: JANA Coley [facility] 07-07-2025 Telephone encounter Note Pt informed [facility] 07-03-2025 History of Present illness Narrative [address] [place] [facility] [address] Patient: Reina Kelley Date of : 1955 Encounter Date: 07/03/2025 History of Present Illness: The patient is a 69 y.o. female, an established patient, and is here for Chief Complaint Patient presents with F/U BP . HPI Pt has been out of her lisinopril for last 2 days so did not take it this am before appt. She feels her mental health is slightly better and has a little less stress in life compared to last appt. She is in a hurry for appt to be over today however as she has two sports matches for grandchildren she needs to get to. Problem List Items Addressed This Visit Endocrine Hypothyroidism (acquired) - Primary Relevant Orders Thyroid profile includes TSH FT4 (Completed) Past Medical, Family, and Social History Update: [...] 07/03/2019 Performed by Jamari Cox DO at [facility] LAPROSCOPIC ULTRASOUND GUIDED MICROWAVE ABLASION OF LIVER TUBAL LIGATION Current Outpatient Medications Medication Sig Dispense Refill alendronate (FOSAMAX) 70 mg tablet Take 1 tablet (70 mg total) by mouth every 7 days. In a.m. with water on empty stomach, nothing else by mouth and remain upright for 30min 12 tablet 3 celecoxib (CeleBREX) 200 mg capsule Take 1 capsule (200 mg total) by mouth daily as needed for pain. TAKE 1 CAPSULE BY MOUTH IN THE MORNING 90 capsule 1 cholecalciferol (VITAMIN D3) 50,000 units capsule Take 1 capsule (50,000 Units total) by mouth once a week. 90 capsule 1 escitalopram (LEXAPRO) 20 mg tablet Take 1 tablet (20 mg total) by mouth in the evening. 90 tablet 1 rosuvastatin (CRESTOR) 5 mg tablet Take 1 tablet (5 mg total) by mouth in the morning. 90 tablet 3 lisinopriL (PRINIVIL,ZESTRIL) 40 mg tablet Take 1 tablet (40 mg total) by mouth in the morning. 90 tablet 1 No current facility-administered medications for this visit. (All medications reviewed and updated by provider since last office visit or hospitalization) Allergies: Patient has no known allergies. Tobacco History: Social History Tobacco Use Smoking Status Former Current packs/day: 0.00 Average packs/day: 0.5 packs/day for 20.0 years (10.0 ttl pk-yrs) Types: Cigarettes Start date: 02/25/1998 Quit date: 02/25/2018 Years since quittin.3 Smokeless Tobacco Never (If patient a smoker, smoking cessation counseling offered) Social History: Social History Substance and Sexual Activity Alcohol Use Yes Comment: socially Review of Systems: Review of Systems Constitutional: Negative. Respiratory: Negative. Cardiovascular: Negative. Neurological: Negative. Psychiatric/Behavioral: Negative for agitation, behavioral problems, decreased concentration, dysphoric mood, hallucinations, self-injury, sleep disturbance and suicidal ideas. The patient is nervous/anxious. The patient is not hyperactive. Physical Exam: BP 150/80 (BP Site: Right Arm, BP Postition: Sitting, BP CUFF SIZE: S (7-9 inches)) Pulse 70 Temp 36.3 C (97.4 F) (Tympanic) Resp 18 Ht 154.9 cm (5' 0.98 ) Wt 48.1 kg (106 lb) SpO2 96% BMI 20.04 kg/m Physical Exam Vitals reviewed. Constitutional: Appearance: Normal appearance. HENT: Head: Normocephalic and atraumatic. Mouth/Throat: Mouth: Mucous membranes are moist. Eyes: General: No scleral icterus. Pupils: Pupils are equal, round, and reactive to light. Cardiovascular: Rate and Rhythm: Normal rate and regular rhythm. Heart sounds: Normal heart sounds. Pulmonary: Effort: Pulmonary effort is normal. Breath sounds: Normal breath sounds. Skin: Capillary Refill: Capillary refill takes less [...] Plan: Reina was seen today for f/u bp. Diagnoses and all orders for this visit: Hypothyroidism (acquired) - Thyroid profile includes TSH FT4; Future - Thyroid profile includes TSH FT4 Other orders - lisinopriL (PRINIVIL,ZESTRIL) 40 mg tablet; Take 1 tablet (40 mg total) by mouth in the morning. Follow-up: Increase lisinopril to 40mg. Pt has not been taking her BP at home. She was encouraged to do so 2-3 times/week and bring record to next visit. Her BP may be increased since TFTs are still abnormal. She was advised to stop her synthroid and re-check in 1 mo. If still abnormal, she will need to see endocrinology. F/u in Jul. JANA COLEY APRN-CNP 07/08/25 1318 documented in this encounter [facility] 05-29-2025 History of Present illness Narrative [address] [place] [address] Patient: Reina Kelley Date of : 1955 Encounter Date: 05/29/2025 History of Present Illness: The patient is a 69 y.o. female, an established patient, and is here for Chief Complaint Patient presents with follow up from er [facility] May 25- Hypertension . HPI Patient in the ER at the [facility] on May 25 for increased anxiety symptoms and high blood pressure. She took her blood pressure at home and systolic it was 190 and she became concerned so she drove herself to the ER. Patient states she felt very anxious that day. She is still dealing with anxiety related to her son's substance abuse issues. She does feel better since starting the Lexapro and increasing the dose to 20 mg. States she is sleeping better especially. She also states she is eating better and more frequently at least 3 times per day. Problem List Items Addressed This Visit Cardiovascular and Mediastinum Essential hypertension - Primary Relevant Medications lisinopriL (PRINIVIL,ZESTRIL) 20 mg tablet Endocrine Hypothyroidism (acquired) Past Medical, Family, and Social History Update: [...] 07/03/2019 Performed by Jamari Cox DO at [facility] LAPROSCOPIC ULTRASOUND GUIDED MICROWAVE ABLASION OF [...] mouth once a week. 90 capsule 1 escitalopram (LEXAPRO) 20 mg tablet Take 1 tablet (20 mg total) by mouth in the evening. 90 tablet 1 levothyroxine (SYNTHROID, LEVOTHROID) 50 MCG tablet Take 1 tablet (50 mcg total) by mouth in the morning. 90 tablet 1 rosuvastatin (CRESTOR) 5 mg tablet Take 1 tablet (5 mg total) by mouth in the morning. 90 tablet 3 lisinopriL (PRINIVIL,ZESTRIL) 20 mg tablet Take 1 tablet (20 mg total) by mouth in the morning. 30 tablet 1 No current facility-administered medications for [...] of Systems: Review of Systems Constitutional: Negative. Respiratory: Negative. Cardiovascular: Negative. Psychiatric/Behavioral: Negative for agitation, behavioral problems, decreased concentration, dysphoric mood, hallucinations, self-injury, sleep disturbance and suicidal ideas. The patient is nervous/anxious. The patient is not hyperactive. Physical Exam: BP 140/72 (BP Site: Left Arm, BP Postition: Sitting, BP CUFF SIZE: M (9-13 inches)) Pulse 73 Temp 36.6 C (97.9 F) (Oral) Resp 20 Ht 154.9 cm (5' 0.98 ) Wt 49 kg (108 lb 1.6 oz) SpO2 97% BMI 20.44 kg/m Physical Exam Vitals reviewed. Constitutional: Appearance: Normal appearance. HENT: Head: Normocephalic and atraumatic. Mouth/Throat: Mouth: Mucous membranes are moist. Eyes: General: No scleral icterus. Pupils: Pupils are equal, round, and reactive to light. Cardiovascular: Rate and Rhythm: Normal rate and regular rhythm. Heart sounds: Normal heart sounds. Pulmonary: Effort: Pulmonary effort is normal. Breath sounds: Normal breath sounds. Skin: Capillary Refill: Capillary refill takes less [...] and Plan: Reina was seen today for follow up from [facility]. Diagnoses and all orders for this visit: Essential hypertension Hypothyroidism (acquired) Other orders - lisinopriL (PRINIVIL,ZESTRIL) 20 mg tablet; Take 1 tablet (20 mg total) by mouth in the morning. Follow-up: Her blood pressure is above goal today, add lisinopril 20 mg. Mechanism of action and side effects were discussed and patient is familiar with this medication from the past. She was stopped a few years ago because her blood pressure was very well controlled. Discussed limiting sodium in her diet and managing her stress levels. She is not interested in counseling at this time. She should continue to track her blood pressure twice per week at home and record for next appointment. Goal of less than 130/80 was discussed with patient. She is due for a thyroid function rechecked at her upcoming appointment in June after dose adjustment when her TSH level was slightly low in March. Return to office in June. JANA COLEY APRN-CNP 05/29/25 1327 documented in this encounter [facility] 05-23-2025 History of Present illness Narrative [address] [place] [address] Patient: Reina Kelley Date of : 1955 [...] 07/03/2019 Performed by Jamari Cox DO at [facility] LAPROSCOPIC ULTRASOUND GUIDED MICROWAVE ABLASION OF [...] APRN-CNP 05/23/25 1308 documented in this encounter [facility] 04-14-2025 Miscellaneous Notes ----- Message from JANA Solomon sent at 04/14/2025 8:48 AM EDT ----- Her thyroid is low or over-replaced so we will go down a little with dose of her Synthroid. Have her start new dose right away so we can re-check her blood work at [facility] in April. She does not need to fast. This could be partially why she feels anxious and this should slow down her weight loss by adjusting dose. ----- Message ----- From: Yair, Background User Sent: 04/11/2025 5:53 PM EDT To: JANA Coley Spoke with the patient and she understands documented [facility] Telephone encounter Note ----- Message from JANA Solomon sent at 04/14/2025 8:48 AM EDT ----- Her thyroid is low or over-replaced so we will go down a little with dose of her Synthroid. Have her start new dose right away so we can re-check her blood work at [facility] in April. She does not need to fast. This could be partially why she feels anxious and this should slow down her weight loss by adjusting dose. ----- Message ----- From: Lab, Background User Sent: 04/11/2025 5:53 PM EDT To: Rayna Ordonez APRN-ELIAZAR [facility] 04-14-2025 Telephone encounter Note Spoke with the patient and she understands [facility] 04-11-2025 History of Present illness Narrative [address] [place] [address] Patient: Reina Kelley Date of : 1955 [...] felt better. Her son is out of retirement since September and has moved in with [...] 07/03/2019 Performed by Jamari Cox DO at [facility] LAPROSCOPIC ULTRASOUND GUIDED MICROWAVE ABLASION OF [...] APRN-CNP 04/11/25 1010 documented in this encounter [facility] 03-26-2025 Miscellaneous Notes Pt needs applillian - CV/IZAIAHW documented in this encounter [facility] 03-26-2025 Telephone encounter Note Pt needs applillian - CV/MAW [facility] 02-03-2025 History of Present illness Narrative Images [...] - Anterior, Right Lower Leg - Anterior Lapel scaly plaques in areas of edema The [...] 3. Seborrheic keratosis, inflamed Right Parotid Area Lapel and brown stuck on verrucous scaly papule [...] limited to risks of scarring, darker or inbound customer service agent pigmentary changes, recurrence, incomplete removal and infection. [...] month skin check documented in this encounter [facility] 11-08-2024 History of Present illness Narrative [address] [place] [address] Patient: Reina Kelley Date of : 1955 [...] job working 20 hours per week at [employer] and she enjoys this and it is [...] 07/03/2019 Performed by Jamari Cox DO at [facility] LAPROSCOPIC ULTRASOUND GUIDED MICROWAVE ABLASION OF [...] APRN-CNP 11/08/24 1405 documented in this encounter [facility] 10-04-2024 History of Present illness Narrative [address] [facility] [address] Patient: Reina Kelley Date of : 1955 [...] no longer seeing her GI specialist in [place] on a routine basis but continues 1 [...] 07/03/2019 Performed by Jamari Cox DO at [facility] LAPROSCOPIC ULTRASOUND GUIDED MICROWAVE ABLASION OF [...] taking vitamin-D so we will restart this 59051 units once weekly. Return to office in 1 month to recheck BMP and blood pressure. JANA COLEY APRN-CNP 10/04/24 1006 [facility] Miscellaneous Notes ----- Message from JANA Solomon sent at 07/22/2024 9:33 PM EDT ----- Her thyroid function was normal as well as her electrolytes, kidney function and her potassium is now normal. No changes to her medications. Spoke with pt. Pt verbalizes understanding. documented in this encounter [facility] 07-23-2024 Telephone encounter Note ----- Message from JANA Solomon sent at 07/22/2024 9:33 PM EDT ----- Her thyroid function was normal as well as her electrolytes, kidney function and her potassium is now normal. No changes to her medications. [facility] 07-23-2024 Telephone encounter Note Spoke with pt. Pt verbalizes understanding. [facility] 07-19-2024 History of Present illness Narrative Subjective Reina Kelley is a 69 y.o. female who presents for a Welcome to Medicare visit. Pt has no complaints but is unaware of the medications she takes. She wants to return to office and bring her medication bag in to review. Patient is retired from [employer] She is not enjoying group home and misses the social interaction with working. [...] 07/03/2019 Performed by Jamari Cox DO at [facility] LAPROSCOPIC ULTRASOUND GUIDED MICROWAVE ABLASION OF [...] agrees to have mammogram done at the [facility], has no new skin changes, is up-to-date on her colorectal cancer screening, no longer wishes to have her Pap smear done. It was recommended that she perform self-breast exams. Patient should return to the office in the next few months to reconcile her medications, bring those to the office so we can review. JANA Coley 07/19/24 1337 documented in this encounter [facility] 06-03-2024 Miscellaneous Notes Pt needs her BMP re-checked as her potassium is high. Her potassium pill should be on hold. She is due for appt but can do this ahead of appt LM for Pat to call and schedule apt and to have BMP checked. documented in this encounter [facility] 06-03-2024 Telephone encounter Note Pt needs her BMP re-checked as her potassium is high. Her potassium pill should be on hold. She is due for appt but can do this ahead of appt [facility] 06-03-2024 Telephone encounter Note LM for Pat to call and schedule apt and to have BMP checked. [facility] 06-03-2024 Miscellaneous Notes Just calling to get Wellness visit scheduled documented in this encounter [facility] 06-03-2024 Telephone encounter Note Just calling to get Wellness visit scheduled [facility] 03-01-2024 History of Present illness Narrative Subjective Patient ID: Reina Kelley is a 68 y.o. female. 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 01-16-2024 Miscellaneous Notes Pt called and needs a refill on FOSAMAX. Pharmacy is listed and correct I think they meant to send this to you. documented in this encounter [facility] 01-16-2024 Telephone encounter Note Pt called and needs a refill on FOSAMAX. Pharmacy is listed and correct [facility] 01-16-2024 Telephone encounter Note I think they meant to send this to you. [facility] 11-20-2023 History of Present illness Narrative Subjective [...] restart this as well DHRUV Damon 11/20/23 3352 documented in this encounter [facility] 11-08-2022 Evaluation note Encounter Date Diagnosis Assessment Notes Oct, Collagenous colitis (ICD-10 - K52.831) patient to stop buedesonide. patient to take 2 pepto bismol tablets 4 times daily if diarrhea returns. [facility] Other 07-19-2022 Evaluation note* Encounter Date Diagnosis Assessment Notes Treatment Notes Treatment Clinical Notes Apr, Collagenous colitis (ICD-10 - K52.831) [facility] Other 12-08-2021 Evaluation note* Encounter Date Diagnosis Assessment Notes Treatment Notes Treatment Clinical Notes Sep, Collagenous colitis (ICD-10 - K52.831) CONTINUE BUDESONIDE 1 PO Q AM WITHOUT CHANGE F/U HERE ONE YEAR [facility] Other Evaluation noteNo InformationNort [employer] Other Evaluation note* Diagnosis Essential hypertension- Primary Unspecified essential hypertension Chronic nonspecific colitis Age-related osteoporosis without current pathological fracture [facility] Diagnosis Acquired hypothyroidism Unspecified hypothyroidism documented in this [facility]* Diagnosis Essential hypertension- Primary Unspecified essential hypertension Mixed hyperlipidemia Hypothyroidism (acquired) Unspecified hypothyroidism Other eczema Chronic neck pain Cervicalgia documented in this encounter [facility]* Diagnosis Hypokalemia- Primary Hypopotassemia Adverse effect of unspecified drugs, medicaments and biological substances, subsequent encounter documented [facility] this [facility]* Diagnosis Essential (primary) hypertension Unspecified essential hypertension documented in this [facility]* Diagnosis Essential hypertension- Primary Unspecified essential hypertension Chronic neck pain Cervicalgia Acquired hypothyroidism Unspecified hypothyroidism Age-related osteoporosis with current pathological fracture with routine healing Encounter for screening mammogram for malignant neoplasm of breast documented in this encounter [facility]* Diagnosis Adverse effect of unspecified drugs, medicaments and biological substances, subsequent encounter documented in this encounter [facility]* Diagnosis Localized edema Edema Hyperlipidemia, unspecified [facility] Diagnosis Hyperkalemia- Primary Hyperpotassemia documented in this encounter [facility]* Diagnosis Medicare annual wellness visit, initial- Primary Hyperkalemia Hyperpotassemia Hypothyroidism (acquired) Unspecified hypothyroidism Influenza vaccination administered at current visit Encounter for screening mammogram for malignant neoplasm of breast Depression screening [facility] Diagnosis Localized edema Edema [facility] Diagnosis Essential (primary) hypertension Unspecified essential hypertension [facility] Diagnosis Essential hypertension- Primary Unspecified essential hypertension Vitamin D deficiency Hypokalemia Hypopotassemia Hypothyroidism (acquired) Unspecified hypothyroidism [facility] Diagnosis Other nonthrombocytopenic purpura- Primary Stasis dermatitis of both legs Seborrheic keratosis, inflamed documented in this encounter [facility]* Diagnosis Hyperlipidemia, unspecified [facility] Diagnosis Anxiety- Primary Anxiety state, unspecified Essential hypertension Unspecified essential hypertension Acquired hypothyroidism Unspecified hypothyroidism Hyperkalemia Hyperpotassemia documented in this encounter [facility]* Diagnosis Anxiety- Primary Anxiety state, unspecified Essential hypertension Unspecified essential hypertension [facility] Diagnosis Essential hypertension- Primary Unspecified essential hypertension Hypothyroidism (acquired) Unspecified hypothyroidism documented in this encounter [facility]* Diagnosis Hiatal hernia- Primary Diaphragmatic hernia without mention of obstruction or gangrene [facility]* Diagnosis Hypothyroidism (acquired)- Primary Unspecified hypothyroidism documented in this encounter [facility] SystemHistory general Narrative - Reported* Type Description Date Medical History HTN Medical History Arthritis Surgical History uterine ablation [facility] Other History general Narrative - Reported* Type Description Date Medical History HTN Medical History Arthritis Medical History ulcerative colitis Surgical History uterine ablation [facility] Other InstructionsNot on filedocumented in this encounter [...] sent through Care Everywhere. * Escitalopram, ADULT (Hungarian) * Lorazepam, ADULT (Hungarian) [facility] SystemInstructionsNot on file documented in [facility] SystemInst[facility]* Attachments The following attachments cannot be sent through Care Everywhere. * DASH diet (Hungarian) * Heart-healthy diet (Hungarian) * Controlling your blood pressure through lifestyle (Hungarian) [facility] Purpose Family History No Family History Records FoundNo Family History Records FoundNo Family History Records FoundNo Family History Records FoundNo Family History Records Found Advance Directives Date Activated Date Inactivated Comments 06/27/2019 8:12 [...] or prosecute any alcohol or drug abuse patient.[facility] CenterIn the event this information is protected by the Federal Confidentiality of Alcohol and Drug Abuse Patient Records regulations: The Federal rules restrict any use of the information to criminally investigate or prosecute any alcohol or drug abuse patient.[facility] CenterIn the event this information is protected by the Federal Confidentiality of Alcohol and Drug Abuse Patient Records regulations: The Federal rules restrict any use of the information to criminally investigate or prosecute any alcohol or drug abuse patient.[facility] INFORMATION SOURCE (unrecogn ized section and content) DATE CREATED AUTHOR 02/10/2022 [facility] DATE CREATED AUTHOR AUTHOR'S ORGANIZ ATION 08/06/2022 [facility] DATE CREATED AUTHOR AUTHOR'S ORGANIZ ATION 07/22/2024 [facility] DATE CREATED AUTHOR AUTHOR'S ORGANIZ ATION 02/04/2025 [facility] DATE CREATED AUTHOR AUTHOR'S ORGANIZ ATION [facility]/05/2025 [facility] REAS[facility] FOR [...] Hypertension Hyperlipidemia refills Reason Comments F/U anxiety Reason Comments follow up from er [facility] May 25- Hypertens ion Reason Comments F/U BP Care Teams (unrecognized sec tion and content) Mine Captain Relationship Specialty Start Date End Date Rayna Ordonez, ORTHODONTIC TECHNICIAN-ROSE GRADING SUPERVISOR [address] [place] [address] PCP - General Internal Medicine 04/06/24 Mine Captain Relationship Specialty Start Date End Date Rayna Ordonez, ORTHODONTIC TECHNICIAN-ROSE GRADING SUPERVISOR [address] [place] [address] PCP - General Internal Medicine 04/06/24 Mine Captain Relationship Specialty Start Date End Date Jamari Cox DO [address] [place] [address] PCP - General Internal Medicine 06/27/19 Mine Captain Relationship Specialty Start Date End Date Jamari Cox DO [address] [place] [address] PCP - General Internal Medicine 06/27/19 Mine Captain Relationship Specialty Start Date End Date Jamari Cox DO [address] [place] [address] PCP - General Internal Medicine 06/27/19 Mine Captain Relationship Specialty Start Date End Date Jamari Cox DO [address] [place] [address] PCP - General Internal Medicine 06/27/19 Mine Captain Relationship Specialty Start Date End Date Jamari Cox DO [address] [place] [address] PCP - General Internal Medicine 06/27/19 Mine Captain Relationship Specialty Start Date End Date Jamari Cox DO [address] [place] [address] PCP - General Internal Medicine 06/27/19 Mine Captain Relationship Specialty Start Date End Date Rayna Ordonez ORTHODONTIC TECHNICIAN-ROSE GRADING SUPERVISOR [address] [place] [address] PCP - General Internal Medicine 04/06/24 Mine Captain Relationship Specialty Start Date End Date Rayna Ordonez ORTHODONTIC TECHNICIAN-ROSE GRADING SUPERVISOR [address] [place] [address] PCP - General Internal Medicine 04/06/24 Mine Captain Relationship Specialty Start Date End Date Rayna Ordonez APRN-ROSE GRADING SUPERVISOR [address] [place] [address] PCP - General Internal Medicine 04/06/24 Mine Captain Relationship Specialty Start Date End Date Rayna Ordonez ORTHODONTIC TECHNICIAN-ROSE GRADING SUPERVISOR [address] [place] [address] PCP - General Internal Medicine 04/06/24 Mine Captain Relationship Specialty Start Date End Date Rayna Ordonez ORTHODONTIC TECHNICIAN-ROSE GRADING SUPERVISOR [address] [place] [address] PCP - General Internal Medicine 04/06/24 Mine Captain Relationship Specialty Start Date End Date Rayna Ordonez ORTHODONTIC TECHNICIAN-ROSE GRADING SUPERVISOR [address] [place] [address] PCP - General Internal Medicine 04/06/24 Mine Captain Relationship Specialty Start Date End Date Rayna Ordonez ORTHODONTIC TECHNICIANROSE GRADING SUPERVISOR [address] [place] [address] PCP - General Internal Medicine 04/06/24 Mine Captain Relationship Specialty Start Date End Date Rayna Ordonez ORTHODONTIC TECHNICIANROSE GRADING SUPERVISOR [address] [place] [address] PCP - General Internal Medicine 04/06/24 Mine Captain Relationship Specialty Start Date End Date Rayna Ordonez ORTHODONTIC TECHNICIANROSE GRADING SUPERVISOR [address] [place] [address] PCP - General Internal Medicine 04/06/24 Mine Captain Relationship Specialty Start Date End Date MeryDagobertoRayna Yasmeen ORTHODONTIC TECHNICIANROSE GRADING SUPERVISOR [address] [place] [address] PCP - General Internal Medicine 04/06/24 Mine Captain Relationship Specialty Start Date End Date MeryDagobertoRayna Yasmeen ORTHODONTIC TECHNICIANROSE GRADING SUPERVISOR [address] [place] [address] PCP - General Internal Medicine 04/06/24 Mine Captain Relationship Specialty Start Date End Date MeryDagobertoRayna Yasmeen ORTHODONTIC TECHNICIANROSE GRADING SUPERVISOR [address] [place] [address] PCP - General Internal Medicine 04/06/24 Mine Captain Relationship Specialty Start Date End Date Mery Raynacarlitos Arana ORTHODONTIC TECHNICIANROSE GRADING SUPERVISOR [address] [place] [address] PCP - General Internal Medicine 04/06/24 FOR [...] BE BASED ON THE PRIMARY CLINICAL RECORDS. [facility]. provides no warranty or guarantee of the accuracy or completeness of information in this document.
--- OUTSIDE RECORDS SUMMARY | 2025-07-20 07:38 | XMS_ITS | Clinical Summary ---
Author Organization [employer] tem Address [facility] [place][id number] [address] [place] [address] Care Team Providers Care Data Coder Operator Name Role Phone Belem Rodriguez APRN-SALVAGE WORKER Primary Care Provider + Allergies No known active allergies Medications cholecalciferol (VITAMIN D3) 50,000 units capsule Take [...] for 30min 12 tablet 3 5 Active celecoxib (CeleBREX) 200 mg capsule Take 1 capsule (200 mg total) by mouth daily as needed for pain. TAKE 1 CAPSULE BY MOUTH IN THE MORNING 90 capsule 1 5 Active escitalopram (LEXAPRO) 20 mg tablet Take 1 tablet (20 mg total) by mouth in the evening. 90 tablet 1 5 Active lisinopriL (PRINIVIL,ZESTRI L) 40 mg tablet Take 1 tablet (40 mg total) by mouth in the morning. 90 tablet 1 5 Active amLODIPine (NORVASC) 10 mg tabletIndication s:Essential (primary) hypertension TAKE 1 TABLET BY MOUTH EVERY DAY 90 tablet 1 4 07/03/20 25 Discontinue d(Patient Stopped On Own) levothyroxine (SYNTHROID, LEVOTHROID) 50 MCG tablet Take 1 tablet (50 mcg total) by mouth in the morning. 90 tablet 1 5 07/07/20 25 Discontinue d(Therapy completed) lisinopriL (PRINIVIL,ZESTRI L) 20 mg tablet Take 1 tablet (20 mg total) by mouth in the morning. 30 tablet 1 5 07/03/20 25 Discontinue d(Patient Stopped On Own) Active Problems Problem Noted Date Diagnosed Date Hiatal hernia 06/20/2025 Hypokalemia 03/04/2024 Age-related osteoporosis wit h current [...] Encounters Date Type Department Care Team Description 07/07/2025 Results Follow-Up [facility] Internal [facility] - Family Medicine [address] [place] [address] Belem Rodriguez APRN-ELIAZAR Thyroid profile includes TSH FT4 07/03/2025 3:40 PM EDT Office Visit [facility] [address] [place] [address] Belem Rodriguez APRN-ELIAZAR Hypothyroidism (acquired) (Primary Dx) 07/03/2025 Travel 06/27/2025 Orders Only [facility] - Family Medicine [address] [place] [address] Belem Rodriguez APRN-CNP 06/20/2025 Orders Only [facility] - Family Medicine [address] [place] [address] Belem Rodriguez APRN-CNP Hiatal hernia (Primary Dx) 06/20/2025 Results Follow-Up [facility] - Family Medicine [address] [place] [address] Belem Rodriguez APRN-CNP X-ray chest 1 view 06/19/2025 Orders Only [facility] - Family Medicine [address] [place] [address] Ref Prov, Not In System 05/29/2025 1:00 PM EDT Office Visit [facility] [address] [place] [address] Belem Rodriguez APRN-CNP Essential hypertension (Primary Dx); Hypothyroidism (acquired) 05/29/2025 Travel 05/26/2025 Telephone [facility] Family [facility] [address] [place] [address] David Mc CNA 05/23/2025 11:20 AM EDT Office Visit [facility] [address] [place] [address] Belem Rodriguez APRN-CNP Anxiety (Primary Dx); Essential hypertension 05/23/2025 Travel 04/21/2025 Orders Only [facility] - Family Medicine [address] [place] [address] Belem Rodriguez APRN-CNP 04/19/2025 Refill [facility] [address] [place] [address] Wander Vaughn DO from Last 3 Months Immunizations Immunization Administration [...] PHQ-2 Answer Date Recorded Total Score 0 07/03/2025 Childcare Answer Date Recorded Childcare Unknown 04/10/2019 Employment Answer Date Recorded Employment Unknown 04/10/2019 Hunger Screening Answer Date Recorded Within the past 12 months we worried whether our food would run out before we got money to buy more. Never True 07/03/2025 Within the past 12 months th e food we bought just didn't last and we didn't have money to get more. Never True 07/03/2025 Purpose - Life Answer Date Recorded Purpose and direction in life Unknown Comments No Sex and Gender Information Value Date Recorded Sex Assigned at Not on file Legal Sex Female 11:24 AM EDT Gender Identity Not on file Sexual Orientation Not on file Last Filed Vital Signs Vital Sign Reading Time Taken Comments Blood Pressure 150/80 07/03/2025 3:38 PM EDT Pulse 70 07/03/2025 3:38 PM EDT Temperature 36.3 C (97.4 F) 07/03/2025 3:38 PM EDT Respiratory Rate 18 07/03/2025 3:38 PM EDT Oxygen Saturation 96% 07/03/2025 3:38 PM EDT Inhaled Oxygen Concentration - - Weight 48.1 kg (106 lb) 07/03/2025 3:38 PM EDT Height 154.9 cm (5' 0.98 ) 07/03/2025 3:38 PM ED T Body Mass Index 20.04 07/03/2025 3:38 PM EDT Plan of Treatment Upcoming Encounters Date Type Department Care Team (Late st Contact Info) Description 08/14/2025 4:20 PM EDT Office Visit [facility] - Family Medicine [address] [place] [address] Belem Rodriguez, RACEBOOK WRITER-SALVAGE WORKER [address] [place] [address] Health Maintenance Due Date Last Done Comments DTaP,Tdap and Td Vaccines (2 - Td or Tdap) 07/13/2022 07/13/2012 Influenza Vaccine 06/30/2025 07/19/2024, , 09/16/2021, Additional history exists Medicare Annual Wellness Visit 07/19/2025 07/19/2024 Mammogram 07/26/2025 07/26/2024 Adult BMI Screening 07/03/2026 07/03/2025 Depression Screening 07/03/2026 07/03/2025 Fall Risk Screening 07/03/2026 07/03/2025 Tobacco Screening 07/03/2026 07/03/2025 COVID-19 Vaccine Discontinued 03/15/2021, 02/22/2021 Zoster (Shingles) Vaccine Completed 12/18/2023, Medical Devices Not on file Procedures Procedure Name Priority Date/Time Associated Diagnosis Comments THYROID PROFILE INCLUDES TSH FT4 Routine 07/03/2025 4:03 PM EDT Hypothyroidism (acquired) XR CHEST 1 VW Routine 05/25/2025 11:32 AM EDT MAMM SCREENING BILATERAL W CAD Routine 07/26/2024 11:08 AM EDT Encounter for screening mammogram for malignant neoplasm of breast from Last 3 Months or Most Recently Relevant to Health Maintenance Results * (ABNORMAL) Thyroid profile includes TSH FT4 (07/03/2025 4:03 PM EDT) FREE T4 1.09 0.61 - 1.60 ng/dL 07/03/2025 10:46 PM EDT [facility] TSH 0.25(L) 0.49 - 4.67 uIU/mL 07/03/2025 10:46 PM EDT [facility] Blood Venous blood / Unknown 07/03/2025 4:03 PM EDT 07/03/2025 4:03 PM EDT Belem Rodriguez APRNSALVAGE WORKER LAB BLOOD ORDERABLES Fin al Result [facility] [address] [place] [address], [place] [phone] * X-ray chest 1 view (05/25/2025 11:32 AM EDT) Anatomical Region Laterality Modality Body, Chest N/A Computed Radiogr aphy us Not In System Ref Prov IMG DIAGNOSTIC IMAGING OR DERABLES Final Result * Mammography screening bilateral with CAD (07/26/2024 11:08 AM EDT) Anatomical Region Laterality Modality Breast Bilateral Mammography Belem Rodriguez APRN-SALVAGE WORKER IMG MAMMOGRAPHY ORDERABL ES Final Result from Last 3 Months or Most Recently Relevant to Health Maintenance Insurance [facility] MEDICARE Advance Directives * Full Code (Latest Code Status on File) Date Activated Date Inactivated Comments 06/27/2019 8:12 PM 06/28/2019 7:18 PM Care Teams Data Coder Operator Relationship Specialty Start Date End Date Belem Rodriguez, RACEBOOK WRITER-SALVAGE WORKER [address] [place] [address] PCP - General Internal Medicine 04/06/24
--- OUTSIDE RECORDS SUMMARY | 2025-07-20 07:38 | XMS_ITS | Clinical Summary ---
Author Organization [facility] Healthcare Address [address] [place] [address] Care Team Providers Care Assistant Loan Processor Name Role Phone Unavailable Primary Care Provider [...] 12/15/2024 Active cholecalciferol (Vitamin D-3) 1.25 MG (76498 UT) capsule Take by mouth 1 (one) [...]
--- OUTSIDE RECORDS SUMMARY | 2025-07-20 07:38 | XMS_ITS | Encounter Summary ---
Author Organization [employer] tem Address [facility] [place]-[id number] [address] [place] [address] Care Team Providers Care Precision Farming Specialist Name Role Phone Belem Rodriguez MOBILE UI/UX DESIGNER-PRINTED CIRCUIT BOARDS CONTACT PRINTER Primary Care Provider + Encounter Details Date Type Department Care Team (Late st Contact Info) Description 08/03/2022 [facility] [address] [facility] [place] [phone] Irasema Segovia MA Social History Tobacco Use [...] Result Potassium 2.9 Per Brooke at [facility]. * Telephone Encounter - Sadie Ferro APRN-RN TELEMETRY - 08/03/2022 12:37 PM EDT Please call [...] Medicine - Family Medicine [address] [place] [address] Belem Rodriguez APRN-CNP [address] [place] [address] documented as of this encounter Visit Diagnoses Not on filedocumented in this encounter Care Teams Precision Farming Specialist Relationship Specialty Start Date End Date Belem Rodriguez APRN-CNP [address] [place] [address] PCP - General Internal Medicine 04/06/24 documented as of this encounter
--- OUTSIDE RECORDS SUMMARY | 2025-07-20 07:38 | XMS_ITS | Encounter Summary ---
Author Organization [facility] [email or web address] Address [facility] [place]-[id number] [address] [place] [address] Care Team Providers Care Contract Engineer Name Role Phone Belem Rodriguez MINESWEEPING OFFICER-GEAR TESTER Primary Care Provider + Encounter Details Date Type Department Care Team (Late st Contact Info) Description 06/19/2025 Orders Only [facility] Internal Medicine - Family Medicine [address] [place] [address] Ref Prov, [place] [address] Social History Tobacco Use Types Packs/Day Years [...] Medicine - Family Medicine [address] [place] [address] Belem Rodriguez APRN-ELIAZAR [address] [place] [address] documented as of this encounter Procedures Procedure Name Priority Date/Time Associated Diagnosis Comments XR CHEST 1 VW Routine 05/25/2025 11:32 AM EDT documented in this encounter Results * X-ray chest 1 view (05/25/2025 11:32 AM EDT) Anatomical Region Laterality Modality Body, Chest N/A Computed Radiogr aphy us Not In System Ref Prov IMG DIAGNOSTIC IMAGING OR DERABLES Final Result documented in this encounter Visit Diagnoses Not on filedocumented in this encounter Additional Health Concerns Assessment Noted Time PHQ-9 Depression Total Score: 0 05/29/20 25 1:00 PM EDT documented as of this encounter Care Teams Contract Engineer Relationship Specialty Start Date End Date Belem Rodriguez, PATI-ELIAZAR [address] [place] [address] PCP - General Internal Medicine 04/06/24 documented as of this encounter
--- OUTSIDE RECORDS SUMMARY | 2025-07-20 07:38 | XMS_ITS | Encounter Summary ---
Author Organization [employer] Address [facility] [id number] [address] [place] [address] Care Team Providers Care Wringer Operator Name Role Phone Belem Rodriguez BORING INSPECTOR-ERECTOR OPERATOR Primary Care Provider + Encounter Details Date Type Department Care Team (Late st Contact Info) Description 08/22/2022 Telephone [facility] Internal Medicine - Family Medicine [address] [place] [phone] Yara Cheek CMA Social History Tobacco Use [...] to have this? If so send to [facility]. * Telephone Encounter - HDRUV Damon - 08/22/2022 2:37 PM EDT No prescription is needed, she just requests it at the pharmacy documented in this encounter Plan of Treatment Upcoming Encounters Date Type Department Care Team (Late st Contact Info) Description 08/14/2025 4:20 PM EDT Office Visit [facility] - Family Medicine [address] [place] [address] Belem Rodriguez APRN-CNP [address] [place] [place] [address] documented as of this encounter Visit Diagnoses Not on filedocumented in this encounter Additional Health Concerns Assessment Noted Time PHQ-9 Depression Total Score: 4 08/10/20 22 3:23 PM EDT documented as of this encounter Care Teams Wringer Operator Relationship Specialty Start Date End Date Belem Rodriguez APRN-CNP [address] [place] [address] PCP - General Internal Medicine 04/06/24 documented as of this encounter
--- OUTSIDE RECORDS SUMMARY | 2025-07-20 07:38 | XMS_ITS | Encounter Summary ---
Author Organization [employer] Address [facility] [id number] [address] [place] [address] Care Team Providers Care Belt And Link Assembly Supervisor Name Role Phone Belem Rodriguez LABOR RELATIONS ANALYST-CASHIER SUPERVISOR Primary Care Provider + Encounter Details Date Type Department Care Team (Late st Contact Info) Description 09/04/2024 Refill [facility] Internal Medicine - Family Medicine [address] [place] [address] Courtney Evans, [facility] Localized edema Social History Tobacco Use Types [...] Medicine - Family Medicine [address] [place] [address] Belem Rodriguez APRN-CASHIER SUPERVISOR [address] [place] [address] documented as of this encounter Visit Diagnoses Diagnosis Localized edema Edema documented in this encounter Additional Health Concerns Assessment Noted Time PHQ-9 Depression Total Score: 0 07/19/20 11:28 AM EDT documented as of this encounter Care Teams Belt And Link Assembly Supervisor Relationship Specialty Start Date End Date Belem Rodriguez, LABOR RELATIONS ANALYST-CASHIER SUPERVISOR [address] [place] [address] PCP - General Internal Medicine 04/06/24 documented as of this encounter
--- OUTSIDE RECORDS SUMMARY | 2025-07-20 07:38 | XMS_ITS | Encounter Summary ---
Author Organization [facility] tem Address [facility] [place]-[id number] [address] [place] [address] Care Team Providers Care Electrician Marine Name Role Phone Belem Rodriguez [facility] Primary Care Provider + Encounter Details Date Type Department Care Team (Late st Contact Info) Description 06/20/2025 Results Follow-Up [facility] Internal Medicine - Family Medicine [address] [place] [address] Belem Rodriguez, [facility] [address] [place] [place] [address] X-ray chest 1 view Social History Tobacco Use Types Packs/Day Years [...] Medicine - Family Medicine [address] [place] [address] Belem Rodriguez APRN-DIAMOND SIZER AND GRADER [address] [facility] [place] [address] documented as of this encounter Visit Diagnoses Not on filedocumented in this encounter Additional Health Concerns Assessment Noted Time PHQ-9 Depression Total Score: 0 05/29/20 25 1:00 PM EDT documented as of this encounter Care Teams Electrician Marine Relationship Specialty Start Date End Date Belem Rodriguez APRN-DIAMOND SIZER AND GRADER [address] [place] [address] PCP - General Internal Medicine 04/06/24 documented as of this encounter
--- OUTSIDE RECORDS SUMMARY | 2025-07-20 07:38 | XMS_ITS | Encounter Summary ---
Author Organization [facility] Address [facility] [id number] [address] [place] [address] Care Team Providers Care Manager Roofing Name Role Phone Belem Rodriguez PLANE RUNNER-NETWORK CONTROL OPERATORS SUPERVISOR Primary Care Provider + Encounter Details Date Type Department Care Team (Late st Contact Info) Description 07/26/2024 Orders Only [facility] Internal Medicine - Family Medicine [address] [place] [address] Carolyn Abebe CMA Encounter for screening mammogram for [...] Medicine - Family Medicine [address] [place] [address] Belem Rodriguez APRN-CNP [address] [place] [address] documented as of this encounter Procedures Procedure [...] as of this encounter Care Teams Manager Roofing Relationship Specialty Start Date End Date Belem Rodriguez APRN-CNP [address] [place] [address] PCP - General Internal Medicine 04/06/24 documented as of this encounter
--- OUTSIDE RECORDS SUMMARY | 2025-07-20 07:38 | XMS_ITS | Encounter Summary ---
Author Organization [employer] Sys tem Address [facility] [id number] [address] [place] [address] Care Team Providers Care Regulatory Assistant Name Role Phone Belem Rodriguez Yasmeen FREIGHT ELEVATOR OPERATOR-HYDRO SPRAYER OPERATOR Primary Care Provider + Reason for Visit * Reason Comments Med Refill Encounter Details Date Type Department Care Team (Late st Contact Info) Description 07/23/2022 Refill [facility] Internal Medicine - Family Medicine [address] [id number] Michael Jenkins, DO [address] [place] [address] Essential (primary) hypertension; Localized edema; Adverse effect [...] Medicine - Family Medicine [address] [place] [address] Belem Rodriguez APRN-ELIAZAR [address] [place] [address] documented as of this encounter Visit Diagnoses Diagnosis Essential (primary) hypertension Unspecified essential hypertension Localized edema Edema Adverse effect of unspecified drugs, medicaments and biological substances, subsequent encounter documented in this encounter Care Teams Regulatory Assistant Relationship Specialty Start Date End Date Belem Rodriguez APRN-HYDRO SPRAYER OPERATOR [address] [place] [address] PCP - General Internal Medicine 04/06/24 documented as of this encounter
--- OUTSIDE RECORDS SUMMARY | 2025-07-20 07:38 | XMS_ITS | Encounter Summary ---
Author Organization [facility] tem Address [facility] [place]-[id number] [address] [place] [address] Care Team Providers Care Wind Project Manager Name Role Phone Belem Rodriguez CONTACT CENTER MANAGER-LASER/ELECTRO OPTICS TECHNICIAN Primary Care Provider + Encounter Details Date Type Department Care Team (Late st Contact Info) Description 07/07/2025 Results Follow-Up [facility] Internal Medicine - Family Medicine [address] [place] [address] Belem Rodriguez, [facility] [address] [place] [address] Thyroid profile includes TSH FT4 Social History Tobacco Use Types Packs/Day Years [...] Mc CNA - 07/07/2025 8:53 AM EDT ----- Message from JANA Solomon sent at 07/07/2025 8:54 AM EDT ----- Please have her stop her thyroid medicine altogether. We will recheck her thyroid function tests in1 month and if they are still low she needs to see endocrinology. She can have this drawn at her upcoming appointment with me in July ----- Message ----- From: Lab, Background User Sent: 07/03/2025 10:46 PM EDT To: JANA Oscar * Telephone Encounter - David Mc CNA - 07/07/2025 8:53 AM EDT Pt informed documented in this encounter Plan of Treatment Upcoming Encounters Date Type Department Care Team (Late st Contact Info) Description 08/14/2025 4:20 PM EDT Office Visit [facility] Internal Medicine - Family Medicine [address] [place] [address] Belem Rodriguez APRN-CNP [address] [place] [address] documented as of this encounter Visit Diagnoses Not on filedocumented in this encounter Additional Health Concerns Assessment Noted Time PHQ-9 Depression Total Score: 0 07/03/20 25 3:36 PM EDT documented as of this encounter Care Teams Wind Project Manager Relationship Specialty Start Date End Date Belem Rodriguez APRN-CNP [address] [place] [address] PCP - General Internal Medicine 04/06/24 documented as of this encounter
--- OUTSIDE RECORDS SUMMARY | 2025-07-20 07:38 | XMS_ITS | Encounter Summary ---
Author Organization [facility] Sys tem Address [facility] [place][id number] [address] [place] [address] Care Team Providers Care Rigging Foreman Name Role Phone Belem Rodriguez BRICK TOSSER-PAYLOADER MACHINE OPERATOR Primary Care Provider + Encounter Details Date Type Department Care Team (Late st Contact Info) Description 08/26/2024 Orders Only [facility] Internal Medicine - Family Medicine [address] [place] [address] Ref Prov, [place] [address] Social History Tobacco Use Types Packs/Day Years [...] Medicine - Family Medicine [address] [place] [address] Belem Rodriguez APRN-CNP [address] [place] [address] documented as of this encounter Procedures Procedure [...] documented as of this encounter Care Teams Rigging Foreman Relationship Specialty Start Date End Date Belem Rodriguez APRN-ELIAZAR [address] [place] [address] PCP - General Internal Medicine 04/06/24 documented as of this encounter
--- NOTE | 2025-07-20 08:39 | ED.GENADUL1 ---
HPI HPI - General Adult General Chief complaint: Wound/Laceration Stated complaint: LOWER EXTREMITY INJURY - 07/19/2025 Time Seen by Provider: 07/20/25 08:35 Source: patient Mode of arrival: walk-in History of Present Illness HPI narrative: 70-year-old female presents to the emergency department for an injury to her right lower leg. This was sustained when she hit her leg on her car. Happened last evening. She has no recollection of her last tetanus immunization and believes it has been more than 10 years ago. No other injury was sustained. She is complaining of a headache and nausea from her nerves. Related Data Home Medications ?Medication ?Instructions ?Recorded ?Confirmed alendronate 70 mg tablet 70 mg PO .WEEKLY 05/25/25 05/25/25 amlodipine 10 mg tablet 10 mg PO DAILY 05/25/25 05/25/25 celecoxib 200 mg capsule 200 mg PO DAILY 05/25/25 05/25/25 cholecalciferol (vitamin D3) 1,250 50,000 unit PO .WEEKLY 05/25/25 05/25/25 mcg (50,000 unit) capsule escitalopram oxalate 20 mg tablet 20 mg PO DAILY 05/25/25 05/25/25 hydrochlorothiazide 12.5 mg tablet 12.5 mg PO Q12H 05/25/25 05/25/25 levothyroxine 50 mcg tablet 50 mcg PO DAILY 05/25/25 05/25/25 rosuvastatin 5 mg tablet 5 mg PO DAILY 05/25/25 05/25/25 Allergies Allergy/AdvReac Type Severity Reaction Status Date / Time No Known Drug Allergies Allergy Verified 05/25/25 09:23 Opioid HPI Opioid Management Most Recent Opioid Data: Last Pain Scale 1 Today, 07:41 Last ED Pain Assessment Today, 07:41 Review of Systems ROS Narrative A ten point review of systems is negative except as noted above. PFSH PFSH Social History Little interest or pleasure in doing things: not at all Feeling down, depressed, or hopeless: not at all Exam Narrative Exam Narrative: Nurses note and vital signs reviewed and patient is not hypoxic. General: The patient appears well and in no apparent distress. Patient is resting comfortably on cart. Skin: Warm, dry, no pallor noted. There is no rash noted. Head: Normocephalic, atraumatic Eye: Normal conjunctiva, no drainage Ears, Nose, Mouth, and Throat: oral mucosa is moist. Nares patent. Cardiovascular: Regular Rate and Rhythm Respiratory: Patient is in no distress, no accessory muscle use GI: Nontender Musculoskeletal: Skin tear present on her right lower leg anterolaterally no active bleeding or surrounding erythema or drainage or foreign bodies. Neurological: A&O, normal speech Psychiatric: Cooperative Constitutional Vital Signs, click to edit/add: Last Vital Signs Temp 98 F 07/20/25 07:33 Pulse 80 07/20/25 07:33 Resp 18 07/20/25 07:33 BP 150/85 H 07/20/25 07:33 Pulse Ox 99 07/20/25 07:33 O2 Del Method Room Air 07/20/25 07:33 Course Vital Signs Vital signs: Vital Signs Temperature 98 F 07/20/25 07:33 Pulse Rate 80 07/20/25 07:33 Respiratory Rate 18 07/20/25 07:33 Blood Pressure 150/85 H 07/20/25 07:33 Pulse Oximetry 99 07/20/25 07:33 Oxygen Delivery Method Room Air 07/20/25 07:33 Temperature 98 F 07/20/25 07:33 Pulse Rate 80 07/20/25 07:33 Respiratory Rate 18 07/20/25 07:33 Blood Pressure 150/85 H 07/20/25 07:33 Pulse Oximetry 99 07/20/25 07:33 Oxygen Delivery Method Room Air 07/20/25 07:33 Medical Decision Making MDM Narrative Medical decision making narrative: The patient has a skin tear and sutures are not indicated. Tetanus status was updated. The wound was cleansed and dressed. Treatment diagnosis and follow-up were discussed with the patient. Differential Diagnosis Differential Diagnosis: Skin care, laceration Discharge Plan Discharge Chief Complaint: Wound/Laceration Clinical Impression: Skin tear Patient Disposition: Home, Self-Care Time of Disposition Decision: 08:38 Condition: Good Mode of Transportation: Private Vehicle Prescriptions / Home Meds: No Action alendronate 70 mg tablet 70 mg PO .WEEKLY amlodipine 10 mg tablet 10 mg PO DAILY celecoxib 200 mg capsule 200 mg PO DAILY cholecalciferol (vitamin D3) 1,250 mcg (50,000 unit) capsule 50,000 unit PO .WEEKLY escitalopram oxalate 20 mg tablet 20 mg PO DAILY levothyroxine 50 mcg tablet 50 mcg PO DAILY rosuvastatin 5 mg tablet 5 mg PO DAILY hydrochlorothiazide 12.5 mg tablet 12.5 mg PO Q12H Print Language: [place] Additional Instructions: Leave dressing on for 48 hours. Remove and apply bandage daily. Referrals: RAYNA ORDONEZ [Primary Care Provider, Unknown] - 1 week
[2025-07-20] MEDS: DIPHTH,PERTUSS(ACELL),TET VAC 0.5 ML SYRINGE IM (08:58)
[2025-07-20] MEDS: IBUPROFEN 400 MG TABLET 800 MG PO (08:59)
[2025-07-20 09:05] VITALS: BP 135/79; PULSE 73; O2SAT 100
== END 2025-07-20 09:05 | disposition home or self-care (01) ==
PROVIDERS: Emergency Provider Emergency Medicine; PCP Nurse Practitioner Family
DX: S81.811A Laceration without foreign body, right lower leg, initial encounter (principal); W22.8XXA Striking against or struck by other objects, initial encounter; Z23 Encounter for immunization
CPT/HCPCS: 90471; 90715; 99284

== ENCOUNTER 2025-09-22 08:00 | Outpatient (OUT) | payer MEDICARE, SELFPAY ==
--- OUTSIDE RECORDS SUMMARY | 2025-09-22 08:05 | XMS_ITS | Clinical Summary ---
Author Organization [facility] Healthcare Address [address] [place] [address] Care Team Providers Care Show Dog Trainer Name Role Phone Unavailable Primary Care Provider Unavailabl e Allergies No known active allergies Medications MedicationSigDispense QuantityRefillsLast FilledStart DateEnd DateStatus amLODIPine (Norvasc) 10 MG tablet Take 10 mg by mouth in the morning.Active alendronate (Fosamax) 70 MG tablet Take 70 mg by mouth once a week5Active celecoxib (CeleBREX) 200 MG capsule Take 200 mg by mouth DailyActive levothyroxine (Synthroid, Levoxyl) 75 MCG tablet Take 75 mcg by mouth in the morning.Active rosuvastatin (Crestor) 5 MG tablet Take 5 mg by mouth Daily5Active cholecalciferol (Vitamin D-3) 1.25 MG (02728 UT) capsule Take by mouth 1 (one) time per weekActive Active Problems No known active problems Family History Medical HistoryRelationNameCommentsMelanomaNeg Hx Social History Tobacco UseTypesPacks/DayYears UsedDateSmoking Tobacco: Every DayCigarettes Smokeless Tobacco: Never Tobacco Cessation:Ready to Q uit: Not Asked; Counseling Given: Not Answered Alcohol UseStandard Drinks/WeekCommentsYes0 (1 standard drink = 0.6 oz pure alcohol)CommentsUnknownSex and Gender InformationValueDate RecordedSex Assigned at BirthNot on fileLegal ZptBdijeu72/15/2023 9:28 PM EDTGender Identity Not on fileSexual OrientationNot on file Last Filed Vital Signs Vital SignReadingTime TakenCommentsBlood Sxmcdtdi038/8504/ 12:00 PM EDT Pulse--Temperature--Respiratory Rate--Oxygen Saturation--Inhaled Oxygen Concentration--Uhvsum23.9 kg (154 lb)02/19/2019 12:00 PM CIHVvdcqh700.5 cm (5' 2 )02/19/2019 12:00 PM EDTBody Mass Index28.17002/19/2019 12:00 PM EDT Plan of Treatment Health MaintenanceDue DateLast DoneCommentsCT Sjbyvllfxmfb1957Colonoscopy 1957Colorectal Cancer [place]1957FIT-DNA1957FIT1955 FOBT1955 1522Uxodazrrcoqpf1957Pneumococcal Vaccine: 65+ Years (1 of 1 - PCV)2007COVID-19 Vaccine (3 - 2024- season)/, 02/22/2021Influenza Vaccine (#1)/, 08/28/2023, 07/28/2022, Additional history [id number] Insurance
--- OUTSIDE RECORDS SUMMARY | 2025-09-22 08:05 | XMS_ITS | CCD ---
Author Organization [facility] Inform ion Partnership [facility] Care Team Providers Care Radiology Receptionist Name Role Phone Sadie Raines Primary Care [...] KLYM, LAURYN Consulting Unavailable Nain Goodman Unavailable SADIE RAINES Referring Unavailable JAMARI COX Primary Care Unavailable MERY, BELEM Rubina Referring Unavailable MERY, BELEM L Primary Care Unavailable Mery CASHIER ASSISTANT-SERVOMECHANISM ASSEMBLER, Belem L Primary Care Provider Jamari Cox DO Primary Care Provider Unavailable Primary Care Provider UnavailKENDRA Flaherty Attending Unavailable Mery CASHIER ASSISTANT-SERVOMECHANISM ASSEMBLER, Belem L Primary Care Provider Mery CASHIER ASSISTANT-SERVOMECHANISM ASSEMBLER, Belem L Primary Care Provider MERY, BELEM L Attending Unavailable MERY, BELEM L Referring Unavailable MERY, BELEM L Primary Care Unavailable MERY, BELEM L Attending Unavailable MERY, BELEM L Referring Unavailable MERY, BELEM L Primary Care Unavailable MERY, BELEM L Attending Unavailable MERY, EBLEM L Referring Unavailable MERY, BELEM L Primary [...] Unavailable MERY, BELEM L Primary Care Unavailable Medications Current Medications MedicationDrug Class(es)DatesSig (Normalized)Sig (Original)alendronic acid 70 mg oral tablet (20 sources)BisphosphonateStart: 15-88-4334exmn 1 tablet by mouth every week alendronate (Fosamax) 70 MG tablet Take 70 mg by mouth once a week 12/20/2024 ActiveStart: 06-20-2023 End: 69-03-9975mtmd 1 tablet by mouth in the morningalendronate (FOSAMAX) 70 mg tablet Take 1 tablet (70 mg total) by mouth every 7 days. In a.m. with water on empty stomach, nothing else by mouth and remain upright for 30min 12 tablet 3 04/11/2025 ActiveamLODIPine 5 mg oral tablet (20 sources)Dihydropyridine Calcium Channel BlockerStart: 00-08-8924pkpa 1 tablet by mouth in the morningamLODIPine (NORVASC) 5 mg tablet Take 1 tablet (5 mg total) by mouth in the morning. 90 tablet 1 08/14/2025 ActiveStart: 09-22-2023 End: 79-45-9859kujg 1 tablet by mouth once dailyamLODIPine (NORVASC) 10 mg tablet Indications: Essential (primary) hypertension TAKE 1 TABLET BY MOUTH EVERY DAY 90 tablet 1 09/10/2024 07/03/2025 Discontinued (Patient Stopped On Own)Comment on above:Take 10 mg by mouth once daily.budesonide 3 mg delayed release oral capsule (20 sources)CorticosteroidStart: 08-10-2022 End: 22-76-0997uawh 1 capsule by mouth every twenty-four hours in the morning budesonide EC (ENTOCORT EC) 3 mg 24 hr capsule Indications: Collagenous colitis Take 1 capsule (3 mg total) by mouth in the morning. This is an updated prescription she does need right now. 90 capsule 1 08/10/2022 10/04/2024 Discontinued (Therapy completed)Start: 67-52-3925hkms 2 capsules by mouth every twenty-four hoursBudesonide 3 MG 2 capsules Orally Once a day for 30 days Dec, Activetake 3 mg by mouth once daily in the morning, then take 1 capsule by mouthbudesonide (ORTIKOS) 6 mg capsule, extended release Take 3 mg by mouth every morning. 0 ActiveComment on above:Take 3 mg by mouth every morning. carvedilol 12.5 mg oral tablet (18 sources)alpha-Adrenergic Bhupendra, beta-Adrenergic Bhupendra End: 34-21-5798atltvjkgtN (COREG) 12.5 mg tablet carvedilol 12.5 mg tablet 10/04/2024 Discontinued (Therapy completed)celecoxib 200 mg oral capsule (20 sources)Nonsteroidal Anti-inflammatory DrugStart: 11-20-2023 End: 52-72-9864atdx 1 capsule by mouth once daily as needed for paincelecoxib (CeleBREX) 200 mg capsule Take 1 capsule (200 mg total) by mouth daily as needed for pain. TAKE 1 CAPSULE BY MOUTH IN THE MORNING 90 capsule 1 04/21/2025 Active take 1 capsule by mouth every twelve hoursCeleBREX 200 MG 1 capsule with food Orally Twice a day Not-Taking/PRNComment on above:Take 200 mg by mouth twice daily.cholecalciferol 1.25 mg oral capsule (20 sources)Vitamin DStart: 53-07-5387llit 1 capsule by mouth every week cholecalciferol (VITAMIN D3) 50,000 units capsule Take 1 capsule (50,000 Units total) by mouth oncea week. 90 capsule 1 10/04/2024 Active End: 33-40-9257yhlz 1 capsule by mouth in the morningcholecalciferol (VITAMIN D3) 50,000 units capsule Take 1 capsule (50,000 Units total) by mouth in the morning. 10/04/2024 Discontinued (Reorder)cholecalciferol, vitamin D3, 125 mcg/0.5 mL (5K unit/0.5mL) drop Take by mouth. 0 ActiveComment on above:Take by mouth.cyclobenzaprine hydrochloride 10 mg oral tablet (20 sources)Muscle RelaxantStart: 06-03-2024 End: 73-85-8970wsqv 1 tablet by mouth in the morning, then take 1 tablet by mouth at bedtimecyclobenzaprine (FLEXERIL) 10 mg tablet Indications: Other chronic pain Take 1 tablet (10 mg total)by mouth in the morning and 1 tablet (10 mg total) before bedtime. 180 tablet 1 06/03/2024 10/04/2024 Discontinued (Patient Stopped On Own)Start: 55-78-6108ndqz 1 tablet by mouth in the morning, then take 1 tablet by mouth at bedtimecyclobenzaprine (FLEXERIL) 10 mg tablet Indications: Other chronic pain Take 1 tablet (10 mg total)by mouth in the morning and 1 tablet (10 mg total) before bedtime. 180 tablet 1 05/12/2023 ActiveCyclobenzaprine HCl Activetake 1 tablet by mouth every twelve hours as neededcyclobenzaprine (FLEXERIL) 10 mg tablet Take 10 mg by mouth twice daily as needed. 0 ActiveComment on above:Take 10 mg by mouth twice daily as needed. escitalopram 20 mg oral tablet (14 sources)Serotonin Reuptake InhibitorStart: 45-08-0163tkuh 1 tablet by mouth in the eveningescitalopram (LEXAPRO) 20 mg tablet Take 1 tablet (20 mg total) by mouth in the evening. 90 tablet 1 05/23/2025 ActiveStart: 04-11-2025 End: 10-95-0462aymk 1 tablet by mouth in the eveningescitalopram (LEXAPRO) 10 mg tablet Take 1 tablet (10 mg total) by mouth in the evening. 30 tablet 1 04/11/2025 05/23/2025 Discontinued (Therapy completed)hydroCHLOROthiazide 12.5 mg oral tablet (20 sources)Thiazide DiureticStart: 09-06-2024 End: 47-80-7861ybyf 1 tablet by mouth once dailyhydroCHLOROthiazide (HYDRODIURIL) 12.5 mg tablet Indications: Localized edema Take 1 tablet (12.5 mg total) by mouth daily. 90 tablet 1 09/06/2024 10/04/2024 Discontinued (Therapy completed)Start: 06-17-2023 End: 67-12-9880hzjg 1 tablet by mouth once dailyhydroCHLOROthiazide (HYDRODIURIL) 12.5 mg tablet Indications: Localized edema take 1 tablet by mouth once daily 90 tablet 1 12/26/2023 09/03/2024 Discontinued (Reorder)take 1 tablet by mouth once dailyhydroCHLOROthiazide (HYDRODIURIL, ESIDRIX) 12.5 mg tablet Take 12.5 mg by mouth once daily. 0 ActiveComment on above:Take 12.5 mg by mouth once daily.Hydrochlorothiazide-12.5 mg 12.5 mg (4 sources)take 1 tablet by mouth once dailyHydrochlorothiazide-12.5 mg 12.5 mg 1 tablet Orally Once a day Activelosartan potassium 100 mg oral tablet (1 source)Angiotensin 2 Receptor BlockerStart: 25-83-8970fick 1 tablet by mouth in the morninglosartan (COZAAR) 100 mg tablet Take 1 tablet (100 mg total) by mouth in the morning. 90 tablet 1 08/14/2025 ActivePotassium (4 sources)Potassium Activepotassium chloride 20 meq extended release oral tablet (20 sources)Start: 05-20-2023 End: 08-36-9682fsiflkoxn chloride (K-TAB,KLOR-CON) 20 mEq CR tablet Indications: Adverse effect of unspecified drugs, medicaments and biological substances, subsequent encounter Take 1 tablet (20 mEq total) by mouth in the morning. 90 tablet 1 03/04/2024 10/04/2024 Discontinued (Therapy completed)Start: 08-10-2022 End: 09-46-8881ajsu 2 tablets by mouth in the morningpotassium chloride (KLOR- CON M 20) 20 MEQ CR tablet Indications: Hypokalemia Take 2 tablets (40 mEqtotal) by mouth in the morning. 180 tablet 1 08/10/2022 11/20/2023 Discontinued (Duplicate Listing)take 1 tablet by mouth twice daily, then take 1 tablet by mouthpotassium chloride (KLOR-CON 10) 10 mEq tablet Take 10 mEq by mouth twice daily. 0 ActiveComment on above:Take 10 mEq by mouth twice daily.rosuvastatin calcium 5 mg oral tablet (20 sources)HMG-CoA Reductase InhibitorStart: 64-98-8022sdhx 1 tablet by mouth in the morningrosuvastatin (CRESTOR) 5 mg tablet Indications: Hyperlipidemia, unspecified Take 1 tablet (5 mg total) by mouth in the morning. 90 tablet 3 03/31/2025 ActiveStart: 11-18-2022 End: 56-12-2031asig 1 tablet by mouth once dailyrosuvastatin (CRESTOR) 5 mg tablet Indications: Hyperlipidemia, unspecified take 1 tablet by mouth once daily 90 tablet 3 12/26/2023 03/26/2025 Discontinued (Reorder)sucralfate 1000 mg oral tablet (1 source)Aluminum ComplexStart: 08-22-2024 End: 69-39-8067oucj 1 tablet by mouth every six hours as neededsucralfate (CARAFATE) 1 gram tablet Take 1 tablet (1 g total) by mouth every 6 (six) hours as needed. 08/22/2024 10/04/2024 Discontinued (Discontinued by another clinician)triamcinolone acetonide 5 mg/ml topical cream (12 sources)CorticosteroidStart: 03-01-2024 End: 73-45-7370iuapoyuwcbmks (KENALOG) 0.5 % cream Apply 1 Application topically in the morning and 1 Application before bedtime. 30 g 03/01/2024 10/04/2024 Discontinued (Patient Stopped On Own)Vitamin D3 (4 sources)Vitamin D3 Active Completed/Discontinued Medications MedicationDrug Class(es)DatesSig (Normalized)Sig (Original)Cholestyramine Resin (4 sources)Bile Acid SequestrantPrevalite prn Not-Taking/PRNPrevalite prn Not-Takingdextromethorphan hydrobromide 30 mg / pyrilamine maleate 30 mg oral tablet (5 sources)Uncompetitive P-rsgvwa-N-aspartate Receptor Antagonist, Sigma-1 AgonistStart: 57-91-3541Yjdedv DMT 30-30 MG 1 tablet Orally every 6-8 hours for 7 days Aug, Not-Taking/PRNpyrilamine-dextromethorphan (CAPRON DMT) 30-30 mg tab Take by mouth. 0 ActiveComment on above:Take by mouth.fluticasone furoate 0.0275 mg/actuat metered dose nasal spray (1 source)Corticosteroidtake 2 spray(s) nasal route once dailyFluticasone Furoate 27.5 mcg/actuation nasal spray Use 2 Sprays in each nostril once daily. 0 ActiveComment on above:Use 2 Sprays in each nostril once daily.lactic acid 50 mg/ml topical lotion (2 sources) End: 20-48-3648bdvtsvsx lactate (LAC-HYDRIN FIVE) 5 % lotion Apply topically. 0 11/20/2023 Discontinued (Therapy completed)Comment on above:Apply to affected area as needed.levothyroxine sodium 0.05 mg oral tablet (20 sources)l-ThyroxineStart: 04-14-2025 End: 60-92-4612falp 1 tablet by mouth in the morninglevothyroxine (SYNTHROID, LEVOTHROID) 50 MCG tablet Take 1 tablet (50 mcg total) by mouth in the morning. 90 tablet 1 04/14/2025 07/07/2025 Discontinued (Therapy completed)Start: 06-03-2024 End: 01-60-2362dpvw 1 tablet by mouth in the morninglevothyroxine (SYNTHROID, LEVOTHROID) 75 MCG tablet Indications: Acquired hypothyroidism TAKE 1 TABLET BY MOUTH IN THE MORNING 90 tablet 1 11/28/2024 ActiveStart: 12-01-2022 End: 47-83-6388cqwn 1 tablet by mouth in the morninglevothyroxine (SYNTHROID, LEVOTHROID) 75 MCG tablet Indications: Acquired hypothyroidism Take 1 tablet (75 mcg total) by mouth in the morning. 90 tablet 1 11/20/2023 Activetake 1 tablet by mouth once daily before breakfastlevothyroxine (LEVOXYL) 50 mcg tablet Take 50 mcg by mouth daily before breakfast. 0 ActiveComment on above:Take 50 mcg by mouth daily before breakfast.lidocaine 0.05 mg/mg medicated patch (1 source)Antiarrhythmic, Amide Local AnestheticStart: 05-25-2023 End: 78-07-3504cgwln 1 dose transdermal route once daily, then apply 1 dose transdermal route every twelve hourslidocaine (LIDODERM) 5 % Place 1 patch on the skin daily. Remove & Discard patch within 12 hours or as directed by MD Dumas patch 1 05/25/2023 11/20/2023 Discontinued (Therapy completed)lisinopril 40 mg oral tablet (7 sources)Angiotensin Converting Enzyme InhibitorStart: 07-03-2025 End: 47-69-0380nfci 1 tablet by mouth in the morninglisinopriL (PRINIVIL,ZESTRIL) 40 mg tablet Take 1 tablet (40 mg total) by mouth in the morning. 90 tablet 1 07/03/2025 08/14/2025 Discontinued (Side effects)Start: 05-29-2025 End: 65-51-3643wloa 1 tablet by mouth in the morninglisinopriL (PRINIVIL,ZESTRIL) 20 mg tablet Take 1 tablet (20 mg total) by mouth in the morning. 30 tablet 1 05/29/2025 07/03/2025 Discontinued (Patient Stopped On Own) LORazepam 0.5 mg oral tablet (5 sources)BenzodiazepineStart: 04-11-2025 End: 64-96-7636mqeh 1 tablet by mouth once daily as needed for anxietyLORazepam (ATIVAN) 0.5 mg tablet Indications: Anxiety Take 1 tablet (0.5 mg total) by mouth daily as needed for anxiety. 7 tablet 04/11/2025 05/23/2025 Discontinued (Patient Stopped On Own)sulfaSALAzine 500 mg delayed release oral tablet (3 sources)Aminosalicylate End: 16-37-9809opto 1 tablet by mouth in the morningsulfaSALAzine (AZULFIDINE) 500 mg EC tablet Take 1 tablet (500 mg total) by mouth in the morning. Diarrhea - from GI . 11/08/2024 Discontinued (Patient Stopped On Own) Problems Active Problems Problem ClassificationProblemDateDocumented DateEpisodic/ChronicAbdominal hernia (7 sources)Hiatal hernia; Translations: [Diaphragmatic hernia without obstruction or gangrene]Onset: 629171-75-9199SuxbvlyaZjecrck disorders (5 sources)Anxiety; Translations: [Anxiety disorder, unspecified]Onset: 448712-45-2732UhegidmZtzupjmxc of lipid metabolism (20 sources)Mixed hyperlipidemia; Translations: [Hyperlipidemia]Onset: 080695-63-5425NuiaqgaYorbuajfv hypertension (20 sources)Essential (primary) hypertension; Translations: [Essential hypertension]Onset: 393167-24-7632EzwhzzqEfdzxgnkudsdd and screening for infectious disease (3 sources)Influenza vaccination given; Translations: [Encounter for immunization]Onset: 191003-59-3536GttonjulFgzggtereyirl gastroenteritis (20 sources)Collagenous colitis; Translations: [Collagenous colitis]Onset: 07-08-2019 Resolved: 48-66-1790RsgwgfvZyladavuaat deficiencies (20 sources)Vitamin D deficiency, unspecified; Translations: [Vitamin D deficiency]Onset: 14-77-6089YtcmgxbIcjlryhswdmx (1 source)Senile osteoporosis; Translations: [Age-related osteoporosis without current pathological fracture]58-80-8823KrzcwhjKajmo diseases of veins and lymphatics (2 sources)Disorder of vein of lower extremity; Translations: [Venous insufficiency (chronic) (peripheral)]83-37-0067KibtbqtaFcwib gastrointestinal disorders (4 sources)Incontinence of feces; Translations: [Full incontinence of feces] EpisodicOther screening for suspected conditions (not mental disorders or infectious disease) (12 sources)Other abnormal and inconclusive findings on diagnostic imaging of breast; Translations: [Encounter for screening mammogram for malignant neoplasm of breast]Onset: 76-12-4170JalyiwmxVlmby skin disorders (2 sources)Inflamed seborrheic keratosis; Translations: [Inflamed seborrheic keratosis]92-09-6305MjcourpnFkavqrcxc-related disorders (20 sources)Tobacco dependence syndrome; Translations: [Nicotine dependence, unspecified, uncomplicated]Onset: 879659-65-5644HbskikbHntvzbs disorders (20 sources)Hypothyroidism, unspecified; Translations: [Acquired hypothyroidism] Onset: 06-24-2020 Resolved: 658593-95-3887NtcudtxQekomelzyboq (2 sources)LOW BACK PAIN, UNSPECIFIED; Translations: [LOW BACK PAIN, UNSPECIFIED]Onset: 60-93-7126Cbtvrosyxvtz (1 source)BP checkOnset: 11-08-2024 Past or Other Problems Problem ClassificationProblemDateDocumented DateEpisodic/ChronicAcute and unspecified renal failure (20 sources)Acute renal failure syndrome; Translations: [Acute kidney failure, unspecified]Onset: 700404-31-4165GhvsmhzcFevkqros reactions (1 source)Eczema; Translations: [Other specified dermatitis]66-13-3553Njaetkfr Coagulation and hemorrhagic disorders (20 sources)Spontaneous ecchymosis; Translations: [Spontaneous ecchymoses]Onset: 789619-54-6281EbvtptusY Codes: Adverse effects of medical drugs (3 sources)Adverse reaction to drug; Translations: [Adverse effect of unspecified drugs, medicaments and biological substances, subsequent encounter] 44-70-0576ByuhxyglBefpw and electrolyte disorders (20 sources)Hyperkalemia; Translations: [Hypokalemia]Onset: EpisodicMood disorders (20 sources)Mood disordersOnset: 11-08-2024 Resolved: 156757-69-7536Oxwipsrbzqzdh gastroenteritis (20 sources)Chronic non-specific colitis; Translations: [Noninfective gastroenteritis and colitis, unspecified]Onset: 621740-05-3460Erymfzaq Other aftercare (1 source)Other usp (current) drug therapy; Translations: [OTH USP CURRENT DRUG THERAPY]Onset: 83-79-0497PamrnxnwRsggr fractures (20 sources)Closed fracture of multiple ribs; Translations: [Multiple fractures of ribs, right side, subsequentencounter for fracture with routine healing] Onset: 023223-97-7978WskkitddUwhst gastrointestinal disorders (20 sources)Diarrhea; Translations: [Diarrhea, unspecified]Onset: 06-28-2019 16-76-7888KmpakmprAuemrpjdudpt fracture (20 sources)Pathological fracture due to osteoporosis; Translations: [Age- related osteoporosis with current pathological fracture, unspecified site, subsequent encounter for fracture with routine healing]Onset: 06-20-2023 12-78-6165ZqomjgsuCjbiaqpg codes; unclassified (2 sources)Localized edema; Translations: [Localized edema]41-83-5332Vvkteija Screening and history of mental health and substance abuse codes (2 sources)Personal history of nicotine dependence; Translations: [Patient encounter status]Onset: 041324-10-0034ZnnufxwuGrsdekvnalm; intervertebral disc disorders; other back problems (20 sources)Chronic neck pain; Translations: [Cervicalgia]Onset: 06-23-2020 70-55-6472QmmihbelScwxnju and strains (1 source)Strain of muscle, fascia and tendon of lower back, initial encounter; Translations: [STRAIN MUSC FASC TENDON LW BACK INT]Onset: 46-45-2928Msnopktt Unclassified (1 source)LOW BACK PAIN, UNSPECIFIED; Translations: [LOW BACK PAIN, UNSPECIFIED] Onset: 11-28-2021 Results Test NameValueInterpretationReference RangeFacilityTHYROID ANTIBODIES INCLUDES TPO AND TGABon 06-35-7192Uavzqlewkejde Ab Qn[IU]/mLNormal<4ProC[facility] Ambulatory PPGComment on above:Performed By: #### THYRAB #### [facility] ([facility]) [address] [place] [address] VIRTPO Ab Qn[IU]/mLNormal<10ProCincinnati Va [facility] Center Ambulatory PPG Comment on above:Performed By: #### THYRAB #### [facility] ([facility] [place]) [address] [place] [address] VIRTHYROID PROFILE INCLUDES TSH FT4on 54-95-0147Lxre T4 [Mass/Vol]0.77 ng/dLNormal0.61-1.60[facility] Ambulatory PPGComment on above:Performed By: #### THYR #### [facility] ([facility] [place]) [address] [place] [address] VIRTSH1.88 uIU/mLNormal0.49-4.67[facility] Ambulatory PPGComment on above:Performed By: #### THYR #### [facility] ([facility] [place]) [address] [place] [address] VIRThyroid antibodies includes TPO and TGABon 08-14-2025 Interpretation and review of laboratory resultsNormalUniversity [facility]als [facility] System Thyroglobulin Ab [facility] SystemTPO Ab QINFFroedtert West Bend Hospital SystemThyroid profile includes TSH FT4on 34-26-5057Yypp T4 [Mass/Vol]0.77 ng/dL0.61 - 1.60 ng/dLUniversity Hospitals Lake [facility] SystemInterpretation and review of laboratory resultsNormReplaced by [facility] Qn1.88 m[IU]/L [facility] HospitalTHYROID PROFILE INCLUDES TSH FT4on 03-92-6628Xkyo T4 [Mass/Vol]1.09 ng/dLNormal0.61-1.60[facility] Ambulatory PPGComment on above:Performed By: #### THYR #### [facility] ([facility] [place]) [address] [place] [address] VIRTSH0.25 uIU/mLLow0.49-4.67[facility] PPG Comment on above:Performed By: #### THYR #### [facility] ([facility] [place]) [address] [place] [address] VIRThyroid profile includes TSH FT4on 35-54-1448Toew T4 [Mass/Vol]1.09 ng/dL0.61 - 1.60 ng/dLSelect Medical [facility] Clinic Rehabilitation Hospital, Edwin ShawInterpretation and review of laboratory resultsAbCentral [facility] Qn0.25 m[IU]/LLow [facility] HospitalBASIC METABOLIC PANELon 04-11-2025 Anion gap [Moles/Vol]8 mmol/LNormal5-15[facility] Ambulatory PPGComment on above:Performed By: #### BMP #### [facility] ([facility] [place]) [address] [place] [address] VIRCalcium [Mass/Vol]10.3 mg/dLNoal8.5-10.5PHenry County Hospital Ambulatory PPGComment on above:Performed By: #### BMP #### [facility] ([facility] [place]) [address] [place] [address] VIRChloride [Moles/Vol]99 mmol/OFpspwg04-767AdwHdijju Hospital Ambulatory PPGComment on above:Performed By: #### BMP #### [facility] ([facility] [place]) [address] [place] [address] VIRCO2 [Moles/Vol]31 mmol/WSdxulx47-67LjzPypsiv Hospital Ambulatory PPGComment on above:Performed By: #### BMP #### [facility] ([facility] [place]) [address] [place] [address] VIRCreatinine [Mass/Vol]0.65 mg/dLNormal0.40-1.00[facility] Ambulatory PPGComment on above:Result Comment: METHOD TRACEABLE TO IDMS STANDARDPerformed By: #### BMP #### [facility] ([facility] [place]) [address] [place] [address] VIREGFR (CKD-EPI) NON-RACE DEPENDENT>^90Normal>=60ProC[facility] Ambulatory PPGComment on above:Result Comment: Reported eGFR is based on the CKD-EPI 2020 equation that does not use a race coefficient.Performed By: #### BMP #### [facility] ([facility] [place]) [address] [place] [address] VIRGlucose [Mass/Vol]103 mg/bMDhhv23-78VkpZlurhc Hospital Ambulatory PPGComment on above:Performed By: #### BMP #### [facility] ([facility] [place]) [address] [place] [address] VIRPotassium [Moles/Vol]4.6 mmol/LNormal3.5-5.0[facility] Ambulatory PPGComment on above:Performed By: #### BMP #### [facility] ([facility] [place]) [address] [place] [address] VIRSodium [Moles/Vol]138 mmol/JBwjxyl213-171OhsMmvlrj Hospital Ambulatory PPGComment on above:Performed By: #### BMP #### [facility] ([facility] [place]) [address] [place] [address] VIRUrea nitrogen [Mass/Vol]11 mg/dLNormal5-27[facility] Ambulatory PPGComment on above:Performed By: #### BMP #### [facility] ([facility] [place]) [address] [place] [address] VIRTHYROID PROFILE INCLUDES TSH FT4on 59-45-4040Vxbn T4 [Mass/Vol]1.16 ng/dLNormal0.61-1.60ProC[facility] Ambulatory PPGComment on above:Performed By: #### THYR #### [facility] ([facility] [place]) [address] [place] [address] VIRTSH0.33 uIU/mLLow0.49-4.67ProC[facility] Ambulatory PPG Comment on above:Performed By: #### THYR #### [facility] ([facility] [place]) [address] [place] [address] VIRNo Panel Informationon 46-85-7973GGRV HealthcareBASIC METABOLIC PANLon 80-29-3213Aexct gap [Moles/Vol]10 mmol/LNormal5-15ProWvumedicine Harrison [facility] HospitalComment on above:Performed By: #### YAW, 6-3, 3024-7 #### [facility] ([id number]) [address] [address] [place], [place] [address]Iqormko [Mass/Vol]9.2 mg/dLNormal8.5-10.5ProMedLicking Memorial HospitalComment on above:Performed By: #### YAW, 3015-3, 302-7 #### [facility] ([id number]) [address] [address] [place], [place] [address]Fxvlevfe [Moles/Vol]100 mmol/VDzmarp62-891XlxOesjzd [place] HospitalComment on above:Performed By: #### YAW, 3016-3, 302-7 #### [facility] ([id number]) [address], [address] [place], [place] [address]VQ0 [Moles/Vol]27 mmol/ANbquqb75-19QswJdsqfcEast [place] [facility] Comment on above:Performed By: #### YAW, 6-3, 3024-7 #### [facility] ([id number]) [address], [address] [place], [place] [address]Tafsaruncm [Mass/Vol]0.63 mg/dLNormal0.40-1.00ProBrecksville Va / Crille Hospitalca [place] HospitalComment on above:Result Comment: METHOD TRACEABLE TO IDMS STANDARD Performed By: #### YAW, 3015-3, 3023-7 #### [facility] ([id number]) [address] [address] [place] [address]fDSZ (CKD-EPI) NON-RACE DEPENDENT>90Normal>59[facility] [place] HospitalComment on above:Result Comment: Reported eGFR is based on the CKD-EPI 2020 equation that does not use a race coefficient.Performed By: #### YAW, 3015-3, 3023-7 #### [facility] ([id number]) [address], [facility] [address] [place], [place] [address]Lzjiyes [Mass/Vol]100 mg/iALwdy35-17OrfSeswsb [facility] Comment on above:Performed By: #### YAW, 3, 3023- #### [facility] ([id number]) [address], [facility] [address] [place], [place] [address]Jhkgnwsdr [Moles/Vol]4.2 mmol/LNormal3.5-5.0ProBrecksville Va / Crille Hospitalca [place] HospitalComment on above:Performed By: #### YAW, 3015-3, 7 #### [facility] ([id number]) [address] [address] [place], [place] [address]Rnmjxe [Moles/Vol]137 mmol/NRwsfng890-361JutGzdjrm [place] HospitalComment on above:Performed By: #### YAW, 3015-3, 3023-7 #### [facility] ([id number]) [address], [facility] [address] [place], [place] [address]Kkga nitrogen [Mass/Vol]11 mg/dLNormal5-27ProBrecksville Va / [facility] Hospitalca [place] HospitalComment on above:Performed By: #### YAW, 3015-3, 3023-7 #### [facility] ([id number]) [address], [address] [place] [address]EEGL T4on 87-58-0790Ydxa T4 [Mass/Vol]1.29 ng/dLNormal0.61-1.60 [facility] [place] HospitalComment on above:Performed By: #### YAW, 3016-3, 3024-7 #### [facility] ([id number]) [address], [address] [place] [address]UPL Qnon 59-13-8328LDW0.86 uIU/mLNormal0.49-4.67[facility] [place] HospitalComment on above:Performed By: #### YAW, 3016-3, 3024-7 #### [facility] ([id number]) [address], [address] [place] [address]UICAEHJRAHDRY METABOLIC PANELon 76-28-2538Iynunia [Mass/Vol]5.0 g/dLNormal3.2-5.3[facility] [place] HospitalComment on above:Performed By: #### ELIZABETH, 87310-9, THYR #### [facility] ([id number]) [address], [address] [place] [address]VST [Catalytic activity/Vol]89 U/VNdnpgw79-294MkaTwwurt [place] HospitalComment on above:Performed By: #### ELIZABETH, 60445-8, THYR #### [facility] ([id number]) [address], [address] [place] [address]XLI [Catalytic activity/Vol]24 U/LNormal0-31[facility] [place] HospitalComment on above:Performed By: #### ELIZABETH, 44547-8, THYR #### [facility] ([id number]) [address], [address] [place] [address]Ygomx gap [Moles/Vol]10 mmol/LNormal5-15[facility] [place] HospitalComment on above:Performed By: #### ELIZABETH, 51586-7, THYR #### [facility] ([id number]) [address], [address] [place], [place] [address]HWJ [Catalytic activity/Vol]25 U/LNormal0-41[facility] [place] HospitalComment on above:Performed By: #### ELIZABETH, 29415-8, THYR #### [facility] ([id number]) [address], [address] [place], [place] [address]Pblcmdtbq [Mass/Vol]0.8 mg/dLNormal0.3-1.2[facility] [place] HospitalComment on above:Performed By: #### ELIZABETH, 89575-0, THYR #### [facility] ([id number]) [address], [address] [place], [place] [address]Fsfkdwx [Mass/Vol]10.0 mg/dLNormal8.5-10.5[facility] [place] HospitalComment on above:Performed By: #### ELIZABETH, 34712-4, THYR #### [facility] ([id number]) [address], [address] [place], [place] [address]Zjdzzixl [Moles/Vol]102 mmol/XArisck21-612JeuTgxzym [place] HospitalComment on above:Performed By: #### ELIZABETH, 61514-1, THYR #### [facility] ([id number]) [address], [address] [place], [place] [address]DR7 [Moles/Vol]27 mmol/EWkvtud59-22JxaSrspeb [facility] Comment on above:Performed By: #### ELIZABETH, 24066-7, THYR #### [facility] ([id number]) [address], [address] [place], [place] [address]Vnwheurcfs [Mass/Vol]0.60 mg/dLNormal0.40-1.00[facility] [place] HospitalComment on above:Result Comment: METHOD TRACEABLE TO IDMS STANDARD Performed By: #### ELIZABETH, 71758-9, THYR #### [facility] ([id number]) [address], [address] [place], [place] [address]oHIF (CKD-EPI) NON-RACE DEPENDENT>90Normal>59ProBlanchard Valley Health System [place]uff[place] HospitalComment on above:Result Comment: Reported eGFR is based on the CKD-EPI 2020 equation that does not use a race coefficient.Performed By: #### ELIZABETH, 48394-1, THYR #### [facility] ([id number]) [address], [address] [place], [place] [address]Mxwsxtr [Mass/Vol]91 mg/yZRnngcx75-31MxaUfahkw [facility] Comment on above:Performed By: #### ELIZABETH, 60973-8, THYR #### [facility] ([id number]) [address], [address] [place], [place] [address]Ityspnfra [Moles/Vol]5.4 mmol/LHigh3.5-5.0ProBlanchard Valley Health System Bluffton HospitalComment on above:Performed By: #### ELIZABETH, 35654-7, THYR #### [facility] ([id number]) [address], [address] [place], [place] [address]Bpjkbwv [Mass/Vol]8.0 g/dLNormal6.0-8.0[facility] Comment on above:Performed By: #### ELIZABETH, 08864-9, THYR #### [facility] ([id number]) [address], [address] [place], [place] [address]Dvqglz [Moles/Vol]139 mmol/JWmtjcr629-352MtnUtalrq [place] HospitalComment on above:Performed By: #### ELIZABETH, 15282-3, THYR #### [facility] ([id number]) [address], [address] [place], [place] [address]Qrfc nitrogen [Mass/Vol]10 mg/dLNormal5-27ProBlanchard Valley Health System [place]uff[place] HospitalComment on above:Performed By: #### ELIZABETH, 83812-6, THYR #### [facility] ([id number]) [address] [facility], [address] [place], [place] [address]Nbwtghjkspytm metabolic panelon 27-22-3367Nxdottl [Mass/Vol]5.0 g/dL3.2 - 5.3 g/dLProBrecksville Va / Cr[facility] Hospitalca Health SystemALP [Catalytic activity/Vol]89 U/L39 - 130 U/LProMedica Health SystemALT No additional P-5'-P [Catalytic activity/Vol] 24 U/L0 - 31 U/LProMedica Health SystemAnion gap [Moles/Vol]10 mmol/L5 - 15 mmol/LProMedica Health SystemAST [Catalytic activity/Vol]25 U/L0 - 41 U/L [facility] Health SystemBilirubin [Mass/Vol]0.8 mg/dL0.3 - 1.2 mg/dLProBrecksville Va / Crille Hospitalca Health SystemCalcium [Mass/Vol]10.0 mg/dL8.5 - 10.5 mg/dLProNorth[facility] Chloride [Moles/Vol]102 mmol/L98 - 109 mmol/LProMedica Health SystemCO2 [Moles/Vol]27 mmol/L22 - 32 mmol/LProMedica Health SystemCreatinine [Mass/Vol] 0.60 mg/dL0.40 - 1.00 mg/dLUniversity Hospitals Lake West [facility] Center SystemComment on above:METHOD TRACEABLE TO [facility] STANDARDeGFR (CKD-EPI)non-race dependent- [facility] SystemComment on above: Reported eGFR is based on the CKD-EPI 2020 equation that does not use a race coefficient. Glucose [Mass/Vol]91 mg/dL65 - 99 mg/dLUniversity Hospitals Lake West [facility] Center SystemInterpretation and review of laboratory resultsAbnormalProBrecksville Va / Crille Hospitalca Health SystemPotassium [Moles/Vol]5.4 mmol/LHigh3.5 - 5.0 mmol/LProMedica Health SystemProtein [Mass/Vol]8.0 g/dL6.0 - 8.0 g/dLProBrecksville Va / Crille Hospitalca Health SystemSodium [Moles/Vol]139 mmol/L134 - 146 mmol/LProMedica Health SystemUrea nitrogen [Mass/Vol]10 mg/dL5 - 27 mg/dLUniversity Hospitals Lake [facility] SystemLipid 1996 panelon 59-94-7076Vtyasydeade [Mass/Vol]190 mg/dL150 - 200 mg/dLSelect Medical Cleveland Clinic Rehabilitation Hospital, Edwin ShawCholesterol in HDL [Mass/Vol]109 mg/dL39 - PINF mg/dLSelect Medical [facility] Clinic Rehabilitation Hospital, Edwin ShawComment on above: HDL <40 mg/dL - High Risk HDL > or = 40mg/dL- Desirable HDL >60 mg/dL - Negative Risk Cholesterol in LDL [Mass/Vol]66 mg/dLNINF - 130 mg/dLSelect Medical [facility] Comment on above: LDL <100 mg/dL - Desirable LDL >160 mg/dL - High Risk Cholesterol in VLDL [Mass/Vol]15 mg/dL0 - 30 mg/dLSelect [facility] Cholesterol.total/Cholesterol in HDL [Mass ratio]1.7 {ratio}1.0 - 5.0[facility], Edwin ShawTriglyceride [Mass/Vol]73 mg/dL27 - 150 mg/dLSelect Medical [facility] Rehabilitation Hospital, Edwin ShawCholesterol [Mass/Vol]190 mg/nLAtlcly517-471FfrKrqkfuMercy Health Tiffin Hospital Comment on above:Performed By: #### ELIZABETH, 15920-8, THYR #### [facility] ([id number]) [address] [facility] [place], [place] [address]Neqmwocbjpz in HDL [Mass/Vol]109 mg/dLNormal>39ProBlanchard Valley Health System [place]uff[place] HospitalComment on above:Result Comment: HDL <40 mg/dL - High Risk HDL > or = 40mg/dL- Desirable HDL >60 mg/dL - Negative Risk Performed By: #### ELIZABETH, 38649-1, THYR #### [facility] ([id number]) [address], [address] [place], [place] [address]Kzoejmdedmx in LDL [Mass/Vol]66 mg/dLNormal<130Pro[facility]ica [place] HospitalComment on above:Result Comment: LDL <100 mg/dL - Desirable LDL >160 mg/dL - High Risk Performed By: #### ELIZABETH, 15679-7, THYR #### [facility] ([id number]) [address], [address] [place], [place] [address]Fzjqvdgvbra in VLDL [Mass/Vol]15 mg/dLNormal0-30[facility] [place] HospitalComment on above:Performed By: #### ELIZABETH, 60400-9, THYR #### [facility] ([id number]) [address], [address] [place], [place] [address]DRKOQBKRYIX:HDL1.2Yaeryz3.0-5.0[facility] [place] HospitalComment on above:Performed By: #### ELIZABETH, 15348-5, THYR #### [facility] ([id number]) [address], [address] [place], [place] [address]Vylyybmtyzvc [Mass/Vol]73 mg/nRAvsecy76-929XgfLfbwev [facility] HospitalComment on above:Performed By: #### ELIZABETH, 18548-1, THYR #### [facility] ([id number]) [address], [address] [place], [place] [address]Re Panel Informationon 92-39-6918UolEvqtynHolzer HospitalTHYROID PROFILEon 72-27-6362Tbdu T4 [Mass/Vol]0.68 ng/dLNormal0.61-1.60[facility] HospitalComment on above:Performed By: #### ELIZABETH, 78321-2, THYR #### [facility] ([id number]) [address] [facility] [place], [place] [address]FHU1.97 uIU/mLNormal0.49-4.67[facility]iffin HospitalComment on above:Performed By: #### CMP, 13143-5, THYR #### [facility] ([id number]) [address] [place], [place] [address]Xyujwkh profile includes TSH FT4on 87-47-2634Kjfh T4 [Mass/Vol] 0.68 ng/dL0.61 - 1.60 ng/dLSelect Medical [facility] Clinic Rehabilitation Hospital, Edwin ShawTS Qn0.97 m[IU]/LProMedMercy Health Perrysburg Hospital SystemProAdena Health System SystemFREE T4on 79-27-9546Zxok T4 [Mass/Vol]0.86 ng/dLNormal0.76-1.46The [facility] Hospital - ColumbusComment on above:Performed By: #### VITAD, FT4 #### [facility] Laboratory [address] [address] [address] Shara HusseinLIPID PROFILEon 72-35-2833BING-HDL RATIO NORMSMorrow County HospitalComment on above:Result Comment: 3.3 - 4.4 LOW RISK 4.4 - 7.1 AVERAGE RISK 7.1 - 11.0 MODERATE RISK >11.0 HIGH RISKPerformed By: #### LIPID, TSH, CMP ####[facility] [address] [place], [place] [address]Kn. Shara ChangCholesterol [Mass/Vol]238 mg/dLCritically high<=200The [facility] Hospital - ColumbusComment on above:Performed By: #### LIPID, TSH, CMP ####[facility] [address] [place], [place] [address]ThBrittany Olmedo ChangCholesterol in HDL [Mass/Vol]152 mg/dLCritically frci55-44Jvw [facility] ColumbusComment on above:Performed By: #### LIPID, TSH, CMP ####[facility] [address] [place] [address]DrBrittany Olmedo ChangCholesterol in LDL [Mass/Vol]57.0 mg/dLNormalThe [facility] Comment on above:Performed By: #### LIPID, TSH, CMP ####[facility] [address] [place] [address]Dr. Shara Hussein Cholesterol.total/Cholesterol in HDL [Mass ratio]1.6 {ratio}NormalDelaware County HospitalComment on above:Performed By: #### LIPID, TSH, CMP ####[facility] [address] [place] [address]Dr. Shara HusseinHDL NORMAL> or = 60 mg/dl - LOW CARDIOVASCULAR RISK <40 mg/dl - HIGH CARDIOVASCULAR RISKNoMercy HospitalComment on above:Performed By: #### LIPID, TSH, CMP ####[facility] [address] [place], [place] [address]Dr. Shara HusseinLDL CALC NORMALSEE BELOWRegency Hospital Cleveland EastComment on above: Result Comment: <100 mg/dl OPTIMAL 100 - 129 mg/dl NEAR OR ABOVE OPTIMAL 130 - 159 mg/dl BORDERLINE HIGH 160 - 189 mg/dl HIGH >190 mg/dl VERY HIGHPerformed By: #### LIPID, TSH, CMP ####[facility] [address] [place], [place] [address]Dr. Shara HusseinTriglyceride [Mass/Vol]145 mg/dLNormal <=150The [facility] Hospital - ColumbusComment on above:Performed By: #### LIPID, TSH, CMP ####[facility] [address] [place], [place] [address]Dr. Shara HusseinVLDL CALC29.0 mg/dLNormOhioHealth Grove City Methodist HospitalComment on above: Performed By: #### LIPID, TSH, CMP ####[facility] [address] [place] [address]Dr. Shara HusseinPROF 14(COMP METB)on 08-03-2022 Albumin [Mass/Vol]4.0 g/dLNormal3.4-5.0The [facility] Hospital - ColumbusComment on above: Performed By: #### LIPID, TSH, CMP ####[facility] In[address]ft[address] [place], [place] [address]Dr. Yilan ChangAlbumin/Globulin [Mass ratio]1.1 {ratio}NormalThe [facility] Hospital - ColumbusComment on above:Performed By: #### LIPID, TSH, CMP ####[facility] [address] [place] [place] [address]Dr. Yilan ChangALP [Catalytic activity/Vol]83 U/KNygedz88-771Uoz [facility] - ColumbusComment on above:Performed By: #### LIPID, TSH, CMP ####[facility] [address] [place], [place] [address]Dr. Yilan ChangALT [Catalytic activity/Vol]45 U/GJxoala19-57Lgl [facility] ColumbusComment on above: Performed By: #### LIPID, TSH, CMP ####[facility] W[address]kblcal[address] [place], [place] [address]Dr. Yilan ChangAnion gap [Moles/Vol]11.2 mmol/L NormalThe [facility] Hospital - ColumbusComment on above:Performed By: #### LIPID, TSH, CMP ####[facility] [address] [place], [place] [address]Dr. Yilan ChangAST [Catalytic activity/Vol]29 U/UIgklcb41-60Tkp [facility] Comment on above:Performed By: #### LIPID, TSH, CMP ####[facility] Oegonhdxin[address] [place], [place] [address]Dr. Yilan ChangBilirubin [Mass/Vol]1.0 mg/dLNormal0.2-1.0The [facility] - ColumbusComment on above:Performed By: #### LIPID, TSH, CMP ####[facility] Ezwsadjrm[address] [place], [place] [address]Dr. Yilan ChangCalcium [Mass/Vol]9.4 mg/dLNormal 8.5-10.1The [facility] - ColumbusComment on above:Performed By: #### LIPID, TSH, CMP ####[facility] [address] [place], [place] [address]Dr. Yilan ChangChloride [Moles/Vol]97 mmol/LCritically ggj91-377Qnz [facility] ColumbusComment on above:Performed By: #### LIPID, TSH, CMP ####[facility] [address] [address]Dr. Yilan ChangCO2 [Moles/Vol]29.7 mmol/PBimkbd22.0-32.0The [facility] - ColumbusComment on above: Performed By: #### LIPID, TSH, CMP ####[facility] [address] [address]Dr. Yilan ChangCreatinine [Mass/Vol]0.51 mg/dL Critically low0.55-1.02The [facility] - ColumbusComment on above:Performed By: #### LIPID, TSH, CMP ####[facility] [address] [place] [address]Dr. Yilan ChangEGFR-AF EGYPTIAN>60Normal>=60The [facility] Comment on above:Performed By: #### LIPID, TSH, CMP ####[facility] [address] [address]Dr. Yilan ChangEGFR-NON AF EGYPTIAN>60Normal>=60The [facility] ColumbusComment on above:Performed By: #### LIPID, TSH, CMP ####[facility] [address] [place] [address]Dr. Yilan ChangGlobulin (S) [Mass/Vol]3.7 g/dLNormalThe [facility] ColumbusComhavenwyck hospital on above:Performed By: #### LIPID, TSH, CMP ####[facility] [address] [place] [address]Dr. Yilan Hussein Glucose [Mass/Vol]86 mg/gAXqbeir20-380Jjj [facility] ColumbusComment on above: Performed By: #### LIPID, TSH, CMP ####[facility] [address] [address]Dr. Yilan ChangPotassium [Moles/Vol]2.9 mmol/L Critically low3.5-5.1The [facility] ColumbusComment on above:Performed By: #### LIPID, TSH, CMP ####[facility] [address] [address]Dr. Yilan ChangProtein [Mass/Vol]7.7 g/dLNormal6.4-8.2The [facility] ColumbusComment on above:Performed By: #### LIPID, TSH, CMP ####[facility] [address] [address]Dr. Shara Hussein Sodium [Moles/Vol]133 mmol/LCritically lja917-486Itw [facility] ColumbusComment on above:Performed By: #### LIPID, TSH, CMP ####[facility] [address] [address]Dr. Shara ChangUrea nitrogen [Mass/Vol]9.0 mg/dLNormal7.0-18.0The [facility] ColumbusComment on above:Performed By: #### LIPID, TSH, CMP ####[facility] [address] [place], [place] [address]Dr. Shara ChangUrea nitrogen/Creatinine [Mass ratio]17.6 mg/mgNormal The [facility] - ColumbusComment on above:Performed By: #### LIPID, TSH, CMP ####[facility] T[address]byyx[address] [place], [place] [address]Dr. Shara HusseinTSHon 59-44-2921XPY2.685 uIU/mLNormal0.358-3.740[facility] Comment on above:Performed By: #### LIPID, TSH, CMP ####[facility] Odpspl[address]ix[address] [place], [place] [address]Dr. Shara HusseinVITAMIN D 25 OHon 70-35-1189PHO D 25-OH72.4 ng/mLNormalThe [facility] ColumbusComhavenwyck hospital on above: Performed By: #### VITAD, FT4 #### [facility] Laboratory [address] [place] [address] Dr. Shara Robertson [facility] HospitalComhavenwyck hospital on above: Result Comment: <20 ng/mL Vit D deficient 20 - <30 ng/mL Vit D insufficient 30 - 100 ng/mL Vit D sufficient >100 ng/mL Potential ToxicityPerformed By: #### VITAD, FT4 #### [facility] Laboratory [address] [place] [address] Dr. Shara HusseinCOMPREHENSIVE METABOLIC PANELon 89-56-8843Jdrwajj [Mass/Vol]4.2 g/dLNormal3.6-5.1Quest DiagnosticsComment on above:Performed By: #### 7600, 91461 #### [facility] of [address] [place] [address] Editorial Specialist: Prabhakar Thao MDAlbumin/Globulin [Mass ratio]1.5 {ratio}Normal 1.0-2.5Quest DiagnosticsComment on above:Performed By: #### 7600, 81116 #### [facility] of [address] [place] [address] Editorial Specialist: Prabhakar Thao MDALP [Catalytic activity/Vol]96 U/YQtkjbk81-932 [facility] DiagnosticsComment on above:Performed By: #### 7600, 49993 #### [facility] [place] [place] [address] Editorial Specialist: Prabhakar Thao MDALT [Catalytic activity/Vol]15 U/LNormal6-29 [facility] DiagnosticsComment on above:Performed By: #### 7600, 70612 #### [facility] [place] [address] Editorial Specialist: Prabhakar Thao MDAST [Catalytic activity/Vol]19 U/JLonrnz55-53 [facility] DiagnosticsComment on above:Performed By: #### 7600, 70180 #### [facility] [place] [address] Editorial Specialist: Prabhakar Thao MDBilirubin [Mass/Vol]0.4 mg/dLNormal0.2-1.2 [facility] DiagnosticsComment on above:Performed By: #### 7600, 98396 #### [facility] [place] [address] Editorial Specialist: Prabhakar Thao MDBUN/CREATININE RATIONOT APPLICABLENormal6-22 [facility] DiagnosticsComment on above:Performed By: #### 7600, 51804 #### [facility] of [address], [address] [place] [address] Editorial Specialist: Prabhakar Thao MDCalcium [Mass/Vol]9.7 mg/dLNormal8.6-10.4Quest DiagnosticsComment on above:Performed By: #### 7600, 49487 #### [facility] of [address], [address] [place] [address] Editorial Specialist: Prabhakar Thao MDChloride [Moles/Vol]103 mmol/DCcaghd36-233 [facility] DiagnosticsComment on above:Performed By: #### 7600, 06597 #### [facility] of [address], [address] [place] [address] Editorial Specialist: Prabhakar Thao MDCO2 [Moles/Vol]28 mmol/NTwxihc80-44Dehjy DiagnosticsComment on above:Performed By: #### 7600, 49896 #### [facility] [address], [address] [place] [address] Editorial Specialist: Prabhakar BUSTILLOSreatinine [Mass/Vol]0.60 mg/dLNormal0.50-0.99 Quest DiagnosticsComment on above:Result Comment: For patients >49 years of age, the reference limit for Creatinine is approximately 13% higher for people identified as -Lithuanian.Performed By: #### [id number], [id number] #### [facility] of [address], [address] [place] [address] Editorial Specialist: Prabhakar Thao MDeGFR NON-AFR. MGNQWHIN13 mL/min/1.94h2Bxdcxp> OR = 60Quest DiagnosticsComment on above:Performed By: #### [id number], [id number] #### [facility] of [address], [address] [place] [address] Editorial Specialist: Prabhakar Thao MDGFR/1.73 sq M.predicted among blacks MDRD (S/P/Bld) [Vol rate/Area]112 mL/min/{1.73_m2}Normal> OR = 60[facility] Comment on above:Performed By: #### 7600, [id number] #### [facility] of [address], [address] [place] [address] Editorial Specialist: Prabhakar Thao MDGlobulin (S) [Mass/Vol]2.8 g/dLNormal1.9-3.7 Quest DiagnosticsComment on above:Performed By: #### 7600, 45908 #### [facility] of [address], [address] [place] [address] Editorial Specialist: Prabhakar Thao MDGlucose [Mass/Vol]98 mg/bXJpzcvu58-65Jrmmu DiagnosticsComment on above:Result Comment: Fasting reference intervalPerformed By: #### 7600, 57442 #### [facility] of [place] [address] Editorial Specialist: Prabhakar Thao MDPotassium [Moles/Vol]3.8 mmol/LNormal3.5-5.3 Quest DiagnosticsComment on above:Performed By: #### 7600, 64610 #### [facility] of [place] [address] Editorial Specialist: Prabhakar Thao MDProtein [Mass/Vol]7.0 g/dLNormal6.1-8.1Quest DiagnosticsComment on above:Performed By: #### 7600, 89800 #### [facility] of [address], [address] [place] [address] Editorial Specialist: Prabhakar Thao MDSodium [Moles/Vol]139 mmol/TBejdop128-044Zhzvv DiagnosticsComment on above:Performed By: #### 7600, 82050 #### [facility] of [place] [address] Editorial Specialist: Prabhakar Thao MDUrea nitrogen [Mass/Vol]10 mg/dLNormal7-25 Quest DiagnosticsComment on above:Performed By: #### 7600, 30889 #### [facility] of [address] [place] [address] Editorial Specialist: Prabhakar Thao MDLIPID PANEL, STANDARDon 96-86-5769Duwmmdglnhs [Mass/Vol]229 mg/dLHigh<200Quest DiagnosticsComment on above:Order Comment: FASTING:YES FASTING: YESPerformed By: #### 7600, 94839 #### [facility] [address], [address] [place] [address] Editorial Specialist: Prabhakar Thao MDCholesterol in HDL [Mass/Vol]93 mg/dLNormal> OR = 50Quest DiagnosticsComment on above:Order Comment: FASTING:YES FASTING: YESPerformed By: #### 7600, 96872 #### [facility] [address], [address] [place] [address] Editorial Specialist: Prabhakar BUSTILLOSholesterol in LDL [Mass/Vol]105 mg/dLHigh Quest DiagnosticsComment on above:Order Comment: FASTING:YES FASTING: YESResult Comment: Reference range: <100 Desirable range <100 mg/dL for primary prevention; <70 mg/dL for patients with CHD or diabetic patients with > or = 2 CHD risk factors. LDL-C is now calculated using the Cristina calculation, which is a validated novel method providing better accuracy than the Friedewald equation in the estimation of LDL-C. Dilan WONG et al. ANJEL. 2013;310(19): 2546-8130 (http://education.[employer].Breadtrip/faq/PAQ490)Performed By: #### 7600, 47874 #### [facility] [address], [address] [place] [address] Editorial Specialist: Prabhakar BUSTILLOSholesterorubina.total/Cholesterol in HDL [Mass ratio]2.5 {ratio}Normal<5.0Quest DiagnosticsComment on above:Order Comment: FASTING:YES FASTING: YESPerformed By: #### 7600, 90063 #### [facility] [address], [address] [place] [address] Editorial Specialist: Prabhakar PATEL HDL LRVTSYUAHYN727 mg/dL (calc)High<130 Quest DiagnosticsComment on above:Order Comment: FASTING:YES FASTING: YESResult Comment: For patients with diabetes plus 1 major ASCVD risk factor, treating to a non-HDL-C goal of <100 mg/dL (LDL-C of <70 mg/dL) is considered a therapeutic option.Performed By: #### 7600, 47684 #### [facility] [address], [address] [place] [address] Editorial Specialist: Prabhakar Thao MDTriglyceride [Mass/Vol]194 mg/dLHigh<150Quest DiagnosticsComment on above:Order Comment: FASTING:YES FASTING: YESPerformed By: #### 7600, 89641 #### [facility] [address], [address] [place] [address] Editorial Specialist: Prabhakar Thao MUSCOGEEBC AUTO DIFFon 40-09-0212ONTF #0.1 103/ul Normal0.0-0.1Del[facility] County HospitalComment on above:Performed By: #### CBC #### [facility] [address] [address] [address] Shara HusseinBasophils/100 WBC (Bld)0.5 %Normal0.2-2.0[facility] Comment on above:Performed By: #### CBC #### [facility] [address] [address] [address] Shara Patino #0.1 103/ulNormal0.0-0.7The [facility] - ColumbusComment on above: Performed By: #### CBC #### [facility] [address] [address] [address] Shara Mohanosinophils/100 WBC (Bld)1.0 %Normal0.9-7.0The [facility] Comment on above:Performed By: #### CBC #### [facility] [address] [address] [address] Shara Mohanrythrocyte distribution width (RBC) [Ratio]11.7 %Mfxjsd98.0-15.0 The Warsaw HospitalComment on above:Performed By: #### CBC #### [facility] [address] [address] [address] Shara HusseinHematocrit (Bld) [Volume fraction]40.7 %Latspb54.0-48.0The [facility] HospitalComment on above:Performed By: #### CBC #### [facility] [address] [address] [address] Shara HusseinHemoglobin (Bld) [Mass/Vol]13.5 g/eNXbiyvi23.0-16.0The [facility] - ColumbusComment on above:Performed By: #### CBC #### [facility] [address] [place] [address] Dr. Shara Dodge #0.04 10e3/ulCritically high0.00-0.03The [facility] Comment on above:Performed By: #### CBC #### [facility] [address] [place] [address] Dr. Shara Dodge %0.4 %Normal0.0-0.5The [facility] - ColumbusComment on above: Performed By: #### CBC #### [facility] [address] [address] [address] Shara Mccoy #1.8 103/ulNormal1.2-3.8The [facility] - ColumbusComment on above:Performed By: #### CBC #### [facility] [address] [address] [address] Shara Magdalenohocytes/100 WBC (Bld)17.6 %Critically low20.5-60.0The [facility] - ColumbusComment on above:Performed By: #### CBC #### [facility] [address] [address] [address] Shara HaydenUAL DIFF REQNONormalThe [facility] - ColumbusComment on above: Performed By: #### CBC #### [facility] [address] [place] [address] Dr. Shara Saunders (RBC) [Entitic mass]31.8 pmYpfnaj42.7-34.0The [facility] - ColumbusComment on above:Performed By: #### CBC #### [facility] [address] [address] [address] Shara KevinHC (RBC) [Mass/Vol]33.2 g/kVKvejqc35.9-35.2The [facility] - ColumbusComment on above:Performed By: #### CBC #### [facility] [address] [place] [address] Dr. Shara KevinV (RBC) [Entitic vol]95.8 xBIkdhmf85.0-99.0The [facility] - ColumbusComment on above:Performed By: #### CBC #### [facility] [address] [place] [address] Dr. Shara Boland #1.1 103/ulCritically high0.3-0.8The [facility] Comment on above:Performed By: #### CBC #### [facility] [address] [place] [address] Dr. Shara Neriocytes/100 WBC (Bld)10.9 %Normal1.7-12.0The [facility] Comment on above:Performed By: #### CBC #### [facility] [address] [place] [address] Dr. Shara Brown #7.1 103/ulCritically high1.4-6.5The [facility] Comment on above:Performed By: #### CBC #### [facility] [address] [place] [address] Dr. Shara Penalozautrophils/100 WBC (Bld)69.6 %Onwjov55.0-75.0The [facility] - ColumbusComment on above:Performed By: #### CBC #### [facility] [address] [place] [address] Dr. Shara Khanlet mean volume (Bld) [Entitic vol]9.6 fLNormal9.5-13.5The [facility] - ColumbusComment on above:Performed By: #### CBC #### [facility] [address] [place] [address] Dr. Shara HusseinPLT347 103/weAewtgx806-068Jfv [facility] - ColumbusComment on above: Performed By: #### CBC #### [facility] [address] [address] [address] Shara HusseinRBC4.25 106/ulNormal4.20-5.40The [facility] ColumbusComhavenwyck hospital on above:Performed By: #### CBC #### [facility] [address] [place], [place] [address] Dr. Shara HusseinWBC10.1 103/ulNormal4.0-11.0The [facility] Hospitalment on above:Performed By: #### CBC #### [facility] [address] [address] [address] Shara HusseinCT ABD/PELVIS WO CONon [id number] ABD/PELVIS WO CONCT ABDOMEN AND PELVIS WITHOUT CONTRAST: 11/28/2021 6:09 [...] Electronically authenticated by: LAURYN CARCAMO Date: 2021-11-28 07:49[facility] URINE PROFILEon 43-43-5393Doqrhflaj Ql (U)NegativeNormal NEGATIVEDelaware County HospitalComment on above:Performed By: #### ERUR #### [facility] [address] [place] [address] Dr. Shara Madrigal (U)CLEARNormalCLEARDelaware County HospitalComment on above: Performed By: #### ERUR #### [facility] [address] [address] [address] Shara Decker (U)YELLOWNormalYELLOWDelaware County HospitalComment on above: Performed By: #### ERUR #### [facility] [address] [address] [address] Shara Wong micrscopic examination will be performed if indicated. NormalThe [facility] - ColumbusComment on above:Performed By: #### ERUR #### [facility] [address] [address] [address] Shara HusseinGlucose Ql (U)NegativeNormalNEGATIVEDelaware County HospitalComment on above:Performed By: #### ERUR #### [facility] [address] [address] [address] Shara HusseinHemoglobin Ql (U)NegativeNormalNEGATIVEDelaware County Hospital Comment on above:Performed By: #### ERUR #### [facility] [address] [place] [address] Dr. Shara Terrell Ql (U)NegativeNormalNEGATIVEThe [facility] - ColumbusComment on above:Performed By: #### ERUR #### [facility] [address] [place] [address] Dr. Shara HusseinLEUKOCYTESNegativeNormalNEGATIVEDelaware County HospitalComment on above:Performed By: #### ERUR #### [facility] [address] [place] [address] Dr. Shara Louistrite Ql (U)NegativeNormalNEGATIVEThe [facility] ColumbusComment on above:Performed By: #### ERUR #### [facility] [address] [place] [address] Dr. Shara HusseinpH (U)6.0 [pH]Normal5-9The [facility] - ColumbusComment on above: Performed By: #### ERUR #### [facility] [address] [place] [address] Dr. Shara HusseinSPEC GRAVITY<=1.371Sesswhvc6.005-<=1.025The [facility] Comment on above:Performed By: #### ERUR #### [facility] [address] [place] [address] Dr. Shara Zepeda PROTEINNegativeNormalNEGATIVE/ TRACEDelaware County Hospital Comment on above:Performed By: #### ERUR #### [facility] [address] [place] [address] Dr. Shara Schneider MICRO INDNOT INDICATEDNoalThProMedica Defiance Regional HospitalComment on above:Performed By: #### ERUR #### [facility] [address] [place] [address] Dr. Shara Grimmbilinogen Qn (U)0.2 {Fortino'U}/dLNormal0.2 - 1.0The [facility] - ColumbusComment on above:Performed By: #### ERUR #### [facility] [address] [place] [address] Dr. Shara HusseinLACTATE/LACTIC ACIDon 30-17-8212Okvbxkt [Moles/Vol]0.5 mmol/L Critically low0.7-2.0The [facility] - ColumbusComment on above:Performed By: #### LACT #### [facility] [address] [place] [address] Dr. Shara Zurita 14(COMP METB)on 03-52-5203Plzjovy [Mass/Vol]2.9 g/dL Critically low3.5-5.0The [facility] - ColumbusComment on above:Performed By: #### CMP #### [facility] [address] [place] [address] Dr. Shara HusseinAlbumin/Globulin [Mass ratio]0.6 {ratio}NormalThe [facility] - ColumbusComment on above:Performed By: #### CMP #### [facility] [address] [place] [address] Dr. Shara BobP [Catalytic activity/Vol]96 U/KJgabtr14-348Srb [facility] - ColumbusComment on above:Performed By: #### CMP #### [facility] [address] [place] [address] Dr. Shara Garcia [Catalytic activity/Vol]19 U/LNormal9-52[facility] Comment on above:Performed By: #### CMP #### [facility] [address] [place] [address] Dr. Shara Jackson gap [Moles/Vol]13.4 mmol/LNormalDelaware County Hospital Comment on above:Performed By: #### CMP #### [facility] [address] [place] [address] Dr. Shara HusseinAST [Catalytic activity/Vol]15 U/OIbvrix29-96Yis [facility] - ColumbusComment on above:Performed By: #### CMP #### [facility] [address] [place] [address] Dr. Shara HusseinBilirubin [Mass/Vol]0.4 mg/dLNormal0.2-1.3The [facility] Comment on above:Performed By: #### CMP #### [facility] [address] [place] [address] Dr. Shara HusseinCalcium [Mass/Vol]9.4 mg/dLNormal8.4-10.2The [facility] Comment on above:Performed By: #### CMP #### [facility] [address] [address] [address] Shara HusseinChloride [Moles/Vol]97 mmol/LCritically yjy17-741Sqz [facility] - ColumbusComment on above:Performed By: #### CMP #### [facility] [address] [address] [address] Shara HusseinCO2 [Moles/Vol]28.8 mmol/FQfgutm57.0-30.0The [facility] Comment on above:Performed By: #### CMP #### [facility] [address] [place] [address] Dr. Shara HusseinCreatinine [Mass/Vol]0.45 mg/dLCritically low0.52-1.04The [facility] - ColumbusComment on above:Performed By: #### CMP #### [facility] [address] [place] [address] Dr. Shara MohanGFR-AF EGYPTIAN>60Normal>=60The [facility] - ColumbusComment on above:Performed By: #### CMP #### [facility] [address] [place] [address] Dr. Shara MohanGFR-NON AF EGYPTIAN>60Normal>=60The [facility] - ColumbusComment on above:Performed By: #### CMP #### [facility] [address] [place] [address] Dr. Shara HusseinGlobulin (S) [Mass/Vol]4.5 g/dLNormalThe [facility] - ColumbusComment on above:Performed By: #### CMP #### [facility] [address] [place] [address] Dr. Shara HusseinGlucose [Mass/Vol]110 mg/dLCritically xfpa40-030Ojf [facility] - ColumbusComment on above:Performed By: #### CMP #### [facility] [address] [place] [address] Dr. Shara HusseinPotassium [Moles/Vol]3.2 mmol/LCritically low3.4-5.0The [facility] - ColumbusComment on above:Performed By: #### CMP #### [facility] [address] [place] [address] Dr. Shara HusseinProtein [Mass/Vol]7.4 g/dLNormal6.1-8.2The [facility] Comment on above:Performed By: #### CMP #### [facility] [address] [place] [address] Dr. Shara HusseinSodium [Moles/Vol]136 mmol/LCritically ezx944-617Nol [facility] - ColumbusComment on above:Performed By: #### CMP #### [facility] [address] [place] [address] Dr. Shara HusseinUrea nitrogen [Mass/Vol]7.0 mg/dLNormal7.0-17.0The [facility] - ColumbusComment on above:Performed By: #### CMP #### [facility] [address] [place] [address] Dr. Shara HusseinUrea nitrogen/Creatinine [Mass ratio]15.6 mg/mgNormalThe [facility] ColumbusComment on above:Performed By: #### CMP #### [facility] [address] [place] [address] Dr. Shara HusseinXR CHEST 1 [facility] 95-12-1481HJ CHEST 1 VEXAM: XR CHEST 1 V - 11/28/2021 COMPARISON: [...] Heart size is normal. Electronically authenticated by: [employer] Date: 2021-11-28 07:57[facility] MAM[facility] RT DIAG FUon [id number] MAMM RT DIAG FUPatient: REINA ANNA. Exam Date: 10/08/2021 : 1955 Gender:F Ordering : DR SADIE RAINES Admission #: [id number] Family : Order #: [id number] CLICK HERE TO VIEW EXAM CORRECTION Corrected [...] Treatments None Family Cancers None LOCATION: The [facility] BREAST COMPOSITION: Heterogeneously dense, which may obscure [...] by: Iris Munoz MD on 10/08/2021 at 14:59[facility] MAMM SCREEN 3D MARKELL CADon [id number] MAMM SCREEN 3D MARKELL CADPatient: REINA ANNA. Exam Date: 09/16/2021 : 1955 Gender:F Ordering : DR SADIE RAINES Admission #: [id number] Family : Order #: [id number] CLICK HERE TO VIEW EXAM RADIOLOGY REPORT [...] Treatments None Family Cancers None LOCATION: [facility] BREAST COMPOSITION: Heterogeneously dense,which may obscure small [...] by: Iris Munoz MD on 09/17/2021 at 10:26[facility] COMPREHENSIVE METABOLIC PANELon 53-38-6996Hnprzdo [Mass/Vol]4.1 g/dLNormal 3.6-5.1Quest DiagnosticsComment on above:Performed By: #### 7600, 24487, 76213 #### [facility] [address], [address] [place] [address] Editorial Specialist: Prabhakar Thao MDAlbumin/Globulin [Mass ratio]1.5 {ratio}Normal 1.0-2.5Quest DiagnosticsComment on above:Performed By: #### 7600, 62984, 63967 #### [facility] [address], [address] [place] [address] Editorial Specialist: Prabhakar Thao MDALP [Catalytic activity/Vol]84 U/AYdtwrd51-753 [facility] DiagnosticsComment on above:Performed By: #### 7600, 87628, 95135 #### [facility] [address], [address] [place] [address] Editorial Specialist: Prabhakar Thao MDALT [Catalytic activity/Vol]17 U/LNormal6-29 [facility] DiagnosticsComment on above:Performed By: #### 7600, 30986, 81760 #### [facility] of [place] [address] Editorial Specialist: Prabhakar Thao MDAST [Catalytic activity/Vol]19 U/HIitbun14-58 [facility] DiagnosticsComment on above:Performed By: #### 7600, 03521, 97746 #### [facility] of [address], [address] [place] [address] Editorial Specialist: Prabhakar Thao MDBilirubin [Mass/Vol]0.3 mg/dLNormal0.2-1.2 [facility] DiagnosticsComment on above:Performed By: #### 7600, 84927, 84330 #### [facility] [place] [address] Editorial Specialist: Prabhakar Thao MDBUN/CREATININE RATIONOT APPLICABLENormal6-22 [facility] DiagnosticsComment on above:Performed By: #### 7600, 85843, 63730 #### [facility] of [place] [address] Editorial Specialist: Prabhakar Thao MDCalcium [Mass/Vol]9.7 mg/dLNormal8.6-10.4Quest DiagnosticsComment on above:Performed By: #### 7600, 32306, 63159 #### [facility] of [place] [address] Editorial Specialist: Prabhakar Thao MDChloride [Moles/Vol]105 mmol/ZYulfge73-959 [facility] DiagnosticsComment on above:Performed By: #### 7600, 19898, 23673 #### [facility] of [place] [address] Editorial Specialist: Prabhakar Thao MDCO2 [Moles/Vol]28 mmol/XZbsepj42-98Ydaha DiagnosticsComment on above:Performed By: #### 7600, 91753, 98673 #### [facility] [address], [address] [place] [address] Editorial Specialist: Prabhakar BUSTILLOSreatinine [Mass/Vol]0.57 mg/dLNormal0.50-0.99 [facility] DiagnosticsComment on above:Result Comment: For patients >49 years of age, the reference limit for Creatinine is approximately 13% higher for people identified as -Lithuanian.Performed By: #### 7600, 70310, 06695 #### [facility] [address], [address] [place] [address] Editorial Specialist: Prabhakar Thao MDeGFR NON-AFR. CJYTBSNU04 mL/min/1.36j2Lshfdt> OR = 60Quest DiagnosticsComment on above:Performed By: #### 7600, 28073, 50205 #### [facility] [address], [address] [place] [address] Editorial Specialist: Prabhakar Thao MDGFR/1.73 sq M.predicted among blacks MDRD (S/P/Bld) [Vol rate/Area]114 mL/min/{1.73_m2}Normal> OR = 60[facility] Comment on above:Performed By: #### 7600, 63596, 94965 #### [facility] [address], [address] [place] [address] Editorial Specialist: Prabhakar Thao MDGlobulin (S) [Mass/Vol]2.8 g/dLNormal1.9-3.7 Quest DiagnosticsComment on above:Performed By: #### 7600, 00760, 02973 #### [facility] [place] [address] Editorial Specialist: Prabhakar Thao MDGlucose [Mass/Vol]85 mg/bQEdbrnr01-094Wodbj DiagnosticsComment on above:Result Comment: Non-fasting reference intervalPerformed By: #### 7600, 89862, 13865 #### [facility] [address], [address] [place] [address] Editorial Specialist: Prabhakar Thao MDPotassium [Moles/Vol]3.4 mmol/LLow3.5-5.3Quest DiagnosticsComment on above:Performed By: #### 7600, 57358, 12114 #### [facility] of [address], [address] [place] [address] Editorial Specialist: Prabhakar Thao MDProtein [Mass/Vol]6.9 g/dLNormal6.1-8.1Quest DiagnosticsComment on above:Performed By: #### 7600, 88624, 94162 #### [facility] of [address], [address] [place] [address] Editorial Specialist: Prabhakar Thao MDSodium [Moles/Vol]140 mmol/KZsokga140-805Ruanm DiagnosticsComment on above:Performed By: #### 7600, 37124, 38539 #### [facility] of [address], [address] [place] [address] Editorial Specialist: Prabhakar Thao MDUrea nitrogen [Mass/Vol]10 mg/dLNormal7-25 [facility] DiagnosticsComment on above:Performed By: #### 7600, 63442, 73626 #### [facility] of [address], [address] [place] [address] Editorial Specialist: Prabhakar Thao MDLIPID PANEL, STANDARD 20-03-9129Tkfjqfoxvlz [Mass/Vol]209 mg/dLHigh<200Quest DiagnosticsComment on above:Order Comment: FASTING:NO FASTING: NOPerformed By: #### 7600, 23496, 41185 #### [facility] of [address], [address] [place] [address] Editorial Specialist: Prabhakar Thao MDCholesterol in HDL [Mass/Vol]87 mg/dLNormal> OR = 50Quest DiagnosticsComment on above:Order Comment: FASTING:NO FASTING: NOPerformed By: #### 7600, 33384, 81178 #### [facility] of [address], [address] [place] [address] Editorial Specialist: Prabhakar BUSTILLOSholesterol in LDL [Mass/Vol]88 mg/dLNormal [facility] DiagnosticsComment on above:Order Comment: FASTING:NO FASTING: NOResult Comment: Reference range: <100 Desirable range <100 mg/dL for primary prevention; <70 mg/dL for patients with CHD or diabetic patients with > or = 2 CHD risk factors. LDL-C is now calculated using the Cristina calculation, which is a validated novel method providing better accuracy than the Friedewald equation in the estimation of LDL-C. Dilan WONG et al. ANJEL. 2013;310(19): 4023-8939 (http://education.[employer].Breadtrip/faq/FWP977)Performed By: #### 7600, 81927, [id number] #### [facility] [address], [address] [place] [address] Editorial Specialist: Prabhakar BUSTILLOSholesterorubina.total/Cholesterol in HDL [Mass ratio]2.4 {ratio}Normal<5.0Quest DiagnosticsComment on above:Order Comment: FASTING:NO FASTING: NOPerformed By: #### 7600, 01849, [id number] #### [facility] [address], [address] [place] [address] Editorial Specialist: Prabhakar PATEL HDL EUTIDSOHGSP829 mg/dL (calc)Normal<130 [facility] DiagnosticsComment on above:Order Comment: FASTING:NO FASTING: NOResult Comment: For patients with diabetes plus 1 major ASCVD risk factor, treating to a non-HDL-C goal of <100 mg/dL (LDL-C of <70 mg/dL) is considered a therapeutic option.Performed By: #### 7600, 41257, 81433 #### [facility] [address], [address] [place] [address] Editorial Specialist: Prabhakar Thao MDTriglyceride [Mass/Vol]259 mg/dLHigh<150Quest DiagnosticsComment on above:Order Comment: FASTING:NO FASTING: NOResult Comment: If a non-fasting specimen was collected, consider repeat triglyceride testing on a fasting specimen if clinically indicated. Aviles et al. J. of Clin. Lipidol. 2015;9:129-169.Performed By: #### 7600, 18903, 97271 #### [facility] [address], [address] [place] [phone] Editorial Specialist: Prabhakar Thao MDVITAMIN D,25-OH,TOTAL,IAon 14-02-3125CVCMHML D,25-OH,TOTAL,IA43 ng/zBUmkuqk43-363Tianj DiagnosticsComment on above:Result Comment: Vitamin D Status 25-OH Vitamin D: Deficiency: <20 ng/mL Insufficiency: 20 - 29 ng/mL Optimal: > or = 30 ng/mL For 25-OH Vitamin D testing on patients on D2-supplementation and patients for whom quantitation of D2 and D3 fractions is required, the QuestAssureD(TM) 25-OH VIT D, (D2,D3), LC/MS/MS is recommended: order code 01323 (patients >2yrs). See Note 1 Note 1 For additional information, please refer to http://education.[employer]/faq/FEF215 (This link is being provided for informational/ educational purposes only.)Performed By: #### 7600, 16251, 27163 #### [facility] [address], [address] [place] [phone] Editorial Specialist: Prabhakar Thao MD Vital Signs Date TimeVital SignValuePerforming LeafsenwcLicdpzcv11-03-8519 16:20-0400Body rrliyo538.9 cmBelem Ordonez APRN-SERVOMECHANISM ASSEMBLER Work Phone: [facility] HospitalHpoolz29-93-9307 16:20-0400Body mass index (BMI) [Ratio]19.85 kg/n2EpfovzBelem Ordonez APRN-SERVOMECHANISM ASSEMBLER Work Phone: [facility] HospitalMxklgt05-45-7610 16:20-0400Body pzqvhuqgdbf26.39 [degF]Belem Ordonez APRN-SERVOMECHANISM ASSEMBLER Work Phone: [facility] HospitalShopogoliq Msyojy43-04-8813 16:20-0400Body nhxyjh12.63 kgBelem Ordonez CASHIER ASSISTANT-SERVOMECHANISM ASSEMBLER Work Phone: [facility] [employer] Snaosi09-63-2701 16:20-0400Diastolic blood ypgqamjo22 mm[Hg]Belem Ordonez CASHIER ASSISTANT-SERVOMECHANISM ASSEMBLER Work Phone: [facility] [employer] Vyiazt00-56-9937 16:20-0400Heart rate 82 /minBrcarlitos Ordonez CASHIER ASSISTANT-SERVOMECHANISM ASSEMBLER Work Phone: [facility] [employer] Yaryry59-32-6797 16:20-0400 Respiratory rate17 /minBrcarlitos Ordonez CASHIER ASSISTANT-SERVOMECHANISM ASSEMBLER Work Phone: [facility] [employer] Owkcsx61-86-1139 16:20-2760NcS0% (BldA) [Mass fraction]98 %Belem Ordonez CASHIER ASSISTANT-SERVOMECHANISM ASSEMBLER Work Phone: [facility] [employer] Wtlzuw32-42-5856 16:20-0400Systolic blood jodzefna009 mm[Hg]Belem Ordonez CASHIER ASSISTANT-SERVOMECHANISM ASSEMBLER Work Phone: [facility] [employer] Ylbqhz12-12-6406 15:38-0400Body sdwasq236.9 cmBelem Ordonez CASHIER ASSISTANT-SERVOMECHANISM ASSEMBLER Work Phone: [facility] Yqeqwo51-59-1732 15:38-0400Body mass index (BMI) [Ratio]20.04 kg/b7YdzjusBelem Ordonez CASHIER ASSISTANT-SERVOMECHANISM ASSEMBLER Work Phone: [facility] [employer] Iroezj91-01-0595 15:38-0400Body gjwxclneksz95.39 [degF]Belem Ordonez CASHIER ASSISTANT-SERVOMECHANISM ASSEMBLER Work Phone: [facility] [employer] Tdktte47-77-3682 15:38-0400Body nzozny47.08 kgBelem Ordonez CASHIER ASSISTANT-SERVOMECHANISM ASSEMBLER Work Phone: [facility] [employer] Ygahrp83-28-3562 15:38-0400Diastolic blood yoxdglkz10 mm[Hg]Belem Ordonez CASHIER ASSISTANT-SERVOMECHANISM ASSEMBLER Work Phone: [facility] [employer] Xwbxyt04-60-4265 15:38-0400Heart rate 70 /minBrcarlitos Ordonez CASHIER ASSISTANT-SERVOMECHANISM ASSEMBLER Work Phone: [facility] [employer] Gymdch10-33-7975 15:38-0400 Respiratory rate18 /minBelem Ordonez APRN-SERVOMECHANISM ASSEMBLER Work Phone: [facility]09-04-2025 15:38-6242FwN8% (BldA) [Mass fraction]96 %Belem Ordonez APRN-SERVOMECHANISM ASSEMBLER Work Phone: [facility]09-04-2025 15:38-0400Systolic blood enerjbkm268 mm[Hg]Belem Ordonez APRN-SERVOMECHANISM ASSEMBLER Work Phone: [facility]07-31-2025 13:02-0400Body uakost994.9 cmBelem Ordonez APRN-SERVOMECHANISM ASSEMBLER Work Phone: [facility]07-31-2025 13:02-0400Body mass index (BMI) [Ratio]20.44 kg/b9HvrntwBelem Ordonez APRN-SERVOMECHANISM ASSEMBLER Work Phone: [facility]07-31-2025 13:02-0400Body lqioxddsoae44.9 [degF]Belem Ordonez APRN-SERVOMECHANISM ASSEMBLER Work Phone: [facility]07-31-2025 13:02-0400Body jlpzsu00.03 kgBelem Ordonez APRN-SERVOMECHANISM ASSEMBLER Work Phone: [facility] [employer] Ocxhvb80-61-2771 13:02-0400Diastolic blood piezonvh66 mm[Hg]Belem Ordonez APRN-SERVOMECHANISM ASSEMBLER Work Phone: [facility]07-31-2025 13:02-0400Heart rate 73 /minBelem Ordonez APRN-SERVOMECHANISM ASSEMBLER Work Phone: [facility]07-31-2025 13:02-0400 Respiratory rate20 /minBelem Ordonez CASHIER ASSISTANT-SERVOMECHANISM ASSEMBLER Work Phone: [facility]07-31-2025 13:02-6648XpB7% (BldA) [Mass fraction]97 %Belem Ordonez APRN-SERVOMECHANISM ASSEMBLER Work Phone: [facility] [employer] Jpwdbo49-38-8576 13:02-0400Systolic blood gqbhiwuo397 mm[Hg]Belem Ordonez APRN-SERVOMECHANISM ASSEMBLER Work Phone: [facility]07-25-2025 12:02-0400Body lbbjet312.9 cmBelem Ordonez APRN-SERVOMECHANISM ASSEMBLER Work Phone: [facility]07-25-2025 12:02-0400Body mass index (BMI) [Ratio]20.42 kg/t5GjydroBelem Ordonez APRN-SERVOMECHANISM ASSEMBLER Work Phone: [facility]07-25-2025 12:02-0400Body fecfxxleblb39.2 [degF]Belem Ordonez APRN-SERVOMECHANISM ASSEMBLER Work Phone: [facility]07-25-2025 12:02-0400Body foojdg68.99 kgBelem Ordonez APRN-SERVOMECHANISM ASSEMBLER Work Phone: [facility]07-25-2025 12:02-0400Diastolic blood ehonnnhh16 mm[Hg]Belem Ordonez APRN-SERVOMECHANISM ASSEMBLER Work Phone: [facility]07-25-2025 12:02-0400Heart rate 62 /minBelem Ordonez APRN-SERVOMECHANISM ASSEMBLER Work Phone: [facility] [employer] Xkssbu21-05-1137 12:02-0400 Respiratory rate18 /minBrcarlitos Ordonez APRN-SERVOMECHANISM ASSEMBLER Work Phone: [facility]07-25-2025 12:02-9254AvG6% (BldA) [Mass fraction]99 %Belem Ordonez APRN-SERVOMECHANISM ASSEMBLER Work Phone: [facility]07-25-2025 12:02-0400Systolic blood gltsyfgc531 mm[Hg]Belem Ordonez APRN-SERVOMECHANISM ASSEMBLER Work Phone: [facility]06-13-2025 09:34-0400Body bwhqim724.9 cmBriana Mery CASHIER ASSISTANT-SERVOMECHANISM ASSEMBLER Work Phone: [facility] Bremfr38-56-2034 09:34-0400Body mass index (BMI) [Ratio]21.59 kg/l6JnjfvdBelem Ordonez APRN-SERVOMECHANISM ASSEMBLER Work Phone: [facility] [employer] Swbqwm05-92-8996 09:34-0400Body sxmkowiqjxn78.4 [degF]Belem Ordonez APRN-SERVOMECHANISM ASSEMBLER Work Phone: [facility] [employer] Ywuwpm84-92-3554 09:34-0400Body ieyvjq88.8 kgBelem Ordonez APRN-SERVOMECHANISM ASSEMBLER Work Phone: [facility] [employer] Udmhye04-47-9544 09:34-0400Diastolic blood awbvleva56 mm[Hg]Belem Ordonez APRN-SERVOMECHANISM ASSEMBLER Work Phone: [facility] [employer] Cyjwoo28-85-3597 09:34-0400Heart rate 80 /minBrcarlitos Ordonez APRN-SERVOMECHANISM ASSEMBLER Work Phone: [facility] [employer] Ipdexq73-31-2053 09:34-0400 Respiratory rate20 /minBrcarlitos Ordonez APRN-SERVOMECHANISM ASSEMBLER Work Phone: [facility] [employer] Bqmuom21-19-1453 09:34-8177PmI1% (BldA) [Mass fraction]98 %Belem Ordonez APRN-SERVOMECHANISM ASSEMBLER Work Phone: [facility] [employer] Rwrwhe87-23-0454 09:34-0400Systolic blood wxidlwua179 mm[Hg]Belem Ordonez APRN-SERVOMECHANISM ASSEMBLER Work Phone: [facility] Fuvkwj64-51-9002 10:41-0500Body kpoogk164.9 cmBelem Ordonez APRN-SERVOMECHANISM ASSEMBLER Work Phone: [facility] Rzsypp12-30-0472 10:41-0500Body mass index (BMI) [Ratio]24 kg/x7QtqipkBelem Ordonez APRN-SERVOMECHANISM ASSEMBLER Work Phone: [facility] Cuuhqd89-57-2888 10:41-0500Body brnmqjowgnf68.01 [degF]Belem Ordonez APRN-SERVOMECHANISM ASSEMBLER [facility]: [facility] 10:41-0500Body gosamp78.61 kgBelem Ordonez APRN-SERVOMECHANISM ASSEMBLER Work Phone: [facility] Jlcrdn56-94-2912 10:41-0500Diastolic blood sszbbitu41 mm[Hg]Belem Ordonez APRN-SERVOMECHANISM ASSEMBLER Work Phone: [facility] [employer] Ofavrb50-83-6593 10:41-0500Heart rate 86 /minBrcarlitos Ordonez APRN-SERVOMECHANISM ASSEMBLER Work Phone: [facility]01-10-2025 10:41-0500 Respiratory rate18 /minBrcarlitos Ordonez APRN-SERVOMECHANISM ASSEMBLER Work Phone: [facility]01-10-2025 10:41-3873GeY3% (BldA) [Mass fraction]96 %Belem Ordonez APRN-SERVOMECHANISM ASSEMBLER Work Phone: [facility]01-10-2025 10:41-0500Systolic blood cufyhvzh377 mm[Hg]Belem Ordonez APRN-SERVOMECHANISM ASSEMBLER Work Phone: [facility] Hglxxy93-11-9086 09:22-0500Body owpxkq478.9 cmBelem Ordonez APRN-SERVOMECHANISM ASSEMBLER Work Phone: [facility] Hhrava94-63-3419 09:22-0500Body mass index (BMI) [Ratio]23.54 kg/w4ZzuykgBelem Ordonez APRN-SERVOMECHANISM ASSEMBLER Work Phone: [facility] Xlkbhw30-10-8662 09:22-0500Body phnkoyqfevj71.1 [degF]Belem Ordonez APRN-SERVOMECHANISM ASSEMBLER Work Phone: [facility] Mlehid16-78-0824 09:22-0500Body yutysg60.52 kgBelem Ordonez APRN-SERVOMECHANISM ASSEMBLER Work Phone: [facility] Jyhajr97-55-2762 09:22-0500Diastolic blood myystqkj11 mm[Hg]Belem Ordonez CASHIER ASSISTANT-SERVOMECHANISM ASSEMBLER Work Phone: [facility] [employer] Cqfilk91-76-2600 09:22-0500Heart rate 87 /minBelem Ordonez APRN-SERVOMECHANISM ASSEMBLER Work Phone: [facility] [employer] Jzzlje30-27-8621 09:22-0500 Respiratory rate18 /minBrcarlitos Ordonez CASHIER ASSISTANT-SERVOMECHANISM ASSEMBLER Work Phone: [facility]12-06-2024 09:22-2375SrQ5% (BldA) [Mass fraction]98 %Belem Ordonez CASHIER ASSISTANT-SERVOMECHANISM ASSEMBLER Work Phone: [facility]12-06-2024 09:22-0500Systolic blood jxlucnxb968 mm[Hg]Belem Ordonez CASHIER ASSISTANT-SERVOMECHANISM ASSEMBLER Work Phone: [facility] [employer] Iaylkt88-37-8202 11:33-0400Body ytmqzc254.9 cmBelem Ordonez APRN-SERVOMECHANISM ASSEMBLER Work Phone: [facility] [employer] Jwmuyz54-47-3803 11:33-0400Body mass index (BMI) [Ratio]22.79 kg/p3VdicneBelem Ordonez APRN-SERVOMECHANISM ASSEMBLER Work Phone: [facility] [employer] Nvpfjx04-19-2774 11:33-0400Body uwcyzwmudad91.1 [degF]Belem Ordonez CASHIER ASSISTANT-SERVOMECHANISM ASSEMBLER Work Phone: [facility] [employer] Qvkbpy71-69-3089 11:33-0400Body dugwlv48.7 kgBelem Ordonez CASHIER ASSISTANT-SERVOMECHANISM ASSEMBLER Work Phone: [facility] [employer] Waqxds74-86-3171 11:33-0400Diastolic blood fjclsyyx36 mm[Hg]Belem Ordonez CASHIER ASSISTANT-SERVOMECHANISM ASSEMBLER Work Phone: [facility]09-20-2024 11:33-0400Heart rate 93 /minBrcarlitos Ordonez CASHIER ASSISTANT-SERVOMECHANISM ASSEMBLER Work Phone: [facility]09-20-2024 11:33-0400 Respiratory rate18 /minBelem Ordonez CASHIER ASSISTANT-SERVOMECHANISM ASSEMBLER Work Phone: [facility]09-20-2024 11:33-9746BnK4% (BldA) [Mass fraction]96 %Belem Ordonez CASHIER ASSISTANT-SERVOMECHANISM ASSEMBLER Work Phone: [facility]09-20-2024 11:33-0400Systolic blood patxdqqf876 mm[Hg]Belem Ordonez CASHIER ASSISTANT-SERVOMECHANISM ASSEMBLER Work Phone: [facility]05-03-2024 08:35-0400Body quneoe404.9 cmSadie Raines CASHIER ASSISTANT-ROOF TRUSS MACHINE TENDER Work Phone: [facility]05-03-2024 08:35-0400Body mass index (BMI) [Ratio]23.85 kg/m2Sadie Raines CASHIER ASSISTANT-ROOF TRUSS MACHINE TENDER Work Phone: [facility]05-03-2024 08:35-0400Body mlvzkhaminq67.11 [degF]Sadie Raines CASHIER ASSISTANT-ROOF TRUSS MACHINE TENDER Work Phone: [facility] [employer] Ffctrs76-91-9293 08:35-0400Body yaxiyz55.24 kgSadie Raines CASHIER ASSISTANT-ROOF TRUSS MACHINE TENDER Work Phone: [facility]05-03-2024 08:35-0400Diastolic blood excuzhlk87 mm[Hg]Sadie Raines CASHIER ASSISTANT-ROOF TRUSS MACHINE TENDER Work Phone: [facility]05-03-2024 08:35-0400Heart rate 94 /minSadie Raines CASHIER ASSISTANT-ROOF TRUSS MACHINE TENDER Work Phone: [facility]05-03-2024 08:35-6444MkQ3% (BldA) [Mass fraction]96 %Sadie Raines CASHIER ASSISTANT-ROOF TRUSS MACHINE TENDER Work Phone: [facility]05-03-2024 08:35-0400Systolic blood gfqltooz307 mm[Hg]Sadie Raines CASHIER ASSISTANT-ROOF TRUSS MACHINE TENDER Work Phone: [employer]01-22-2024 16:39-0500Body mtlhop801.9 cmSadie Raines CASHIER ASSISTANT-ROOF TRUSS MACHINE TENDER Work Phone: [facility]-22-2024 16:39-0500Body mass index (BMI) [Ratio]25.05 kg/m2Sadie Raines CASHIER ASSISTANT-ROOF TRUSS MACHINE TENDER Work Phone: [facility]01-22-2024 16:39-0500Body hnpwexozidb76.2 [degF]Sadie Raines CASHIER ASSISTANT-ROOF TRUSS MACHINE TENDER Work Phone: [facility]01-22-2024 16:39-0500Body .15 kgSadie Raines CASHIER ASSISTANT-ROOF TRUSS MACHINE TENDER Work Phone: [facility]-22-2024 16:39-0500Diastolic blood axqbtria16 mm[Hg]Sadie Raines CASHIER ASSISTANT-ROOF TRUSS MACHINE TENDER Work Phone: [facility]-22-2024 16:39-0500Heart rate 72 /minSadie Raines CASHIER ASSISTANT-ROOF TRUSS MACHINE TENDER Work Phone: [facility]01-22-2024 16:39-9713YnW4% (BldA) [Mass fraction]97 %Sadie Raines CASHIER ASSISTANT-ROOF TRUSS MACHINE TENDER Work Phone: [facility]01-22-2024 16:39-0500Systolic blood czkzugrf213 mm[Hg]Sadie Raines APRN-ROOF TRUSS MACHINE TENDER Work Phone: [facility]01-10-2023 14:30-0500Body xhyikm023.48 Jackson Goodman Other [employer] Other 01-10-2023 14:30-0500Body mass index (BMI) [Ratio]19.2 kg/j5CvpqpngrNain Goodman Other [employer] Other 01-10-2023 14:30-0500Body qfkotz10.63 kgLaannetteagny Goodman Other [employer] Other 01-10-2023 14:30-0500Diastolic blood xnoypnfy36 mm[Hg] Nain Goodman Other [employer] Other 01-10-2023 14:30-0500Systolic blood qperftlg030 mm[Hg] Nain Goodman Other [employer] Other 12-08-2021 16:30-0500Body zeqcbz282.48 cmDavid Fadi Other [employer] Other 12-08-2021 16:30-0500Body mass index (BMI) [Ratio] 20.12 kg/i8Kodpr Hykes Other [employer] Other 12-08-2021 16:30-0500Body aglkgo25.9 kgDavid Hykes Other [employer] Other Encounters Encounter DateEncounter TypeCare ProviderFacilityStart: 08-14-2025 End: 34-40-3237Xdyiar outpatient visit 25 minutesBelem Ordonez APRN-ELIAZAR Work Phone: [facility] - Family MedicineComment on above:Hypothyroidism (acquired) (Primary Dx); Essential hypertension; Influenza vaccination administered at current visit; Anxiety; Encounter for screening mammogram for malignant neoplasm of breastStart: 08-14-2025 End: 12-13-4182ollfhllmopIHVYTW Rubina [facility]ZC[facility] PPGStart: 07-07-2025 End: 25-33-6867Gyiyql-up encounterBelem Ordonez APRN-SERVOMECHANISM ASSEMBLER Work Phone: [facility] Medicine - Family MedicineComment on above:Thyroid profile includes TSH WR3Orxou: 07-03-2025 End: 25-75-0880Cthxoq outpatient visit 15 minutesBriana L Mery CASHIER ASSISTANT-SERVOMECHANISM ASSEMBLER Work Phone: [facility] Internal Medicine - Family MedicineComment on above:Hypothyroidism (acquired) (Primary Dx)Start: 07-03-2025 End: 77-56-9281kjjslxwafzXYBKKOSouthern Inyo Hospital Ambulatory PPGStart: 06-27-2025 End: 30-23-7286Ngjrkf OnlyBriana L Mery CASHIER ASSISTANT-SERVOMECHANISM ASSEMBLER Work Phone: [facility] MedicineStart: 06-20-2025 End: 36-00-7010Dlptnn OnlyBriana L Mery CASHIER ASSISTANT-SERVOMECHANISM ASSEMBLER Work Phone: [facility] - [facility] MedicineComment on above:Hiatal hernia (Primary Dx)X-ray chest 1 viewStart: 05-29-2025 End: 68-06-0196Orukkv outpatient visit 15 minutesBriana L Mery CASHIER ASSISTANT-SERVOMECHANISM ASSEMBLER Work Phone: [facility] HospitalComment on above:Essential hypertension (Primary Dx); Hypothyroidism (acquired)Start: 05-29-2025 End: 11-09-2855pynkoenbezOELLEHMohawk Valley Health System Ambulatory PPGStart: 05-23-2025 End: 18-94-8435Nroajh outpatient visit 15 minutesBriana L Mery CASHIER ASSISTANT-SERVOMECHANISM ASSEMBLER Work Phone: [facility] MedicineComment on above:Anxiety (Primary Dx); Essential hypertensionStart: 05-23-2025 End: 44-75-1320fvoenbtifmMMAAUSSouthern Inyo Hospital Ambulatory PPGStart: 04-21-2025 End: 74-02-5560Eughjf OnlyBriana L Mery CASHIER ASSISTANT-SERVOMECHANISM ASSEMBLER Work Phone: [facility] Internal [facility] MedicineStart: 04-19-2025 End: 97-66-6076RovhnuLvqciv G Furlong DO Work Phone: [facility] Internal [facility] MedicineStart: 04-14-2025 End: 09-85-1431Hqgzyutqt sawDinorahwali Evans [facility] Internal [facility] MedicineStart: 04-11-2025 End: 00-79-9239Ddayht outpatient visit [facility] CASHIER ASSISTANT-SERVOMECHANISM ASSEMBLER Work Phone: [facility] HospitalComment on above:Anxiety (Primary Dx); Essential hypertension; Acquired hypothyroidism; HyperkalemiaStart: 04-11-2025 End: 58-10-4471nbmnkqheyvDREHBHChoctaw Nation Health [facility] PPGStart: 03-26-2025 End: 60-50-5576YrdrleTrvu Cooper [facility] HospitalComment on above:Hyperlipidemia, unspecifiedStart: 02-18-2025 End: 33-04-0396LgzfysKvvkjc G Furlong DO Work Phone: [facility] MedicineStart: 02-03-2025 End: 45-61-5849Hqdpzn flowsheetNatalie A Felter CASHIER ASSISTANT-SERVOMECHANISM ASSEMBLER Work Phone: [facility] DERMStart: 02-03-2025 End: 96-27-2892Slxzdo flowsheetNatalie A Felter CASHIER ASSISTANT-SERVOMECHANISM ASSEMBLER Work Phone: [facility] DERMStart: 02-03-2025 End: 28-61-3067Wmqjty outpatient visit 15 minutesNatalie A Felter CASHIER ASSISTANT-SERVOMECHANISM ASSEMBLER Work Phone: [facility] DERMComment on above:Other nonthrombocytopenic purpura (Primary Dx); Stasis dermatitis of both legs; Seborrheic keratosis, inflamedStart: 02-03-2025 End: 14-00-2778syltfooctbHAGPOFS A FELTERNot AvailableStart: 12-20-2024 End: 11-60-7378BsptpiSqdy Cooper [facility] Internal [facility] MedicineStart: 12-16-2024 End: 79-95-1139Xvfvps Kirstin Vaughn DO Work Phone: [facility] MedicineStart: 12-15-2024 End: 84-13-1787RzfuukQuenwb Rubina Mery CASHIER ASSISTANT-SERVOMECHANISM ASSEMBLER Work Phone: [facility] Internal [facility] MedicineStart: 11-28-2024 End: 60-23-1012VgkaulNasich Rubina Mery CASHIER ASSISTANT-SERVOMECHANISM ASSEMBLER Work Phone: [facility] Internal Medicine - Family MedicineComment on above:Acquired hypothyroidismStart: 11-08-2024 End: 52-14-7499Lxepaq outpatient visit 15 minutesBriana Rubina Meyr CASHIER ASSISTANT-SERVOMECHANISM ASSEMBLER Work Phone: [facility] Internal Medicine - Family MedicineComment on above:Essential hypertension (Primary Dx); Chronic nonspecific colitis; Age-related osteoporosis without current pathological fractureStart: 11-08-2024 End: 70-68-0722bctunyrcqsUENDSTSouthern Inyo Hospital Ambulatory PPGStart: 10-10-2024 End: 77-38-8582ZobfjkFdeyhj Rubina Mery CASHIER ASSISTANT-SERVOMECHANISM ASSEMBLER Work Phone: [facility] Internal [facility] MedicineStart: 10-04-2024 End: 04-94-6355Scvtov outpatient visit 25 minutesBriana Rubina Mery CASHIER ASSISTANT-SERVOMECHANISM ASSEMBLER Work Phone: [facility] Internal Medicine - Family MedicineComment on above:Essential hypertension (Primary Dx); Vitamin D deficiency; Hypokalemia; Hypothyroidism (acquired)Start: 10-04-2024 End: 43-37-6119xxvqkshpkoFKLGNESouthern Inyo Hospital Ambulatory PPGStart: 09-10-2024 End: 50-18-0713WzvywgMplnu Nimco [facility] Internal Medicine - Family MedicineComment on above:Essential (primary) hypertensionStart: 09-03-2024 End: 93-45-7203TcatmwFotjff Gullett [facility] Internal Medicine - Family MedicineComment on above:Localized edemaStart: 08-02-2024 End: 14-56-5739DaejwwQmftwh L Mery CASHIER ASSISTANT-SERVOMECHANISM ASSEMBLER Work Phone: [facility] Physicians Internal Medicine - Family MedicineStart: 07-23-2024 End: 88-63-8099Ygfdjxwns encounterPoly Hudson [facility] Physicians Internal [facility] Hospitaltart: 07-19-2024 End: 50-82-5063bawnnzzkvzMMRRTI L RAUCHMercy Health St[facility] HospitalStart: 07-19-2024 End: 92-57-7119Pwxpuci encounter Sobia Ordonez CASHIER ASSISTANT-SERVOMECHANISM ASSEMBLER Work Phone: [facility] Physicians Internal Medicine - Family MedicineComment on above:Medicare annual wellness visit, initial (Primary Dx); Hyperkalemia; Hypothyroidism (acquired); Influenza vaccination administered at current visit; Encounter for screening mammogram for malignant neoplasm of breast; Depression screeningStart: 06-04-2024 End: 44-16-2435Ywxjqy Jean Paul Rubina Mery CASHIER ASSISTANT-SERVOMECHANISM ASSEMBLER Work Phone: [facility] Physicians Internal Medicine - Family MedicineComment on above:Hyperkalemia (Primary Dx)Start: 06-03-2024 End: 54-35-4639Ujwfqkkxd encounterCourtney Evans [facility] Phys[facility] Internal Medicine - Family [facility] Hospitaltart: 03-12-2024 End: 69-33-1538XwswanCzthsjtr Johnson [facility] Physicians Internal Medicine - Family MedicineComment on above:Essential (primary) hypertensionStart: 03-04-2024 End: 73-99-9545Uxbccw Edgard Raines CASHIER ASSISTANT-ROOF TRUSS MACHINE TENDER Work Phone: [facility] Internal Medicine - Family MedicineComment on above:Hypokalemia (Primary Dx); Adverse effect of unspecified drugs, medicaments and biological substances, subsequent encounterStart: 03-01-2024 End: 10-98-6874gnemycftjfQPHJ ROSE KUNPico Rivera Medical Centermichelle [facility] Centertart: 03-01-2024 End: 53-17-4369Jvvpqu outpatient visit 25 minutesSadie Raines CASHIER ASSISTANT-ROOF TRUSS MACHINE TENDER Work Phone: [facility] Phys[facility] Internal Medicine - Family MedicineComment on above:Essential hypertension (Primary Dx); Mixed hyperlipidemia; Hypothyroidism (acquired); Other eczema; Chronic neck painStart: 29-36-3757Kdvxhj OnlySadie Raines CASHIER ASSISTANT-ROOF TRUSS MACHINE TENDER Work Phone: [facility] Internal [facility] Centertart: 93-27-1599KqmfdaBaez Rose Kuns CASHIER ASSISTANT-ROOF TRUSS MACHINE TENDER Work Phone: [facility] Internal Medicine - [facility] HospitalComment on above:Localized edema; Hyperlipidemia, unspecifiedStart: 71-62-7427OwmlajGvoq Rose Kuns CASHIER ASSISTANT-ROOF TRUSS MACHINE TENDER Work Phone: [facility] Physicians [facility] Medicine - [facility] Joseph'S HospitalComment on above:Adverse effect of unspecified drugs, medicaments and biological substances, subsequent encounterStart: 62-98-8889NxdqwmUjzj Rose Kuns CASHIER ASSISTANT-ROOF TRUSS MACHINE TENDER Work Phone: [facility] HospitalComment on above:Adverse effect of unspecified drugs, medicaments and biological substances, subsequent encounterStart: 11-20-2023 End: 10-28-3852Pwneyw outpatient visit 25 minutesSadie Raines CASHIER ASSISTANT-ROOF TRUSS MACHINE TENDER Work Phone: [facility] HospitalComment on above:Essential hypertension (Primary Dx); Chronic neck pain; Acquired hypothyroidism; Age-related osteoporosis with current pathological fracture with routine healing; Encounter for screening mammogram for malignant neoplasm of breastStart: 11-14-2023 End: 51-07-2442mdkpkxhpgsEabbmpvs McCormack Other [employer] Other Start: 60-72-1462Leksrdsak encounterLajl AGUILAR GastroenterologyStart: 11-08-2022 End: 89-31-9981phhoenkvrpQvzahspt McCormack Other [employer] Other Start: 91-99-3292Gnwhtf outpatient visit 25 minutes Nain Childress GastroenterologyStart: 08-03-2022 End: 75-49-6460sjdjrlihxaBY SADIE RAINESFacility:L9Xpruj: 05-17-2022 End: 61-30-3466ywvzxejntiRmsyq Hykes Other [facility] [employer] Other Start: 47-77-5056Cthcvmrlp encounterDayadira NugentkesJUDIG GastroenterologyStart: 11-28-2021 End: 11-95-0746ghuzghqkxnNL SADIE RAINESFacility:C7Ctniy: 10-08-2021 End: 65-80-4958fkecbwouxvVB SADIE RAINESFacility:J2Gywrg: 10-06-2021 End: 78-88-6571cmbbnaraeuOwxbo Hykes Other [facility] [employer] Other Start: 68-56-7678Gentqj outpatient visit 25 minutes Iris Kahn GastroenterologyStart: 09-16-2021 End: 31-80-7918publffwjceRU SADIE RAINESFacility:E5Gfsud: 10-28-2020 End: 24-85-5284Yzwgs abstractingVivekieran Parranenita Work Phone: Hematology/OncologyStart: 10-26-2020 End: 89-55-4197Tizssnd encounter procedureExternal ProviderGlenbeigh Hospital Start: 96-96-8571Xeufftj OnlyExternal ProviderExternal-NonCCF Procedures DateProcedureProcedure DetailPerforming ClinicianStart: 39-32-7350Hsktv of free thyroxineBrcarlitos Ordonez CASHIER ASSISTANT-SERVOMECHANISM ASSEMBLER Work Phone: Start: 62-18-5432Azsirgpesirsr antibodyBriana Rubina Ordonez CASHIER ASSISTANT-SERVOMECHANISM ASSEMBLER Work Phone: Start: 68-88-5166Enipx depression screening assessment Belem Ordonez CASHIER ASSISTANT-SERVOMECHANISM ASSEMBLER Work Phone: Start: 36-29-0690Vamdl of free thyroxineBrcarlitos Ordonez CASHIER ASSISTANT-SERVOMECHANISM ASSEMBLER Work Phone: Start: 92-04-2121Cxlry depression screening assessment Belem SEPULVEDASERVOMECHANISM ASSEMBLER Work Phone: Start: 15-46-8753Gyprh depression screening assessment Belem SEPULVEDASERVOMECHANISM ASSEMBLER Work Phone: Start: 42-43-6128Fcfku depression screening assessment Belem SEPULVEDASERVOMECHANISM ASSEMBLER Work Phone: Start: 92-76-4864Ypejv depression screening assessment Belem [facility]EDABOST[facility] Work Phone: Start: 27-14-6436ZKKARZAUQOS SKIN LESIONNatalie A Felter D[facility]ICKBO[facility] Work Phone: Start: 13-21-5991Dgmhq depression screening assessment Belem Ordonez APRNUNION HOSP[facility] Work Phone: Start: 43-78-2072Bbrgt depression screening assessment Belem SEPUL[facility]EDABOST[facility] Work Phone: Start: 83-37-2992CiptjbmpdvoVqtoiq Rauch APRN-[facility] Work Phone: Start: 83-70-5051Rmnef depression screening assessment Belem SEPULVEDASERVOMECHANISM ASSEMBLER Work Phone: Start: 71-63-2867Rmoxx depression screening assessment Sadie Raines APRN-ROOF TRUSS MACHINE TENDER Work Phone: Start: 99-31-5562Pxrdv depression screening assessment Sadie SEPULVEDAROOF TRUSS MACHINE TENDER Work Phone: Start: 10-26-2020 End: 65-81-1322KWJYWWCM LABExternal Provider Plan of Treatment DateCare ActivityDetailAuthorStart: 76-34-1825ZVhJ,Tdap and Td Vaccines (3 - Td or Tdap)DTaP,Tdap and Td Vaccines (3 - Td or Tdap)[facility] SystemStart: 31-80-0080Zkyar BMI ScreeningAdult BMI ScreeningProMedica Health SystemStart: 92-79-3311Uifvbeuflb ScreeningDepression ScreeningProBrecksville Va / Crille Hospitalca Health SystemStart: 94-75-3765Bwzkecv ScreeningTobacco ScreeningProBrecksville Va [facility] Hospitalca Health SystemStart: 78-06-5616Dffue BMI ScreeningAdult BMI ScreeningHolzer Hospitalca Health SystemStart: 41-21-0355Kppkpadilt ScreeningDepression ScreeningProBrecksville [facility] Hospitalca Health SystemStart: 02-18-8398Qxfb Risk ScreeningFall Risk ScreeningProBrecksville Va / [facility] Hospitalca Health SystemStart: 27-93-8536Yoyiqvb ScreeningTobacco ScreeningHolzer Hospitalca Health SystemStart: 55-16-3982Lhuvu BMI ScreeningAdult BMI ScreeningProBrecksville Va [facility] Hospitalca Health SystemStart: 97-77-8465Boemevntmj ScreeningDepression ScreeningProMedica Health SystemStart: 72-79-3541Uxsn Risk ScreeningFall Risk ScreeningHolzer Hospitalca Uc Health SystemStart: 50-07-9437Ntrrwff ScreeningTobacco ScreeningHolzer Hospitalca Health SystemStart: 19-60-7798Gtqzp BMI ScreeningAdult BMI ScreeningHolzer Hospitalca Uc Health SystemStart: 23-71-8059Yyhjhbbiej ScreeningDepression ScreeningHolzer Hospitalca Uc Health SystemStart: 13-79-9600Vkswvea ScreeningTobacco ScreeningHolzer Hospitalca Health SystemStart: 06-95-8792Zkfqo BMI ScreeningAdult BMI ScreeningHolzer Hospitalca Health SystemStart: 75-02-4079Upstiuczht ScreeningDepression ScreeningHolzer Hospitalca Uc Health SystemStart: 63-52-2675Eyqp Risk ScreeningFall Risk ScreeningHolzer Hospitalca Uc Health SystemStart: 03-39-6111Fideiqb ScreeningTobacco ScreeningHolzer Hospitalca Health SystemStart: 30-01-2326Fmtij BMI ScreeningAdult BMI ScreeningHolzer Hospitalca Uc Health SystemStart: 14-40-2865Thhlchceic ScreeningDepression ScreeningHolzer Hospitalca [facility] Health SystemStart: 42-11-8026Mylu Risk ScreeningFall Risk ScreeningHolzer Hospitalca Uc Health SystemStart: 94-69-6182Qrggzec ScreeningTobacco ScreeningHolzer Hospitalca Uc Health SystemStart: 10-09-2025 End: 52-65-4292Mzugysp encounter nvdvehtrf07/11/2025 3:40 PM EST Office Visit [facility] [address] [place] [address] Belem Ordonez, CASHIER ASSISTANT-SERVOMECHANISM ASSEMBLER [address] [place] [address] [facility] - [facility] MedicineStart: 15-76-4994Oegdl BMI ScreeningAdult BMI ScreeningProBrecksville Va / [facility] Hospitalca Health SystemStart: 16-28-5896Rzvfetgyly ScreeningDepression ScreeningProBrecksville Va / [facility] Hospitalca Health SystemStart: 40-06-7912Cblp Risk ScreeningFall Risk ScreeningProBrecksville Va / [facility] Hospitalca Health SystemStart: 88-30-4854Kjxspvu ScreeningTobacco ScreeningProBrecksville Va / [facility] Hospitalca Health SystemStart: 08-15-2025 End: 79-57-8417NFH Breast - bilateral screeningMammography screening bilateral with CAD Imaging Routine Encounter for screening mammogram for malignant neoplasm of breast Expected: 08/15/2025, Expires: 08/15/2026[facility] Work Phone: Comment on above:Expected: 08/15/2025, Expires: 08/15/2026Start: 08-14-2025 End: 16-59-6161Zjefpcx encounter grmqjkyuq51/16/2025 4:20 PM EDT Office Visit [facility] - Family Medicine [address] [place] [address] Belem Ordonez, CASHIER ASSISTANT-SERVOMECHANISM ASSEMBLER [address] [place] [address] [facility] MedicineStart: 28-46-2344Ztdxerpyy for malignant neoplasm of breastMammogramProAdena Health System SystemStart: 80-40-3932Kacvu BMI ScreeningAdult BMI ScreeningProAdena Health System SystemStart: 00-43-9200Pgppmekwzd ScreeningDepression ScreeningProAdena Health System SystemStart: 60-38-6154Dnom Risk ScreeningFall Risk ScreeningProAdena Health System SystemStart: 09-20-2025Medicare Annual Wellness VisitMedicare Annual Wellness VisitUniversity [facility]als [facility] SystemStart: 58-29-7444Axbyybp ScreeningTobacco ScreeningHolzer Hospitalca Uc Health SystemStart: 07-03-2025 End: 38-67-9615Uvycfan encounter hhwjorqib04/04/2025 3:40 PM EDT Office Visit [facility] [address] [place] [address] Belem Ordonez, CASHIER ASSISTANT-SERVOMECHANISM ASSEMBLER [address] [place] [address] [facility] MedicineStart: 36-10-7661Pcikqiusd vaccination Influenza VaccineProAdena Health System SystemStart: 05-23-2025 End: 85-42-2212Xgiyjbp encounter ayphcitsp95/25/2025 11:20 AM EDT [facility] [address] [place] [address] Belem rOdonez, CASHIER ASSISTANT-SERVOMECHANISM ASSEMBLER [address] [place] [address] [facility] Physicians [facility] MedicineStart: 04-11-2025 End: 56-50-7967Ljrurjc encounter rvjjxiyxy87/13/2025 9:40 AM EDT [facility] [address] [place] [address] Belem Ordonez, CASHIER ASSISTANT-SERVOMECHANISM ASSEMBLER [address] [place] [address] [facility] MedicineStart: 09-49-2447Yvwar BMI ScreeningAdult BMI ScreeningProAdena Health System SystemStart: 61-54-5348Hbpwwzuvtc ScreeningDepression ScreeningProAdena Health System SystemStart: 96-44-3704Ljzv Risk ScreeningFall Risk ScreeningProAdena Health System SystemStart: 84-50-9141Ljussvg ScreeningTobacco ScreeningProAdena Health System SystemStart: 02-03-2025 End: 37-11-6491Taigohz encounter /07/2025 11:25 AM EDT Office Visit [facility] [address] [place] [address] Kendra Meyer, CASHIER ASSISTANT-SERVOMECHANISM ASSEMBLER [address] [place] [address] ArrivedNOMS SWS DERMComment on above: ArrivedStart: 19-29-3355Kgtnr BMI ScreeningAdult BMI ScreeningProAdena Health System SystemStart: 85-96-1090Anxjjubvhb ScreeningDepression ScreeningProAdena Health System SystemStart: 37-34-5866Ngez Risk ScreeningFall Risk ScreeningProAdena Health System SystemStart: 48-67-7122Wcpewnl ScreeningTobacco ScreeningProAdena Health System System Start: 11-08-2024 End: 01-35-0368Gouumvz encounter jbilniqrt95/10/2025 10:40 AM EST Office Visit [facility] [address] [place] [place] [address] Belem Ordonez, CASHIER ASSISTANT-SERVOMECHANISM ASSEMBLER [address] [place] [address] [facility] Internal Medicine - Family MedicineStart: 10-04-2024 End: 24-51-1083Lztfhjt encounter skakjzmsa89/06/2024 9:20 AM EST Office Visit [facility] - Family Medicine [address] [place] [address] Belem Ordonez, CASHIER ASSISTANT-SERVOMECHANISM ASSEMBLER [address] [place] [address] [facility] Internal Medicine - Family MedicineStart: 07-19-2024 End: 92-09-8019MPA Breast - bilateral screeningMammography screening bilateral with CAD Imaging Routine Encounter for screening mammogram for malignant neoplasm of breast Expected: 07/19/2024, Expires: 07/19/2025ProAdena Health System SystemComment on above:Expected: 07/19/2024, Expires: 07/19/2025Start: 07-19-2024 End: 67-52-3935Uminrdfdatx [Units/volume] in Serum or PlasmaTSH Lab Routine Hypothyroidism (acquired) Expected: 07/19/2024 (Approximate), Expires: 07/19/2025ProA[facility] Health System SystemComment on above:Expected: 07/19/2024 (Approximate), Expires: 07/19/2025Start: 07-19-2024 End: 84-73-6433Joskksh encounter rytbnywwu09/20/2024 11:20 AM EDT Office Visit [facility] - [facility] Medicine [address] [place] [address] Belem Ordonez, CASHIER ASSISTANT-SERVOMECHANISM ASSEMBLER [address] [place] [address] [facility] Internal Medicine - Family MedicineStart: 79-53-6115Bxvaaznki vaccination Influenza VaccineProAdena Health System SystemStart: 02-27-2024 End: 88-45-1262Fbhcolv encounter tfgytgavm03/30/2024 8:30 AM EDT Office Visit [facility] [address] [place] [address] Sadie Raines, CASHIER ASSISTANT-ROOF TRUSS MACHINE TENDER [address] [place] [address] [facility] MedicineStart: 11-20-2023 End: 72-66-3786CIU Breast - bilateral screeningMammography screening bilateral with CAD Imaging Routine Encounter for screening mammogram for malignant neoplasm of breast Expected: 11/20/2023, Expires: 11/20/2024[facility] Work Phone: Comment on above:Expected: 11/20/2023, Expires: 11/20/2024Start: 63-14-9435Wxizdqxhegjnwe of varicella zoster vaccineZoster (Shingles) Vaccine (2 of 2)[facility] SystemStart: 83-16-5210Xfdyxpoikjik Vaccine: 65+ Years (1 of 1 - PCV)Pneumococcal Vaccine: 65+ Years (1 of 1 - PCV) [facility] HealthcareStart: 85-24-1629FEdD,Tdap and Td Vaccines (2 - Td or Tdap) DTaP,Tdap and Td Vaccines (2 - Td or Tdap)[facility]art: 78-85-3930Ctzjwpmad vaccinationINFLUENZA (#1)[facility]tart: 2007 Screening for malignant neoplasm of colonKnox Community Hospitaltart: 2007 SHINGRIX VACCINE (1 of 2)SHINGRIX VACCINE (1 of 2)[facility]tart: 91-92-6284JKRZWMYW SCREENDIABETES SCREENKnox Community Hospitaltart: 69-01-8231MOCSN SCREENLIPID SCREENKnox Community Hospitaltart: 87-04-0610OuykpncqnvaFYPDSAXGOOlrzdbafp ClinicStart: 60-19-6669Xexpqidfy for malignant neoplasm of breastMammogram [facility] Centertart: 61-64-9684LEG TESTINGHPV TESTINGGlenbeigh Hospital Start: 62-69-2829IFI TESTINGPAP TESTINGKnox Community Hospitaltart: 27-35-0402Zehdv microalbumin profileDTAP,TDAP,TD (1 - Tdap)[facility]tart: 1975 Adult BMI Follow Up PlanAdult BMI Follow Up PlanFrye Regional Medical Centertart: 66-62-3879MMWLJGVTC C SCREENINGHEPATITIS C SCREENINGKnox Community Hospitaltart: 44-27-1283SCN SCREENINGHIV SCREENINGKnox Community Hospitaltart: 1957Medicare Annual Wellness VisitMedicare Annual Wellness VisitFrye Regional Medical Centertart: 18-83-8463Wiicrvnqp for malignant neoplasm of colonNOMS Healthcare End: 04-21-9624Axhhh metabolic 2000 panel - Serum or PlasmaBasic Metabolic Panel Lab Routine Hyperkalemia 1 Occurrences starting 06/04/2024 until 06/04/2025 Lang [facility] Work Phone: Comment on above:1 Occurrences starting 06/04/2024 until 06/04/2025 End: 99-50-6578Ddrgk metabolic 2000 panel - Serum or PlasmaBasic Metabolic Panel Lab Routine Hyperkalemia 1 Occurrences starting 07/19/2024 until 07/19/2025 Lang [facility] Work Phone: Comment on above:1 Occurrences starting 07/19/2024 until 07/19/2025asic metabolic 2000 panel - Serum or PlasmaBasic Metabolic Panel Lab Routine Hyperkalemia 04/11/2025 10:04 AM [facility] [employer] End: 25-36-9719Mvosfyy profile includes TSH MQ4Vupokgx profile includes TSH FT4 Lab Routine Acquired hypothyroidism 1 Occurrences starting 04/11/2025 until 04/11/2026Proyouwho Work Phone: Comment on above:1 Occurrences starting 04/11/2025 until 04/11/2026Thyroid profile includes TSH NM9Febehak profile includes TSH FT4 Lab Routine Acquired hypothyroidism 04/11/2025 10:04 AM [facility] [employer] End: 90-94-2273Dyjybqwcl (T4) free [Mass/volume] in Serum or PlasmaT4, free Lab Routine Hypothyroidism (acquired) 1 Occurrences starting 07/19/2024 until 07/19/2025[facility] CenterProviderTrust [facility] OaklandComment on above:1 Occurrences starting 07/19/2024 until 07/19/2025[facility] Immunizations Immunization DateImmunizationNotesCare YlyjhytfCiszqsob36-65-6947Yjpluyvg trivalent influenza vaccine, adjuvanted, preservative freeBelem Ordonez CASHIER ASSISTANT-SERVOMECHANISM ASSEMBLER Work Phone: [facility] Afhjbz65-49-8866Blznkvirfncs, In Clinic,; Translations: [Drug or medicament (substance)]Belem Ordonez CASHIER ASSISTANT-SERVOMECHANISM ASSEMBLER Work Phone: [facility] Xjyfwz75-72-5867Kzqeqexb trivalent influenza vaccine, adjuvanted, preservative freeBelem Ordonez CASHIER ASSISTANT-SERVOMECHANISM ASSEMBLER Work Phone: [facility] Bfcmdv59-34-6065Jbpdvmsvsvjc, In Clinic,; Translations: [Drug or medicament (substance)]Belem Ordonez CASHIER ASSISTANT-SERVOMECHANISM ASSEMBLER Work Phone: [facility] ShawWxhtyk97-77-3432kqgczdwbr virus vaccine, unspecified formulationDennis Roderick DO Work Phone: [facility]Shop[facility] Niskjy03-60-1122dzjtag vaccine recombinantMary Kuns CASHIER ASSISTANT-ROOF TRUSS MACHINE TENDER Work Phone: [facility]11-18-2023zoster vaccine recombinantMary Kuns CASHIER ASSISTANT-ROOF TRUSS MACHINE TENDER Work Phone: [facility]11-18-2023zoster vaccine, unspecified formulationMary Kuns CASHIER ASSISTANT-ROOF TRUSS MACHINE TENDER Work Phone: [facility] ShawIuxovs08-26-8774llkkeloll, injectable, quadrivalent, preservative freeMary Kuns CASHIER ASSISTANT-ROOF TRUSS MACHINE TENDER Work Phone: [facility] ShawYprghl67-91-4965ddelyisxc virus vaccine, unspecified formulationMary Kuns CASHIER ASSISTANT-ROOF TRUSS MACHINE TENDER Work Phone: [facility] ShawYzkonc30-50-0614icoxufyty, injectable, quadrivalent, preservative freeMary Kuns CASHIER ASSISTANT-ROOF TRUSS MACHINE TENDER Work Phone: [facility] ShawQvajes48-17-9817tkwxqpayk, injectable, quadrivalent, preservative freeMary Kuns CASHIER ASSISTANT-ROOF TRUSS MACHINE TENDER Work Phone: [facility] ShawOwglfa40-91-4858Slkcqljeo, injectable, Madin Heppner Canine Kidney, quadrivalent with preservativeMary Kuns CASHIER ASSISTANT-ROOF TRUSS MACHINE TENDER Work Phone: [facility] ShawTfesqj15-88-8186otrbiqzbk, injectable, quadrivalent, preservative freeVivek AbhyankarCleveland Clinic 38-15-8360ifzcvhrex, injectable, quadrivalent, contains preservativeMary Kuns CASHIER ASSISTANT-ROOF TRUSS MACHINE TENDER Work Phone: [facility] ShawVfgaxm27-56-4445euomcyiyx, injectable, quadrivalent, contains preservativeMary Kuns CASHIER ASSISTANT-ROOF TRUSS MACHINE TENDER Work Phone: [facility] ShawCbyvfg57-91-1913zryqmssdm, injectable, quadrivalent, preservative freeVivek AbhyankarCleveland Clinic 75-00-3331eutwpguah, seasonal, injectable, preservative freeMary Kuns CASHIER ASSISTANT-ROOF TRUSS MACHINE TENDER Work Phone: [facility]09-14-2012tetanus toxoid, reduced diphtheria toxoid, and acellular pertussis vaccine, adsorbedVivek AbhyankarCleveland Clinic Payers DatePayer CategoryPayerPolicy [id number] (Managed Care)[employer] ADVANTAGE Member Subscriber Plan / Payer (Effective 2024-Present) Name: CharlenepatriciaReina eid Relation to Subscriber: Self Name: WilfridoReina SubscriberID: [id number] Payer ID: Not on file Group ID: [id number] Type: Not on file Address: [address] [place] [id number] 2023MedicareANTHEMMedicareANTHEM MEDICARE ANTHEM MEDICARE ADVANTAGE [id number] 2023-Present [phone] [address] [id number] Medicare HMOANTHEM MEDICARE Member Subscriber Plan / Payer (Effective 2023-) Name: Devon Anna Relation to Subscriber: Self Name: WilfridoReina Payer ID: [id number] (NAIC) Group ID: [id number] Type: Not on file Address: [address] [place] [id number] [id number] 2015UnknownANTHEM BLUE CARD PPO [id number] 2015-Present [id number] 36-42-3370Bhlp Cross Blue [id number]957 [id number] 2.16.840.1.297152.3.57[id number] 2.840.1.901906.3.57[id number] 2.840.1.483619.3.57[id number] 2.840.1.995721.3.57[id number] 2.840.1.282586.3.57[id number] 2.840.1.386009.3.57[id number] 2.840.1.098414.3.57[id number] 2.840.1.927049.3.57[id number] 2.840.1.902569.3.57[id number] 2.840.1.517431.3.57[id number] 2.840.1.521756.3.57[id number] 2.840.1.229976.3.57[id number] 2.840.1.432164.3.57[id number] 2.16.840.1.933086.3.579.2.1286 Social History DateTypeDetailFacilityTobacco smoking status NHISUnknown if ever smokedKnox Community Hospitaltart: 59-65-6209Qzk Assigned At BirthNot on fileGlenbeigh HospitalExposure to SARS-CoV-2 (event)Unable to assessKnox Community Hospitaltart: 54-94-4384Inkvpst smoking status NHISUnknown if ever smokedNOVT HealthcareStart: 12-10-2020 End: 53-15-5891Vfe Assigned At [facility] [employer] Other Start: 07-19-2024 End: [id number] smoking status NHISEx-smokerUniversity Hospitals Lake West Medical Center SystemStart: 02-25-1998 End: 28-27-8950Qrpcene of tobacco useCurrent smokerFrye Regional Medical Centertart: 02-25-1998 End: 69-67-9299Xwqhahf of tobacco useCigarette SmokerUniversity Hospitals Lake West Medical [facility] System Start: 12-10-2020 End: 00-34-4531Oijqhtdamg smoked current (pack per day) - Reported0.[address] [place] [address] SystemStart: 07-19-2024 End: 10-84-7468Prowxyv use and exposureSmokeless tobacco non-userUniversity Hospitals Lake [facility] Medical Center SystemStart: 11-08-2024 End: 49-12-2439Atsftlgmr beverage intakeCurrent drinker of alcohol (finding) [facility] ShawAdolescent depression screening zdgeftuvwy1HnmKuxfhcFrye Regional Medical Centertart: 63-05-2653Lhgonmx CommentsociallyPHolzer Hospital Start: 98-52-8567TrgKhpyhe (finding)[facility] SystemStart: 11-20-2023 End: 93-38-4864Uggnswznj beverage intakeEx-drinker (finding)[facility] Centertart: 03-26-4552Rhziizj smoking status NHISSmokes tobacco dailyNOMS Healthcare Functional Status Thbc[id number] anxiety disorder 7 item (AMIRAH-7)[facility] Clinical Notes 10-06-2021 to 08-14-2025 Note Date & [id number] History of Present illness Narrative* Belem Ordonez, PATI-SERVOMECHANISM ASSEMBLER - 08/14/2025 4:20 PM EDT [address] [place] [address] Patient: Reina Anna Date of : 1955 Encounter Date: 08/14/2025 History of Present Illness: The patient is a 70 y.o. female, an established patient, and is here for Chief Complaint Patient presents with f/u BP/ Thyroid . HPI Patient is here to follow up on her abnormal thyroid function tests and her hypertension. She has not been taking her blood pressure at home as advised after last appointment. She states she will start to take it at home as she has borrowing her boyfriend's blood pressure cuff. She is still feelinganxious and jittery at times. Recently she hit her right leg on her card were and it became infected. She went to the urgent careand was placed on Augmentin but this made her have loose stools so she stopped this. She went back to the urgent care in the provider told her to use hydro pads from [employer] and change the dressing every 2 days and patient states it is healing up well. She did not want to show provider her wound today because she had just change her dressing. She is also complaining of a dry cough for the last couple of months which is irritating her especially when she is out in public. Problem List Items Addressed This Visit Cardiovascular and Mediastinum Essential hypertension Relevant Medications losartan (COZAAR) 100 mg tablet amLODIPine (NORVASC) 5 mg tablet Endocrine Hypothyroidism (acquired) - Primary Relevant Orders Thyroid profile includes TSH FT4 (Completed) Ambulatory referral to Endocrinology Thyroid antibodies includes TPO and TGAB (Completed) Other Visit Diagnoses Influenza vaccination administered at current visit Relevant Orders Influenza, Trivalent, Adjuvanted (Completed) Anxiety Encounter for screening mammogram for malignant neoplasm of breast Relevant Orders Mammography screening bilateral with CAD Past Medical, Family, and Social History Update: The following portions of the patient's history were reviewed and updated as appropriate: allergies, current medications, past family history, past medical history, past social history, past surgicalhistory and problem list. Past Medical History: Diagnosis Date Anxiety Hypertension Neck pain Past Surgical History: Procedure Laterality Date COLONOSCOPY 2011 COLONOSCOPY N/A 07/03/2019 Performed by Jamari Cox DO at [facility] LAPROSCOPIC ULTRASOUND GUIDED MICROWAVE ABLASION OF [...] by mouth oncea week. 90 capsule 1 escitalopram (LEXAPRO) 20 mg tablet Take 1 tablet (20 mg total) by mouth in the evening. 90 tablet 1 rosuvastatin (CRESTOR) 5 mg tablet Take 1 tablet (5 mg total) by mouth in the morning. 90 tablet 3 amLODIPine (NORVASC) 5 mg tablet Take 1 tablet (5 mg total) by mouth in the morning. 90 tablet 1 losartan (COZAAR) 100 mg tablet Take 1 tablet (100 mg total) by mouth in the morning. 90 tablet 1 No current facility-administered medications for this visit. (All medications reviewed and updated by provider since last office visit or hospitalization) Allergies: Patient has no known allergies. Tobacco History: Social History Tobacco Use Smoking Status Former Current packs/day: 0.50 Average packs/day: 0.5 packs/day for 27.5 years (13.7 ttl pk-yrs) Types: Cigarettes Start date: 02/25/1998 Smokeless Tobacco Never (If patient a smoker, smoking cessation counseling offered) Social History: Social History Substance and Sexual Activity Alcohol Use Yes Comment: socially Review of Systems: Review of Systems Constitutional: Positive for unexpected weight change. Negative for chills and fever. HENT: Negative for ear pain and sore throat. Eyes: Negative for pain and visual disturbance. Respiratory: Negative. Negative for cough and shortness of breath. Cardiovascular: Negative. Negative for chest pain and palpitations. Gastrointestinal: Negative for abdominal pain and vomiting. Genitourinary: Negative for dysuria and hematuria. Musculoskeletal: Negative for arthralgias and back pain. Skin: Negative for color change and rash. Neurological: Negative. Negative for seizures and syncope. Psychiatric/Behavioral: Negative for agitation, behavioral problems, decreased concentration, dysphoric mood, hallucinations, self-injury, sleep disturbance and suicidal ideas. The patient is nervous/anxious. The patient is not hyperactive. All other systems reviewed and are negative. Physical Exam: BP 148/80 (BP Site: Right Arm, BP Postition: Sitting, BP CUFF SIZE: S (7-9 inches)) Pulse 82 Temp 36.3 C (97.4 F) (Tympanic) Resp 17 Ht 154.9 cm (5' 0.98 ) Wt 47.6 kg (105 lb) SpO2 98% BMI 19.85 kg/m Physical Exam Vitals reviewed. Constitutional: Appearance: Normal appearance. HENT: Head: Normocephalic and atraumatic. Right Ear: Tympanic membrane, ear canal and external ear normal. Left Ear: Tympanic membrane, ear canal and external ear normal. Nose: Congestion and rhinorrhea present. Mouth/Throat: Mouth: Mucous membranes are moist. Eyes: General: No scleral icterus. Pupils: Pupils are equal, round, and reactive to light. Cardiovascular: Rate and Rhythm: Normal rate and regular rhythm. Heart sounds: Normal heart sounds. Pulmonary: Effort: Pulmonary effort is normal. Breath sounds: Normal breath sounds. Musculoskeletal: Right lower leg: No edema. Left [...] Plan: Reina was seen today for f/u bp/ thyroid. Diagnoses and all orders for this visit: Hypothyroidism (acquired) - Thyroid profile includes TSH FT4; Future - Ambulatory referral to Endocrinology; Future - Thyroid antibodies includes TPO and TGAB; Future - Thyroid antibodies includes TPO and TGAB - Thyroid profile includes TSH FT4 Essential hypertension Influenza vaccination administered at current visit - Influenza, Trivalent, Adjuvanted Anxiety Encounter for screening mammogram for malignant neoplasm of breast - Mammography screening bilateral with CAD; Future Other orders - losartan (COZAAR) 100 mg tablet; Take 1 tablet (100 mg total) by mouth in the morning. - amLODIPine (NORVASC) 5 mg tablet; Take 1 tablet (5 mg total) by mouth in the morning. Follow-up: Her thyroid function tests were normal today with stopping her Synthroid so we will continue to hold this and she may hold off on her referral for endocrinology at this time since her thyroid function tests have returned to normal. Her recent weight loss may have been due to her abnormal thyroid fun ction tests but should now stabilize. We will make sure her routine cancer screenings are up-to-date at her wellness in Sep. Sent mammogram and she does not qualify for LDCT for lung cancer screeningas she has <15 pack yr history. Switch her lisinopril to losartan as this may be causing her dry cough. We will add amlodipine 5 mgas her blood pressure is not yet at goal of less than 130/80. She was again encouraged to check herblood pressure at home 2-3 times per week and record for next appointment. Patient does not want her anxiety medication changed at this time as she feels she is doing okay with the Lexapro 20 mg daily. She is not want counseling added at this time. JANA COLEY APRN-CNP 08/15/25 1354 documented in this encounterSelect [facility]09-08-2025 Miscellaneous Notes* Telephone Encounter - David Mc CNA - [...] 07/03/2025 10:46 PM EDT To: JANA Coley * Telephone Encounter - David Mc CNA - 07/07/2025 8:53 AM EDT Pt informed documented in this encounterSelect [facility]09-08-2025 Telephone encounter Note* Telephone Encounter - David Mc CNA - [...] 07/03/2025 10:46 PM EDT To: JANA Coley [facility]09-08-2025 Telephone encounter Note* Telephone Encounter - David Mc CNA - 07/07/2025 8:53 AM EDT Pt informed [facility]09-04-2025 History of Present illness Narrative* JANA Coley - 07/03/2025 3:40 PM EDT [address] [place] [address] Patient: Reina Anna Date of : 1955 Encounter Date: 07/03/2025 History of Present Illness: The patient is a 69 y.o. female, an established patient, and is here for Chief Complaint Patient presents with F/U BP . HPI Pt has been out of her lisinopril for last 2 days so did not take it this am before appt. She feelsher mental health is slightly better and has [...] COLONOSCOPY 2011 COLONOSCOPY N/A 07/03/2019 Performed by Jaamri Cox DO at [facility] LAPROSCOPIC ULTRASOUND GUIDED MICROWAVE ABLASION OF [...] by mouth oncea week. 90 capsule 1 escitalopram (LEXAPRO) 20 [...] home. She was encouraged to do so 2-3times/week and bring record to next visit. Her BP may be increased since TFTs are still abnormal. She was advised to stop her synthroid and re-check in 1 mo. If still abnormal, she will need to see endocrinology. F/u in Jul. JANA COLEY APRN-CNP 07/08/25 1318 documented in this encounterSelect Medical [facility]07-31-2025 History of Present illness Narrative* JANA Coley - 05/29/2025 1:00 PM EDT [address] [facility] [address] Patient: Reina Anna Date of : 1955 Encounter Date: 05/29/2025 History of Present Illness: The patient is a 69 y.o. female, an established patient, and is here for Chief Complaint Patient presents with follow up from er TB May 25- Hypertension . HPI Patient in the ER at the [facility] on May 25 for increased anxiety symptoms and high blood pressure. She took her blood pressure at home and systolic it was 190 and she became concerned soshe drove herself to the ER. Patient states [...] 07/03/2019 Performed by Jamari Cox DO at [facility] LAPROSCOPIC ULTRASOUND GUIDED MICROWAVE ABLASION OF [...] by mouth oncea week. 90 capsule 1 escitalopram (LEXAPRO) 20 [...] was seen today for follow up from [facility]. Diagnoses and all orders for this [...] in March. Return to office in June. BELEM JANA GARCIA APRN-CNP 05/29/25 1327 documented in this encounterSelect Medical [facility]07-25-2025 History of Present illness Narrative* JANA Coley - 05/23/2025 11:20 AM EDT [address] [place] [address] Patient: Reina Anna Date of : 1955 Encounter Date: [...] 07/03/2019 Performed by Jamari Cox DO at [facility] LAPROSCOPIC ULTRASOUND GUIDED MICROWAVE ABLASION OF [...] COLEY APRN-CNP 05/23/25 1308 documented in this encounterSelect Medical [facility]06-16-2025 Miscellaneous Notes* Telephone Encounter - Courtney Evans CMA - 04/14/2025 11:25 AM EDT ----- Message from JANA Solomon sent at 04/14/2025 8:48 AM EDT ----- Her thyroid is low or over-replaced so we will go down a little with dose of her Synthroid. Have her start new dose right away so we can re-check her blood work at [facility] in April. She does not need to fast. This could be partially why she feels anxious and this should slow down her weight loss by adjusting dose. ----- Message ----- From: Yair, Background User Sent: 04/11/2025 5:53 PM EDT To: JANA Coley * Telephone Encounter - Carolyn Abebe CMA - 04/14/2025 11:25 AM EDT Spoke with the patient and she understands documented in this encounterSelect Medical [facility]06-16-2025 Telephone encounter Note* Telephone Encounter - Courtney Evans CMA - 04/14/2025 11:25 AM EDT ----- Message from JANA Solomon sent at 04/14/2025 8:48 AM EDT ----- Her thyroid is low or over-replaced so we will go down a little with dose of her Synthroid. Have her start new dose right away so we can re-check her blood work at [facility] in April. She does not need to fast. This could be partially why she feels anxious and this should slow down her weight loss by adjusting dose. ----- Message ----- From: Lab, Background User Sent: 04/11/2025 5:53 PM EDT To: JANA Coley [facility]06-16-2025 Telephone encounter Note* Telephone Encounter - Carolyn Abebe CMA - 04/14/2025 11:25 AM EDT Spoke with the patient and she understands [facility]06-13-2025 History of Present illness Narrative* JANA Coley - 04/11/2025 9:40 AM EDT [address] [facility] [address] Patient: Reina Anna Date of : 1955 Encounter Date: 04/11/2025 [...] felt better. Her son is out of halfway since September and has moved in with [...] 07/03/2019 Performed by Jamari Cox DO at [facility] LAPROSCOPIC ULTRASOUND GUIDED MICROWAVE ABLASION OF [...] TABLET BY MOUTH IN THE MORNING 90 tablet1 rosuvastatin (CRESTOR) 5 mg tablet Take 1 [...] total) by mouth daily as needed for anxiety.7 tablet 0 No current facility-administered medications for [...] COLEY APRN-CNP 04/11/25 1010 documented in this encounterSelect Medical [facility]05-28-2025 Miscellaneous Notes* Telephone Encounter - JANA Coley - 03/26/2025 9:58 AM EDT Pt needs appt - CV/MAW documented in this encounterSelect Medical [facility]05-28-2025 Telephone encounter Note* Telephone Encounter - JANA Coley - 03/26/2025 9:58 AM EDT Pt needs appt - CV/MAW [facility]04-07-2025 History of Present illness Narrative* Kendra Meyer, JANA - 02/03/2025 11:25 AM EDT Images from the original note were not [...] - Anterior, Right Lower Leg - Anterior [place] scaly plaques in areas of edema The patient was informed that stasis dermatitis is a chronic rash on the lower legs due to swellingoften caused by poor circulation. The patient was instructed to keep the legs elevated when seated,avoid standing for long periods of time, and to wear compression stockings. Advised patient there is no treatment to fully remove the discoloration. Patient can try laser treatment if bothersome, recommended seeing Dr. Holley. Notify clinic if failing to improve despite treatment. 3. Seborrheic keratosis, inflamed Right Parotid Area [place] and brown stuck on verrucous scaly papule [...] office if abnormal redness or tenderness develops atthe treatment site. Cryotherapy today, see procedure note. Diagnosis: Inflamed seborrheic keratosis Indication: Inflamed Consent: Verbal consent was obtained and risks were discussed, including, but not limited to risks of scarring, darker or automobile repossessor pigmentary changes, recurrence, incomplete removal and infection. [...] 6 month skin check documented in this encounterExcelsior Springs Medical [id number] History of Present illness Narrative* JANA Coley - 11/08/2024 10:40 AM EST [address] [facility] [address] Patient: Reina Anna Date of : 1955 Encounter Date: 11/08/2024 [...] in a few years but wants to st op the budesonide. She states her colitis is resolved and she has not had any episodes since she retired a few years ago. She is under much less stress. She did start a new job working 20 hours per week at [employer] and she enjoys this and it is [...] 07/03/2019 Performed by Jamari Cox DO at [facility] LAPROSCOPIC ULTRASOUND GUIDED MICROWAVE ABLASION OF [...] 57.6 kg (127 lb) SpO2 96% BMI 24.00kg/m Physical Exam Vitals reviewed. Constitutional: Appearance: Normal [...] return to her GI specialist but she doesnot wish to do this at this time. If her GI symptoms start to become uncontrolled again she will let me know for a new referral. Patient should continue with the Fosamax once a week. We should consider rescreening her for DEXA in the next 1-2 years. Follow-up sometime this year for Medicare wellness. JANA COLEY APRN-CNP 11/08/24 1405 documented in this encounterSelect Medical [facility]12-06-2024 History of Present illness Narrative* JANA Coley - 10/04/2024 9:20 AM EST [address] [facility] [address] Patient: Reina Anna Date of : 1955 Encounter Date: 10/04/2024 [...] no longer seeing her GI specialist in [place] on a routine basis but continues 1 [...] 07/03/2019 Performed by Jamari Cox DO at [facility] LAPROSCOPIC ULTRASOUND GUIDED MICROWAVE ABLASION OF [...] by mouth oncea week. 90 capsule 1 sulfaSALAzine (AZULFIDINE) 500 [...] carafate and only taking sulfasalazine once daily. Hercolitis is much better since she retired. She no longer wishes to see GI but was encouraged by thisprovider to f/u at least once per year as the sulfasalazine is not something we usually prescribingprimary care. She agrees to make an appointment [...] taking vitamin-D so we will restart this 30716 units once weekly. Return to office in 1 month to recheck BMP and blood pressure. JANA COLEY APRN-CNP 10/04/24 1006 documented in this encounterSelect Medical [facility]09-24-2024 Miscellaneous Notes* Telephone Encounter - Poly Hudson CMA - 07/23/2024 9:35 AM EDT ----- Message from JANA Solomon sent at 07/22/2024 9:33 PM EDT ----- Her thyroid function was normal as well as her electrolytes, kidney function and her potassium is now normal. No changes to her medications. * Telephone Encounter - Poly Hudson CMA - 07/23/2024 9:35 AM EDT Spoke with pt. Pt verbalizes understanding. documented in this encounterSelect Medical [facility]09-24-2024 Telephone encounter Note* Telephone Encounter - Poly Hudson CMA - 07/23/2024 9:35 AM EDT ----- Message from JANA Solomon sent at 07/22/2024 9:33 PM EDT ----- Her thyroid function was normal as well as her electrolytes, kidney function and her potassium is now normal. No changes to her medications. [facility]09-24-2024 Telephone encounter Note* Telephone Encounter - Poly Hudson CMA - 07/23/2024 9:35 AM EDT Spoke with pt. Pt verbalizes understanding. [facility]09-20-2024 History of Present illness Narrative* JANA Coley - 07/19/2024 11:20 AM EDT Subjective Reina Anna is a 69 y.o. female who presents for a Welcome to Medicare visit. Pt has no complaints but is unaware of the medications she takes. She wants to return to office andbring her medication bag in to review. Patient is retired from [employer]. She is not enjoying intermediate and misses [...] 07/03/2019 Performed by Jamari Cox DO at [facility] LAPROSCOPIC ULTRASOUND GUIDED MICROWAVE ABLASION OF [...] (3 mg total) by mouth in the morning.This is an updated prescription she does need [...] with the phone, transportation, shopping, preparing meals, housework,laundry, medications or managing money? No 3. Does the patient's home have rugs in the hallway, lack grab bars in the bathroom, lack handrailson the stairs or have poor lighting? No [...] agrees to have mammogram done at the [facility], has no new skin changes, is up-to-date on her colorectal cancer screening, no longer wishes to have her Pap smear done. It was recommended that she perform self-breast exams. Patient should return to the office in the next few months to reconcile her medications, bring those to the office so we can review. JANA Coley 07/19/24 1337 documented in this encounterSelect Medical [facility]08-05-2024 Miscellaneous Notes* Telephone Encounter - JANA Coley - 06/03/2024 4:30 PM EDT Pt needs her BMP re-checked as her potassium is high. Her potassium pill should be on hold. She is due for appt but can do this ahead of appt * Telephone Encounter - Yara Cheek CMA - 06/03/2024 4:30 PM EDT LM for Pat to call and schedule apt and to have BMP checked. documented in this encounterSelect Medical [facility]08-05-2024 Telephone encounter Note* Telephone Encounter - JANA Coley - 06/03/2024 4:30 PM EDT Pt needs her BMP re-checked as her potassium is high. Her potassium pill should be on hold. She is due for appt but can do this ahead of appt [facility]08-05-2024 Telephone encounter Note* Telephone Encounter - Yara Cheek CMA - 06/03/2024 4:30 PM EDT LM for Pat to call and schedule apt and to have BMP checked. [facility]08-05-2024 Miscellaneous Notes* Telephone Encounter - Courtney Evans CMA - 06/03/2024 1:58 PM EDT Just calling to get Wellness visit scheduled documented in this encounterSelect Medical [facility]08-05-2024 Telephone encounter Note* Telephone Encounter - Courtney Evans CMA - 06/03/2024 1:58 PM EDT Just calling to get Wellness visit scheduled [facility]05-03-2024 History of Present illness Narrative* Sadie Raines, PATI-ROOF TRUSS MACHINE TENDER - 03/01/2024 8:40 AM EDT Subjective Patient ID: Reina Anna is a 68 y.o. female. 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 Review of Systems Constitutional: Negative. [...] with it F/u 6 months for htn NohemiNohemy Raines APRN-GERRI 03/01/24 1137 documented in this [facility]03-19-2024 Miscellaneous Notes* Telephone Encounter - Courtney Evans CMA - 01/16/2024 11:47 AM EDT Pt called and needs a refill on FOSAMAX. Pharmacy is listed and correct * Telephone Encounter - Jamari Cox DO - 01/16/2024 11:47 AM EDT I think they meant to send this to you. documented in this [facility]03-19-2024 Telephone encounter Note* Telephone Encounter - Courtney Evans CMA - 01/16/2024 11:47 AM EDT Pt called and needs a refill on FOSAMAX. Pharmacy is listed and correct [facility]03-19-2024 Telephone encounter Note* Telephone Encounter - Jamari Cox DO - 01/16/2024 11:47 AM EDT I think they meant to send this to you. [facility]01-22-2024 History of Present illness Narrative* Sadie Raines, CASHIER ASSISTANT-ROOF TRUSS MACHINE TENDER - 11/20/2023 4:00 PM EST Subjective Patient ID: Reina Anna is a 68 y.o. female. Here today to get back on her celebrex She is still having a lot of neck pain despite being retired She had been on it before but was using it with prednisone and got petitichae so stopped, not usingprednisone anymore We reviewed all of her medication [...] past medical history, past social history, past surgicalhistory, problem list, and medication reconciliation was completed including current medication andpost discharge medication. Review of Systems Constitutional: Positive [...] tablet (75 mcg total) by mouth in themorning. Age-related osteoporosis with current pathological fracture with [...] restart this as well DHRUV Damon 11/20/23 9243 documented in this [facility]* Encounter Date Diagnosis Assessment Notes Treatment Notes Treatment Clinical Notes Oct, Collagenous colitis (ICD-10 - K5 2.831) patient to stop buedesonide. patient to take 2 pepto bismol tablets 4 times daily if diarrhea returns. NOBOT Other 07-19-2022 Evaluation note* Encounter Date Diagnosis Assessment Notes Treatment Notes Treatment Clinical Notes Apr, Collagenous colitis (ICD-10 - K5 2.831) NOBOT Other 12-08-2021 Evaluation note* Encounter Date Diagnosis Assessment Notes Treatment Notes Treatment Clinical Notes Sep, Collagenous colitis (ICD-10 - K5 2.831) CONTINUE BUDESONIDE 1 PO Q AM WITHOUT CHANGE F/U HERE ONE YEAR NOBOT Other Evaluation noteNo InformationNort Vivox Other Evaluation note* Diagnosis Essential hypertension- Primary Unspecified essential hypertension Chronic nonspecific colitis Age-related osteoporosis without current pathological fracture documented [facility] this [facility] Diagnosis Acquired hypothyroidism Unspecified hypothyroidism documented in this encounter [facility]* Diagnosis Essential hypertension- Primary Unspecified essential hypertension Mixed hyperlipidemia Hypothyroidism (acquired) Unspecified hypothyroidism Other eczema Chronic neck pain Cervicalgia documented in this encounter [facility]* Diagnosis Hypokalemia- Primary Hypopotassemia Adverse effect of unspecified drugs, medicaments and biological substances, subsequent encounter documented in this encounter [facility]* Diagnosis Essential (primary) hypertension Unspecified essential hypertension documented in this encounter [facility]* Diagnosis Essential hypertension- Primary Unspecified essential hypertension Chronic neck pain Cervicalgia Acquired hypothyroidism Unspecified hypothyroidism Age-related osteoporosis with current pathological fracture with routine healing Encounter for screening mammogram for malignant neoplasm of breast documented in this encounter [facility]* Diagnosis Adverse effect of unspecified drugs, medicaments and biological substances, subsequent encounter documented in this encounter [facility]* Diagnosis Localized edema Edema Hyperlipidemia, unspecified documented in this encounter [facility]* Diagnosis Hyperkalemia- Primary Hyperpotassemia documented in this encounter [facility] note* Diagnosis Medicare annual wellness visit, initial- Primary Hyperkalemia Hyperpotassemia Hypothyroidism (acquired) Unspecified hypothyroidism Influenza vaccination administered at current visit Encounter for screening mammogram for malignant neoplasm of breast Depression screening documented in this encounter [facility] note* Diagnosis Localized edema Edema documented in this encounter [facility] note* Diagnosis Essential (primary) hypertension Unspecified essential hypertension documented in this encounter [facility] note* Diagnosis Essential hypertension- Primary Unspecified essential hypertension Vitamin D deficiency Hypokalemia Hypopotassemia Hypothyroidism (acquired) Unspecified hypothyroidism documented in this encounter [facility]* Diagnosis Other nonthrombocytopenic purpura- Primary Stasis dermatitis of both legs Seborrheic keratosis, inflamed documented in this encounter [facility]* Diagnosis Hyperlipidemia, unspecified documented in this [facility]* Diagnosis Anxiety- Primary Anxiety state, unspecified Essential hypertension Unspecified essential hypertension Acquired hypothyroidism Unspecified hypothyroidism Hyperkalemia Hyperpotassemia documented in this encounter [facility]* Diagnosis Anxiety- Primary Anxiety state, unspecified Essential hypertension Unspecified essential hypertension documented in this encounter [facility]* Diagnosis Essential hypertension- Primary Unspecified essential hypertension Hypothyroidism (acquired) Unspecified hypothyroidism documented in this encounter [facility]* Diagnosis Hiatal hernia- Primary Diaphragmatic hernia without mention of obstruction or gangrene documented in this encounter [facility]* Diagnosis Hypothyroidism (acquired)- Primary Unspecified hypothyroidism documented in this [facility]* Diagnosis Hypothyroidism (acquired)- Primary Unspecified hypothyroidism Essential hypertension Unspecified essential hypertension Influenza vaccination administered at current visit Anxiety Anxiety state, unspecified Encounter for screening mammogram for malignant neoplasm of breast documented in this encounter [facility] SystemHistory general Narrative - Reported* Type Description Date Medical History HTN Medical HistoryArthritisSurgical Historyuterine ablation NOBOT Other History general Narrative - Reported* Type Description Date Medical History HTN Medical HistoryArthritisMedical Historyulcerative colitisSurgical Historyuterine ablation NOBOT Other InstructionsNot on filedocumented in this encounter [...] Health SystemInstructionsNot on filedocumented in this encounter [facility] SystemInstructions* Attachments The following attachments cannot be sent through Care Everywhere. * Escitalopram, ADULT (Bolivian) * Lorazepam, ADULT ([place]ian) documented in this encounter[facility] SystemInstructionsNot on file documented in this encounterProAdena [facility] SystemInstructions* Attachments The following attachments cannot be sent through Care Everywhere. * DASH diet (B[place]ivian) * Heart-healthy diet ([place]ivian) * Controlling your blood pressure through lifestyle ([place]ivian) documented in this encounterProAdena [facility] SystemInstructionsNot on file documented in [facility] Summary Purpose Family History No Family History Records FoundNo Family History Records FoundNo Family History Records FoundNo Family History Records FoundNo Family History Records Found Advance Directives Date ActivatedDate InactivatedComments06/27/2019 8:12 PM06/28/2019 7:18 PMCode StatusDate ActivatedDate InactivatedCommentsFull Code06/27/2019 8:12 PM06/28/2019 7:18 PMDate ActivatedDate InactivatedComments06/27/2019 8:12 PM06/28/2019 7:18 PM Additional Source Comments Source Comments (unrecognize d section and content) In the event this informatio n is protected by the Federal Confidentiality of Alcohol and Drug Abuse Patient Records regulations: The Federal rules restrict any use of the information to criminally investigate or prosecute any alcohol or drug abuse patient.[facility] HospitalIn the event this information is protected by the Federal Confidentiality of Alcohol and Drug Abuse Patient Records regulations: The Federal rules restrict any use of the information to criminally investigate or prosecute any alcohol or drug abuse patient.[facility] HospitalIn the event this information is protected by the Federal Confidentiality of Alcohol and Drug Abuse Patient Records regulations: The Federal rules restrict any use of the information to criminally investigate or prosecute any alcohol or drug abuse patient.[facility] INFORMATION SOURCE (unrecogn ized section and content) DATE CREATED AUTHOR 02/10/2022 [facility] DATE CREATED AUTHOR AUTHOR'S ORGANIZ ATION 08/06/2022 [facility] DATE CREATED AUTHOR AUTHOR'S ORGANIZ ATION 07/22/2024 [facility] DATE CREATED AUTHOR AUTHOR'S ORGANIZ ATION 02/04/2025 [facility] EP[facility] DATE CREATED AUTHOR AUTHOR'S ORGANIZ ATION 08/16/2025 [facility] REASON FOR VISIT (unrecogniz ed section and content) ReasonCommentsBP checkReasonCommentsMed RefillReasonCommentsHypertension HypothyroidismChronic neck painReasonCommentsArthritisMedication discussion ReasonOnset DateCommentsMed Wobopi244ReasonOnset DateCommentsMed Refill 4ReasonCommentsFollow-upWellness? , tug is 8 secReasonOnset Date CommentsMed Qophqz994ReasonOnset DateCommentsMed Qrlyco304Reason CommentsHypertensionMemory?ReasonOnset DateCommentsMed Gxcjhm0412/20/2024Reason Onset DateCommentsMed Wmkwnm7203/26/2025ReasonCommentsAnxietycvHypertension HyperlipidemiarefillsReasonCommentsF/U anxietyReasonCommentsfollow up from er TBHJuly 27- HypertensionReasonCommentsF/U BPReasonCommentsf/u BP/ Thyroid Care Teams (unrecognized sec tion and content) Team MemberRelationshipSpecialtyStart DateEnd Date Belem Ordonez, CASHIER ASSISTANT-SERVOMECHANISM ASSEMBLER [address] [place] [address] PCP - GeneralInternal Medicine04/06/24Team MemberRelationshipSpecialtyStart Date End Date Belem Ordonez, CASHIER ASSISTANT-SERVOMECHANISM ASSEMBLER [address] [place] [address] PCP - GeneralInternal Medicine04/06/24Team MemberRelationshipSpecialtyStart Date End Date Jamari Cox DO [address] [place] [address] PCP - GeneralInternal Medicine06/27/19Team MemberRelationshipSpecialtyStart Date End Date Jamari Cox DO [address] [place] [address] PCP - GeneralInternal Medicine06/27/19Team MemberRelationshipSpecialtyStart Date End Date Jamari Cox DO [address] [place] [address] PCP - GeneralInternal Medicine06/27/19Team MemberRelationshipSpecialtyStart Date End Date Jamari Cox DO [address] [place] [address] PCP - GeneralInternal Medicine06/27/19Team MemberRelationshipSpecialtyStart Date End Date Jamari Cox DO [address] [place] [address] PCP - GeneralInternal Medicine06/27/19am MemberRelationshipSpecialtyStart Date End Date Jamari Cox DO [address] [place] [address] PCP - GeneralInternal Medicine06/27/19am MemberRelationshipSpecialtyStart Date End Date Belem Ordonez, CASHIER ASSISTANT-SERVOMECHANISM ASSEMBLER [address] [place] [address] PCP - GeneralInternal Medicine04/06/24am MemberRelationshipSpecialtyStart Date End Date Belem Ordonez CASHIER ASSISTANT-SERVOMECHANISM ASSEMBLER [address] [place] [address] PCP - GeneralInternal Medicine04/06/24am MemberRelationshipSpecialtyStart Date End Date Belem Ordonez CASHIER ASSISTANT-SERVOMECHANISM ASSEMBLER [address] [place] [address] PCP - GeneralInternal Medicine04/06/24am MemberRelationshipSpecialtyStart Date End Date Belem Ordonez CASHIER ASSISTANT-SERVOMECHANISM ASSEMBLER [address] [place] [address] PCP - GeneralInternal Medicine04/06/24am MemberRelationshipSpecialtyStart Date End Date Belem Ordonez CASHIER ASSISTANT-SERVOMECHANISM ASSEMBLER [address] [place] [address] PCP - GeneralInternal Medicine04/06/24Team MemberRelationshipSpecialtyStart Date End Date Belem Ordonez, CASHIER ASSISTANT-[facility] [address] [place] [address] PCP - [facility]Ch[facility] Medical Centernal [facility]04/06/24 MemberRelationshipSpecialtyStart Date End Date Belem Ordonez CASHIER ASSISTANT-[facility] [address] [place] [address] PCP - GeneralChandler [facility] Medical Centernal Medicine04/06/24Te MemberRelationshipSpecialtyStart Date End Date Belem Ordonez [facility] [address] [place] [address] [facility]04/06/24Te MemberRelationshipSpecialtyStart Date End Date Belem Ordonez, CASHIER ASSISTANT-[facility] [address] [place] [address] [facility] - [facility]04/06/24Te MemberRelationshipSpecialtyStart Date End Date Belem Ordonez CASHIER ASSISTANT-[facility] [address] [place] [address] PCP - [facility]Ch[facility] Centern[facility] Medicine04/06/24Te MemberRelationshipSpecialtyStart Date End Date Belem Ordonez, CASHIER ASSISTANT-SERVOMECHANISM ASSEMBLER [address] [place] [address] PCP - [facility]Ch[facility] Centern[facility]04/06/24Te MemberRelationshipSpecialtyStart Date End Date Belem Ordonez CASHIER ASSISTANT-SERVOMECHANISM ASSEMBLER [address] [place] [address] PCP - GeneralInternal Medicine04/06/24Te MemberRelationshipSpecialtyStart Date End Date [facility] [address] [place] [address] [facility]04/06/24Te MemberRelationshipSpecialtyStart Date End Date Belem Ordonez [facility] [address] [place] [address] [facility]04/06/24Te MemberRelationshipSpecialtyStart Date End Date Dagoberto Ordonezcarlitos Arana [facility] [address] [place] [address] [facility]04/06/24 FOR RECORDS PERTAINING TO PATIENTS WHO ARE [...] BE BASED ON THE PRIMARY CLINICAL RECORDS. [facility]. provides no warranty or guarantee of the accuracy or completeness of information in this document.
--- OUTSIDE RECORDS SUMMARY | 2025-09-22 08:05 | XMS_ITS | Clinical Summary ---
Author Organization [id number] [id number] [address] [place] [address] Care Team Providers Care Cabinet Finisher Name Role Phone Michael, Belem Arana APRN-METAL COATER Primary Care Provider + Allergies No known active allergies Medications MedicationSigDispense QuantityRefillsLast FilledStart DateEnd DateStatus cholecalciferol (VITAMIN D3) 50,000 units capsule Take 1 capsule (50,000 Units total) by mouth once a week. 90 capsule 4Active rosuvastatin (CRESTOR) 5 mg tablet Indications:Hyperlipidemia, unspecifiedTake 1 tablet (5 mg total) by mouth in the morning. 90 tablet 5Active alendronate (FOSAMAX) 70 mg tablet Take 1 tablet (70 mg total) by mouth every 7 days. In a.m. with water on empty stomach, nothing else by mouth and remain upright for 30min 12 tablet 5Active celecoxib (CeleBREX) 200 mg capsule Take 1 capsule (200 mg total) by mouth daily as needed for pain. TAKE 1 CAPSULE BY MOUTH IN THE MORNING 90 capsule 5Active escitalopram (LEXAPRO) 20 mg tablet Take 1 tablet (20 mg total) by mouth in the evening. 90 tablet 5Active losartan (COZAAR) 100 mg tablet Take 1 tablet (100 mg total) by mouth in the morning. 90 tablet 5Active amLODIPine (NORVASC) 5 mg tablet Take 1 tablet (5 mg total) by mouth in the morning. 90 tablet 5Active Active Problems ProblemNoted DateDiagnosed DateHiatal gwnezv4606/20/20256069Sqeutjacwlh01/06/2024ge- related osteoporosis with current pathological fracture with routine healing 06/20/2023losed fracture of multiple ribs of right side with routine healing 06/20/2023Tobacco dependence kaerhmyh51/12/2022Vitamin D xukoxszqye64/15/2022 Hypothyroidism (acquired)07/14/20223997Yrcpfjygvpcioh85/13/2022pontaneous vkepcfqpur99/25/2021hronic neck pain06/23/2020Collagenous rynlukk0807/08/2019 Chronic nonspecific mbwfgbl1007/03/2019Diarrhea with nmjvcyjgojx39/30/2019Acute kidney czvzue9306/27/2019Vitamin D czafodvsoj39/04/2019Essential hypertension 01/16/2018 Resolved Problems ProblemNoted DateDiagnosed DateResolved NdgvCummgkfabozzis24/26/202010/12/2022 Encounters DateTypeDepartmentCare AvjcVivjbubcygq55/17/2025Results Follow-Up [facility] [address] [place] [address] Ann-Marie Hamilton CMA Thyroid antibodies includes TPO and TGAB, Thyroid profile includes TSH FT4 08/14/2025 4:20 PM EDTOffice Visit [facility] [address] [place] [address] Belem Rodriguez COLLISION ESTIMATOR-ELIAZAR Hypothyroidism (acquired) (Primary Dx); Essential hypertension; Influenza vaccination administered at current visit; Anxiety; Encounter for screening mammogram for malignant neoplasm of cieecy6408/14/2025 Tokrlt2307/07/2025Results Follow-Up [facility] [address] [place] [place] [address] Belem Rodriguez APRN-METAL COATER Thyroid profile includes TSH FT 3:40 PM EDTOffice Visit [facility] [address] [place] [address] Belem Rodriguez COLLISION ESTIMATOR-METAL COATER Hypothyroidism (acquired) (Primary Dx)07/03/20253876Lykjyy67/29/2025Orders Only [facility] [address] [place] [address] Belem Rodriguez, PATI-METAL COATER from Last 3 Months Immunizations ImmunizationAdministration DatesNext DueInfluenza (IM) Preservative Free 08/31/2015Influenza, Injectable, MDCK, Ymiticklzbfz82/14/2019Influenza, Injectable, Etoefkimwpto83/22/2018,08/29/2017Influenza, Injectable, quadrivalent (PF)08/28/2023,09/16/2021,08/28/2020Influenza, Trivalent, Iysghlimwf01/16/2025, 07/19/2024Tdap07/13/2012Zoster Vaccine Gkqzpjovqyf57/19/2024,09/16/2023 Family History Medical HistoryRelationNameCommentsHeart attackFatherGlaucomaMotherHip fracture MotherRelationNameStatusCommentsBrotherAliveFatherDeceasedMotherDeceasedSister 1 AliveSister 2AliveSister 3Alive Social History Tobacco UseTypesPacks/DayYears UsedDateSmoking Tobacco: FormerCigarettes0.527.6 Started: 02/25/1998Smokeless Tobacco: Never Tobacco Cessation:Counseling Given: Not Answered Alcohol UseStandard Drinks/WeekCommentsYes0 (1 standard drink = 0.6 oz pure alcohol)sociallyPHQ-2AnswerDate RecordedTotal Mhkqm411/16/2025ChildcareAnswer Date QalmkxyqFtdplirwsYoqtexv62/12/2019EmploymentAnswerDate RecordedEmployment Iyczhnt2604/10/2019Hunger ScreeningAnswerDate RecordedWithin the past 12 months we worried whether our food would run out before we got money to buy more.Never True08/14/2025Within the past 12 months the food we bought just didn't last and we didn't have money to get more.Never True08/14/2025Purpose - LifeAnswerDate RecordedPurpose and direction in mvomSmthbwv38/11/2021CommentsNoSex and Gender InformationValueDate RecordedSex Assigned at BirthNot on fileLegal Sex Oicpbd7406/04/2015 11:24 AM EDTGender IdentityNot on fileSexual OrientationNot on file Last Filed Vital Signs Vital SignReadingTime TakenCommentsBlood Leajnpnw450/801 4:20 PM EDT Hjext019108/14/2025 4:20 PM CRTYnsnybkzkfl42.3 ??C (97.4 ??F)08/14/2025 4:20 PM EDTRespiratory Pvhe0025 4:20 PM EDTOxygen Sktteuobly76%08/14/2025 4:20 PM EDTInhaled Oxygen Concentration--Rerhuj81.6 kg (105 lb)08/14/2025 4:20 PM EDT Xpednv085.9 cm (5' 0.98 )08/14/2025 4:20 PM EDTBody Mass Index19.8508/14/2025 4:20 PM EDT Plan of Treatment DateTypeDepartmentCare Team (Latest Contact Info)Fnowdufcelv39/11/2025 3:40 PM ESTOffice Visit [facility] [address] [place] [address] Belem Rodriguez, COLLISION ESTIMATOR-METAL COATER [address] [place] [address] Health MaintenanceDue DateLast DoneCommentsMedicare Annual Wellness Visit MammogramFall Risk Zvjxmzhre80/04/2026 07/03/2025dult BMI Cahqtkzrh62Depression Kpcikyaqa47/16/2026 08/14/2025Tobacco Cxozogcjy86RSV ( or age 60+ yrs) (1 - 1-dose 75+ series)2DTaP,Tdap and Td Vaccines (3 - Td or Tdap) 5007/20/2025, 07/13/2012COVID-19 SmqltpnEpjtdiasjyfc40/17/2021, 02/22/2021Zoster (Shingles) RnhcldaRcndniwjq90/19/2024, 09/16/2023Influenza WlshgyaZkbdaayip97/16/2025, 07/19/2024, 08/28/2023, Additional history exists Medical Devices Not on file Procedures Procedure NamePriorityDate/TimeAssociated DiagnosisCommentsTHYROID PROFILE INCLUDES TSH PS4Evewbgc30/16/2025 4:58 PM EDT Hypothyroidism (acquired) THYROID ANTIBODIES INCLUDES TPO AND XVSBAkoimjm14/16/2025 4:58 PM EDT Hypothyroidism (acquired) THYROID PROFILE INCLUDES TSH SZ0Hvorwmv63/04/2025 4:03 PM EDT Hypothyroidism (acquired) MAMM SCREENING BILATERAL W OODAzbggsl42/27/2024 11:08 AM EDT Encounter for screening mammogram for malignant neoplasm of breast from Last 3 Months or Most Recently Relevant to Health Maintenance Results * Thyroid antibodies includes TPO and TGAB (08/14/2025 4:58 PM EDT)Component ValueRef RangeTest MethodAnalysis TimePerformed AtPathologist Signature THYROPEROXIDASE AB<1<10 IU/mL08/14/2025 11:14 PM [facility] LABORATORYTHYROGLOBULIN AB<1<4 IU/mL08/14/2025 11:14 PM [facility] LABORATORYSpecimen (Source)Anatomical Location / LateralityCollection Method / VolumeCollection TimeReceived TimeBloodVenous blood / Unknown 08/14/2025 4:58 PM EDT1 4:58 PM EDT Narrative Authorizing ProviderResult TypeResult StatusBelem Rodriguez COLLISION ESTIMATOR-CNPLAB BLOOD ORDERABLESFinal ResultPerforming OrganizationAddressCity/State/ZIP CodePhone Number [facility] [address] [place] [address], * Thyroid profile includes TSH FT4 (08/14/2025 4:58 PM EDT) Only the most recent of2 resultswithin the time period is included. ComponentValueRef RangeTest MethodAnalysis TimePerformed AtPathologist Signature FREE T40.770.61 - 1.60 ng/dL08/14/2025 10:55 PM [facility] LABORATORYTSH1.880.49 - 4.67 uIU/mL08/14/2025 10:55 PM [facility] LABORATORYSpecimen (Source)Anatomical Location / LateralityCollection Method / VolumeCollection TimeReceived TimeBloodVenous blood / Alttcbw7908/14/2025 4:58 PM EDT1 4:58 PM EDT Narrative Authorizing ProviderResult TypeResult StatusBelem Rodriguez COLLISION ESTIMATOR-CNPLAB BLOOD ORDERABLESFinal ResultPerforming OrganizationAddressCity/State/ZIP CodePhone Number [facility] [address] [place] [address], * Mammography screening bilateral with CAD (07/26/2024 11:08 AM EDT)Anatomical RegionLateralityModalityBreastBilateralMammography Narrative Authorizing ProviderResult TypeResult StatusBelem Rodriguez COLLISION ESTIMATOR-CNPIMG MAMMOGRAPHY ORDERABLESFinal Result from Last 3 Months or Most Recently Relevant to Health Maintenance Insurance Advance Directives * Full Code (Latest Code Status on File) Date ActivatedDate InactivatedComments06/27/2019 8:12 PM06/28/2019 7:18 PM Care Teams Team MemberRelationshipSpecialtyStart DateEnd Date Belem Rodriguez, COLLISION ESTIMATOR-METAL COATER [address] [place] [address] PCP - GeneralInternal Medicine04/06/24
--- OUTSIDE RECORDS SUMMARY | 2025-09-22 08:05 | XMS_ITS | Clinical Summary ---
Author Organization [facility] Address [address] [place] [id number] Care Team Providers Care Professional Architect Name Role Phone Sadie Ferro ELIAZAR Primary Care Provider [phone] Allergies No known active allergies Medications MedicationSigDispense QuantityRefillsLast FilledStart DateEnd DateStatus amLODIPine (NORVASC) 10 mg tablet Take 10 mg by mouth once daily.Active budesonide (ORTIKOS) 6 mg capsule, extended release Take 3 mg by mouth every morning.Active pyrilamine-dextromethorphan (CAPRON DMT) 30-30 mg tab Take by mouth.Active celecoxib (CELEBREX) 200 mg capsule Take 200 mg by mouth twice daily.Active cholecalciferol, vitamin D3, 125 mcg/0.5 mL (5K unit/0.5mL) drop Take by mouth.Active cyclobenzaprine (FLEXERIL) 10 mg tablet Take 10 mg by mouth twice daily as needed.Active Fluticasone Furoate 27.5 mcg/actuation nasal spray Use 2 Sprays in each nostril once daily.Active hydroCHLOROthiazide (HYDRODIURIL, ESIDRIX) 12.5 mg tablet Take 12.5 mg by mouth once daily.Active ammonium lactate (LAC-HYDRIN FIVE) 5 % lotn Apply to affected area as needed.Active levothyroxine (LEVOXYL) 50 mcg tablet Take 50 mcg by mouth daily before breakfast.Active potassium chloride (KLOR-CON 10) 10 mEq tablet Take 10 mEq by mouth twice daily.Active Active Problems ProblemNoted DateDiagnosed DateEcchymosis on vetpbkskber25/05/2021Thinning of skin11/03/2020 Immunizations ImmunizationAdministration DatesNext Dueinfluenza (IIV4) vaccine, age 6 mo - 64 yr, quadrivalent, PF (AFLURIA, FLUARIX, FLULAVAL, FLUZONE)08/28/2020,09/12/2019, 08/31/2015tetanus diphtheria pertussis (Tdap) vaccine, age 7+ yr (ADACEL, BOOSTRIX)07/13/2012 Social History Tobacco UseTypesPacks/DayYears UsedDateSmoking Tobacco: FormerCigarettes0.510 Smokeless Tobacco: NeverAlcohol UseStandard Drinks/WeekCommentsYes0 (1 standard drink = 0.6 oz pure alcohol)Area Deprivation IndexAnswerDate RecordedNational Score (1-100), lower number is lower riskNot on file10/29/2020State Score (1- 10), lower number is lower riskNot on file10/29/2020Data from: https://www.neighborhoodatlas.[facility].edu/. Last address used for calculationNot on file10/29/2020CommentsNoSex and Gender Information ValueDate RecordedSex Assigned at BirthNot on fileLegal VijRhyuwv70/22/2020 3:01 PM ESTGender IdentityNot on fileSexual OrientationNot on file Last Filed Vital Signs Vital SignReadingTime TakenCommentsBlood Lkjcekvs391/8810/29/2020 8:22 AM EST Uowbl79014/31/2020 8:22 AM RMNClpvvivtqoi07.7 ??C (98 ??F)10/29/2020 8:22 AM EST Respiratory Dffm8063 8:22 AM ESTOxygen Xsinsviqrq68%10/29/2020 8:22 AM ESTInhaled Oxygen Concentration--Wbhtzh95.5 kg (122 lb 6.4 oz)10/29/2020 8:22 AM CMBLngyps016.5 cm (5' 2 )10/29/2020 8:22 AM ESTBody Mass Index22.391 8:22 AM EST Plan of Treatment Health MaintenanceDue DateLast DoneCommentsAnxiety Koxyrwntz10/17/1975Depression Dlwobjeba09/17/1975Hepatitis C Fymtqqgvz66/17/1975Mammogram Ketnbwbej36/17/1997 CT Zuncmakkilgk25/17/2002Cologuard (FIT-DNA)07/16/20029710Cbbssscuqtv69/17/2002 Colorectal Cancer Ufnpmlvnl82/17/2002Fecal Occult Blood2002Lipid Screening 07/16/20023806Twhjdaiuwxuin68/17/2002Pneumococcal Vaccine: 50+ (1 of 1 - PCV) 2007Shingrix Vaccine (1 of 2)2007DTaP,Tdap,Td Vaccine (2 - Td or Tdap)2012Bone Density Ujkypqyaj99/17/2022Diabetes Screening , 07/15/2019, 06/28/2019, Additional history existsAdvance Directive Ahwternqpr92/01/2025Covid-19 Vaccine ( - 2024- season)2025 Influenza Vaccine (#1), 09/12/2019, 08/20/2018, Additional history existsRSV Vaccine (1 - 1-dose 75+ series)2032 Procedures Procedure NamePriorityDate/TimeAssociated DiagnosisCommentsCOMPREHENSIVE METABOLIC OLGRTBrvtdks43/31/2020 9:19 AM EST Ecchymosis on examination from Last 3 Months or Most Recently Relevant to Health Maintenance Results * (ABNORMAL) COMP METABOLIC PANEL (10/29/2020 9:19 AM EST)ComponentValueRef RangeTest MethodAnalysis TimePerformed AtPathologist SignatureProtein, Total 6.76.3 - 8.0 g/dL10/29/2020 9:55 AM [facility] CareAlbumin4.13.9 - 4.9 g/dL10/29/2020 9:55 AM [facility] CareCalcium9.78.5 - 10.2 mg/dL10/29/2020 9:55 AM [facility] CareBilirubin, Total0.40.2 - 1.3 mg/dL10/29/2020 9:55 AM [facility] CareAlkaline Grlgtuljawk4694 - 123 U/L 10/29/2020 9:55 AM [facility] JifaURP6467 - 35 U/L 10/29/2020 9:55 AM [facility] CtioWlddeob693(H)74 - 99 mg/dL10/29/2020 9:55 AM [facility] Comment: The [place] Diabetes [employer] (ADA) provides guidance for cutoff values for fasting glucose and random glucose. The ADA defines fasting as no caloric intake for at least 8 hours. Fasting plasma glucose results between 100 to 125 mg/dL indicate increased risk for diabetes (prediabetes). Fasting plasma glucose results greater than or equal to 126 mg/dL meet the criteria for diagnosis of diabetes. In the absence of unequivocal hyperglycemia, results should be confirmed by repeat testing. In a patient with classic symptoms of hyperglycemia or hyperglycemic crisis, random plasma glucose results greater than or equal to 200 mg/dL meet the criteria for diagnosis of diabetes. Reference: Standards of Medical Care in Diabetes 2016, [place] [employer]. Diabetes Care. 2016.39(Suppl 1). SWV818 - 21 mg/dL10/29/2020 9:55 AM [facility] Creatinine0.630.58 - 0.96 mg/dL10/29/2020 9:55 AM [facility] UszrNggyqz407163 - 144 mmol/L1 9:55 AM [facility] CarePotassium4.13.7 - 5.1 mmol/L1 9:55 AM [facility] AkhhCffjrmyx41953 - 105 mmol/L1 9:55 AM [facility] WwlqZB86101 - 30 mmol/L1 9:55 AM [facility] CareAnion Gap99 - 18 mmol/L 10/29/2020 9:55 AM [facility] RcfdMTG513 - 38 U/L 10/29/2020 9:55 AM [facility] CareeGFR->6010/29/2020 9:55 AM [facility] CareeGFR- All Other Races>60.10/29/2020 9:55 AM [facility] CareComment: eGFR (Estimated GFR) Units of measure: mL/min/1.73 meters squared eGFR is derived from the reexpressed MDRD Study equation using the following parameters: serum creatinine, age, gender and race. The creatinine assay has been calibrated to be traceable to IDMS. An eGFR <60 mL/min/1.73m2 for >3 months is consistent with chronic kidney disease. Refer to KDOQI guidelines for clinical interpretation. In patients with unstable renal function, e.g. those with acute kidney injury, the eGFR may not accurately reflect actual GFR. Specimen (Source)Anatomical Location / LateralityCollection Method / Volume Collection TimeReceived TimeBloodBLOOD SPECIMEN / Bfgceub9510/29/2020 9:19 AM EST 10/29/2020 9:21 AM EST Narrative Authorizing ProviderResult TypeResult StatusVivek Janae DRISCOLLLABORATORYFinal ResultPerforming OrganizationAddressCity/State/ZIP CodePhone Number [address] [address] [facility] [address] from Last 3 Months or Most Recently Relevant to Health Maintenance Insurance * Guarantor: Jonathan Anna [facility] Hospitalnurys TypeRelation to PatientDate of BirthPhone Billing AddressPersonal/MywppcIium1955 [address] [place] [address] Care Teams Team MemberRelationshipSpecialtyStart DateEnd Date Sadie Ferro, ELIAZAR [address] [place] [address] PCP - GeneralFamily Hbbiunfg19/24/20
== END 2025-09-22 08:01 | disposition home or self-care (01) ==
LOC: RAD 08:01
PROVIDERS: PCP Nurse Practitioner Family; Visit Provider Family Medicine
DX: M81.0 Age-related osteoporosis without current pathological fracture (principal); N95.1 Menopausal and female climacteric states; M85.88 Other specified disorders of bone density and structure, other site
CPT/HCPCS: 77080